=== PATIENT | female | born 1965 | race Caucasian/White ===

== ENCOUNTER → 2020-08-10 17:43 | Outpatient (CLI) | payer BC, SELFPAY ==
--- NOTE | ~2020-08-10 | DEXA_ITS ---
Bone Density Report Name: Mary Horton Age: 55 Sex: Female Ethnicity: White Date of : 1965 Indication: postmenopausal osteoporosis; height loss; Referring Provider: LATRICE ALDANA Study: Bone densitometry was performed. Exam Date: August 10, 2020 Accession number: [id number] Bone Density: Region BMD T-score Z-score Classification AP Spine (L1-L4) 0.705 -3.1 -1.9 Osteoporosis Femoral Neck (Left) 0.568 -2.5 -1.4 Osteoporosis Total Hip (Left) 0.726 -1.8 -1.0 Osteopenia Femoral Neck (Right) 0.578 -2.4 -1.3 Osteopenia Total Hip (Right) 0.674 -2.2 -1.4 Osteopenia Total Hip Mean 0.700 -2.0 -1.2 Osteopenia World Health Organization criteria for BMD impression classify patients as: Normal (T-score at or above -1.0), Osteopenia (T-score between -1.0 and -2.5), or Osteoporosis (T-score at or below -2.5). 10-year Fracture Risk: FRAX not reported because: Some T-score for Spine Total or Hip Total or Femoral Neck at or below -2.5 Previous Exams: Region Exam Age BMD T-score BMD Change BMD Change Date g/cm2 vs Baseline vs Previous AP Spine(L1-L4) 08/10/2020 55 0.705 -3.1 -0.065* -0.065* 12/04/2017 52 0.770 -2.5 Total Hip(Left) 08/10/2020 55 0.726 -1.8 -0.020 -0.020 12/04/2017 52 0.746 -1.6 Total Hip(Right) 08/10/2020 55 0.674 -2.2 -0.032* -0.032* 12/04/2017 52 0.706 -1.9 *Denotes significance at 95% confidence level, LSC for AP Spine = 0.022 g/cm2, LSC for Total Hip = 0.027 g/cm2 Clinical Information Provided by Patient: Has used the following medications: Vitamin D, MTV Patient maximum height was 65.0 Menopause Age: 51 No regular weight bearing exercise Drinks caffeinated beverages Onset of menses at age 11 Number of children 2 Impression: The patient has osteoporosis, based on the Total Spine T-score. The BMD for the AP Spine(L1-L4) decreased, changing by -0.065 since the last DXA exam. The BMD for the Total Hip(Right) decreased, changing by -0.032 since the last DXA exam. Discussion: INCREASED RISK OF FRACTURE. BONE DENSITY IS UNDESIRABLY LOW AT ONE OR MORE SKELETAL SITES, CONSISTENT WITH POSTMENOPAUSAL OSTEOPOROSIS. This patient's lowest T-score meets the World Health Organization's (WHO) criteria for osteoporosis at one or more sites (T-score -2.5 or below). In untreated patients, the risk of osteoporotic fracture increases approximately two-fold for each 1.0 SD decrease in T
--- NOTE | ~2020-08-10 | MM_ITS ---
EXAMINATION: MM screening oly BI w day HISTORY: Screening TECHNIQUE: Craniocaudal and mediolateral oblique 3-D tomosynthesis images were obtained and synthetic 2-D images were generated. CAD analysis was submitted and interpreted. COMPARISON: Comparison to multiple prior studies sequentially, with oldest reviewed study dated 09/14. BREAST PARENCHYMAL COMPOSITION: The breasts are heterogeneously dense, which may obscure small masses . FINDINGS: There is no evidence of suspicious mass, calcification, or architectural distortion to sugg est malignancy in either breast. There has been no suspicious interval change. IMPRESSION: 1. No mammographic evidence of malignancy. 2. Recommend routine screening mammography in one year. BI-RADS Category 1: Negative Reviewed, dictated and finalized at location A. [employer]
== END ==
PROVIDERS: PCP Family Medicine; Visit Provider Obstetrics & Gynecology Gynecology
DX: Z12.31 Encounter for screening mammogram for malignant neoplasm of breast (principal); Z78.0 Asymptomatic menopausal state; M81.0 Age-related osteoporosis without current pathological fracture; M85.852 Other specified disorders of bone density and structure, left thigh; M85.851 Other specified disorders of bone density and structure, right thigh
CPT/HCPCS: 77063; 77067; 77080

== ENCOUNTER 2021-02-09 18:57 | Emergency (ER) | payer BC, SELFPAY ==
--- NOTE | 2021-02-09 19:04 | ED.FEMALEGU ---
HPI - Female Genitourinary General Chief complaint: Urogenital-Female Stated complaint: Urinary freguency, pain when urinating Time Seen by Provider: 02/09/21 19:00 Source: patient and RN notes reviewed Mode of arrival: ambulatory History of Present Illness HPI Narrative: This is a 57-year-old female presented to urgent care with complaints of painful urination, frequency, hematuria that she has had for approximately 1 1/2 week .she was unable to get into her doctor's office so she presented here. She did not take anything at home to relieve her symptoms .the patient denies , vaginal discharge,Suprapubic tenderness, STD, SOB, CP, palpitation, extremity numbness, lightheadedness, dizziness, constipation, diarrhea, chills, or fever. MD elicited complaint: UTI Related Data Home Medications Medication Instructions Recorded Confirmed cholecalciferol (vitamin D3) 1,250 1,250 mcg PO Q10D cap 09/13/20 02/09/21 mcg (50,000 unit) capsule denosumab 60 mg/mL subcutaneous 60 mg SUBCUT [id number] 09/13/20 02/09/21 syringe Allergies Allergy/AdvReac Type Severity Reaction Status Date / Time oxycodone Allergy Severe Altered Verified 02/09/21 19:00 mental status tramadol Allergy Intermediate Confusion Verified 02/09/21 19:00 ibandronate sodium Allergy Mild Joint pain Verified 02/09/21 19:00 Review of Systems Review of Systems: Narrative: A 14 organ system Review of Systems was performed and pertinent positives included in the HPI, otherwise remaining ROS is negative. All systems reviewed & are unremarkable except as noted in HPI and below [facility] Past Medical History Medical History (Updated 02/09/21 @ 19:04 by BERTHA MitchellC) Prediabetes Family History Family History Grandparent Diabetes mellitus Cerebrovascular accident Father Diabetes mellitus Depression Sibling Family history of malignant neoplasm of breast in first degree relative Mother Family history of malignant neoplasm of urinary bladder Other Family history of cardiovascular disease Family history of kidney disease Family history of lung cancer Family history of malignant neoplasm Family history of malignant neoplasm of breast Family history of mental disorder Social History Social History Smoking status: Never smoker Second hand tobacco smoke exposure: No Alcohol intake: never Exam Narrative: Exam Narrative: GENERAL: This is a well-nourished, well-developed patient, in no apparent distress. HEAD: normocephalic, atraumatic. EYES: PERRL. Sclera clear/white. Vision is grossly intact. EARS: External ears normal, auditory canals clear and without drainage, TMs normal without perforation. Hearing grossly intact. NOSE: External nose normal with no obvious nasal discharge, nares without redness, no rhinorrhea. THROAT: Mucous membranes moist, posterior pharynx clear. NECK: Neck supple, non-tender without lymphadenopathy, masses or thyromegaly. CARDIOVASCULAR: Regular rate and rhythm without murmurs, gallops, or rubs. RESPIRATORY: Clear to auscultation. Breath sounds equal bilaterally. No wheezes, rales, or rhonchi. GASTROINTESTINAL: Abdomen soft, non-tender, nondistended. Bowel sounds are active. No hepato-splenomegaly, or palpable masses. No guarding. SKIN: warm, intact with no suspicious lesions or rash, good texture and turgor. NEURO: awake, alert, and oriented to person, place and time. There were no obvious focal neurologic abnormalities. Steady gait EXTREMITIES: Normal range of motion. No edema. No calf tenderness. Negative Homans sign bilaterally. BACK: Nontender without deformity or crepitance. No flank tenderness. Course Course Emergency Course: Patient will discharge home with Bactrim 100 mg twice daily x7 days Vital Signs Vital signs: Vital Signs Temperature 98.2 F 02/09/21 19:05 Pulse Rate
[2021-02-09 19:05] VITALS: BP 131/79; PULSE 63; RESP 17; TEMP 36.8; O2SAT 100
[2021-02-09 19:28] VITALS: BP 131/79; PULSE 63; RESP 17; TEMP 36.8; O2SAT 100
--- NOTE | 2021-02-12 12:23 | PC.NURSE ---
final urine result, coag neg staph, not asprophyti, and no change per provider.
== END 2021-02-09 19:30 | disposition home or self-care (01) ==
PROVIDERS: Emergency Provider Nurse Practitioner; PCP Family Medicine
DX: N39.0 Urinary tract infection, site not specified (principal); R73.03 Prediabetes
CPT/HCPCS: 81003; 87077; 87086; 87088; 87186; 99213; G0463

== ENCOUNTER 2021-02-26 10:17 | Emergency (ER) | payer BC, SELFPAY ==
--- NOTE | ~2021-02-26 | XR_ITS ---
EXAMINATION: XR chest 2V DATE: 02/26/2021 10:46 INDICATION: Productive cough TECHNIQUE: PA and lateral views of the chest are obtained. COMPARISON: None available FINDINGS: The lungs are free of acute opacities. There is no pleural effusion or pneumothorax. The ca rdiomediastinal silhouette is normal. There is moderate thoracic spondylosis. IMPRESSION: 1. No acute cardiopulmonary abnormality. Reviewed, dictated and finalized at location B.
--- NOTE | 2021-02-26 10:24 | ED.GENADULT ---
HPI - General Adult General Chief complaint: Upper Respiratory Infection Stated complaint: Chest congestion,Cough,Sore throat Source: patient and RN notes reviewed Mode of arrival: ambulatory Limitations: no limitations History of Present Illness HPI narrative: 56-year-old female presents with complaints of cough causing chest wall soreness and tightness, sinus pressure and congestion, and intermittent headache (not the worst of her life) for the past 7 days. ? reports being exposed to granddaughter who has been diagnosed with RSV, she has had increasing URI symptoms and cough over the past 72 hours. ?Ibuprofen Last 2-3 days ago, NyQuil and DayQuil without relief. ?Constant dry cough with intermittent productive cough (green phlegm). ?Rhinorrhea and nasal congestion. ?Sore throat initially has improved. ?No high fevers, drooling, neck or throat swelling. ?No chest pain, wheezing, or shortness of breath. ?No exacerbation factors. ?Denies nausea, vomiting, and abdominal pain. ?Tolerating liquids well. ?LMP post-menopausal. ?Remains active. ?The patient reports she has not been diagnosed with COVID-19. ?The patient reports she received 2 [employer] COVID-19 vaccines. ?The patient reports she is not waiting for the results of a COVID-19 lab test. ?The patient reports NEGATIVE COVID-19 results on February. ?The patient reports she does not have weakness, fatigue, or myalgia. ?The patient reports she does not have any loss of taste or smell and diarrhea. ?Denies recent traveling. ?Denies concerns for COVID-19 or exposures. ?At this time, the patient is not suspected of having COVID-19. Some parts of this dictation were generated by voice recognition software and may contain typographical and/or grammatical inaccuracies. Related Data Home Medications Medication Instructions Recorded Confirmed cholecalciferol (vitamin D3) 1,250 1,250 mcg PO Q10D cap 09/13/20 02/26/21 mcg (50,000 unit) capsule denosumab 60 mg/mL subcutaneous 60 mg SUBCUT [id number] 09/13/20 02/26/21 syringe Allergies Allergy/AdvReac Type Severity Reaction Status Date / Time oxycodone Allergy Severe Altered Verified 02/26/21 10:24 mental status tramadol Allergy Intermediate Confusion Verified 02/26/21 10:24 ibandronate sodium Allergy Mild Joint pain Verified 02/26/21 10:24 Review of Systems Review of Systems: CONSTITUTIONAL: Denies fever, chills, sweats. EYES: Denies visual changes, redness, discharge. ENT: Complains of rhinorrhea, congestion, sore throat, sinus pressure, sinus congestion. Denies otalgia. CARDIOVASCULAR: Denies chest pain, palpitations, edema. Complains of chest tightness. RESPIRATORY: Denies dyspnea, wheezing. Complaints of dry cough with intermittent productive cough. GASTROINTESTINAL: Denies abdominal pain, nausea, vomiting, diarrhea. GENITOURINARY: Denies dysuria, hematuria, abnormal discharge. SKIN: Denies rash or itching. MUSCULOSKELETAL: Denies acute back pain, joint pain, or myalgia. NEUROLOGIC: Denies numbness or focal weakness. Complains of intermittent SCHULTE. PSYCHIATRIC: Denies anxiety or depression. All systems reviewed & are unremarkable except as noted in HPI and below. [facility] Past Medical History Medical History delivery delivered Cramps of lower extremity Post-menopausal Prediabetes Surgical History Surgical History H/O section X3 History of abdominal surgery 1987 Family History Family History Grandparent Diabetes mellitus Cerebrovascular accident Father Diabetes mellitus Depression Sibling Family history of malignant neoplasm of breast in first degree relative Mother Family history of malignant neoplasm of urinary bladder Other Family history of cardiovascular disease Family history of kidney di
[2021-02-26 10:26] VITALS: BP 125/80; PULSE 82; RESP 18; TEMP 37.2; O2SAT 98
== END 2021-02-26 11:06 | disposition home or self-care (01) ==
PROVIDERS: Emergency Provider Nurse Practitioner Family; PCP Family Medicine
DX: J40 Bronchitis, not specified as acute or chronic (principal); M94.0 Chondrocostal junction syndrome [Tietze]; R73.03 Prediabetes
CPT/HCPCS: 71046; 99213; G0463

== ENCOUNTER → 2021-03-28 11:18 | Outpatient (CLI) | payer BC, SELFPAY ==
--- NOTE | ~2021-03-28 | XR_ITS ---
EXAMINATION: XR chest 2V DATE: 03/28/2021 12:03 INDICATION: Unspecified acute lower respiratory infection TECHNIQUE: PA and lateral views of the chest are obtained. COMPARISON: 02/26/2021 FINDINGS: The lungs are free of acute opacities. There is no pleural effusion or pneumothorax. The ca rdiomediastinal silhouette is normal. There is moderate thoracic spondylosis. IMPRESSION: 1. No acute cardiopulmonary abnormality. Reviewed, dictated and finalized at location B.
== END ==
PROVIDERS: PCP Family Medicine; Visit Provider Physician Assistant
DX: J22 Unspecified acute lower respiratory infection (principal)
CPT/HCPCS: 71046

== ENCOUNTER 2022-09-20 10:25 | Emergency (ER) | payer BC, SELFPAY ==
--- NOTE | 2022-09-20 10:45 | ED.GENADULT ---
HPI - General Adult General Chief complaint: Upper Respiratory Infection Stated complaint: congestion Time Seen by Provider: 09/20/22 10:45 Source: patient Mode of arrival: ambulatory Limitations: no limitations History of Present Illness HPI narrative: 57-year-old female patient presents to the [facility] with complaints of cough, congestion and head pressure. Patient states she had a cold about 2 weeks ago but continues to have cough that is worse when she lays down at night, sinus pressure and congestion. Denies fevers, body aches or chills. Patient states she has been taking [id number] NyQuil for her symptoms As well as using a nasal spray. Related Data Home Medications Medication Instructions Recorded Confirmed cholecalciferol (vitamin D3) 1,250 1,250 mcg PO Q10D 09/13/20 09/20/22 mcg (50,000 unit) capsule Allergies Allergy/AdvReac Type Severity Reaction Status Date / Time oxycodone Allergy Severe Altered Verified 09/20/22 11:08 mental status tramadol Allergy Intermediate Confusion Verified 09/20/22 11:08 ibandronate sodium Allergy Mild Joint pain Verified 09/20/22 11:08 Review of Systems Review of Systems: CONSTITUTIONAL: Denies fever, chills, or sweats. EYES: Denies visual changes, redness, or discharge. ENT: Positiverhinorrhea, congestion, denies sore throat, or otalgia. CARDIOVASCULAR: Denies chest pain, palpitations, or edema. RESPIRATORY: positive cough denies dyspnea. GASTROINTESTINAL: Denies abdominal pain, nausea, vomiting, or diarrhea. GENITOURINARY: Denies dysuria or hematuria. SKIN: Denies rash or itching. MUSCULOSKELETAL: Denies back pain, joint pain, or myalgia. NEUROLOGIC: positive headache, denies numbness, or weakness. PSYCHIATRIC: Denies anxiety or depression. [facility] Past Medical History Medical History delivery delivered Cramps of lower extremity Post-menopausal Prediabetes Surgical History Surgical History H/O section X3 History of abdominal surgery 1987 Family History Family History Grandparent Diabetes mellitus Cerebrovascular accident Father Diabetes mellitus Depression Sibling Family history of malignant neoplasm of breast in first degree relative Mother Family history of malignant neoplasm of urinary bladder Other Family history of cardiovascular disease Family history of kidney disease Family history of lung cancer Family history of malignant neoplasm Family history of malignant neoplasm of breast Family history of mental disorder Social History Social History Second hand tobacco smoke exposure: No Alcohol intake: never Substance use: never Substance use type: does not use Living arrangements: with family Occupation/Education: occupation Gender identity (if verbalized by the patient): Female Sexual Orientation (if Verbalized by the Patient): Straight or Heterosexual Comments At the time of my signature I agree with nursing past medical history, surgical, social, and family history. There is no relevant family history pertinent to the presenting complaint. Exam Narrative: GENERAL: Well-appearing, well-nourished, and in no acute distress. HEAD: Normocephalic, atraumatic. EYES: PERRLA and EOMI. ENT: Nares with erythema edema noted bilateral, no rhinorrhea or epistaxis. Mucous membranes moist. posterior pharynx no erythema, tonsillar enlargement, exudates or lesions present. Bilateral TMs are clear no erythema foreign bodies in the canal. NECK: Supple. No lymphadenopathy CHEST: Clear to auscultation. No respiratory distress. HEART: Regular rate and rhythm. No murmur heard. Normal peripheral pulses. ABDOMEN: Soft, nontender, nondistended, normal active bowel sounds. EXTREMITIES:
[2022-09-20 10:52] VITALS: BP 136/75; PULSE 73; RESP 18; TEMP 36.7; O2SAT 99
== END 2022-09-20 14:06 | disposition home or self-care (01) ==
PROVIDERS: Emergency Provider Nurse Practitioner Family; PCP Family Medicine
DX: J32.9 Chronic sinusitis, unspecified (principal); J06.9 Acute upper respiratory infection, unspecified; R05.9 Cough, unspecified; R73.03 Prediabetes
CPT/HCPCS: 99213; G0463

== ENCOUNTER 2022-11-28 02:42 | Day surgery (SDC) | payer BC, SELFPAY ==
[2022-11-17 15:09] VITALS: BMI 25.0
[2022-11-28 06:22] VITALS: BMI 24.7
[2022-11-28] MEDS: LACTATED RINGERS 1,000 ML 150 ML IV CONT (06:35)
[2022-11-28 06:54] VITALS: BP 118/79; PULSE 80; RESP 20; TEMP 36.6; O2SAT 100
--- NOTE | 2022-11-28 07:05 | WPDANESEPPF ---
Anes - Initial Pre Proc Eval Procedure: Operation Date: 11/28/22 07:30 Proposed Procedures p Screening Colonoscopy - Canelo Shah MD Date/Time: 11/28/22 07:05 Surgeon: Canelo Shah MD Pre Op Diagnosis: neoplasm screening Patient Data Age: 57 Gender: F Height: 1.65 m Weight: 67.5 kg Last Vital Signs Temp 36.6 C 11/28/22 06:54 Pulse 80 11/28/22 06:54 Resp 20 11/28/22 06:54 BP 118/79 11/28/22 06:54 Pulse Ox 100 11/28/22 06:54 Allergies Allergy/AdvReac Type Severity Reaction Status Date / Time oxycodone Allergy Severe Altered Verified 11/28/22 06:20 mental status tramadol Allergy Intermediate Confusion Verified 11/28/22 06:20 ibandronate sodium Allergy Mild Joint pain Verified 11/28/22 06:20 Home Medications Medication Instructions Recorded Confirmed Type cholecalciferol (vitamin D3) 1,250 1,250 mcg PO Q10D 09/13/20 11/28/22 History mcg (50,000 unit) capsule Patient hx anesthesia problems: none Family hx anesthesia problems: none Results Review: All pre-operative results and documents have been reviewed as part of the pre-operative evaluation. [facility] Past Medical History Medical History delivery delivered Cramps of lower extremity Post-menopausal Prediabetes Surgical History Surgical History H/O section X3 History of abdominal surgery 1987 Family History Family History Grandparent Diabetes mellitus Cerebrovascular accident Father Diabetes mellitus Depression Sibling Family history of malignant neoplasm of breast in first degree relative Mother Family history of malignant neoplasm of urinary bladder Other Family history of cardiovascular disease Family history of kidney disease Family history of lung cancer Family history of malignant neoplasm Family history of malignant neoplasm of breast Family history of mental disorder Social History Social History Smoking status: Never smoker Second hand tobacco smoke exposure: No Alcohol intake: never Substance use: never Substance use type: does not use Living arrangements: with family Occupation/Education: occupation Gender identity (if verbalized by the patient): Female Sexual Orientation (if Verbalized by the Patient): Straight or Heterosexual Spiritual care concerns: No Anes - Eval Final PreProcedure Day of Procedure 11/28/22 07:05 Patient weight: normal Heart: regular rate and rhythm Lungs: clear to auscultation and normal air movement Airway: Mallampati scale class II Neurological: alert and oriented Last oral intake: >/= 8 hours ASA classification: II Emergent: no Anesthetic plan: proceed Anesthesia type and monitoring: general GIVS Results Review: All pre-operative results and documents have been reviewed as part of the pre-operative evaluation. Informed Consent: The patient's anesthetic plan and its attendant risks and benefits were discussed with the patient/family/POA. Questions were solicited and answers provided to the satisfaction of the patient/family/POA.
--- NOTE | 2022-11-28 07:31 | PM.HPGS ---
History of Present Illness History of Present Illness Consent: Risks, benefits, and alternatives have been discussed and questions answered. Patient agrees to proceed with procedure. Chief complaint: neoplasm screening Narrative: Mary Horton is a 57 year old female Presents for screening colonoscopy. Patient's current weight appetite and bowel movements are normal. Patient denies abdominal pain. She has had no bleeding. Family history noncontributory. Patient does report prior history of esophageal lesion requiring surgical resection. These records are not available for review. Review of Systems Review of Systems: Review of systems noncontributory. [facility] Past Medical History Medical History delivery delivered Cramps of lower extremity Post-menopausal Prediabetes Surgical History Surgical History H/O section X3 History of abdominal surgery 1987 Family History Family History Grandparent Diabetes mellitus Cerebrovascular accident Father Diabetes mellitus Depression Sibling Family history of malignant neoplasm of breast in first degree relative Mother Family history of malignant neoplasm of urinary bladder Other Family history of cardiovascular disease Family history of kidney disease Family history of lung cancer Family history of malignant neoplasm Family history of malignant neoplasm of breast Family history of mental disorder Social History Social History Smoking status: Never smoker Second hand tobacco smoke exposure: No Alcohol intake: never Substance use: never Substance use type: does not use Living arrangements: with family Occupation/Education: occupation Gender identity (if verbalized by the patient): Female Sexual Orientation (if Verbalized by the Patient): Straight or Heterosexual Spiritual care concerns: No Meds Home Medications and Allergies Home Medications Medication Instructions Recorded Confirmed Type cholecalciferol (vitamin D3) 1,250 1,250 mcg PO Q10D 09/13/20 11/28/22 History mcg (50,000 unit) capsule Allergies Allergy/AdvReac Type Severity Reaction Status Date / Time oxycodone Allergy Severe Altered Verified 11/28/22 06:20 mental status tramadol Allergy Intermediate Confusion Verified 11/28/22 06:20 ibandronate sodium Allergy Mild Joint pain Verified 11/28/22 06:20 Vital Signs Vital Signs - 24 hr 11/28/22 06:54 Temperature 97.8 F Pulse Rate 80 Respiratory Rate 20 Blood Pressure 118/79 Pulse Oximetry 100 Exam Narrative: Physical exam reveals patient be alert. Comfortable at rest. Vital signs stable. HEENT exam is unremarkable. Patient is anicteric. Lungs are clear to auscultation and percussion. Heart is without murmur or extra sounds. Abdomen bowel sounds present soft nontender with no organomegaly. Digital external rectal exam normal. Assessment and Plan Assessment and plan (1) Encounter for screening colonoscopy: Code(s): Z12.11 - Encounter for screening for malignant neoplasm of colon Status: Acute Assessment and Plan: Patient presents today for screening colonoscopy. Further recommendations will be given after endoscopy.
[2022-11-28 07:55] VITALS: BP 107/65; PULSE 72; RESP 16; O2SAT 98
[2022-11-28 08:05] VITALS: BP 114/71; PULSE 66; RESP 18; O2SAT 99
[2022-11-28 08:15] VITALS: BP 116/74; PULSE 64; RESP 20; O2SAT 99
== END 2022-11-28 08:30 | disposition home or self-care (01) ==
PROVIDERS: PCP Family Medicine; Visit Provider Internal Medicine Gastroenterology
PROC: 0DJD8ZZ Inspection of Lower Intestinal Tract, Via Natural or Artificial Opening Endoscopic (ICD-10-PCS; CPT 45378; principal; 2022-11-28 07:30)
DX: Z12.11 Encounter for screening for malignant neoplasm of colon (principal); K64.8 Other hemorrhoids
CPT/HCPCS: 45378; J2704; J7120

== ENCOUNTER 2023-09-04 12:54 | Outpatient (CLI) | payer BC, SELFPAY ==
--- NOTE | ~2023-09-04 | MM_ITS ---
EXAMINATION: MM screening oly BI w day HISTORY: Screening mammogram TECHNIQUE: Craniocaudal and mediolateral oblique 3-D tomosynthesis images were obtained and synthetic 2-D images were generated. CAD analysis was submitted and interpreted. COMPARISON: 08/10/2020, 12/04/2017, 09/06/2015, 09/14/2013 BREAST PARENCHYMAL COMPOSITION: The breasts are heterogeneously dense, which may obscure small masses . FINDINGS: RIGHT BREAST: No suspicious mass, calcification, or architectural distortion are identified to sugges t malignancy. There has been no suspicious interval change. LEFT BREAST: An asymmetry is present in the anterior third of the inner breast 2.5 cm from the nipple on the craniocaudal view. IMPRESSION: 1. Left breast asymmetry on the craniocaudal view. 2. Additional mammographic views and possible breast ultrasound are recommended. BI-RADS Category 0: Incomplete: Needs additional imaging evaluation. Reviewed, dictated and finalized at location A. [employer] IMPRESSION: 1. Left breast asymmetry on the craniocaudal view. 2. Additional mammographic views and possible breast ultrasound are recommended . BI-RADS Category 0: Incomplete: Needs additional imaging evaluation.
== END 2023-09-04 12:55 ==
PROVIDERS: PCP Family Medicine; Visit Provider Obstetrics & Gynecology Gynecology
DX: Z12.31 Encounter for screening mammogram for malignant neoplasm of breast (principal); R92.8 Other abnormal and inconclusive findings on diagnostic imaging of breast
CPT/HCPCS: 77063; 77067

== ENCOUNTER 2023-10-05 09:11 | Outpatient (CLI) | payer BC, SELFPAY ==
--- NOTE | ~2023-10-05 | MMUS_ITS ---
EXAMINATION: MM diagnostic oly LT w day, US breast LT limited HISTORY: Follow-up left breast asymmetry TECHNIQUE: Additional 3-D tomosynthesis images of the left breast were performed and synthetic 2-D im ages were generated. CAD analysis was submitted and interpreted. High resolution Limited left breast ultrasound was performed. COMPARISON: Comparison to multiple prior studies sequentially, with oldest reviewed study dated 09/06. BREAST PARENCHYMAL COMPOSITION: Dense: The breasts are heterogeneously dense, which may obscure small masses FINDINGS: MAMMOGRAPHIC FINDINGS: There is persistent focal asymmetry in the medial aspect of the left breast located anteriorly. No di screte mass is identified. There are no suspicious calcifications. ULTRASOUND: Limited left breast ultrasound: Normal heterogeneous echotexture without focal solid or cystic mass i n the area of mammographic concern. IMPRESSION: 1. Probable benign asymmetric fibroglandular content without sonographic correlate in the periareolar location of the left breast medially. 2. 6 month follow-up diagnostic left mammogram recommended. BI-RADS category 3, probably benign findings. Reviewed, dictated and finalized at location A. IMPRESSION: 1. Probable benign asymmetric fibroglandular content without sonographic correl ate in the periareolar location of the left breast medially. 2. 6 month follow-up diagnostic left mammogram recommended. BI-RADS category 3, probably benign findings.
== END 2023-10-05 09:12 ==
LOC: MICIMG 09:13
PROVIDERS: PCP Family Medicine; Visit Provider Obstetrics & Gynecology Gynecology
DX: R92.8 Other abnormal and inconclusive findings on diagnostic imaging of breast (principal)
CPT/HCPCS: 76642; 77061; 77065; G0279

== ENCOUNTER 2023-12-09 11:24 | Outpatient (CLI) | payer BC, SELFPAY ==
--- NOTE | ~2023-12-09 | DEXA_ITS ---
Bone Density Report Name: CLARITA SERRANO Age: 58 Sex: Female Ethnicity: White Date of : 1965 Indication: postmenopausal osteoporosis; height loss; Referring Provider: LEYDA, OSMAN Study: Bone densitometry was performed. Exam Date: December 09, 2023 Accession number: [id number] Bone Density: Region BMD T-score Z-score Classification AP Spine (L1-L4) 0.754 -2.7 -1.2 Osteoporosis Femoral Neck (Left) 0.531 -2.9 -1.5 Osteoporosis Total Hip (Left) 0.691 -2.1 -1.1 Osteopenia Femoral Neck (Right) 0.532 -2.9 -1.5 Osteoporosis Total Hip (Right) 0.667 -2.3 -1.3 Osteopenia Total Hip Mean 0.679 -2.2 -1.2 Osteopenia World Health Organization criteria for BMD impression classify patients as: Normal (T-score at or above -1.0), Osteopenia (T-score between -1.0 and -2.5), or Osteoporosis (T-score at or below -2.5). 10-year Fracture Risk: FRAX not reported because: Some T-score for Spine Total or Hip Total or Femoral Neck at or below -2.5 Previous Exams: Region Exam Age BMD T-score BMD Change BMD Change Date g/cm2 vs Baseline vs Previous AP Spine(L1-L4) 12/09/2023 58 0.754 -2.7 -0.016 0.049* 08/10/2020 55 0.705 -3.1 -0.065* -0.065* 12/04/2017 52 0.770 -2.5 Total Hip(Left) 12/09/2023 58 0.691 -2.1 -0.055* -0.035* 08/10/2020 55 0.726 -1.8 -0.020 -0.020 12/04/2017 52 0.746 -1.6 Total Hip(Right) 12/09/2023 58 0.667 -2.3 -0.039* -0.007 08/10/2020 55 0.674 -2.2 -0.032* -0.032* 12/04/2017 52 0.706 -1.9 *Denotes significance at 95% confidence level, LSC for AP Spine = 0.022 g/cm2, LSC for Total Hip = 0.027 g/cm2 Clinical Information Provided by Patient: Has used the following medications: Vitamin D, MTV Patient maximum height was 65.0 Menopause Age: 51 No regular weight bearing exercise Does not regularly consume dairy products Drinks caffeinated beverages Onset of menses at age 11 Number of children 2 Impression: The patient has osteoporosis, based on the Left Femoral Neck T-score. The BMD for the Total Hip(Left) decreased, changing by -0.035 since the last DXA exam. Discussion: INCREASED RISK OF FRACTURE. BONE DENSITY IS UNDESIRABLY LOW AT ONE OR MORE SKELETAL SITES, CONSISTENT WITH POSTMENOPAUSAL OSTEOPOROSIS. This patient's lowest T-score meets the World Health Organization's (WHO) criteria for osteoporosis at one or more sites
== END 2023-12-09 11:25 ==
PROVIDERS: PCP Family Medicine; Visit Provider Nurse Practitioner Women's Health
DX: Z78.0 Asymptomatic menopausal state (principal); M81.0 Age-related osteoporosis without current pathological fracture; M85.852 Other specified disorders of bone density and structure, left thigh; M85.851 Other specified disorders of bone density and structure, right thigh
CPT/HCPCS: 77080

== ENCOUNTER 2024-04-06 09:53 | Outpatient (CLI) | payer BC, SELFPAY ==
--- NOTE | ~2024-04-06 | MM_ITS ---
EXAMINATION: MM diagnostic oly LT w day HISTORY: Six-month follow-up exam left breast TECHNIQUE: 3-D tomosynthesis images of the left breast were performed and synthetic 2-D images were g enerated. CAD analysis was submitted and interpreted. COMPARISON: 10/05/2023, 09/04/2023, 08/10/2020, 12/04/2017 BREAST PARENCHYMAL COMPOSITION:Not Dense. There are scattered areas of fibroglandular density. FINDINGS: Parenchymal pattern of the left breast is unchanged. No suspicious mass lesion or distortio n. No suspicious mass or calcification. IMPRESSION: No mammographic evidence for malignancy. BI-RADS Category 1: Negative Reviewed, dictated and finalized at location .
== END 2024-04-06 09:54 | disposition home or self-care (01) ==
LOC: MICIMG 09:53
PROVIDERS: PCP Family Medicine; Visit Provider Nurse Practitioner Women's Health
DX: N63.20 Unspecified lump in the left breast, unspecified quadrant (principal); R92.8 Other abnormal and inconclusive findings on diagnostic imaging of breast
CPT/HCPCS: 77061; 77065; G0279

== ENCOUNTER 2024-07-09 10:50 | Emergency (ER) | payer BC, SELFPAY ==
[2024-07-09 11:04] VITALS: BP 122/72; PULSE 69; RESP 18; TEMP 36.6; O2SAT 100
--- NOTE | 2024-07-09 11:44 | ED.FEMALEGU ---
HPI - Female Genitourinary General Chief complaint: Urogenital-Female Stated complaint: recurring uti Source: patient Mode of arrival: ambulatory Limitations: no limitations History of Present Illness HPI Narrative: 59-year-old female presents to [facility] with complaints of mild urinary urgency, frequency, foul-smelling urine and mild back pain. Patient reports she was diagnosed with a urinary tract infection on June 28 and was treated with 7 days of Macrobid at that time. Patient reports her symptoms have never completely resolved. Patient denies burning, vaginal discharge or vaginal bleeding. MD elicited complaint: dysuria and UTI Onset (ago): week(s) (1) Vaginal discharge: none Vaginal bleeding: none Urinary symptoms: Dysuria, Urgency, Frequency and Foul Smelling Urine Related Data Home Medications ?Medication ?Instructions ?Recorded ?Confirmed ?Last Taken ?Type cholecalciferol (vitamin D3) 1,250 1,250 mcg PO Q10D 09/13/20 11/28/22 11/27/22 History mcg (50,000 unit) capsule Allergies Allergy/AdvReac Type Severity Reaction Status Date / Time oxycodone Allergy Severe Altered Verified 07/09/24 11:21 mental status tramadol Allergy Intermediate Confusion Verified 07/09/24 11:21 ibandronate sodium Allergy Mild Joint pain Verified 07/09/24 11:21 Review of Systems Constitutional: Constitutional: Denies chills and Denies fatigue ENT: Denies dizziness, Denies nasal congestion and Denies sore throat Respiratory: Respiratory: Denies cough Gastrointestinal: Gastrointestinal: Denies diarrhea, Denies nausea and Denies vomiting Genitourinary: Genitourinary: Denies hematuria, Reports nocturia, Denies genital lesions, Reports dysuria, Denies pelvic pain, Denies urinary incontinence and Denies vaginal discharge Musculoskeletal: Musculoskeletal: Denies joint swelling Integumentary/Breasts: Skin/Breast: Denies rash Neurologic: Denies headache(s) and Denies focal weakness PMFSH Past Medical History Medical History Post-menopausal delivery delivered Prediabetes Cramps of lower extremity Surgical History Surgical History History of abdominal surgery 1988 H/O section X3 Family History Family History Grandparent Diabetes mellitus Cerebrovascular accident Father Diabetes mellitus Depression Sibling Family history of malignant neoplasm of breast in first degree relative Mother Family history of malignant neoplasm of urinary bladder Other Family history of cardiovascular disease Family history of kidney disease Family history of lung cancer Family history of malignant neoplasm Family history of malignant neoplasm of breast Family history of mental disorder Social History Social History Smoking status: Never smoker Second hand tobacco smoke exposure: No Alcohol intake: never Substance use: never Substance use type: does not use Living arrangements: with family Occupation/Education: occupation Gender identity (if verbalized by the patient): Female Sexual Orientation (if Verbalized by the Patient): Straight or Heterosexual Spiritual care concerns: No Comments At time of signature, I agree with nursing past medical, surgical, social and family history. There is no relevant family history pertinent to the presenting complaint. Exam Const: General: healthy appearing and no acute distress Nutritional Appearance: well nourished Orientation/consciousness: patient oriented x3 Limitations: no limitations HENMT: Head: normal to inspection Eyes: Conjunctivae: conjunctivae normal Neck: Neck: normal visual inspection Resp: Effort & Inspection: normal respiratory effort and not labored Auscultation: clear to auscultation bilaterally, no crackles, no rales, no rhonchi and no wheezes Cardio: Rate: regular rate Rhythm: regular rhythm Heart sounds: no murmurs GI: Inspection: non-distended GI Palp: Yes Soft to palpation, No Tenderness to palpation present (GI) and No Guarding due to palpation present (GI) : General: No Bladder palpation abnormal Other: Very mild pain noted bladder upon palpation. Back/Spine/Pelvis: Back: no CVA tenderness Skin: General skin exam: normal color Rashes: no rashes Wounds: no wounds Neuro: General: patient oriented x3 Speech: normal speech Gait exam (Neuro): Normal gait present Extrem: General: normal to inspection Psych: Appearance: grossly normal Affect: normal affect Attitude: cooperative Course Course Level of Care: Express Care Visit Vital Signs Vital signs: Vital Signs Temperature 36.6 C 07/09/24 11:04 Pulse Rate 69 07/09/24 11:04 Respiratory Rate 18 07/09/24 11:04 Blood Pressure 122/72 07/09/24 11:04 Pulse Oximetry 100 07/09/24 11:04 Oxygen Delivery Room Air 07/09/24 11:04 Temperature 36.6 C 07/09/24 11:04 Pulse Rate 69 07/09/24 11:04 Respiratory Rate 18 07/09/24 11:04 Blood Pressure 122/72 07/09/24 11:04 Pulse Oximetry 100 07/09/24 11:04 Oxygen Delivery Room Air 07/09/24 11:04 MDM - Female Genitourinary MDM Narrative Medical decision making narrative: Discussed urinalysis results with patient. Due to continued symptoms and 1+ leukocytes, offered patient 5 day course of ciprofloxacin but patient declines at this time. Patient reports that she would rather wait and get urine culture results and start antibiotic at that time if needed. Patient patient proceed to the emergency room if symptoms worsen Differential Diagnosis Differential diagnosis: Likely urinary tract infection and vaginitis Lab Data Labs: 1+ leukocytes noted on urinalysis Critical Care Time Critical Care Time Critical Care Time: No Discharge Plan Discharge Clinical Impression: Dysuria Patient Disposition: Home, Self-Care Condition: Stable Instructions: Dysuria (ED) Additional Instructions: Increase water intake Follow-up with primary care provider if symptoms not improved Urine culture obtained and sent to lab; will call you if any abnormality is noted Proceed to the emergency room if symptoms worsen Patient Language: Turkish Prescriptions: No Action cholecalciferol (vitamin D3) 1,250 mcg (50,000 unit) capsule 1,250 mcg PO Q10D Follow-up/Referrals: Melissa,Dominick Bay MD [Primary Care Provider] - Time of Disposition: 11:50
[2024-07-09 11:57] LABS: EDUAAPPEAR Cloudy; EDUABILI Negative (Negative); EDUABLOOD Negative (Negative); EDUACOLOR1 Yellow; EDUAGLUCOSE Negative (Negative); EDUAKETONE Negative (Negative); EDUALEUKO 1+ (Negative); EDUANITRATE Negative (Negative); EDUAPROTEIN Negative (Negative); EDUAUROBILI 0.2
--- OUTSIDE RECORDS SUMMARY | 2024-07-16 14:38 | XMS_ITS | Encounter Summary ---
Author Organization [facility] Address [address] [place] [address]. 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 Name Role Phone Unavailable Primary Care Provider Unavailabl e Encounter Details Date Type Department Care Team (Latest Contact Info) Description 08/12/2016 Abstract [facility] [place] [address] [place] [address] Social History Tobacco Use Types Packs/Day Years Used Date Smoking Tobacco: Never Assessed Comments Unknown Sex and Gender Information Value Date Recorded Sex Assigned at Not on file Legal Sex Female 7:39 PM CDT Gender Identity Not on file Sexual Orientation Not on file documented as of this encounter Plan of Treatment Upcoming Encounters Date Type Department Care Team (Late st Contact Info) Description 08/02/2024 9:20 AM [facility] Hospital Encounter [facility] [place] [address] [phone] Rm Cardozo, GRANTS OFFICER [id number] [place] [address] [phone] (Work) documented as of this encounter Visit Diagnoses Not on filedocumented in this encounter
--- OUTSIDE RECORDS SUMMARY | 2024-07-16 14:38 | XMS_ITS | Encounter Summary ---
Author Organization [facility] Address [address] [place] [address]. [place] [address] [place] [address] Care Team Providers Care Environmental Health Aide Name Role Phone Unavailable Primary Care Provider Unavailabl e Encounter Details Date Type Department Care Team (Late st Contact Info) Description 08/22/2016 Abstract [facility] Medical [facility] Family & Internal Medicine [facility] [address] [place] [address] Debra Tilley APNP [address] [phone] Social History Tobacco Use Types Packs/Day Years Used Date Smoking Tobacco: Never Assessed Comments Unknown Sex and Gender Information Value Date Recorded Sex Assigned at Not on file Legal Sex Female 7:39 PM CDT Gender Identity Not on file Sexual Orientation Not on file documented as of this encounter Last Filed Vital Signs Vital Sign Reading Time Taken Comments Blood Pressure 112/70 08/22/2016 2:19 PM SALON RECEPTIONIST Pulse 76 08/22/2016 2:19 PM SALON RECEPTIONIST Temperature - - Respiratory Rate - - Oxygen Saturation - - Inhaled Oxygen Concentration - - Weight 60.3 kg (133 lb) 08/22/2016 2:19 PM SALON RECEPTIONIST Height 160 cm (5' 3 ) 08/22/2016 2:19 PM SALON RECEPTIONIST Body Mass Index 23.56 08/22/2016 2:19 PM SALON RECEPTIONIST documented in this encounter Progress Notes * KATARZYNA Krishnamurthy - 08/22/2016 2:00 PM CST Reason For Visit Acute Visit Chief Complaint C/o right ear pain x Thursday. Denies any sinus symptoms. She is c/o nausea the past 3 days. No othersymptoms. NKDA. History of Present Illness HPI Free Text: presents with ear pain. 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 She has been using essential oils. She states that if she doesn't havean infection it's because of the essential oils but she still has ear pain that makes it difficult to work. Ear Pain: Mary Horton presents with complaints of ear pain. Associated symptoms include ear plugging, ear pressure, ear drainage, vertigo and nausea, but no ear pruritus, no fever, no nasal congestion, no cough, no sore throat, no facial pain, no dental pain and no tinnitus. Review of Systems Constitutional review of systems normal except as noted. ENT: earache, but no nasal discharge. nausea Active Problems 1. 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 Epicondylitis, lateral (726.32) (M77.10) 4. Incisional hernia (553.21) (K43.2) 5. Low back pain (724.2) (M54.5) 6. Midline low back pain without sciatica (724.2) (M54.5) 7. Neck pain (723.1) (M54.2) 8. Perinephric abscess (590.2) (N15.1) Past Medical History 1. History of Acute maxillary sinusitis (461.0) (J01.00) 2. History of Acute upper respiratory infection (465.9) (J06.9) 3. History of upper respiratory infection (V12.09) (Z87.09) 4. History of Sore throat (462) (J02.9) 5. History of UTI symptoms (788.99) (R39.9) Surgical History 1. History of Section ?? 2 2. History of Vaginal Pap smear (V76.47) (Z12.72) Family History Mother 1. Family history of malignant neoplasm of urinary bladder (V16.52) (Z80.52) Father 2. Family history of cardiac disorder (V17.49) (Z82.49) 3. Family history of psoriasis (V19.4) (Z84.0) Sister 4. Family history of malignant neoplasm of breast (V16.3) (Z80.3) 5. Family history of thyroid disease (V18.19) (Z83.49) Brother 6. Family history of alcoholism (V17.0) (Z81.1) 7. Family history of dementia (V17.2) (Z81.8) 8. Family history of depression (V17.0) (Z81.8) 9. Family history of diabetes mellitus (V18.0) (Z83.3) 10. Family history of psoriasis (V19.4) (Z84.0) Social History ?? Denied: History of Alcohol Use (History) ?? Marital History - Currently ?? Never a smoker ?? Never Drank Alcohol ?? Never Used Drugs ?? Preferred Language Nauruan Immunizations Influenza --- Series1: Temporarily Deferred: Refusal of treatment by patient (situation) Tetanus --- Series1: 29Dec2012 Current Meds 1. Cyclobenzaprine HCl - 10 MG Oral Tablet; TAKE 1/2 TO 1 TABLET AT BEDTIME NEEDED; Therapy: 18Sep2015 to (Evaluate:17Nov2015) Requested for: 18Sep2015; Last Rx:18Sep2015 Ordered 2. Vitamin D (Ergocalciferol) 22268 UNIT Oral Capsule; TAKE 1 CAPSULE Weekly; Therapy: 22Aug2016 to Recorded Allergies 1. No Known Drug Allergies Vitals Recorded: 22Aug2016 02:19PM Temperature 97.9 F Heart Rate 76 Systolic 112 Diastolic 70 O2 Saturation 99 Height 5 ft 3 in Weight 133 lb BMI Calculated 23.56 BSA Calculated 1.63 Physical Exam Constitutional General appearance: No acute distress, well appearing and well nourished. Eyes Conjunctiva and lids: No swelling, erythema or discharge. Ears, Nose, Mouth, and Throat External inspection of ears and nose: Normal. Otoscopic examination: Tympanic membranes translucent with normal light reflex. Canals patent without erythema. Oropharynx: Normal with no erythema, edema, exudate or lesions. Pulmonary Respiratory effort: No increased work of breathing or signs of respiratory distress. Auscultation of lungs: Clear to auscultation. Cardiovascular Auscultation of heart: Normal rate and rhythm, normal S1 and S2, without murmurs. Lymphatic Palpation of lymph nodes in neck: No lymphadenopathy. Musculoskeletal Gait and station: Normal. Neurologic Reflexes: 2+ and symmetric. Psychiatric Orientation to person, place, and time: Normal. Mood and affect: Normal. Assessment 1. Ear fullness (388.8) (H93.8X9) Plan Ear fullness, Nausea 1. Sudafed Pressure+Pain 12 HR 120-220 MG Oral Tablet Extended Release 12 Hour; TAKE 1 TABLET Every twelve hours Rx By: Debra Tilley; Dispense: 5 Days ; #:10 Tablet Extended Release 12 Hour; Refill: 0; For:Ear fullness, Nausea; THADDEUS = N; Print Rx Begin Sudafed as directed. Take medicine with food. Keep water intake high. Do not put anything in ear canal. Protect ears from cold, wind, and water. Do not take Sudafed for longer than 5 days. Begin daily allergy medicine like Claritin, Sara, or Zyrtec. Take as directed on package. Keep water intake high. Return to office if you develop signs of infection, as discussed. Return to office if symptoms do not improve after 1 week. Discussion/Summary Further discussion, she describes the pain as fullness . She may have some fluid behind the ears. Told her will refer her to ENT if symptoms are not relieved or worsen. She asked about continuing essential oils. I do not know if they are harmful or helpful and cannot make a recommendation eitherway. She stated understanding to instructions. Signatures Electronically signed by : Debra Tilley APN; Aug 23 2016 10:33AM SALON RECEPTIONIST (Author) documented in this encounter Plan of Treatment Upcoming Encounters Date Type Department Care Team (Late st Contact Info) Description 08/02/2024 9:20 AM SALON RECEPTIONIST Hospital Encounter [facility] [place] [address] [phone] Rm Cardozo, TALENT CONSULTANT 3 [facility] [address] [place] [address] [phone] (Work) documented as of this encounter Visit Diagnoses Not on filedocumented in this encounter
--- OUTSIDE RECORDS SUMMARY | 2024-07-16 14:38 | XMS_ITS | Encounter Summary ---
Author Organization [facility] Address [address] [place] [address]. [place] [address] [place] [address] Care Team Providers Care Risk Control Representative Name Role Phone Unavailable Primary Care Provider Unavailabl e Encounter Details Date Type Department Care Team (Late st Contact Info) Description 09/30/2016 Abstract [facility] Medical Group Family & Internal Medicine [facility] [address] [place] [address] [place] [address] [place] [address] Social History Tobacco Use Types Packs/Day Years Used Date Smoking Tobacco: Never Assessed Comments Unknown Sex and Gender Information Value Date Recorded Sex Assigned at Not on file Legal Sex Female 7:39 PM CDT Gender Identity Not on file Sexual Orientation Not on file documented as of this encounter Last Filed Vital Signs Vital Sign Reading Time Taken Comments Blood Pressure 104/62 09/30/2016 11:00 AM CDT Pulse 72 09/30/2016 11:00 AM CDT Temperature - - Respiratory Rate - - Oxygen Saturation - - Inhaled Oxygen Concentration - - Weight 59 kg (130 lb 2.1 oz) 09/30/2016 11:00 AM CDT Height 160 cm (5' 3 ) 09/30/2016 11:00 AM CDT Body Mass Index 23.05 09/30/2016 11:00 AM CDT documented in this encounter Progress Notes * Linh Espino MD - 09/30/2016 10:45 AM CDT Reason For Visit Acute Visit Chief Complaint Acute visit for chest tightness since she was diagnosed with the flu, physical activity increases tightness. Still having congestion, able to blow out yellow mucous, reports has gotten a lot better, afebrile. Has 2 abx pills left to take. Works at [employer] and states it hurts to work and do any activity. States hurts to take deep breathe. History of Present Illness HPI Free Text: A 51-year-old female who has had right ear pain went into sinus then she developed fever, chills, body aches, went to urgent care, and was diagnosed with the flu. She was treated with Tamiflu, was slow to respond then it felt worse again with sinus pressure. Was seen, treated, this seemed to help alittle bit but now she is feeling worse again with fullness in the right ear, sinus pressure, dry cough. It hurts when she coughs. Sinusitis: The patient is being seen for worsening symptoms of sinusitis. Symptoms: nasal congestion, ear fullness and headache. The patient is currently experiencing symptoms. Onset was gradual. Thesymptoms occur intermittently. She describes this as moderate in severity and worsening. Relieving factors: oral decongestant. Associated symptoms: sore throat. Current treatment includes oral decongestant. By report, there is good compliance with treatment, good tolerance of treatment and fair symptom control. Review of Systems See HPI for pertinent positives. Constitutional: fever, feeling poorly and feeling tired. ENT: nasal discharge and hoarseness. Cardiovascular: Normal. The patient presents with complaints of gradual onset of intermittent episodes of mild cough, described as dry. Her symptoms are caused by cold symptoms. Previous Evaluation: PND. Gastrointestinal: Normal. Integumentary: Normal. Neurological: Normal. Psychiatric: Normal. Active Problems 1. Acute sinusitis (461.9) (J01.90) 2. 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 Ear fullness (388.8) (H93.8X9) 5. Epicondylitis, lateral (726.32) (M77.10) 6. Incisional hernia (553.21) (K43.2) 7. Low back pain (724.2) (M54.5) 8. Midline low back pain without sciatica (724.2) (M54.5) 9. Nausea (787.02) (R11.0) 10. Neck pain (723.1) (M54.2) 11. Perinephric abscess (590.2) (N15.1) 12. Right ear pain (388.70) (H92.01) Past Medical History 1. History of Acute [...] ?? Never Used Drugs ?? Preferred Language Brazilian Immunizations Influenza --- Series1: Temporarily Deferred: Refusal of treatment by patient (situation) Tetanus --- Series1: 29Dec2012 Current Meds 1. Amoxicillin-Pot Clavulanate 500-125 MG Oral Tablet; TAKE 1 TABLET EVERY 12 HOURS DAILY; Therapy: 24Sep2016 to (Evaluate:01Oct2016) Requested for: 24Sep2016; Last Rx:[id number] Ordered 2. Cyclobenzaprine HCl - 10 MG Oral Tablet; TAKE 1/2 TO 1 TABLET AT BEDTIME NEEDED; Therapy: 18Sep2015 to (Evaluate:17Nov2015) Requested for: 18Sep2015; Last Rx:[id number] Ordered 3. Oseltamivir Phosphate 75 MG Oral Capsule; Therapy: 20Sep2016 to Recorded 4. Vitamin D (Ergocalciferol) 31527 UNIT Oral Capsule; TAKE 1 CAPSULE Weekly; Therapy: 22Aug2016 to Recorded Allergies 1. No Known Drug Allergies Vitals Recorded: 30Sep2016 11:00AM Temperature 98.3 F Heart Rate 72 Respiration 16 Systolic 104 Diastolic 62 O2 Saturation 98 Height 5 ft 3 in Weight 130 lb 2 oz BMI Calculated 23.05 BSA Calculated 1.61 Physical Exam Constitutional General appearance: Abnormal. (appearance reflects stated age) acutely ill and appears tired, but well nourished. Eyes Conjunctiva and lids: No swelling, erythema or discharge. Ears, Nose, Mouth, and Throat External inspection of ears and nose: Normal. Otoscopic examination: Abnormal. The right tympanic membrane had a diminished light reflex. The left tympanic membrane had a diminished light reflex. Oropharynx: Abnormal. posterior purulent secretions. Pulmonary Respiratory effort: No increased work of breathing or signs of respiratory distress. Auscultation of lungs: Clear to auscultation. Cardiovascular Auscultation of heart: Normal rate and rhythm, normal S1 and S2, without murmurs. Abdomen Abdomen: Non-tender, no masses. Liver and spleen: No hepatomegaly or splenomegaly. Lymphatic Palpation of lymph nodes in neck: No lymphadenopathy. Skin Skin and subcutaneous tissue: Normal without rashes or lesions. Neurologic Cranial nerves: Cranial nerves 2-12 intact. Psychiatric Mood and affect: Normal. Assessment 1. Acute sinusitis (461.9) (J01.90) Plan Acute sinusitis 1. Cefuroxime Axetil 500 MG Oral Tablet; TAKE 1 TABLET EVERY 12 HOURS DAILY Rx By: Linh Espino; Dispense: 10 Days ; #:20 Tablet; Refill: 0; For: Acute sinusitis; THADDEUS = N; Verified Transmission to [employer] # [id number]; Last Updated By: Tika Ruby; 09/30/2016 11:35:28 AM 2. Follow-up PRN Outpatient Follow-up Status: Complete Done: 30Sep2016 Ordered; For: Acute sinusitis; Ordered By: Linh Espino Performed: Due: 14Oct2016 Discussion/Summary Suspect lungs are residual from inflammation but sinusitis that has not completely resolved. We will treat with Ceftin, continue Neti Pot and if she does not respond to this, consider Cat?s claw since she likes natural; otherwise, would have her off at work tomorrow so she can try to rest and get better; otherwise, RTO if worse, not better or PRN. Impression: acute sinusitis. Currently, the condition is moderate in severity. Medication changes are as documented in orders. Patient discussion: discussed with the patient. Signatures Electronically signed by : Linh Espino M.D.; Oct 05 2016 12:21PM CERTIFIED MEDICAL DOSIMETRIST (Author) documented in this encounter Miscellaneous Notes * Letter - Linh Espino MD - 09/30/2016 10:45 AM CDT To Whom It May Concern, Please excuse my patient DANIEL Riojas 1965, from work for today 09/30/16 through 10/01/16 for illness and may return to work on 10/02/16. If you have any questions or concerns please do not hesitate to call my office at [phone]. Sincerely, Linh Espino M.D./[facility] Electronically signed by:Linh Espino M.D. Oct 05 2016 12:21PM CERTIFIED MEDICAL DOSIMETRIST documented in this encounter Plan of Treatment Upcoming Encounters Date Type Department Care Team (Late st Contact Info) Description 08/02/2024 9:20 AM CERTIFIED MEDICAL DOSIMETRIST Hospital Encounter [facility] [place] [address] [id number] Rm Cardozo, COMMISSARY PRODUCTION SUPERVISOR [address] [place] [address] [phone] (Work) documented as of this encounter Visit Diagnoses Not on filedocumented in this encounter
--- OUTSIDE RECORDS SUMMARY | 2024-07-16 14:38 | XMS_ITS | Encounter Summary ---
Author Organization [facility] Address [address] [place] [address]. [place] [address] [place] [address] Care Team Providers Care Log Getter Name Role Phone Unavailable Primary Care Provider Unavailabl e Encounter Details Date Type Department Care Team (Late st Contact Info) Description 05/29/2017 Abstract [facility] Medical Group Family & Internal Medicine [address] [address] Regina Ferris APNP Social History Tobacco Use Types Packs/Day Years Used Date Smoking Tobacco: Never Assessed Comments Unknown Sex and Gender Information Value Date Recorded Sex Assigned at Not on file Legal Sex Female 7:39 PM CDT Gender Identity Not on file Sexual Orientation Not on file documented as of this encounter Last Filed Vital Signs Vital Sign Reading Time Taken Comments Blood Pressure 116/60 05/29/2017 9:42 AM BODY COVERER Pulse 66 05/29/2017 9:42 AM BODY COVERER Temperature - - Respiratory Rate - - Oxygen Saturation - - Inhaled Oxygen Concentration - - Weight 59.1 kg (130 lb 6.1 oz) 05/29/2017 9:42 A M BODY COVERER Height - - Body Mass Index 23.1 09/30/2016 11:00 AM CDT documented in this encounter Progress Notes * KATARZYNA Thompson - 05/29/2017 9:40 AM CST Reason For Visit Reason For Visit: Acute Visit Chief Complaint Pt presents today c/o dizziness, and right ear pain. Onset Thursday night. History of Present Illness Ear Pain: Mary [place] presents with complaints of gradual onset of constant episodes of moderate right ear pain, described as dull and aching, non-radiating. Episodes started about 2 days ago. She is currently experiencing ear pain. Her symptoms are caused by no known event. Symptoms are improved by ibuprofen. Symptoms are worsening. Associated symptoms include ear pressure and tinnitus. Review of Systems See HPI for pertinent positives. Constitutional: feeling poorly and feeling tired. ENT: earache. Cardiovascular: Normal. Respiratory: Normal. Gastrointestinal: Normal. Genitourinary: Normal. Integumentary: Normal. Musculoskeletal: Normal. Neurological: dizziness. Psychiatric: Normal. Active Problems 1. 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 Epicondylitis, lateral (726.32) (M77.10) 4. Incisional hernia (553.21) (K43.2) 5. Perinephric abscess (590.2) (N15.1) Past Medical History History of Acute maxillary sinusitis (461.0) (J01.00) History of Acute upper respiratory infection (465.9) (J06.9) History of Ear fullness (388.8) (H93.8X9) History of acute sinusitis (V12.69) (Z87.09) History of low back pain (V13.59) (Z87.39) History of nausea (V12.79) (Z87.898) History of neck pain (V13.59) (Z87.39) History of upper respiratory infection (V12.09) (Z87.09) History of Midline low back pain without sciatica (724.2) (M54.5) History of Right ear pain (388.70) (H92.01) History of Sore throat (462) (J02.9) History of UTI symptoms (788.99) (R39.9) Patient indicats no significant past medical history. Surgical History History of Section ?? 2 History of Vaginal Pap smear (V76.47) (Z12.72) Patient indicates no past surgical history. Family History Family history of malignant neoplasm of urinary bladder (V16.52) (Z80.52) Family history of cardiac disorder (V17.49) (Z82.49) Family history of psoriasis (V19.4) (Z84.0) Family history of malignant neoplasm of breast (V16.3) (Z80.3) Family history of thyroid disease (V18.19) (Z83.49) Family history of alcoholism (V17.0) (Z81.1) Family history of dementia (V17.2) (Z81.8) Family history of depression (V17.0) (Z81.8) Family history of diabetes mellitus (V18.0) (Z83.3) Family history of psoriasis (V19.4) (Z84.0) Patient indicates no significant family history of disease. Social History Denied: History of Alcohol Use (History) Marital History - Currently Never a smoker Never Drank Alcohol Never Used Drugs Preferred Language Ecuadorean No social history was elicited today. Immunizations Tetanus --- Series1: 29-Dec-2012 Current Meds 1. Cyclobenzaprine HCl - 10 MG Oral Tablet; TAKE 1/2 TO 1 TABLET AT BEDTIME NEEDED; Therapy: 18Sep2015 to (Evaluate:17Nov2015) Requested for: 18Sep2015; Last Rx:18Sep2015 Ordered Rx By: Linh Espino; Dispense: 30 Days ; #:30 Tablet; Refill: 1; For: PMH: Midline low back painwithout sciatica; THADDEUS = N; Verified Transmission to [facility]; Last Updated By: [employer]; 09/18/2015 1:45:26 PM 2. Vitamin D (Ergocalciferol) 55176 UNIT Oral Capsule; TAKE 1 CAPSULE Weekly; Therapy: 22Aug2016 to Recorded Dispense: 0 Days ; #:8 Capsule; Refill: 5; THADDEUS = N; Record; Last Updated By: Luci Tejeda; 08/22/2016 2:26:39 PM Allergies 1. No Known Drug Allergies Recorded By: Lesley Sunshine; 12/29/2012 8:43:54 AM Vitals Recorded: 29May2017 09:42AM Temperature 98.3 F Heart Rate 66 Respiration 16 Systolic 116 Diastolic 60 O2 Saturation 98 Weight 130 lb 6 oz BMI Calculated 23.1 BSA Calculated 1.61 Physical Exam Constitutional General appearance: Abnormal. acutely ill and uncomfortable. Eyes Conjunctiva and lids: No swelling, erythema or discharge. Ears, Nose, Mouth, and Throat External inspection of ears and nose: Normal. Otoscopic examination: Abnormal. The left tympanic membrane was bulging and had a loss of landmarks. Oropharynx: Normal with no erythema, edema, exudate or lesions. Pulmonary Respiratory effort: No increased work of breathing or signs of respiratory distress. Auscultation of lungs: Clear to auscultation. Cardiovascular Auscultation of heart: Normal rate and rhythm, normal S1 and S2, without murmurs. Lymphatic Palpation of lymph nodes in neck: No lymphadenopathy. Musculoskeletal Gait and station: Normal. Psychiatric Orientation to person, place, and time: Normal. Mood and affect: Normal. Assessment 1. Acute otitis media, right (382.9) (H66.91) Plan Acute URI 1. Azithromycin 250 MG Oral Tablet; TAKE 2 TABLETS ON DAY 1 THEN TAKE 1 TABLET A DAY FOR 4 DAYS Rx By: Regina Ferris; Dispense: 0 Days ; #:1 X 6 Tablet Pack; Refill: 0; For: Acute URI; THADDEUS = N;Verified Transmission to [employer] # [id number]; Last Updated By: [employer]; 05/29/2017 10:03:45 AM 2. Fluticasone Propionate 50 MCG/ACT Nasal Suspension; USE 1 SPRAY IN EACH NOSTRIL TWICE DAILY Rx By: Regina Ferris; Dispense: 0 Days ; #:1 X 9.9 ML Bottle; Refill: 0; For: Acute URI; THADDEUS = N;Verified Transmission to [facility] # [id number]; Last Updated By: [employer]; 05/29/2017 10:03:45 AM Discussion/Summary Right otitis media- Discussed Abx therapy and use of Flonase. Encouraged to increase oral fluid intake, rest and use of Tylenol/Ibuprofen for fever of discomfort. FU PRN Signatures Electronically signed by : Regina Ferris NP; May 29 2017 12:50PM BODY COVERER (Author) documented in this encounter Plan of Treatment Upcoming Encounters Date Type Department Care Team (Late st Contact Info) Description 08/02/2024 9:20 AM BODY COVERER Hospital Encounter [facility] Inter[facility] [place] [address] [id number] Rm Cardozo, VERTICAL MILL OPERATOR [address] [address] [phone] (Work) documented as of this encounter Visit Diagnoses Not on filedocumented in this encounter
--- OUTSIDE RECORDS SUMMARY | 2024-07-16 14:38 | XMS_ITS | Encounter Summary ---
Author Organization [facility] Address [address] [place] [address]. [place] [address] [place] [address] Care Team Providers Care Industrial Servicer Name Role Phone Unavailable Primary Care Provider Unavailabl e Encounter Details Date Type Department Care Team (Late st Contact Info) Description 11/08/2017 Abstract [facility] [address] [place] [address] Savannah Juan, COMMUNITY RELATIONS COORDINATOR [address] [facility] [address] [place] [address] Social History Tobacco Use Types Packs/Day Years [...] st Contact Info) Description 08/02/2024 9:20 AM [facility] Hospital Encounter [facility] [address] [facility] [place] [address] [id number] Rm Cardozo, FASHION MODEL [address] [facility] [address] [place] [address] [phone] (Work) documented as of this encounter Procedures Procedure Name Priority Date/Time Associated Diagnosis Comments URINALYSIS STAT 11/08/2017 2:06 PM CDT URINE BACTERIA CULTURE Routine 11/08/2017 2:06 PM CDT URINALYSIS MICRO ONLY STAT 11/08/2017 2:06 PM CDT documented in this encounter Results * CULTURE URINE (11/08/2017 2:06 PM CDT) SPEC DESCRIPTION URINE CLEAN CATCH 11/08/2017 2:29 PM CDT [facility] SPECIAL REQUESTS NO SPECIAL REQUEST 11/08/2017 2:29 PM CDT [facility] CULTURE RESULT 50,000-100,000 COL/MLESCHERICHI A COLI 11/12/2017 1:42 PM CDT [facility] CULTURE RESULT POLYMICROBIAL GROWTH CONSISTENT WITH NORMAL GENITAL MONTSERRAT. ?? SUSCEPTIBILITIES NOT ROUTINELY PERFORMED. 11/12/2017 1:42 PM CDT [facility] URINE SPECIMEN OBTAINED BY CLEAN CATCH PROCEDURE / Unknown 11/08/2017 2:06 PM CDT 11/08/2017 2:28 PM CDT Narrative Organism Antibiotic Method Susceptibility Unknown AMPICILLIN ADELINE (VITEK) 4: Sensitive Unknown AMPICILLIN/SULBACTAM ADELINE (VITEK) <=2: Sensitive Unknown CEFTRIAXONE ADELINE (VITEK) <=1: Sensitive Unknown CEFTAZIDIME ADELINE (VITEK) <=1: Sensitive Unknown CEFAZOLIN ADELINE (VITEK) <=4: Sensitive Unknown ESBL ADELINE (VITEK) NEG: Sensitive Unknown NITROFURANTOIN ADELINE (VITEK) <=16: Sensitive Unknown GENTAMICIN ADELINE (VITEK) <=1: Sensitive Unknown LEVOFLOXACIN ADELINE (VITEK) <=0.12: Sensitive Unknown PIPRACIL/TAZO ADELINE (VITEK) <=4: Sensitive Unknown TRIMETH-SULFAMETH. ADELINE (VITEK) <=20: Sensitive Comment: Organism code(s) sent by the ancillary, '50,000-100,000 COL/MLESCHERICHIA COLI', not recognized. Organism 'UNKNOWN' was substituted in its place. us Generic Conversion Md PARADA MICROBIOLOGY - GENERAL ORDERABLES Final Result [facility] [address] [place] [address], [place] [phone] [facility] [address] [place] [address], [place] [phone] * URINALYSIS MICRO ONLY (11/08/2017 2:06 PM CDT) WBC/HPF 10-25 0 - 5 /HPF 11/08/2017 2:26 PM CDT [facility] RBC/HPF 0-5 0 - 5 /HPF 11/08/2017 2:26 PM CDT [facility] EPI/HPF FEW /HPF 11/08/2017 2:26 PM CDT [facility] BACTERIA (U) FEW /HPF 11/08/2017 2:26 PM CDT [facility] 11/08/2017 2:06 PM CDT 11/08/2017 2:14 PM CDT us Generic Conversion Md PARADA URINE ORDERABLES Final Result [facility] [address] [place] [address], [place] [phone] * (ABNORMAL) URINALYSIS (11/08/2017 2:06 PM CDT) COLOR (U) YELLOW 11/08/2017 2:26 PM CDT [facility] TRANSPARENCY HAZY 11/08/2017 2:26 PM CDT [facility] SPECIFIC GRAVITY (U) 1.010 1.000 - 1.030 11/08/2017 2:26 PM CDT [facility] U PH 5.5 5.0 - 9.0 11/08/2017 2:26 PM CDT [facility] LEUKOCYTES (U) 2+(A) NEGATIVE 11/08/2017 2:26 PM CDT [facility] NITRITES POSITIVE(A) NEGATIVE 11/08/2017 2:26 PM CDT [facility] PROTEIN (U) NEGATIVE NEGATIVE 11/08/2017 2:26 PM CDT [facility] URINE GLUCOSE NEGATIVE NEGATIVE 11/08/2017 2:26 PM CDT [facility] KETONES MG/DL (U) NEGATIVE NEGATIVE 11/08/2017 2:26 PM CDT [facility] BILIRUBIN (U) NEGATIVE NEGATIVE 11/08/2017 2:26 PM CDT [facility] BLOOD (U) NEGATIVE NEGATIVE 11/08/2017 2:26 PM CDT [facility] CULTURE & SENSITIVITY INDICATED? SPECIMEN SETUP FOR CULTURE 11/08/2017 2:26 PM CDT [facility] 11/08/2017 2:06 PM CDT 11/08/2017 2:14 PM CDT us Generic Conversion Md PARADA URINE ORDERABLES Final Result [facility] [address] [place] [address], [place] [phone] documented in this encounter Visit Diagnoses Diagnosis Urinary tract infection Urinary tract infection, site not specified documented in this encounter
--- OUTSIDE RECORDS SUMMARY | 2024-07-16 14:38 | XMS_ITS | Encounter Summary ---
Author Organization [facility] Address [address] [place] [address]. [place] [address] [place] [address] Care Team Providers Care Portable Track Line Marker Name Role Phone Unavailable Primary Care Provider Unavailabl e Encounter Details Date Type Department Care Team (Late st Contact Info) Description 10/30/2017 Abstract [facility] Medical Group Family & Internal Medicine [address] [address] Lenka Ramos NP Social History Tobacco Use Types Packs/Day Years Used Date Smoking Tobacco: Never Assessed Comments Unknown Sex and Gender Information Value Date Recorded Sex Assigned at Not on file Legal Sex Female 7:39 PM CDT Gender Identity Not on file Sexual Orientation Not on file documented as of this encounter Last Filed Vital Signs Vital Sign Reading Time Taken Comments Blood Pressure 120/64 10/30/2017 8:24 AM CDT Pulse 69 10/30/2017 8:24 AM CDT Temperature - - Respiratory Rate - - Oxygen Saturation - - Inhaled Oxygen Concentration - - Weight 63.1 kg (139 lb 2.1 oz) 10/30/2017 8:24 A M CDT Height 160 cm (5' 3 ) 10/30/2017 8:24 AM CDT Body Mass Index 24.65 10/30/2017 8:24 AM CDT documented in this encounter Progress Notes * Lenka Ramos NP - 10/30/2017 8:20 AM CDT Reason For Visit Reason For Visit: Acute Visit Chief Complaint Pt. c/o slight urination frequency with odor x 3 days. She states that she does not have any pain or burning sensations. History of Present Illness HPI Free Text: 52 year old WF presents to clinic today with slight urinary frequency and odor for 3days. Denies any pain/burning with urination. Denies any abdomen or low back pain. She states that she mostly drinks caffeinated coffee and teas with maybe 1 glass of water per day. She does not take any type of azo or cranberry supplent. Denies fever. UTI, Acute: The patient is being seen for an initial evaluation of this episode of a urinary tract infection. Symptoms: urinary urgency and malodorous urine. Review of Systems Constitutional: Normal. ENT: normal. Cardiovascular: Normal. Respiratory: Normal. Gastrointestinal: Normal. Genitourinary: dysuria. Integumentary: Normal. Musculoskeletal: Normal. Neurological: Normal. Psychiatric: Normal. Active Problems 1. Acute otitis media, right (382.9) (H66.91) 2. Acute URI (465.9) (J06.9) 3. 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 Epicondylitis, lateral (726.32) (M77.10) 6. Incisional hernia (553.21) (K43.2) 7. Perinephric abscess (590.2) (N15.1) 8. UTI symptoms (788.99) (R39.9) Past Medical History 1. History of Acute maxillary sinusitis (461.0) (J01.00) 2. History of Acute upper respiratory infection (465.9) (J06.9) 3. History of Ear fullness (388.8) (H93.8X9) 4. History of acute sinusitis (V12.69) (Z87.09) 5. History of low back pain (V13.59) (Z87.39) 6. History of nausea (V12.79) (Z87.898) 7. History of neck pain (V13.59) (Z87.39) 8. History of upper respiratory infection (V12.09) (Z87.09) 9. History of Midline low back pain without sciatica (724.2) (M54.5) 10. History of Right ear pain (388.70) (H92.01) 11. History of Sore throat (462) (J02.9) Surgical History 1. History of Section ?? [...] ?? Never Used Drugs ?? Preferred Language Liberian Immunizations Tetanus --- Series1: 29-Dec-2012 Current Meds 1. Cyclobenzaprine HCl - 10 MG Oral Tablet; TAKE 1/2 TO 1 TABLET AT BEDTIME NEEDED; Therapy: 18Sep2015 to (Evaluate:17Nov2015) Requested for: 18Sep2015; Last Rx:18Sep2015 Ordered Rx By: Linh Espino; Dispense: 30 Days ; #:30 Tablet; Refill: 1; For: PMH: Midline low back painwithout sciatica; THADDEUS = N; Verified Transmission to [facility]; Last Updated By: Tika Ruby; 09/18/2015 1:45:26 PM 2. Fluticasone Propionate 50 MCG/ACT Nasal Suspension; SHAKE LIQUID AND USE 1 SPRAY IN EACH NOSTRIL TWICE DAILY; Therapy: 29May2017 to (Evaluate:26Jul2017) Requested for: 26Jun2017; Last Rx:26Jun2017 Ordered Rx By: Regina Ferris; Dispense: 30 Days ; #:16 Milliliter; Refill: 0; For: Acute URI; THADDEUS = N; Verified Transmission to [facility]; Last Updated By: Tika Ruby; 06/26/2017 2:04:39 PM 3. Vitamin D (Ergocalciferol) 88993 UNIT Oral Capsule; TAKE 1 CAPSULE Weekly; Therapy: [id number] to Recorded Dispense: 0 Days ; #:8 Capsule; Refill: 5; TAHDDEUS = N; Record; Last Updated By: Luci Tejeda; 08/22/2016 2:26:39 PM Allergies 1. No Known Drug Allergies Recorded By: Lesley Sunshine; 12/29/2012 8:43:54 AM Vitals Recorded: 30Oct2017 08:24AM Temperature 98 F Heart Rate 69 Respiration 16 Systolic 120 Diastolic 64 O2 Saturation 99 Height 5 ft 3 in Weight 139 lb 2 oz BMI Calculated 24.65 BSA Calculated 1.66 Physical Exam Constitutional General appearance: No acute distress, well appearing and well nourished. Eyes Conjunctiva and lids: No swelling, erythema or discharge. Pupils and irises: Equal, round and reactive to light. Ears, Nose, Mouth, and Throat External inspection of ears and nose: Normal. Pulmonary Respiratory effort: No increased work of breathing or signs of respiratory distress. Auscultation of lungs: Clear to auscultation. Cardiovascular Auscultation of heart: Normal rate and rhythm, normal S1 and S2, without murmurs. Examination of extremities for edema and/or varicosities: Normal. Abdomen Abdomen: Non-tender, no masses. The abdomen was soft. no CVA tenderness Liver and spleen: No hepatomegaly or splenomegaly. Lymphatic Palpation of lymph nodes in neck: No lymphadenopathy. Musculoskeletal Gait and station: Normal. Neurologic Cranial nerves: Cranial nerves 2-12 intact. Psychiatric Orientation to person, place, and time: Normal. Mood and affect: Normal. Results/Data *Urine dip auto In Office 30Oct2017 08:52AM Lenka Ramos Test Name Result Flag Reference Color Yellow Clarity Slightly cloudy Glucose Negative Bilirubin Negative Ketones Negative Specific [place] 1.020 Blood 2+(Moderate) pH 6.5 5.0 - 7.0 Protein 30 mg/dL-1+ Urobilinogen 0.2 E.U./dL Nitrites Positive Leukocytes Large-3+ Assessment 1. UTI symptoms (788.99) (R39.9) 2. Acute UTI (599.0) (N39.0) Plan Acute UTI 1. Nitrofurantoin Monohyd Macro 100 MG Oral Capsule; TAKE 1 CAPSULE TWICE DAILY UNTIL GONE Rx By: Lenka Ramos; Dispense: 5 Days ; #:10 Capsule; Refill: 0; For: Acute UTI; THADDEUS = N; Sent To: [facility] # [id number] UTI symptoms 2. *Urine dip auto In Office; Status:Complete; Done: 30Oct2017 08:52AM Performed:In Office; Last Updated By:Lenka Ramos; 10/30/2017 9:32:19 AM;Ordered; For:UTI symptoms; Ordered By:Lenka Ramos; Drink 6-8 glasses of water per day. If diarrhea occurs, may take OTC probiotic daily to help with diarrhea. Take antibiotic as prescribed. Avoid caffeinated beverages. Start taking Macrobid BID x 5 days. Patient going to [place], so wanted a medication least likely to cause photosensitivity. Urine sent for culture and will call her if an antibiotic change is needed according to the culture. F/U PRN Signatures Electronically signed by : Lenka Ramos APN; Oct 30 2017 9:54AM BELT MAKER HELPER (Author) documented in this encounter Plan of Treatment Upcoming Encounters Date Type Department Care Team (Late st Contact Info) Description 08/02/2024 9:20 AM BELT MAKER HELPER Hospital Encounter [facility] Interventional [place] [address] [id number] Rm Cardozo, ENGRAVER FLATWARE [id number] [place] [address] [phone] (Work) documented as of this encounter Procedures Procedure Name Priority Date/Time Associated Diagnosis Comments URINE BACTERIA CULTURE Routine 10/30/2017 9:28 AM CDT URINALYSIS AUTO DIP Routine 10/30/2017 8 :52 AM CDT documented in this encounter Results * CULTURE URINE (10/30/2017 9:28 AM CDT) CULTURE URINE SPECIMEN DESCRIPTION ? - URINE CLEAN CATCH SPECIAL REQUESTS ? - NO SPECIAL REQUEST CULTURE ?- >100,000 COL/ML ESCHERICHIA COLI REPORT STATUS ?- FINAL 11/01/2017 ORGANISM ? - >100,000 COL/ML ESCHERICHIA COLI METHOD ? - ADELINE AMPICILLIN ? - 4 SUSCEPTIBLE AMP/SULBACTAM ?- <=2 SUSCEPTIBLE CEFTRIAXONE ?- <=1 SUSCEPTIBLE CEFTAZIDIME ?- <=1 SUSCEPTIBLE CEFAZOLIN ?- <=4 SUSCEPTIBLE ESBL ? - NEG NITROFURANTOIN ? - <=16 SUSCEPTIBLE GENTAMICIN ? - <=1 SUSCEPTIBLE LEVOFLOXACIN ? - <=0.12 SUSCEPTIBLE PIPRACIL/TAZO ?- <=4 SUSCEPTIBLE TRIMETH-SULFAME THOXAZOLE - <=20 SUSCEPTIBLE [facility] TO EPIC CONVERSION 10/30/2017 9:28 AM CDT 10/30/2017 9:28 AM CDT Narrative [facility] TO EPIC CONVERSION - 11/01/2017 8:42 AM CDT Result Communication: No patient communication needed at this time Lenka Ramos NP MICROBIOLOGY - GENERAL ORDERA BLES Final Result [facility] TO EPIC CONVERSION * URINALYSIS AUTO DIP (10/30/2017 8:52 AM CDT) COLOR (U) Yellow [facility] T O EPIC CONVERSION TRANSPARENCY Slightly cloudy [facility] TO [facility]IC CONVERSION GLUCOSE Negative [facility] T O EPIC CONVERSION BILIRUBIN (U) Negative [facility] UP TO EPIC CONVERSION KETONE (U) Negative [facility] TO EPIC CONVERSION SPECIFIC GRAVITY (U) 1.020 [facility] TO [facility]IC CONVERSION BLOOD (U) 2+(Moderate) [facility] P TO EPIC CONVERSION PH (U) 6.5 5.0 - 7.0 [facility] T O EPIC CONVERSION PROTEIN (ELP) (U) 30 mg/dL-1+ [facility] TO EPIC CONVERSION UROBILINOGEN 0.2 E.U./dL [facility] OUP TO EPIC CONVERSION NITRITES Positive [facility] T O EPIC CONVERSION LEUKOCYTES (U) Large-3+ [facility] OUP TO EPIC CONVERSION 10/30/2017 8:52 AM CDT 10/30/2017 8:52 AM CDT Narrative [facility] TO EPIC CONVERSION - 10/30/2017 8:51 AM CDT Result Communication: No patient communication needed at this time us Lenka Ramos NP URINE ORDERABLES Final Result [facility] TO EPIC CONVERSION documented in this encounter Visit Diagnoses Not on filedocumented in this encounter
--- OUTSIDE RECORDS SUMMARY | 2024-07-16 14:38 | XMS_ITS | Encounter Summary ---
Author Organization [facility] Address [address] [place] [address]. [place] [address] [place] [address] Care Team Providers Care Aircraft Servicer Name Role Phone Unavailable Primary Care Provider Unavailabl e Encounter Details Date Type Department Care Team (Late st Contact Info) Description 09/20/2016 Abstract [facility] Care [address] [place] [address] Savannah Juan, MOBILE SOLUTIONS ARCHITECT [address] [facility] [address] [place] [address] Social History Tobacco Use Types Packs/Day Years [...] st Contact Info) Description 08/02/2024 9:20 AM LEGAL ADVISER Hospital Encounter [facility] Interventional Pain Management Center [address] [facility] [place] [address] [id number] Rm Cardozo, MAKING MACHINE CATCHER [address] [facility] [address] [place] [address] [phone] (Work) documented as of this encounter Visit Diagnoses Diagnosis Influenza due to unidentified influenza virus with other respiratory manifestations documented in this encounter
--- OUTSIDE RECORDS SUMMARY | 2024-07-16 14:38 | XMS_ITS | Encounter Summary ---
Author Organization [facility] Address [address] [place] [address]. [place] [address] [place] [address] Care Team Providers Care Popcorn Vendor Name Role Phone Unavailable Primary Care Provider Unavailabl e Encounter Details Date Type Department Care Team (Late st Contact Info) Description 09/24/2016 Abstract [facility] Medical Group Family & Internal Medicine [address] [address] Stephanie Coronado MD Social History Tobacco Use Types Packs/Day Years Used Date Smoking Tobacco: Never Assessed Comments Unknown Sex and Gender Information Value Date Recorded Sex Assigned at Not on file Legal Sex Female 7:39 PM CDT Gender Identity Not on file Sexual Orientation Not on file documented as of this encounter Last Filed Vital Signs Vital Sign Reading Time Taken Comments Blood Pressure 102/70 09/24/2016 3:59 PM HASHER OPERATOR Pulse 63 09/24/2016 3:59 PM HASHER OPERATOR Temperature - - Respiratory Rate - - Oxygen Saturation - - Inhaled Oxygen Concentration - - Weight 60.3 kg (133 lb) 09/24/2016 3:59 PM HASHER OPERATOR Height 160 cm (5' 3 ) 09/24/2016 3:59 PM HASHER OPERATOR Body Mass Index 23.56 09/24/2016 3:59 PM HASHER OPERATOR documented in this encounter Progress Notes * Stephanie Coronado MD - 09/24/2016 3:45 PM CST Reason For Visit Reason For Visit: Acute Visit Chief Complaint Patient here with c/o sinus pressure, ear pressure. Patient states she was seen at [facility] on09/20/16 and she tested positive for Influenza A and was given Tamiflu. She has a couple tablets left. History of Present Illness Upper Respiratory Infection: The patient is being seen for worsening symptoms of an upper respiratory infection. The last clinic visit was 1 week(s) ago. Symptoms: nasal congestion, runny nose, sore throat, fever and general malaise. Onset was gradual 1 week(s) ago. The symptoms occur constantly. She describes this as worsening and Initially had been improving then worsening congestion. Associated symptoms: facial pain and facial pressure, but no ear plugging, no headache, no shortness of breath, no nausea, no vomiting and no diarrhea. She was previously evaluated in urgent care 3 week(s) ago. Past evaluation has included influenza testing and Positive for influenza A. Past treatment has inc luded Tamiflu. Review of Systems Constitutional: fever, feeling poorly, chills and feeling tired. ENT: nasal discharge, but no sore throat. Cardiovascular: no chest pain. Respiratory: cough, but no shortness of breath. Gastrointestinal: no abdominal pain, no constipation, no vomiting and no diarrhea. Neurological: dizziness. Active Problems 1. 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 Ear fullness (388.8) (H93.8X9) 4. Epicondylitis, lateral (726.32) (M77.10) 5. Incisional hernia (553.21) (K43.2) 6. Low back pain (724.2) (M54.5) 7. Midline low back pain without sciatica (724.2) (M54.5) 8. Nausea (787.02) (R11.0) 9. Neck pain (723.1) (M54.2) 10. Perinephric abscess (590.2) (N15.1) 11. Right ear pain (388.70) (H92.01) Past Medical [...] ?? Never Used Drugs ?? Preferred Language Syrian Immunizations Influenza --- Series1: Temporarily Deferred: Refusal of treatment by patient (situation) Tetanus --- Series1: 29Dec2012 Current Meds 1. Cyclobenzaprine HCl - 10 MG Oral Tablet; TAKE 1/2 TO 1 TABLET AT BEDTIME NEEDED; Therapy: 18Sep2015 to (Evaluate:17Nov2015) Requested for: 18Sep2015; Last Rx:18Sep2015 Ordered Rx By: Linh Espino; Dispense: 30 Days ; #:30 Tablet; Refill: 1; For: Midline low back pain without sciatica; THADDEUS = N; Verified Transmission to [facility] [id number]; Last Updated By: Tika Ruby; 09/18/2015 1:45:26 PM 2. Vitamin D (Ergocalciferol) 43032 UNIT Oral Capsule; TAKE 1 CAPSULE Weekly; Therapy: 22Aug2016 to Recorded Dispense: 0 Days ; #:8 Capsule; Refill: 5; THADDEUS = N; Record; Last Updated By: Luci Tejeda; 08/22/2016 2:26:39 PM Allergies 1. No Known Drug Allergies Recorded By: Lesley Sunshine; 12/29/2012 8:43:54 AM Vitals Recorded: 24Sep2016 03:59PM Temperature 98.1 F Heart Rate 63 Respiration 16 Systolic 102 Diastolic 70 O2 Saturation 95 Height 5 ft 3 in Weight 133 lb BMI Calculated 23.56 BSA Calculated 1.63 Physical Exam Constitutional General appearance: No acute distress, well appearing and well nourished. Head and Face Head and face: Normal. Palpation of the face and sinuses: Abnormal. mild frontal TTP. Eyes Conjunctiva and lids: No swelling, erythema or discharge. Pupils and irises: Equal, round, reactive to light. Ears, Nose, Mouth, and Throat Otoscopic examination: Abnormal. L TM erythematous. Oropharynx: Normal with no erythema, edema, exudate or lesions. Neck Neck: Supple, symmetric, trachea midline, no masses. Thyroid: Normal, no thyromegaly. Pulmonary Respiratory effort: No increased work of breathing or signs of respiratory distress. Auscultation of lungs: Clear to auscultation. Cardiovascular Auscultation of heart: Normal rate and rhythm, normal S1 and S2, no murmurs. Examination of extremities for edema and/or varicosities: Normal. Abdomen Abdomen: Non-tender, no masses. Lymphatic Palpation of lymph nodes in neck: No lymphadenopathy. Musculoskeletal Digits and nails: Normal without clubbing or cyanosis. Psychiatric Orientation to person, place, and time: Normal. Mood and affect: Normal. Assessment 1. Acute sinusitis (461.9) (J01.90) Acute sinusitis. Worsening sinus issues despite treatment of influenza. Also with erythematous L TMand some sinus TTP will treat with augmentin. Adivsed to con't flonase Plan Acute sinusitis 1. Amoxicillin-Pot Clavulanate 500-125 MG Oral Tablet; TAKE 1 TABLET EVERY 12 HOURS DAILY Rx By: Stephanie Coronado; Dispense: 7 Days ; #:14 Tablet; Refill: 0; For: Acute sinusitis; THADDEUS = N; Verified Transmission to [facility] # [id number]; Last Updated By: Tika Ruby; 09/24/2016 4:17:06 PM RTC as scheduled with PCP or sooner if no improvement with Abx Signatures Electronically signed by : Stephanie Coronado M.D.; Sep 24 2016 4:25PM HASHER OPERATOR (Author) documented in this encounter Plan of Treatment Upcoming Encounters Date Type Department Care Team (Late st Contact Info) Description 08/02/2024 9:20 AM HASHER OPERATOR Hospital Encounter [facility] [place] [address] [phone] Rm Cardozo, WHEEL ADJUSTER [address] [address] [phone] (Work) documented as of this encounter Visit Diagnoses Not on filedocumented in this encounter
--- OUTSIDE RECORDS SUMMARY | 2024-07-16 14:38 | XMS_ITS | Encounter Summary ---
Author Organization [facility] Address [address] [place] [address]. [place], [place] [address] [place] [address] Care Team Providers Care Sales And Marketing Assistant Name Role Phone Unavailable Primary Care Provider Unavailabl e Encounter Details Date Type Department Care Team (Late st Contact Info) Description 10/16/2015 Abstract [facility] CONVERSION [address] [place], [place] [id number] , Generic Conversion, Social History Tobacco Use Types Packs/Day Years [...] st Contact Info) Description 08/02/2024 9:20 AM [facility] Hospital Encounter [facility] Interventional [place] [address] [phone] Rm Cardozo, LINE OPERATOR [address] [place] [address] [phone] (Work) documented as of this encounter Visit Diagnoses Not on filedocumented in this encounter
--- OUTSIDE RECORDS SUMMARY | 2024-07-16 14:38 | XMS_ITS | Encounter Summary ---
Author Organization [facility] Address [address] [place] [address]. [place], [place] [address] [place] [address] Care Team Providers Care Proof Inspector Name Role Phone Unavailable Primary Care Provider Unavailabl e Encounter Details Date Type Department Care Team (Latest Contact Info) Description 11/08/2017 Abstract [facility] [place] [address] [place] [address] Social History Tobacco Use Types [...] Contact Info) Description 08/02/2024 9:20 AM [facility] Hospital Encounter [facility] Interventional [place] [address] [phone] Rm Cardozo, APPLICATION TECHNICAL DESIGNER [id number] [place] [address] [phone] (Work) documented as of this encounter Visit Diagnoses Not on filedocumented in this encounter
--- OUTSIDE RECORDS SUMMARY | 2024-07-16 14:38 | XMS_ITS | Encounter Summary ---
Author Organization [facility] Address [facility] [facility] [place], [place] [address] [place] [address] Care Team Providers Care Leak Operator Paraffin Plant Name Role Phone Unavailable Primary Care Provider Unavailabl e Encounter Details Date Type Department Care Team (Latest Contact Info) Description 09/22/2016 Abstract [facility] Medical Group Social History Tobacco Use Types Packs/Day Years Used Date Smoking Tobacco: Never Assessed Comments Unknown Sex and Gender Information Value Date Recorded Sex Assigned at Not on file Legal Sex Female 7:39 PM CDT Gender Identity Not on file Sexual Orientation Not on file documented as of this encounter Progress Notes * Titi Tristan Md, MD - 09/22/2016 10:04 AM CST Message Message: Patient was seen at [facility] on September 20, 2016 for Influenza A. She was prescribed Tamiflu 75 mg p.o. BID #10. Letter mailed to patient today regarding clinic hours, extended clinic hours, same day appointments and after hours care. Signatures Electronically signed by : Maggie Stevenson R.N.; Sep 22 2016 10:09AM COMPOSITE BOND TECHNICIAN (Author) documented in this encounter Plan of Treatment Upcoming Encounters Date Type Department Care Team (Late st Contact Info) Description 08/02/2024 9:20 AM COMPOSITE BOND TECHNICIAN Hospital Encounter [facility] Interventional Pain Management Center [address] [address] [phone] Rm Cardozo, STAFF REPORTER [address] [facility] [address] [place] [address] [phone] (Work) documented as of this encounter Visit Diagnoses Not on filedocumented in this encounter
--- OUTSIDE RECORDS SUMMARY | 2024-07-16 14:38 | XMS_ITS | Encounter Summary ---
Author Organization [facility] Address [address] [place] [address]. [place] [address] [place] [address] Care Team Providers Care Director Of Therapy Services Name Role Phone Unavailable Primary Care Provider Unavailabl e Encounter Details Date Type Department Care Team (Late st Contact Info) Description 10/15/2015 Abstract [facility] Family & Internal Medicine [address] [phone] David Shannon NP Social History Tobacco Use Types Packs/Day Years Used Date Smoking Tobacco: Never Assessed Comments Unknown Sex and Gender Information Value Date Recorded Sex Assigned at Not on file Legal Sex Female 7:39 PM CDT Gender Identity Not on file Sexual Orientation Not on file documented as of this encounter Last Filed Vital Signs Vital Sign Reading Time Taken Comments Blood Pressure 124/66 10/15/2015 11:23 AM CDT Pulse 78 10/15/2015 11:23 AM CDT Temperature - - Respiratory Rate - - Oxygen Saturation - - Inhaled Oxygen Concentration - - Weight 70.3 kg (155 lb) 10/15/2015 11:23 AM CDT Height 160 cm (5' 3 ) 10/15/2015 11:23 AM CDT Body Mass Index 27.46 10/15/2015 11:23 AM CDT documented in this encounter Progress Notes * David Shannon NP - 10/15/2015 11:00 AM CDT Reason For Visit Reason For Visit: Acute Visit Chief Complaint pt here f/u visit for kidney stone and c/o pain in back History of Present Illness HPI Free Text: 50 y/o female unknown to me with c/o pain in the left back area for over a month. has been treated for UTI, had an US of kidneys and put on a muscle relaxer without relief. pain has moved from left flank to low back (points to PSIS) and into left buttock without radiation down leg or radiculopathy.states knows that she has a stone in the ureter since the pain has moved in the last week. 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 chart noted she was seen for left flank pain in November also but patient denies. has had several urine studies, US of kidneys, lumbar xray and MRI of back all of which are negative Back Pain Lumbar, Acute: The patient is being seen for a routine clinic follow- up of acute low backpain which occurred without any known injury. The injury involved the low back. This occurred 1 month(s) ago. The last clinic visit was 2 week(s) ago. Symptoms: pain. Symptoms are located in the leftlow back. The pain radiates to the left buttock. The patient describes the pain as sharp and throbbing. Onset was sudden 5 week(s) ago. The symptoms occur intermittently. She describes this pain as moderate in severity and unchanged. No exacerbating factors are noted. Relieving factors: heat packs.No associated symptoms are reported. The patient is not currently being treated for this problem. Review of Systems Constitutional: Normal. Cardiovascular: Normal. Respiratory: Normal. Gastrointestinal: Normal. Genitourinary: Normal. Integumentary: Normal. Musculoskeletal: Normal. Neurological: Normal. Psychiatric: Normal. Active Problems 1. Acute UTI (599.0) (N39.0) 2. 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 Epicondylitis, lateral (726.32) (M77.10) 5. Flank pain, acute (789.09,338.19) (R10.9) 6. Incisional hernia (553.21) (K43.2) 7. Midline low back pain without sciatica (724.2) (M54.5) 8. Neck pain (723.1) (M54.2) 9. Perinephric abscess (590.2) (N15.1) Past Medical History [...] ?? Never Used Drugs ?? Preferred Language Ivorian Immunizations Influenza --- Series1: Temporarily Deferred: Refusal of treatment by patient (situation) Tetanus --- Series1: 29Dec2012 Current Meds 1. Aspirin 325 MG Oral Tablet; TAKE 2 TABLET Every 6 hours; Therapy: (Recorded:18Sep2015) to Recorded Dispense: 0 Days ; #: Sufficient Tablet; Refill: 0; THADDEUS = N; Record; Last Updated By: Lesli Carnes; 09/18/2015 12:49:52 PM 2. Cyclobenzaprine HCl - 10 MG Oral Tablet; TAKE 1/2 TO 1 TABLET AT BEDTIME NEEDED; Therapy: 18Sep2015 to (Evaluate:17Nov2015) Requested for: 18Sep2015; Last Rx:18Sep2015 Ordered Rx By: Linh Espino; Dispense: 30 Days ; #:30 Tablet; Refill: 1; For: Midline low back pain without sciatica; THADDEUS = N; Verified Transmission to [facility] 19459; Last Updated By: Tika Ruby; 09/18/2015 1:45:26 PM 3. Roxicet 5-325 MG Oral Tablet; TAKE 1 TABLET Every 6 hours PRN; Therapy: 02Oct2015 to (Evaluate:12Oct2015); Last Rx:02Oct2015 Ordered Rx By: Linh Espino; Dispense: 10 Days ; #:20 Tablet; Refill: 0; For: Perinephric abscess; THADDEUS =N; Print Rx; Msg to Pharmacy: can take 1/2 to 1 po Q 6 hours prn 4. Vitamin D (Ergocalciferol) 15344 UNIT Oral Capsule; Therapy: 29Aug2015 to Recorded Dispense: 84 Days ; #:12 CAPS; Refill: 0; THADDEUS = N; Record; Last Updated By: Lesli Carnes; 09/18/2015 12:47:49 PM Allergies 1. No Known Drug Allergies Recorded By: Lesley Sunshine; 12/29/2012 8:43:54 AM Vitals Recorded: 15Oct2015 11:23AM Heart Rate 78 Systolic 124 Diastolic 66 O2 Saturation 99 Height 5 ft 3 in Weight 155 lb BMI Calculated 27.46 BSA Calculated 1.74 Physical Exam Constitutional General appearance: No acute distress, well appearing and well nourished. Eyes Conjunctiva and lids: No swelling, erythema or discharge. Pupils and irises: Equal, round and reactive to light. Pulmonary Respiratory effort: No increased work of breathing or signs of respiratory distress. Auscultation of lungs: Clear to auscultation. Cardiovascular Auscultation of heart: Normal rate and rhythm, normal S1 and S2, without murmurs. Examination of extremities for edema and/or varicosities: Normal. Abdomen Abdomen: Non-tender, no masses. no CVAT. Liver and spleen: No hepatomegaly or splenomegaly. Lymphatic Palpation of lymph nodes in neck: No lymphadenopathy. Musculoskeletal Gait and station: Normal. Digits and nails: Normal without clubbing or cyanosis. Inspection/palpation of joints, bones, and muscles: Normal. Skin Skin and subcutaneous tissue: Normal without rashes or lesions. Neurologic Cranial nerves: Cranial nerves 2-12 intact. Psychiatric Orientation to person, place, and time: Normal. Mood and affect: Abnormal. seems irritated. General findings: normal inspection/palpation. Spine: normal lumbosacral spine . full lumbosacral spine range of motion. Right Lower Extremity: normal right hip and full right hip range of motion. Left Lower Extremity: normal left hip and full left hip range of motion. Results/Data *Urine dip auto In Office 15Oct2015 11:48AM David Shannon Test Name Result Flag Reference Color Yellow Clarity Clear Glucose Negative Bilirubin Negative Ketones 15 mg/dL-Small Specific [place] 1.025 Blood Negative pH 5.0 5.0 - 7.0 Protein Negative Urobilinogen 0.2 E.U./dL Nitrites negative Leukocytes Negative Assessment 1. Flank pain, acute (789.09,338.19) (R10.9) 2. Low back pain (724.2) (M54.5) Plan Low back pain 1. *Urine dip auto In Office; Status:Resulted - Requires Verification; Done: 15Oct2015 11:48AM Performed:In Office; Last Updated By:Eduarda Abdullahi; 10/15/2015 11:49:57 AM;Ordered; For:Low back pain; Ordered By:David Shannon; 2. CT RENAL STONE PROTOCOL; Status:Need Information - Financial Authorization; Requested for:15Oct2015; Perform:[facility] Radiology; Due:16Oct2015;Ordered; VELMA; For:Low back pain; Ordered By:David Shannon; use heat and gentle stretches as this is likely muscular will order CT of kidney make f/u appt with Dr. Joaquín Espino Discussion/Summary patient very frustrated and is adamant has a stone in the ureters. she has no blood in urine so tried to explain that that is unlikely but she isn't listening. tried to discuss that this sounds more muscular in nature but she is adamant and irritated and angry that test will not be ordered stat. informed she can go to the ER for a stat test Signatures Electronically signed by : David Shannon NP; Oct 15 2015 3:24PM METALLURGICAL ENGINEERING TEACHER (Author) documented in this encounter Plan of Treatment Upcoming Encounters Date Type Department Care Team (Late st Contact Info) Description 08/02/2024 9:20 AM METALLURGICAL ENGINEERING TEACHER Hospital Encounter [facility] Interventional Pain Management Center [address] [place] [address] [phone] Rm Cardozo, TELEPHONIC CASE MANAGER [address] [place] [address] [phone] (Work) documented as of this encounter Procedures Procedure Name Priority Date/Time Associated Diagnosis Comments URINALYSIS AUTO DIP Routine 10/15/2015 1 1:48 AM CDT documented in this encounter Results * URINALYSIS AUTO DIP (10/15/2015 11:48 AM CDT) COLOR (U) Yellow [facility] T O EPIC CONVERSION TRANSPARENCY Clear [facility] P TO EPIC CONVERSION GLUCOSE Negative [facility] T O EPIC CONVERSION BILIRUBIN (U) Negative [facility] UP TO EPIC CONVERSION KETONE (U) 15 mg/dL-Small [facility] TO EPIC CONVERSION SPECIFIC GRAVITY (U) 1.025 [facility] TO EPIC CONVERSION BLOOD (U) Negative [facility] T O EPIC CONVERSION PH (U) 5.0 5.0 - 7.0 [facility] T O EPIC CONVERSION PROTEIN (ELP) (U) Negative [facility] TO EPIC CONVERSION UROBILINOGEN 0.2 E.U./dL [facility] OUP TO EPIC CONVERSION NITRITES negative [facility] T O EPIC CONVERSION LEUKOCYTES (U) Negative [facility] OUP TO EPIC CONVERSION 10/15/2015 11:4 8 AM CDT 10/15/2015 11:48 AM CDT Narrative [facility] TO EPIC CONVERSION - 10/15/2015 11:48 AM CDT Result Communication: No patient communication needed at this time us David Shannon CRITICAL POWER TECHNICIAN URINE ORDERABLES Final Result [facility] TO EPIC CONVERSION documented in this encounter Visit Diagnoses Not on filedocumented in this encounter
--- OUTSIDE RECORDS SUMMARY | 2024-07-16 14:38 | XMS_ITS | Encounter Summary ---
Author Organization [facility] Address [address] [place] [address]. [place], [place] [address] [place] [address] Care Team Providers Care Manager Land Name Role Phone Unavailable Primary Care Provider Unavailabl e Encounter Details Date Type Department Care Team (Latest Contact Info) Description 09/20/2016 Abstract [facility] [place] [address] [place] [address] Social History Tobacco Use Types [...] st Contact Info) Description 08/02/2024 9:20 AM [facility] Hospital Encounter [facility] Interventional [place] [address] [phone] Rm Cardozo, DOG BOARDER [address] [place] [address] [phone] (Work) documented as of this encounter Visit Diagnoses Not on filedocumented in this encounter
--- OUTSIDE RECORDS SUMMARY | 2024-07-16 14:38 | XMS_ITS | Clinical Summary ---
Author Organization [facility] Address [address] [place] [address]. [place] [address] [place] [address] Care Team Providers Care Automobile Leasing Supervisor Name Role Phone Unavailable Primary Care Provider Unavailabl e Social History Tobacco Use Types Packs/Day Years Used Date Smoking Tobacco: Never Assessed Comments Unknown Sex and Gender Information Value Date Recorded Sex Assigned at Not on file Legal Sex Female 7:39 PM CDT Gender Identity Not on file Sexual Orientation Not on file Last Filed Vital Signs Vital Sign Reading [...] Mass Index 24.65 10/30/2017 8:24 AM CDT Plan of Treatment Upcoming Encounters Date Type Department Care Team (Late st Contact Info) Description 08/02/2024 9:20 AM [facility]VE[facility] Hospital Encounter [facility] Interventional Pain Management Center [address] [address] [phone] Rm Cardozo, TINSMITH HELPER 3 [facility] [address] [place] [address] [phone] (Work) Health Maintenance Due Date Last Done Comments Cervical Cancer Screening Pa p Smear (Age 30 to 64) Every 3 Years 1963 Colorectal Cancer Screening Colonoscopy (10 Years) 1963 Annual Physical 1966 Hepatitis C 1981 Cervical Cancer Screening Pa p with HPV Testing (Age 30 to 64) Every 5 Years 1993 Cervical Cancer Screening with HPV 1993 Mammogram Screening 2003 DTaP, Tdap and Td Vaccines ( 1 - Tdap) 12/30/2012 12/29/2012 Zoster Vaccines (1 of 2) 2013 COVID-19 Vaccine ( - 2023-2 5 season) 2024 Influenza Adult (#1) 2024 RSV Immunization or 60+ Years (1 - 1-dose 75+ series) 2038 Meningococcal Vaccine Aged Out No teodoro pallavi eligible based on patient's age to complete this topic Pneumococcal Vaccine: Pediat rics (0 to 5 Years) and At-Risk Patients (6 to 64 Years) Aged Out No longer eligi ble based on patient's age to complete this topic RSV Immunizations Under 20 Months Aged Out No longer eligible based on patient's age to complete this topic
--- OUTSIDE RECORDS SUMMARY | 2024-07-16 14:38 | XMS_ITS | Encounter Summary ---
Author Organization [facility] Address [address] [place] [address]. [place], [place] [address] [place] [address] Care Team Providers Care Cocoa Room Operator Name Role Phone Unavailable Primary Care Provider Unavailabl e Encounter Details Date Type Department Care Team (Latest Contact Info) Description 10/16/2015 Abstract [facility] Social History Tobacco Use Types [...] st Contact Info) Description 08/02/2024 9:20 AM [facility] Hospital Encounter [facility] Interventional [place] [address] [phone] Rm Cardozo, MEDICAL AFFAIRS SPECIALIST [address] [place] [address] [phone] (Work) documented as of this encounter Visit Diagnoses Not on filedocumented in this encounter
--- OUTSIDE RECORDS SUMMARY | 2024-07-16 14:38 | XMS_ITS | Encounter Summary ---
Author Organization [facility] Address [address] [place] [address]. [place], [place] [address] [place] [address] Care Team Providers Care Puppy Trainer Name Role Phone Unavailable Primary Care Provider Unavailabl e Encounter Details Date Type Department Care Team (Latest Contact Info) Description 05/25/2018 Scan [facility] Medical Group , Titi Conversion, Social History Tobacco Use Types Packs/Day [...] st Contact Info) Description 08/02/2024 9:[address] [facility] Hospital Encounter [facility] Interventional Pain Management Center [address] [place] [address] [phone] Rm Cardozo, FARMWORKER [employer] 3 [facility] [address] [place] [address] [phone] (Work) documented as of this encounter Visit Diagnoses Not on filedocumented in this encounter
--- OUTSIDE RECORDS SUMMARY | 2024-07-16 14:38 | XMS_ITS | Encounter Summary ---
Author Organization [facility] Address [address] [place] [address]. [place] [address] [place] [address] Care Team Providers Care Computerized Mill Recorder Name Role Phone Unavailable Primary Care Provider Unavailabl e Encounter Details Date Type Department Care Team (Late st Contact Info) Description 10/30/2017 Abstract [facility] [address] [place] [address] Lenka Ramos NP Social History Tobacco Use [...] st Contact Info) Description 08/02/2024 9:20 AM [facility] Hospital Encounter [facility] Interventional [place] [address] [phone] Rm Cardozo, BELTING CUTTER [address] [place] [address] [phone] (Work) documented as of this encounter Procedures Procedure Name Priority Date/Time Associated Diagnosis Comments URINE BACTERIA CULTURE Routine 10/30/2017 9:28 AM CDT documented in this encounter Results * CULTURE URINE (10/30/2017 9:28 AM CDT) SPEC DESCRIPTION URINE CLEAN CATCH 10/30/2017 2:11 PM CDT [facility] SPECIAL REQUESTS NO SPECIAL REQUEST 10/30/2017 2:11 PM CDT [facility] CULTURE RESULT >100,000 COL/MLESCHE RICHIA COLI 11/01/2017 8:42 AM CDT [facility] URINE SPECIMEN OBTAINED BY CLEAN CATCH PROCEDURE / Unknown 10/30/2017 9:28 AM CDT 10/30/2017 2:36 PM CDT Narrative Organism Antibiotic Method Susceptibility [...] Comment: Organism code(s) sent by the ancillary, '>100,000 COL/MLESCHERICHIA COLI', not recognized. Organism 'UNKNOWN' was substituted in its place. us Generic Conversion Md [facility] MICROBIOLOGY - GENERAL ORDERABLES Final Result Performing Organization Address City/State/[facility] Co de Phone Number [facility] [address] [place] [address], [place] [phone] [facility] [address] [place] [address], [place] [phone] documented in this encounter Visit Diagnoses Diagnosis Unspecified symptoms and signs involving the genitourinary system documented in this encounter
--- OUTSIDE RECORDS SUMMARY | 2024-07-16 14:38 | XMS_ITS | Encounter Summary ---
Author Organization [facility] Address [address] [place] [address]. [place] [address] [place] [address] Care Team Providers Care Jet Handler Name Role Phone Unavailable Primary Care Provider Unavailabl e Encounter Details Date Type Department Care Team (Latest Contact Info) Description 11/08/2017 Abstract [facility] [place] [address] [place] [address] Social History Tobacco Use Types [...] st Contact Info) Description 08/02/2024 9:20 AM [facility] Hospital Encounter [facility] Interventional [place] [address] [phone] Rm Cardozo, CAFETERIA OR LUNCHROOM CHECKER [address] [address] [phone] (Work) documented as of this encounter Procedures Procedure Name Priority Date/Time Associated Diagnosis Comments URINE BACTERIA CULTURE Routine 11/08/2017 2:06 PM CDT documented in this encounter Results * CULTURE URINE (11/08/2017 2:06 PM CDT) CULTURE URINE SPECIMEN DESCRIPTION ? - URINE CLEAN CATCH SPECIAL REQUESTS ? - NO SPECIAL REQUEST CULTURE ?- 50,000-100,000 COL/ML ESCHERICHIA COLI CULTURE ?- POLYMICROBIAL GROWTH CONSISTENT WITH NORMAL GENITAL MONTSERRAT. ??SUSCEPTIBILITIE S NOT CULTURE ?- ??ROUTINELY PERFORMED. REPORT STATUS ?- FINAL 11/12/2017 ORGANISM ? - 50,000-100,000 COL/ML ESCHERICHIA COLI METHOD ? - ADELINE AMPICILLIN ? - 4 SUSCEPTIBLE AMP/SULBACTAM ?- <=2 SUSCEPTIBLE CEFTRIAXONE ?- <=1 SUSCEPTIBLE CEFTAZIDIME ?- <=1 SUSCEPTIBLE CEFAZOLIN ?- <=4 SUSCEPTIBLE ESBL ? - NEG NITROFURANTOIN ? - <=16 SUSCEPTIBLE GENTAMICIN ? - <=1 SUSCEPTIBLE LEVOFLOXACIN ? - <=0.12 SUSCEPTIBLE PIPRACIL/TAZO ?- <=4 SUSCEPTIBLE TRIMETH-SULFAMETH OXAZOLE - <=20 SUSCEPTIBLE [facility] TO EPIC CONVERSION 11/08/2017 2:06 PM CDT 11/08/2017 2:06 PM CDT Narrative [facility] TO EPIC CONVERSION - 11/12/2017 1:42 PM CDT Result Communication: No patient communication needed at this time Lenka Ramos NP MICROBIOLOGY - GENERAL ORDERA BLES Final Result [facility] TO EPIC CONVERSION documented in this encounter Visit Diagnoses Not on filedocumented in this encounter
--- OUTSIDE RECORDS SUMMARY | 2024-07-16 14:39 | XMS_ITS | Encounter Summary ---
Author Organization [facility] Address [address] [place] [address]. [place] [address] [place] [address] Care Team Providers Care Weight Shifter Name Role Phone Unavailable Primary Care Provider Unavailabl e Encounter Details Date Type Department Care Team (Late st Contact Info) Description 09/18/2015 Abstract [facility] Family & Internal Medicine [facility] [address] [place] [address] [place] [address] [place] [address] Social History Tobacco Use Types [...] Reading Time Taken Comments Blood Pressure 120/64 09/18/2015 12:43 PM DISPATCH COORDINATOR Pulse 77 09/18/2015 12:43 PM DISPATCH COORDINATOR Temperature - - Respiratory Rate - - Oxygen Saturation - - Inhaled Oxygen Concentration - - Weight 72.1 kg (159 lb) 09/18/2015 12:43 PM DISPATCH COORDINATOR Height 160 cm (5' 3 ) 09/18/2015 12:43 PM DISPATCH COORDINATOR Body Mass Index 28.17 09/18/2015 12:43 PM DISPATCH COORDINATOR documented in this encounter Progress Notes * Linh Ellington MD - 09/18/2015 11:45 AM CST Reason For Visit Acute Visit Chief Complaint pt here c/o left mid back pain, all over joint pain. History of Present Illness HPI Free Text: A 50-year-old white female who has a strong family history of arthritis. She is unsure of the type but she has several family members who had a lot of arthritis at an early age. She works hard, is left-handed. Has a lot of pain in her hands. Sometimes it takes her an hour or more to get the stiffness out of her hands and she takes a nonsteroidal or aspirin every day for the last year just to be able to function. She also has issues in her neck with pinched nerves, her mid and lower back. There is a lot of spasm in her left mid back causing her a lot of pain especially if she twists andmoves. She does not have a normal curve in her spine. Also has a lot of pain in her knees. She would like to know what kind of arthritis she has and would like to treat as mildly and naturally as possible, is willing to take a muscle relaxant at night. Review of Systems Eyes, ENT, Cardiovascular, Respiratory, Genitourinary, Integumentary, Neurological and Psychiatric review of systems normal except as noted. Constitutional: fatigue. Gastrointestinal: heartburn. Musculoskeletal: arthralgias (Pain and stiffness in the metacarpal phalange especially in the 1st and 2nd and some bony changes at the DIP joints. Also has pain and stiffness in multiple joints, see HPI). musculoskeletal symptoms Active Problems 1. 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 Epicondylitis, lateral (726.32) (M77.10) 3. Incisional hernia (553.21) (K43.2) Past Medical History 1. History of Acute [...] ?? Never Used Drugs ?? Preferred Language Afghan Immunizations Influenza --- Series1: Temporarily Deferred: Refusal of treatment by patient (situation) Tetanus --- Series1: 29Dec2012 Current Meds 1. Aspirin 325 MG Oral Tablet; TAKE 2 TABLET Every 6 hours; Therapy: (Recorded:18Sep2015) to Recorded 2. Vitamin D (Ergocalciferol) 20750 UNIT Oral Capsule; Therapy: 29Aug2015 to Recorded Allergies 1. No Known Drug Allergies Vitals Recorded: 18Sep2015 12:43PM Heart Rate 77 Systolic 120 Diastolic 64 O2 Saturation 98 Height 5 ft 3 in Weight 159 lb BMI Calculated 28.17 BSA Calculated 1.75 Physical Exam Constitutional General appearance: No acute distress, well appearing and well nourished. Head and Face Head and face: Normal. Eyes Conjunctiva and lids: No swelling, erythema or discharge. Ears, Nose, Mouth, and Throat External inspection of ears and nose: Normal. Neck Neck: Supple, symmetric, trachea midline, no masses. Pulmonary Respiratory effort: No increased work of breathing or signs of respiratory distress. Auscultation of lungs: Clear to auscultation. Cardiovascular Auscultation of heart: Normal rate and rhythm, normal S1 and S2, no murmurs. Carotid pulses: 2+ bilaterally. Examination of extremities for edema and/or varicosities: Normal. Abdomen Abdomen: Non-tender, no masses. Liver and spleen: No hepatomegaly or splenomegaly. Lymphatic Palpation of lymph nodes in neck: No lymphadenopathy. Musculoskeletal Gait and station: Normal. Digits and nails: Abnormal. ([place] nodes) Joints, bones, and muscles: Abnormal. (Straightening of the back with abnormal curvature. Flattenedback without a normal lordosis) Palpation - right lower cervical, left lower cervical, right lower thoracic, left lower thoracic and left lumbar tenderness. Skin Skin and subcutaneous tissue: Normal without rashes or lesions. Neurologic Cranial nerves: Cranial nerves II-XII intact. Psychiatric Judgment and insight: Normal. Mood and affect: Normal. Results/Data 18 Sep 2015 3:40 PM XR L-SPINE 2-3 VIEW ( Routine ) XR L-SPINE 2-3 VIEW 18 Sep 2015 3:38 PM XR HAND MINIMUM 3 VIEW LT ( Routine ) XR HAND MINIMUM 3 VIEW LT 18 Sep 2015 3:35 PM XR C-SPINE 2-3V XR C-SPINE 2-3V 18 Sep 2015 3:36 PM XR HAND MINIMUM 3 VIEW RT ( Routine ) XR HAND MINIMUM 3 VIEW RT 18 Sep 2015 3:33 PM XR T-SPINE 3 VIEW ( Routine ) XR T-SPINE 3 VIEW Counseling The patient was counseled regarding instructions for management, risk factor reductions, prognosis,patient and family education, impressions, risks and benefits of treatment options, importance of compliance with treatment and Pt concerned which type of arthritis she has with strong FH, would liketo manage this with the least medication but has daily pain and now muscle spasms. After extensive discussion regarding diagnostic and treatment options. Will check labs & X-rays and add a musclerelaxant. total time of encounter was 25 minutes and minutes was spent counseling. Assessment 1. Midline low back pain without sciatica (724.2) (M54.5) 2. Neck pain (723.1) (M54.2) 3. Arthritis pain of hand (716.94) (M19.90,M79.643) Plan Arthritis pain of hand 1. *Venipuncture In Office; Status:Complete; Done: 18Sep2015 Perform:In Office; Due:18Oct2015; Last Updated By:Cadence Thornton; 09/18/2015 2:21:17 PM;Ordered; For:Arthritis pain of hand; Ordered By:Linh Ellington; 2. Anti Nuclear Ab ( JONATHAN ) Screen; Status:In Progress - Specimen/Data Collected; Done: 18Sep2015 Perform:[facility]; Due:18Oct2015; Last Updated By:Cadence Thornton; 09/18/2015 1:44:40 PM;Ordered; For:Arthritis pain of hand; Ordered By:Linh Ellington; 3. CRP High Sensitivity ( HSCRP ); Status:In Progress - Specimen/Data Collected; Done: 18Sep2015 Perform:[facility]; Due:18Oct2015; Last Updated By:Cadence Thornton; 09/18/2015 1:44:40 PM;Ordered; For:Arthritis pain of hand; Ordered By:Linh Ellington; Midline low back pain without sciatica 4. Cyclobenzaprine HCl - 10 MG Oral Tablet; TAKE 1/2 TO 1 TABLET AT BEDTIME NEEDED Rx By: Linh Ellington; Dispense: 30 Days ; #:30 Tablet; Refill: 1; For: Midline low back pain without sciatica; THADDEUS = N; Verified Transmission to [facility] # [id number]; Last Updated By: [employer]; 09/18/2015 1:45:26 PM 5. Follow-up PRN Outpatient Follow-up Status: Complete Done: 18Sep2015 Ordered; For: Midline low back pain without sciatica; Ordered By: Linh Ellington Performed: Due: 02Oct2015 Discussion/Summary Midline low back pain without sciatica and neck pain for one year, failing conservative management.We will check a regular x-ray to assess for spinal stenosis. Other concerns would be ankylosing spondylosis. Patient could also have the start of rheumatoid arthritis. We will check a rheumatoid factor JONATHAN and sed rate to further assess. Discussed treatment options of a muscle relaxant. Could also add a higher-strength nonsteroidal or Medrol Dosepak. The patient declines the nonsteroidal and Dosepak but is agreeable to a muscle relaxant. She also will make further decisions based on the results of the examination or the results of the x-rays and labs. If all ofthe above is normal, she will treat symptomatically and follow up PRN. If abnormal, will follow up to discuss or refer as appropriate. RTO pending results and symptoms. Signatures Electronically signed by : Linh Ellington M.D.; Sep 21 2015 7:47AM DISPATCH COORDINATOR (Author) documented in this encounter Plan of Treatment Upcoming Encounters Date Type Department Care Team (Late st Contact Info) Description 08/02/2024 9:20 AM DISPATCH COORDINATOR Hospital Encounter [facility] [address] [place] [address] [phone] Rm Cardozo, TRAVEL ADMINISTRATOR [address] [place] [address] [phone] (Work) documented as of this encounter Procedures Procedure Name Priority Date/Time Associated Diagnosis Comments IMAGE GENERIC Routine 09/18/2015 3:40 PM DISPATCH COORDINATOR XR HAND LT 3V Routine 09/18/2015 3:38 PM DISPATCH COORDINATOR XR HAND RT 3V Routine 09/18/2015 3:36 PM DISPATCH COORDINATOR XR CERV SPINE 3V Routine 09/18/2015 3:35 PM DISPATCH COORDINATOR XR THOR SPINE 3V Routine 09/18/2015 3:33 PM DISPATCH COORDINATOR documented in this encounter Results * IMAGE GENERIC (09/18/2015 3:40 PM DISPATCH COORDINATOR) Anatomical Region Laterality Modality Other 09/18/2015 3:40 PM DISPATCH COORDINATOR 09/18/2015 3:40 PM DISPATCH COORDINATOR Narrative 09/18/2015 3:47 PM DISPATCH COORDINATOR CLARITA SERRANO ? ADMIT/SERVICE DATE: 09/18/15 ?? ACCT: [id number] ?DISCHARGE DATE: ?? : 1965 ??SEX: F ?ORD SITE: [facility] ?? PT TYPE: REG CLI ? ORDERING MD: LINH ELLINGTON MD ? STUDY DATE ? REPORT # ?ORDER # ? EXT ORDER ID ?? 09/18/15 ? [id number] ? [id number] ?[id number] ? PROC CODE: ? [id number] ? PROCEDURE DESCRIPTION: ?? XR LUMBAR SPINE 2 TO 3 VIEWS ? IMAGING STUDIES: ? XR LUMBAR SPINE 2 TO 3 VIEWS ? DATE: ??09/18/2015 2:20 PM ? COMPARISON: ??NO COMPARISONS. ? CLINICAL HISTORY: ??OTHER - MIDLINE LOW BACK PAIN WITH SCIATICA ??. ? CONCLUSION: ? 1. ??NO EVIDENCE OF ACUTE FRACTURE OR DISLOCATION. MINIMAL GRADE 1 RETROLISTHESIS OF L4 ON L5. MINIMAL ENDPLATE DEGENERATIVE CHANGE. ? 2. ??VERTEBRAL BODY HEIGHTS AND INTERVERTEBRAL DISC SPACES ARE WELL MAINTAINED. MILD DEXTROCONVEX CURVATURE OF THORACOLUMBAR JUNCTION. NO PARASPINAL LESIONS. MODERATE STOOL IN COLON. MINIMALLY ATHEROSCLEROTIC AORTA. ? IF RADICULAR SYMPTOMS PERSIST MRI BE OF BENEFIT TO ASSESS FOR ANY DISC HERNIATION OR SPINAL STENOSIS. ? ELECTRONICALLY SIGNED BY Mitzy GARCIA MD ? Procedure Note Titi Carey MD - 05/12/2018 CLARITA SERRANO ADMIT/SERVICE DATE:09/18/15 ACCT: [id number] DISCHARGE DATE: : 1965 SEX: F ORD SITE: [facility] PT TYPE: REG CLI ORDERING MD:LINH ELLINGTON MD STUDY DATE REPORT # ORDER # EXT ORDER ID 09/18/15 [id number] PROC CODE: [id number] PROCEDURE DESCRIPTION: XR LUMBAR SPINE 2 TO 3 VIEWS IMAGING STUDIES: XR LUMBAR SPINE 2 TO 3 VIEWS DATE: 09/18/2015 2:20 PM COMPARISON: NO COMPARISONS. CLINICAL HISTORY: OTHER - MIDLINE LOW BACK PAIN WITH SCIATICA . CONCLUSION: 1. NO EVIDENCE OF ACUTE FRACTURE OR DISLOCATION. MINIMAL GRADE 1RETROLISTHESIS OF L4 ON L5. MINIMAL ENDPLATE DEGENERATIVE CHANGE. 2. VERTEBRAL BODY HEIGHTS AND INTERVERTEBRAL DISC SPACES ARE WELLMAINTAINED. MILD DEXTROCONVEX CURVATURE OF THORACOLUMBAR JUNCTION. NO PARASPINAL LESIONS. MODERATE STOOLIN COLON. MINIMALLY ATHEROSCLEROTIC AORTA. IF RADICULAR SYMPTOMS PERSIST MRI BE OF BENEFIT TO ASSESS FOR ANY DISCHERNIATION OR SPINAL STENOSIS. ELECTRONICALLY SIGNED BY Mitzy GARCIA MD us Linh Ellington MD SCANNING Final Result * XR HAND LT 3V (09/18/2015 3:38 PM DISPATCH COORDINATOR) Anatomical Region Laterality Modality Hand Radiographic Risa ging 09/18/2015 3:38 PM DISPATCH COORDINATOR 09/18/2015 3:38 PM DISPATCH COORDINATOR Narrative 09/18/2015 3:44 PM DISPATCH COORDINATOR CLARITA SERRANO ? ADMIT/SERVICE DATE: 09/18/15 ?? ACCT: [id number] ?DISCHARGE DATE: ?? : 1965 ??SEX: F ?ORD SITE: [facility] ?? PT TYPE: REG CLI ? ORDERING MD: LINH ELLINGTON MD ? STUDY DATE ? REPORT # ?ORDER # ? EXT ORDER ID ?? 09/18/15 ? [id number] ? [id number] ?[id number] ? PROC CODE: ? [id number] ? PROCEDURE DESCRIPTION: ?? XR HAND MINIMUM 3 VIEWS LT ? IMAGING STUDIES: XR HAND MINIMUM 3 VIEWS LT ? DATE: 09/18/2015 2:26 PM ? CLINICAL HISTORY: OTHER - ARTHRITIS PAIN OF HAND ??. ? COMPARISON: NO COMPARISONS. ? CONCLUSION: ? 1. ??NO EVIDENCE OF ACUTE FRACTURE OR DISLOCATION. ARTICULAR MARGINS ARE WITHIN NORMAL LIMITS.. MINIMAL DEGENERATIVE CHANGE OF THE INTERPHALANGEAL JOINT OF THE THUMB. BENIGN SUBCHONDRAL CYST FORMATION AT THE HEAD OF THE THIRD METACARPAL. NO MARGINAL EROSIONS. ? 2. ??NO RADIOPAQUE FOREIGN BODIES OR ABNORMAL SOFT TISSUE CALCIFICATIONS NOTED. METALLIC RING OVERLIES PROXIMAL PHALANX OF FOURTH DIGIT. ? ELECTRONICALLY SIGNED BY Mitzy AGRCIA MD ? Procedure Note Titi Carey MD - 05/13/2018 CLARITA SERRANO ADMIT/SERVICE DATE:09/18/15 ACCT: [id number] DISCHARGE DATE: : 1965 SEX: F ORD SITE: [facility] PT TYPE: REG CLI ORDERING MD:LINH ELLINGTON MD STUDY DATE REPORT # ORDER # EXT ORDER ID 09/18/15 [id number] PROC CODE: [id number] PROCEDURE DESCRIPTION: XR HAND MINIMUM 3 VIEWS LT IMAGING STUDIES: XR HAND MINIMUM 3 VIEWS LT DATE: 09/18/2015 2:26PM CLINICAL HISTORY: OTHER - ARTHRITIS PAIN OF HAND . COMPARISON: NO COMPARISONS. CONCLUSION: 1. NO EVIDENCE OF ACUTE FRACTURE OR DISLOCATION. ARTICULAR MARGINS AREWITHIN NORMAL LIMITS.. MINIMAL DEGENERATIVE CHANGE OF THE INTERPHALANGEAL JOINT OF THE THUMB.BENIGN SUBCHONDRAL CYST FORMATION AT THE HEAD OF THE THIRD METACARPAL. NO MARGINAL EROSIONS. 2. NO RADIOPAQUE FOREIGN BODIES OR ABNORMAL SOFT TISSUE CALCIFICATIONSNOTED. METALLIC RING OVERLIES PROXIMAL PHALANX OF FOURTH DIGIT. ELECTRONICALLY SIGNED BY Mitzy GARCIA MD us Linh Ellington MD GENERAL IMAGING Final Result * XR HAND RT 3V (09/18/2015 3:36 PM DISPATCH COORDINATOR) Anatomical Region Laterality Modality Hand Radiographic Risa ging 09/18/2015 3:36 PM DISPATCH COORDINATOR 09/18/2015 3:36 PM DISPATCH COORDINATOR Narrative 09/18/2015 3:42 PM DISPATCH COORDINATOR SERRANOCLARITA ? ADMIT/SERVICE DATE: 09/18/15 ?? ACCT: [id number] ?DISCHARGE DATE: ?? : 1965 ??SEX: F ?ORD SITE: [facility] ?? PT TYPE: REG CLI ? ORDERING MD: LINH ELLINGTON MD ? STUDY DATE ? REPORT # ?ORDER # ? EXT ORDER ID ?? 09/18/15 ? [id number] ? [id number] ?[id number] ? PROC CODE: ? [id number] ? PROCEDURE DESCRIPTION: ?? XR HAND MINIMUM 3 VIEWS RT ? IMAGING STUDIES: XR HAND MINIMUM 3 VIEWS RT ? DATE: 09/18/2015 2:28 PM ? CLINICAL HISTORY: OTHER - ARTHRITIS PAIN OF HAND ??. ? COMPARISON: NO COMPARISONS. ? CONCLUSION: ? 1. ??NO EVIDENCE OF ACUTE FRACTURE OR DISLOCATION. ARTICULAR MARGINS ARE WITHIN NORMAL LIMITS.. ONLY MINIMAL DEGENERATIVE CHANGE NOTED AT THE INTERPHALANGEAL JOINT OF THE THUMB AND THIRD METACARPAL PHALANGEAL ARTICULATION AND BOTH THE PIP AND DIP JOINTS OF THE INDEX FINGER AND PIP JOINT OF THE THIRD DIGIT ? 2. ??NO RADIOPAQUE FOREIGN BODIES OR ABNORMAL SOFT TISSUE CALCIFICATIONS NOTED. BENIGN SUBCHONDRAL CYST FORMATION AT THE HEAD OF THE THIRD METACARPAL. NO MARGINAL EROSIONS. ? ELECTRONICALLY SIGNED BY Mitzy GARICA MD ? Procedure Note Titi Carey MD - 05/13/2018 CLARITA SERRANO ADMIT/SERVICE DATE:09/18/15 ACCT: [id number] DISCHARGE DATE: : 1965 SEX: F ORD SITE: [facility] PT TYPE: REG CLI ORDERING MD:LINH ELLINGTON MD STUDY DATE REPORT # ORDER # EXT ORDER ID 09/18/15 [id number] PROC CODE: [id number] PROCEDURE DESCRIPTION: XR HAND MINIMUM 3 VIEWS RT IMAGING STUDIES: XR HAND MINIMUM 3 VIEWS RT DATE: 09/18/2015 2:28PM CLINICAL HISTORY: OTHER - ARTHRITIS PAIN OF HAND . COMPARISON: NO COMPARISONS. CONCLUSION: 1. NO EVIDENCE OF ACUTE FRACTURE OR DISLOCATION. ARTICULAR MARGINS AREWITHIN NORMAL LIMITS.. ONLY MINIMAL DEGENERATIVE CHANGE NOTED AT THE INTERPHALANGEAL JOINT OF THETHUMB AND THIRD METACARPAL PHALANGEAL ARTICULATION AND BOTH THE PIP AND DIP JOINTS OF THEINDEX FINGER AND PIP JOINT OF THE THIRD DIGIT 2. NO RADIOPAQUE FOREIGN BODIES OR ABNORMAL SOFT TISSUE CALCIFICATIONSNOTED. BENIGN SUBCHONDRAL CYST FORMATION AT THE HEAD OF THE THIRD METACARPAL. NO MARGINAL EROSIONS. ELECTRONICALLY SIGNED BY Mitzy GARCIA MD us Linh Ellington MD GENERAL IMAGING Final Result * XR CERV SPINE 3V (09/18/2015 3:35 PM DISPATCH COORDINATOR) Anatomical Region Laterality Modality Spine Radiographic Risa ging 09/18/2015 3:35 PM DISPATCH COORDINATOR 09/18/2015 3:35 PM DISPATCH COORDINATOR Narrative 09/18/2015 3:40 PM DISPATCH COORDINATOR CLARITA SERRANO ? ADMIT/SERVICE DATE: 09/18/15 ?? ACCT: [id number] ?DISCHARGE DATE: ?? : 1965 ??SEX: F ?ORD SITE: [facility] ?? PT TYPE: REG CLI ? ORDERING MD: LINH ELLINGTON MD ? STUDY DATE ? REPORT # ?ORDER # ? EXT ORDER ID ?? 09/18/15 ? [id number] ? [id number] ?[id number] ? PROC CODE: ? [id number] ? PROCEDURE DESCRIPTION: ?? XR CERVICAL SPINE 3 VWS OR LSS ? IMAGING STUDIES: ??XR CERVICAL SPINE 3 VWS OR LSS ? DATE: ??09/18/2015 2:31 PM ? COMPARISON STUDIES: ??NO COMPARISONS. ? CLINICAL HISTORY: ??OTHER - NECK PAIN ??. ? CONCLUSION: ? 1. ??C1-C7 WITHOUT ACUTE FRACTURE, DISLOCATION OR OSSEOUS EROSION. MILD TO MODERATE ENDPLATE DEGENERATIVE CHANGE AT C5-6 AND TO A LESSER EXTENT AT C6-7. NO SPONDYLOLISTHESIS. STRAIGHTENING OF NORMAL CERVICAL LORDOSIS MAY BE DUE TO PATIENT POSITIONING VERSUS CERVICAL STRAIN. ? 2. ??THERE IS NO SOFT TISSUE SWELLING.. NO RADIOPAQUE FOREIGN BODIES. ? ELECTRONICALLY SIGNED BY Mitzy GARCIA MD ? Procedure Note Titi Caery MD - 05/12/2018 CLARITA SERRANO ADMIT/SERVICE DATE:09/18/15 ACCT: [id number] DISCHARGE DATE: : 1965 SEX: F ORD SITE: [facility] TYPE: REG CLI ORDERING MD:LINH ELLINGTON MD STUDY DATE REPORT # ORDER # EXT ORDER ID 09/18/15 [id number] PROC CODE: [id number] PROCEDURE DESCRIPTION: XR CERVICAL SPINE 3 VWS OR LSS IMAGING STUDIES: XR CERVICAL SPINE 3 VWS OR LSS DATE: 09/18/2015 2:31 PM COMPARISON STUDIES: NO COMPARISONS. CLINICAL HISTORY: OTHER - NECK PAIN . CONCLUSION: 1. C1-C7 WITHOUT ACUTE FRACTURE, DISLOCATION OR OSSEOUS EROSION. MILD TOMODERATE ENDPLATE DEGENERATIVE CHANGE AT C5-6 AND TO A LESSER EXTENT AT C6-7. NOSPONDYLOLISTHESIS. STRAIGHTENING OF NORMAL CERVICAL LORDOSIS MAY BE DUE TO PATIENT POSITIONING VERSUS CERVICALSTRAIN. 2. THERE IS NO SOFT TISSUE SWELLING.. NO RADIOPAQUE FOREIGN BODIES. ELECTRONICALLY SIGNED BY Mitzy GARCIA MD iLnh Ellington MD GENERAL IMAGING Final Result * XR THOR SPINE 3V (09/18/2015 3:33 PM DISPATCH COORDINATOR) Anatomical Region Laterality Modality Spine Radiographic Risa ging 09/18/2015 3:33 PM DISPATCH COORDINATOR 09/18/2015 3:33 PM DISPATCH COORDINATOR Narrative 09/18/2015 3:39 PM DISPATCH COORDINATOR CLARITA SERRANO ? ADMIT/SERVICE DATE: 09/18/15 ?? ACCT: [id number] ?DISCHARGE DATE: ?? : 1965 ??SEX: F ?ORD SITE: [facility] ?? PT TYPE: REG CLI ? ORDERING MD: LINH ELLINGTON MD ? STUDY DATE ? REPORT # ?ORDER # ? EXT ORDER ID ?? 09/18/15 ? [id number] ? [id number] ?[id number] ? PROC CODE: ? [id number] ? PROCEDURE DESCRIPTION: ?? XR THORACIC SPINE 3 VIEWS ? IMAGING STUDIES: XR THORACIC SPINE 3 VIEWS ? DATE : 09/18/2015 2:31 PM ? COMPARISON: ??NO COMPARISON ? CLINICAL HISTORY: ??OTHER - MIDLINE LOW BACK PAIN ??. ? CONCLUSION: ? 1. ??NO EVIDENCE OF ACUTE FRACTURE OR DISLOCATION. ? 2. ??VERTEBRAL BODY HEIGHTS AND INTERVERTEBRAL DISC SPACES ARE WITHIN NORMAL LIMITS. MILD ENDPLATE DEGENERATIVE CHANGE. MILD DEXTROCONVEX CURVATURE OF MID THORACIC SPINE. ? 3. ??NO PARASPINAL LESIONS. MEDIAL VISUALIZED LUNG QUINONEZ ARE GROSSLY CLEAR. ? ELECTRONICALLY SIGNED BY Mitzy GARCIA MD ? Procedure Note , Titi Tristan, - 05/13/2018 CLARITA SERRANO ADMIT/SERVICE DATE:09/18/15 ACCT: [id number] DISCHARGE DATE: : 1965 SEX: F ORD SITE: [facility] PT TYPE: REG CLI ORDERING MD:LINH ELLINGTON MD STUDY DATE REPORT # ORDER # EXT ORDER ID 09/18/15 [id number] PROC CODE: [id number] PROCEDURE DESCRIPTION: XR THORACIC SPINE 3 VIEWS IMAGING STUDIES: XR THORACIC SPINE 3 VIEWSDATE : 09/18/2015 2:31 PM COMPARISON: NO COMPARISON CLINICAL HISTORY: OTHER - MIDLINE LOW BACK PAIN . CONCLUSION: 1. NO EVIDENCE OF ACUTE FRACTURE OR DISLOCATION. 2. VERTEBRAL BODY HEIGHTS AND INTERVERTEBRAL DISC SPACES ARE WITHINNORMAL LIMITS. MILD ENDPLATE DEGENERATIVE CHANGE. MILD DEXTROCONVEX CURVATURE OF MID THORACIC SPINE. 3. NO PARASPINAL LESIONS. MEDIAL VISUALIZED LUNG QUINONEZ ARE GROSSLYCLEAR. ELECTRONICALLY SIGNED BY Mitzy GARCIA MD Linh Ellington MD GENERAL IMAGING Final Result documented in this encounter Visit Diagnoses Not on filedocumented in this encounter
--- OUTSIDE RECORDS SUMMARY | 2024-07-16 14:39 | XMS_ITS | Encounter Summary ---
Author Organization [facility] Address [address] [place] [address]. [place] [address] [place] [address] Care Team Providers Care Commercial Light Fixture Assembler Name Role Phone Unavailable Primary Care Provider Unavailabl e Encounter Details Date Type Department Care Team (Late st Contact Info) Description 10/04/2015 Abstract [facility] [address] [place], [place] [phone] [place] [address] [place], [place] [phone] Social History Tobacco Use Types Packs/Day Years [...] st Contact Info) Description 08/02/2024 9:20 AM [facility] Hospital Encounter [facility] [address] [place] [address] [phone] Rm Cardozo, MICROFILM CLERK [address] [place] [address] [phone] (Work) documented as of this encounter Visit Diagnoses Diagnosis Low back pain Lumbago documented in this encounter
--- OUTSIDE RECORDS SUMMARY | 2024-07-16 14:39 | XMS_ITS | Encounter Summary ---
Author Organization [facility] Address [address] [place] [address]. [place] [address] [place] [address] Care Team Providers Care Extension Work Instructor Name Role Phone Unavailable Primary Care Provider Unavailabl e Encounter Details Date Type Department Care Team (Late st Contact Info) Description 11/20/2014 Abstract [facility] Family & Internal Medicine [facility] [address] [place] [address] Debra Tilley APNP [address] [address] Social History Tobacco Use Types Packs/Day Years Used Date Smoking Tobacco: Never Assessed Comments Unknown Sex and Gender Information Value Date Recorded Sex Assigned at Not on file Legal Sex Female 7:39 PM CDT Gender Identity Not on file Sexual Orientation Not on file documented as of this encounter Last Filed Vital Signs Vital Sign Reading Time Taken Comments Blood Pressure 110/70 11/20/2014 9:33 AM CDT Pulse 71 11/20/2014 9:33 AM CDT Temperature - - Respiratory Rate - - Oxygen Saturation - - Inhaled Oxygen Concentration - - Weight 63.5 kg (140 lb) 11/20/2014 9:33 AM CDT Height 160 cm (5' 3 ) 11/20/2014 9:33 AM CDT Body Mass Index 24.8 11/20/2014 9:33 AM CDT documented in this encounter Progress Notes * KATARZYNA Krishnamurthy - 11/20/2014 9:30 AM CDT Reason For Visit Reason For Visit: Acute Visit Chief Complaint c/o st, onset- 3-4 days. no other sx's. also having issues with tendonitis in right arm. onset- Nov. 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 History of Present Illness says she has a sore spot in her throat that she noticed about 3 days ago. She states it hurts her when she yawns but she has not other symptoms and the pain is mild. Says she doesn't want this to turn into strep. She is also here because her elbow still hurts but she has to use her arm at work. 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 Review of Systems See HPI for pertinent positives. Constitutional: Normal. ENT: no earache, no hearing loss, no nasal discharge and ear(s) do not feel pressured The patient presents with complaints of occasional episodes of right sore throat, described as sharp and stinging, non-radiating. Episodes started about 3 days ago. She is currently experiencing sorethroat. Respiratory: Normal, no cough and no shortness of breath during exertion. Musculoskeletal: joint pain. The patient presents with complaints of gradual onset of frequent episodes of moderate right radial aspect elbow pain, described as aching, non-radiating. She is currently experiencing elbow pain. Neurological: Normal. Psychiatric: Normal. Active Problems 1. 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 Epicondylitis, lateral (726.32) (M77.10) 3. Incisional hernia (553.21) (K43.2) Past Medical History 1. History of Acute maxillary sinusitis (461.0) (J01.00) 2. History of Acute upper respiratory infection (465.9) (J06.9) 3. History of upper respiratory infection (V12.09) (Z86.19) Surgical History 1. History of Section ?? [...] (Z81.1) 7. Family history of dementia (V17.2) (Z82.0) 8. Family history of depression (V17.0) (Z81.8) 9. Family history of diabetes mellitus (V18.0) (Z83.3) 10. Family history of psoriasis (V19.4) (Z84.0) Social History ?? Denied: History of Alcohol Use (History) ?? Marital History - Currently ?? Never a smoker ?? Never Drank Alcohol ?? Never Used Drugs ?? Preferred Language Citizen Of [place] Immunizations Influenza --- Series1: Temporarily Deferred: Refusal of treatment by patient (situation) Tetanus --- Series1: 29Dec2012 Current Meds 1. No Reported Medications Recorded THADDEUS = N; ; Last Updated By: Farnaz Barton; 05/31/2014 2:58:22 PM Allergies 1. No Known Drug Allergies Recorded By: Lesley Sunshine; 12/29/2012 8:43:54 AM Vitals Recorded: [id number] 09:33AM Temperature 98.6 F Heart Rate 71 Systolic 110 Diastolic 70 O2 Saturation 99 Height 5 ft 3 in Weight 140 lb BMI Calculated 24.8 BSA Calculated 1.66 Physical Exam Constitutional General [...] of breathing or signs of respiratory distress. Cardiovascular Examination of extremities for edema and/or varicosities: Normal. Musculoskeletal Gait and station: Normal. Inspection/palpation of joints, bones, and muscles: Abnormal. Appearance - normal. Palpation - normal except as noted: right elbow tenderness. Skin Skin and subcutaneous tissue: Normal without rashes or lesions. Neurologic Cranial nerves: Cranial nerves 2-12 intact. Psychiatric Orientation to person, place, and time: Normal. Mood and affect: Normal. Assessment 1. Sore throat (462) (J02.9) 2. Epicondylitis, lateral (726.32) (M77.10) Plan Epicondylitis, lateral 1. Treat the injury with rest, ice, compression, and elevation.; Status:Active; Requested for:[id number]; Ordered; For:Epicondylitis, lateral; Ordered By:Debra Tilley; 2. Wear a sling for 3 days.; Status:Active; Requested for:[id number]; Ordered; For:Epicondylitis, lateral; Ordered By:Debra Tilley; Elbow: Rest right elbow. This will not improve without rest. Use brace. Ice elbow regularly and take NSAIDs according to the package for inflammation. Throat: No sign of infection or inflammation. Gargle with warm salt water and can use throat lozenges as needed. Avoid spicy foods. Can take an izcx-nma-viuzamb allergy medication to keep sinuses dry. If you are experiencing acid reflux, can take [id number]-cia-phqtocd Zantac as needed. Follow-up as needed. Discussion/Summary Elbow: Offered patient a sling but she declined. Told her that injections in the elbow may be an option but she declined to pursue that as well. Exercises provided for treatment of tennis elbow. Throat: She described a sore in the back of her throat that I could not visualize. Reassured her that the body will be able to let this heal in time but if it doesn't improve, it can be investigated further. Signatures Electronically signed by : Debra Tilley APN; Nov 20 2014 10:29AM BUSINESS SERVICES TECH (Author) Electronically signed by : Dominick Rose M.D.; Nov 22 2014 6:12AM BUSINESS SERVICES TECH (Author) documented in this encounter Plan of Treatment Upcoming Encounters Date Type Department Care Team (Late st Contact Info) Description 08/02/2024 9:20 AM BUSINESS SERVICES TECH Hospital Encounter [facility] Interventional Pain Management Center [address] [facility] [place] [address] [phone] Rm Cardozo, COMMONWEALTH ATTORNEY 3 [facility] [address] [place] [address] [phone] (Work) documented as of this encounter Visit Diagnoses Not on filedocumented in this encounter
--- OUTSIDE RECORDS SUMMARY | 2024-07-16 14:39 | XMS_ITS | Encounter Summary ---
Author Organization [facility] Address [address] [place] [address]. [place] [address] [place] [address] Care Team Providers Care Driving Teacher Name Role Phone Unavailable Primary Care Provider Unavailabl e Encounter Details Date Type Department Care Team (Late st Contact Info) Description 10/02/2015 Abstract [facility] [address] [place], [place] [phone] [place] [address] [place], [place] [phone] Social History Tobacco Use Types Packs/Day Years [...] st Contact Info) Description 08/02/2024 9:20 AM [facility] Hospital Encounter [facility] Interventional Pain Management Center [facility] [place] [address] [phone] mR Cardozo, SEAFOOD PACKER 3 [facility] [address] [place] [address] [phone] (Work) documented as of this encounter Visit Diagnoses Diagnosis Renal and perinephric abscess documented in this encounter
--- OUTSIDE RECORDS SUMMARY | 2024-07-16 14:39 | XMS_ITS | Encounter Summary ---
Author Organization [facility] Address [facility] [place] [address] [place] [address] Care Team Providers Care Customer Supply Chain Analyst Name Role Phone Unavailable Primary Care Provider Unavailabl e Encounter Details Date Type Department Care Team (Latest Contact Info) Description 10/08/[address] [facility] Social History Tobacco Use Types Packs/Day Years Used Date Smoking Tobacco: Never Assessed Comments Unknown Sex and Gender Information Value Date Recorded Sex Assigned at Not on file Legal Sex Female 7:39 PM CDT Gender Identity Not on file Sexual Orientation Not on file documented as of this encounter Progress Notes * Generic Conversion MD Aurelio - 10/08/2015 10:59 AM CDT Message Recorded as Task Date: 10/05/2015 02:42 PM, Created By: Linh Espino Task Name: Informational Assigned To: [facility] Nurse Team Regarding Patient: Mary Horton, Status: In Progress Comment: Linh Espino - 05 Oct 2015 2:42 PM TASK CREATED MRI doesn't show a reason for her pain FU if not better Lesli Carnes - 05 Oct 2015 2:55 PM TASK IN PROGRESS Lesli Carnes - 05 Oct 2015 2:57 PM TASK EDITED called pt with results and she is stating that she is probably having kidney stones she had very sharp pains on Monday 10/02 and she now is having this on and off and her urine stream is a lot stronger. Would like to have a test to check for stones Linh Espino - 07 Oct 2015 5:40 PM TASK REPLIED TO: Previously Assigned To Linh Espino I would start with a urine dip to see if there is blood in her urine. Debra Ellis - 08 Oct 2015 10:59 AM TASK EDITED Spoke with pt regarding recommendations from Dr. Linh. Pt is not having any pain at this time. I instructed pt to come into the office if her s/sx return so that we can run a urine tests. She agreed. Signatures Electronically signed by : Debra Ellis, ; Oct 08 2015 11:00AM SHIPPING HELPER (Author) documented in this encounter Plan of Treatment Upcoming Encounters Date Type Department Care Team (Late st Contact Info) Description 08/02/2024 9:20 AM SHIPPING HELPER Hospital Encounter [facility] Interventional Pain Management [place] [address] [phone] Rm Cardozo, PROJECT MANAGEMENT DIRECTOR [address] [address] [phone] (Work) documented as of this encounter Visit Diagnoses Not on filedocumented in this encounter
--- OUTSIDE RECORDS SUMMARY | 2024-07-16 14:39 | XMS_ITS | Encounter Summary ---
Author Organization [facility] Address [facility] [place] [address] [place] [address] Care Team Providers Care Animal Handler Name Role Phone Unavailable Primary Care Provider Unavailabl e Encounter Details Date Type Department Care Team (Latest Contact Info) Description 10/01/2015 Abstract [facility] Medical Group Titi Carey MD Social History Tobacco Use Types Packs/Day Years Used Date Smoking Tobacco: Never Assessed Comments Unknown Sex and Gender Information Value Date Recorded Sex Assigned at Not on file Legal Sex Female 7:39 PM CDT Gender Identity Not on file Sexual Orientation Not on file documented as of this encounter Progress Notes * KATARZYNA Krishnamurthy - 10/01/2015 9:23 AM CDT Message Patient started on Levaquin. Having pain. Have started patient on Tramadol. See nurse communicationnotes Verified Results Urine Culture [id number] 09:41PM Debra Tilley Test Name Result Flag Reference Urine Culture (Report) SPECIMEN DESCRIPTION - URINE CLEAN CATCH SPECIAL REQUESTS - NO SPECIAL REQUEST CULTURE - 50,000-100,000 COL/ML ESCHERICHIA COLI CULTURE - TESTING PERFORMED AT [facility], [address] [place] [address], [place] [address] REPORT STATUS - FINAL 09/29/2015 ORGANISM - 50,000-100,000 COL/ML ESCHERICHIA COLI METHOD - ADELINE AMPICILLIN - <=2 SUSCEPTIBLE AMP/SULBACTAM - <=2 SUSCEPTIBLE CEFAZOLIN - <=4 SUSCEPTIBLE CEFTAZIDIME - <=1 SUSCEPTIBLE CEFTRIAXONE - <=1 SUSCEPTIBLE GENTAMICIN - <=1 SUSCEPTIBLE TRIMETH-SULFAMETHOXAZOLE - <=20 SUSCEPTIBLE NITROFURANTOIN - <=16 SUSCEPTIBLE LEVOFLOXACIN - <=0.12 SUSCEPTIBLE PIPRACIL/TAZO - <=4 SUSCEPTIBLE ESBL - NEG * Titi Tristan Md, MD - 10/01/2015 9:10 AM CDT Message Recorded as Task Date: 10/01/2015 08:08 AM, Created By: Luci Cagle Task Name: Medical Complaint Callback Assigned To: [facility] Nurse Team Regarding Patient: Mary Horton, Status: Active Comment: Luci Cagle - 01 Oct 2015 8:08 AM TASK CREATED Caller: Self; pt states she's still in a lot of pain that she believes is related to a kidney infection. pt states she was started on one antibiotic and then switched to Levaquin last Thursday. the pt's urine culture is back & does indicate infection that is sensitive to Levaquin. pt states she hasn't taken any more of the pain medication because it makes her very nauseated. she states she was nauseated all weekend. please advise. Farnaz Barton - 01 Oct 2015 9:10 AM TASK EDITED per debra. take tylenol instead of tramadol. pt states that she is taking Motrin instead. helped take the edge off. she is as nasuated as Thursday. She thinks that the tramadol caused that. I informed her we could call out zofran for the nausea. also, she needs to push water. If he pain gets worse,she needs to go to the ER per Debra. Levaquin is the antibiotic of choice per culture report. sheis taking the levaquin with food. She will hold off on the zofran since she is not nausated at thismoment. Signatures Electronically signed by : Farnaz Barton MA; Oct 01 2015 9:11AM ORACLE EBS ARCHITECT (Author) documented in this encounter Plan of Treatment Upcoming Encounters Date Type Department Care Team (Late st Contact Info) Description 08/02/2024 9:20 AM ORACLE EBS ARCHITECT Hospital Encounter [facility] Interventional Pain Management [place] [address] [phone] Rm Cardozo, NEWS PRODUCTION ASSISTANT [address] [place] [address] [phone] (Work) documented as of this encounter Visit Diagnoses Not on filedocumented in this encounter
--- OUTSIDE RECORDS SUMMARY | 2024-07-16 14:39 | XMS_ITS | Encounter Summary ---
Author Organization [facility] Address [address] [place] [address]. [place] [address] [place] [address] Care Team Providers Care Puppet Engineer Name Role Phone Unavailable Primary Care Provider Unavailabl e Encounter Details Date Type Department Care Team (Late st Contact Info) Description 09/18/[address] [facility] [address] [place], [place] [id number] [place] [address] [place], [place] [phone] Social History Tobacco Use Types Packs/Day Years [...] st Contact Info) Description 08/02/2024 9:20 AM [facility] Hospital Encounter [facility] Interventional Pain Management Center [address] [facility] [place] [address] [phone] Rm Cardozo, BLOWING WEASAND [address] [address] [place] [address] [phone] (Work) documented as of this encounter Visit Diagnoses Diagnosis Low back pain Lumbago documented in this encounter
--- OUTSIDE RECORDS SUMMARY | 2024-07-16 14:39 | XMS_ITS | Encounter Summary ---
Author Organization [facility] Address [address] [place] [address]. [place] [address] [place] [address] Care Team Providers Care Miller Kiln Dried Salt Name Role Phone Unavailable Primary Care Provider Unavailabl e Encounter Details Date Type Department Care Team (Late st Contact Info) Description 09/26/2015 Abstract [facility] [address] [place] [address] Debra Tilley APNP 900 [facility] [address] [place] [address] Social History Tobacco Use Types Packs/Day [...] st Contact Info) Description 08/02/2024 9:20 AM [facility] Hospital Encounter [facility] Interventional Pain Management Center [address] [place] [address] [phone] Rm Cardozo, INFRASTRUCTURE CONSULTANT 3 [facility] [address] [place] [address] [phone] (Work) documented as of this encounter Visit Diagnoses Diagnosis Low back pain Lumbago documented in this encounter
--- OUTSIDE RECORDS SUMMARY | 2024-07-16 14:39 | XMS_ITS | Encounter Summary ---
Author Organization [facility] Address [address] [place] [address]. [place] [address] [place] [address] Care Team Providers Care Dock Pumper Name Role Phone Unavailable Primary Care Provider Unavailabl e Encounter Details Date Type Department Care Team (Late st Contact Info) Description 12/08/2014 Abstract [facility] Medical Group Family & Internal Medicine [facility] [address] [place] [address] Debra Tilley APNP [address] [address] Social History Tobacco Use Types Packs/Day Years Used Date Smoking Tobacco: Never Assessed Comments Unknown Sex and Gender Information Value Date Recorded Sex Assigned at Not on file Legal Sex Female 7:39 PM CDT Gender Identity Not on file Sexual Orientation Not on file documented as of this encounter Last Filed Vital Signs Vital Sign Reading Time Taken Comments Blood Pressure 100/60 12/08/2014 2:06 PM CDT Pulse 65 12/08/2014 2:06 PM CDT Temperature - - Respiratory Rate - - Oxygen Saturation - - Inhaled Oxygen Concentration - - Weight 64 kg (141 lb) 12/08/2014 2:06 PM CDT Height 160 cm (5' 3 ) 12/08/2014 2:06 PM CDT Body Mass Index 24.98 12/08/2014 2:06 PM CDT documented in this encounter Progress Notes * KATARZYNA Krishnamurthy - 12/08/2014 3:31 PM CDT Message Discussed in office visit Verified Results *Urine Dip Siemens Machine Read Strip In Office [id number] 03:21PM Debra Tilley Test Name Result Flag Reference Appearance Clear Color Yellow Specific [place] 1.005 1.02 - 1.03 Leukocyte Esterase Trace Nitrite Negative pH 6.0 5.0 - 7.0 Protein Negative Glucose Negative Ketones Negative Blood Negative Bilirubin Negative Urobilinogen 0.2 E.U./dL * KATARZYNA Krishnamurthy - 12/08/2014 2:00 PM CDT Reason For Visit Acute Visit Referred By / Reason Sx's started yesterday, on & off lower back pain, Lt flank; diarrhea last night with 2 loose BM's today; no fever, denies dysuria or suprapubic pain. No report of strenuous activity. Sts just overall not feeling well since last night. History of Present Illness is here today with one day of left flank pain and mild suprapubic pain. She is concerned she has a kidney stone or uti. The patient is being seen for an initial evaluation of this episode of a urinary tract infection. Symptoms: flank pain, but no dysuria, no urinary frequency, no urinary urgency, no hematuria, no urinary incontinence, no nocturia and no malodorous urine The patient presents with complaints of lower abdominal pain. Symptom Cluster Details: She reports the symptoms are worsening. Associated Symptoms: no general malaise, no fever, no chills, no myalgias, no nausea, no vaginal discharge and no urethral discharge. Current Treatment: She is currently not being treated for this problem. Review of Systems ENT, Respiratory, Genitourinary and Psychiatric review of systems normal except as noted. Constitutional: feeling poorly. The patient presents with complaints of lower abdominal pain. The patient presents with complaints of sudden onset of mild left lower pain in the flank, described as dull, non-radiating. Active Problems 1. 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 Epicondylitis, lateral (726.32) (M77.10) 3. Incisional hernia (553.21) (K43.2) 4. Sore throat (462) (J02.9) Past Medical History 1. History of Acute [...] ?? Never Used Drugs ?? Preferred Language [place] Immunizations Influenza --- Series1: Temporarily Deferred: Refusal of treatment by patient (situation) Tetanus --- Series1: 29Dec2012 Current Meds 1. No Reported Medications Recorded Allergies 1. No Known Drug Allergies Vitals Recorded: [id number] 02:06PM Temperature 97.6 F, Oral Heart Rate 65 Respiration 16 Systolic 100 Diastolic 60 O2 Saturation 99 Height 5 ft 3 in Weight 141 lb BMI Calculated 24.98 BSA Calculated 1.67 Physical Exam Constitutional General appearance: No acute [...] for edema and/or varicosities: Normal. Abdomen Abdomen: Abnormal. The abdomen was flat. Bowel sounds were normal. The abdomen was soft. There was tenderness not in the suprapubic area. No masses palpated. no CVA tenderness Lymphatic Palpation of lymph nodes in neck: No lymphadenopathy. Musculoskeletal Gait and station: Normal. Skin Skin and subcutaneous tissue: Normal without rashes or lesions. Neurologic Cranial nerves: Cranial nerves 2-12 intact. Psychiatric Orientation to person, place, and time: Normal. Mood and affect: Normal. Assessment 1. UTI symptoms (788.99) (R39.9) Plan UTI symptoms: Increase fluid intake. Rest. If you develop a fever, pain with urination, or notice blood in urine, return to office. If you have an inability to void, go to ED immediately. Diarrhea: Follow a BRAT diet: Bread, rice, applesauce, and toast. Eat as tolerated and add regular foods as symptoms improve. Can take [id number]-[id number] Imodium as directed on package. If you develop severe abdominal pain go to ED immediately. If you notice blood in stool or develop a fever, return to office. Follow-up as needed. *Urine Dip Siemens Machine Read Strip In Office; Status:Resulted - Requires Verification; Done: [id number] 12:00AM Last Updated By:Bea Hein; 12/08/2014 3:31:53 PM;Ordered; For:UTI symptoms; Ordered By:Debra Tilley; Signatures Electronically signed by : Debra Tilley APN; Dec 12 2014 5:24AM SECOND CRUSHER (Author) documented in this encounter Plan of Treatment Upcoming Encounters Date Type Department Care Team (Late st Contact Info) Description 08/02/2024 9:20 AM SECOND CRUSHER Hospital Encounter [facility] Interventional Pain Management Center [address] [facility] [place] [address] [phone] Rm Cardozo, DRAPERY CUTTER MACHINE 3 [facility] [address] [place] [address] [phone] (Work) documented as of this encounter Procedures Procedure Name Priority Date/Time Associated Diagnosis Comments URINALYSIS AUTO DIP Routine 12/08/2014 3 :21 PM CDT documented in this encounter Results * URINALYSIS AUTO DIP (12/08/2014 3:21 PM CDT) APPEARANCE SEMEN Clear [facility] TO EPIC CONVERSION COLOR (U) Yellow [facility] T O EPIC CONVERSION SPECIFIC GRAVITY (U) 1.005 1.02 - 1.03 [facility] TO EPIC CONVERSION LEUKOCYTES (U) Trace [facility] OUP TO EPIC CONVERSION NITRITES Negative [facility] T O EPIC CONVERSION PH (U) 6.0 5.0 - 7.0 [facility] T O EPIC CONVERSION PROTEIN (ELP) (U) Negative [facility] TO EPIC CONVERSION GLUCOSE Negative [facility] T O EPIC CONVERSION KETONE (U) Negative [facility] TO EPIC CONVERSION BLOOD (U) Negative [facility] T O EPIC CONVERSION BILIRUBIN (U) Negative [facility] UP TO EPIC CONVERSION UROBILINOGEN 0.2 E.U./dL [facility] OUP TO EPIC CONVERSION 12/08/2014 3:21 PM CDT 12/08/2014 3:21 PM CDT Narrative [facility] TO EPIC CONVERSION - 12/08/2014 3:21 PM CDT Result Communication: No patient communication needed at this time us Debra Tilley APNP URINE ORDERABLES Final Re sult [facility] TO EPIC CONVERSION documented in this encounter Visit Diagnoses Not on filedocumented in this encounter
--- OUTSIDE RECORDS SUMMARY | 2024-07-16 14:39 | XMS_ITS | Encounter Summary ---
Author Organization [facility] Address [address] [place] [address]. [place] [address] [place] [address] Care Team Providers Care Legal Cashier Name Role Phone Unavailable Primary Care Provider Unavailabl e Encounter Details Date Type Department Care Team (Latest Contact Info) Description 10/04/2015 Abstract [facility] [place] [address] [place] [address] Social History Tobacco Use Types [...] st Contact Info) Description 08/02/2024 9:20 AM [facility] Hospital Encounter [facility] [place] [address] [phone] Rm Cardozo, ABSENCE MANAGEMENT CONSULTANT [address] [address] [phone] (Work) documented as of this encounter Procedures Procedure Name Priority Date/Time Associated Diagnosis Comments MRI LUMB SPINE WO CON Routine 10/04/2015 12:10 PM CDT documented in this encounter Results * MRI LUMB SPINE WO CON (10/04/2015 12:10 PM CDT) Anatomical Region Laterality Modality Spine Magnetic Resonan ce 10/04/2015 12:1 0 PM CDT 10/04/2015 12:10 PM CDT Narrative 10/04/2015 12:17 PM CDT CLARITA SERRANO ? ADMIT/SERVICE DATE: 10/04/15 ?? ACCT: [id number] ?DISCHARGE DATE: ?? : 1965 ??SEX: F ?ORD SITE: [facility] ?? PT TYPE: REG CLI ? ORDERING MD: LINH ELLINGTON MD ? STUDY DATE ? REPORT # ?ORDER # ? EXT ORDER ID ?? 10/04/15 ? [id number] ? [id number] ?[id number] ? PROC CODE: ? LSPWOC ? PROCEDURE DESCRIPTION: ?? MRI LUMBAR SPINE WO ? IMAGING STUDIES: ??MRI LUMBAR SPINE WO ?DATE: ??10/04/2015 10:27 AM ? INDICATION: OTHER - LOW BACK PAIN ??. LEFT FLANK PAIN ? COMPARISON: ??LUMBAR SPINE 09/18/2015. ? FINDINGS: ? 5 LUMBAR TYPE VERTEBRA. NORMAL VERTEBRAL BODY HEIGHTS. NO SUBLUXATION. SACRAL CYSTS. ? VISUALIZED PORTION OF SPINAL CORD IS UNREMARKABLE TIP ENDING AT T12-L1. ? AT T12-L1 THERE IS MILD FACET HYPERTROPHY NO SPINAL OR FORAMINAL STENOSIS. ? AT L1-L2, L2-L3, L3-L4 THERE IS MILD FACET HYPERTROPHY AND NO SPINAL OR FORAMINAL STENOSIS. ? AT L4-L5 THERE IS MILD FACET HYPERTROPHY NO SPINAL OR FORAMINAL STENOSIS. ? AT L5-S1 THERE IS MILD FACET HYPERTROPHY NO SPINAL OR FORAMINAL STENOSIS. ? IMPRESSION: MILD MULTILEVEL DEGENERATIVE DISC DISEASE. ? ELECTRONICALLY SIGNED BY KARISSA TINAJERO MD ? Procedure Note Titi Carey MD - 05/12/2018 CLARITA SERRANO ADMIT/SERVICE DATE:10/04/15 ACCT: [id number] DISCHARGE DATE: : 1965 SEX: F ORD SITE: [facility] PT TYPE: REG CLI ORDERING MD:LINH ELLINGTON MD STUDY DATE REPORT # ORDER # EXT ORDER ID 10/04/15 [id number] PROC CODE: LSPWOC PROCEDURE DESCRIPTION: MRI LUMBAR SPINE WO IMAGING STUDIES: MRI LUMBAR SPINE WO DATE: 10/04/2015 10:27 AM INDICATION: OTHER - LOW BACK PAIN . LEFT FLANK PAIN COMPARISON: LUMBAR SPINE 09/18/2015. FINDINGS: 5 LUMBAR TYPE VERTEBRA. NORMAL VERTEBRAL BODY HEIGHTS. NO SUBLUXATION.SACRAL CYSTS. VISUALIZED PORTION OF SPINAL CORD IS UNREMARKABLE TIP ENDING AT T12-L1. AT T12-L1 THERE IS MILD FACET HYPERTROPHY NO SPINAL OR FORAMINALSTENOSIS. AT L1-L2, L2-L3, L3-L4 THERE IS MILD FACET HYPERTROPHY AND NO SPINAL ORFORAMINAL STENOSIS. AT L4-L5 THERE IS MILD FACET HYPERTROPHY NO SPINAL OR FORAMINAL STENOSIS. AT L5-S1 THERE IS MILD FACET HYPERTROPHY NO SPINAL OR FORAMINAL STENOSIS. IMPRESSION: MILD MULTILEVEL DEGENERATIVE DISC DISEASE. ELECTRONICALLY SIGNED BY KARISSA TINAJERO MD Linh Ellington MD MRI Final Result documented in this encounter Visit Diagnoses Not on filedocumented in this encounter
--- OUTSIDE RECORDS SUMMARY | 2024-07-16 14:39 | XMS_ITS | Encounter Summary ---
Author Organization [facility] Address [address] [place] [address]. [place], [place] [address] [place] [address] Care Team Providers Care Automobile Rental Clerk Name Role Phone Unavailable Primary Care Provider Unavailabl e Encounter Details Date Type Department Care Team (Latest Contact Info) Description 09/21/[address] [facility] Medical Group Social History Tobacco Use Types Packs/Day Years Used Date Smoking Tobacco: Never Assessed Comments Unknown Sex and Gender Information Value Date Recorded Sex Assigned at Not on file Legal Sex Female 7:39 PM CDT Gender Identity Not on file Sexual Orientation Not on file documented as of this encounter Progress Notes * Titi Tristan Md, MD - 09/21/2015 2:46 PM CST Message Recorded as Task Date: 09/20/2015 04:23 PM, Created By: Linh Espino Task Name: Call Patient with results [facility] Nurse Team Regarding Patient: Mary Horton, Status: Active Comment: Linh Espino - 20 Sep 2015 4:23 PM Patient the sed rate & rheumatoid factor are both neg, the X-rays show no erosions & only mild arthritic changes. Suspect her arthritis is Osteoarthritis from wear & tear Lesli Carnes - 21 Sep 2015 2:30 PM TASK REASSIGNED: Previously Assigned To Linh Espino Laura - 21 Sep 2015 2:46 PM TASK EDITED Pt called office for test results and was given Dr. Melton's message. Pt verbalized understanding. Task complete. Signatures Electronically signed by : Kasandra Garcia MA; Sep 21 2015 2:47PM SUPERVISOR PLASMA (Author) documented in this encounter Plan of Treatment Upcoming Encounters Date Type Department Care Team (Late st Contact Info) Description 08/02/2024 9:20 AM [facility] Hospital Encounter [facility] [address] [place] [address] [phone] Rm Cardozo, STRATEGIC PROCUREMENT MANAGER 3 [facility] [address] [place] [address] [phone] (Work) documented as of this encounter Visit Diagnoses Not on filedocumented in this encounter
--- OUTSIDE RECORDS SUMMARY | 2024-07-16 14:39 | XMS_ITS | Encounter Summary ---
Author Organization [facility] Address [address] [place] [address]. [place] [address] [place] [address] Care Team Providers Care Milling Machine Tender Name Role Phone Unavailable Primary Care Provider Unavailabl e Encounter Details Date Type Department Care Team (Latest Contact Info) Description 09/18/2015 Abstract [facility] [place] [address] [place] [address] Social History Tobacco Use Types [...] st Contact Info) Description 08/02/2024 9:20 AM SCRATCHER Hospital Encounter [facility] Interventional [facility] [place] [address] [phone] Rm Cardozo, RAZOR SHARPENER [address] [address] [phone] (Work) documented as of this encounter Procedures Procedure Name Priority Date/Time Associated Diagnosis Comments JONATHAN IFA SCRN, [place] REFLEX TO TITER Routine 09/18/2015 6:54 PM SCRATCHER RHEUMATOID FACTOR, QUANT Routine 09/18/2015 6:54 PM SCRATCHER SED RATE, ERYTHROCYTE (ESR) Routine 09/18/2015 6:54 PM SCRATCHER C-REACTIVE PROTEIN, HIGH SENSI Routine 09/18/2015 6:54 PM SCRATCHER documented in this encounter Results * RHEUMATOID FACTOR, QUANT (09/18/2015 6:54 PM SCRATCHER) Pathologist [facility] RHEUMATOID FACTOR <15.0 0 - 30 IU/ML [facility] TO EPIC CONVERSION 09/18/2015 6:54 PM SCRATCHER 09/18/2015 6:54 PM SCRATCHER Narrative [facility] TO EPIC CONVERSION - 09/18/2015 8:01 PM SCRATCHER Result Communication: Call patient with results us Linh Espino MD LABORATORY Final Result [facility] TO EPIC CONVERSION * C-REACTIVE PROTEIN, HIGH SENSI (09/18/2015 6:54 PM SCRATCHER) Pathologist [facility] HS-CRP 2.8 [facility] T O EPIC CONVERSION Comment: Result Comment: Reference range: <3.1 Unit: mg/L ?Risk according to AHA/CDC guidelines For ages >17 years: ??hs-CRP mg/L ? Risk <1.0 ? Lower Relative Cardiovascular Risk 1.0 - 3.0 ?Average Relative Cardiovascular Risk 3.0 - 10.0 ? Higher Relative Cardiovascular Risk. ?Consider retesting in 1 to 2 weeks ?to exclude a benign transient ?elevation in the baseline CRP value ?secondary to infection or ? inflammation. Test Performed by Mariah Zuñiga, [facility], [address] [facility], [place] [address] Stevan Pressley M.D., Ph.D., Director of Laboratories , CLIA [id number] CORRECTED ON 09/21 AT 1433: PREVIOUSLY REPORTED 2.8 Reference range: <3.1 ?? Unit: mg/L 09/18/2015 6:54 PM SCRATCHER 09/18/2015 6:54 PM SCRATCHER Narrative [facility] TO EPIC CONVERSION - 09/22/2015 2:33 PM SCRATCHER Result Communication: No patient communication needed at this time Linh Espino MD LABORATORY Final Result Performing Organization Address [facility]/ZIP Co de Phone Number [facility] TO EPIC CONVERSION * JONATHAN IFA SCRN, [place] REFLEX TO TITER (09/18/2015 6:54 PM SCRATCHER) JONATHAN Negative Reference range: Negative [facility] TO EPIC CONVERSION JONATHAN COMMENT REPORT ??Not indicated Test Performed by [employer], [facility], [address] [place] [address] Stevan Pressley M.D., Ph.D., Director of Laboratories , CLIA [id number] [facility] TO EPIC CONVERSION 09/18/2015 6:54 PM SCRATCHER 09/18/2015 6:54 PM SCRATCHER Narrative [facility] TO EPIC CONVERSION - 09/22/2015 2:33 PM SCRATCHER Result Communication: No patient communication needed at this time Linh Espino MD LABORATORY Final Result Performing Organization Address [facility] Co de Phone Number [facility] TO EPIC CONVERSION * SED RATE, ERYTHROCYTE (ESR) (09/18/2015 6:54 PM SCRATCHER) ESR 18 0 - 20 MM/HR [facility] TO EPIC CONVERSION 09/18/2015 6:54 PM SCRATCHER 09/18/2015 6:54 PM SCRATCHER Narrative [facility] TO EPIC CONVERSION - 09/18/2015 7:49 PM SCRATCHER Result Communication: Call patient with results Linh Espino MD LABORATORY Final Result [facility] TO EPIC CONVERSION documented in this encounter Visit Diagnoses Not on filedocumented in this encounter
--- OUTSIDE RECORDS SUMMARY | 2024-07-16 14:39 | XMS_ITS | Encounter Summary ---
Author Organization [facility] Address [address] [place] [address]. [place], [place] [address] [place] [address] Care Team Providers Care Distribution Center Associate Name Role Phone Unavailable Primary Care Provider Unavailabl e Encounter Details Date Type Department Care Team (Latest Contact Info) Description 10/03/2015 Abstract [facility] Medical Group Social History Tobacco [...] st Contact Info) Description 08/02/2024 9:20 AM [facility] Hospital Encounter [facility] Interventional [facility] Management [place] [address] [phone] Rm Cardozo, BRANCH LOGISTICS SUPERVISOR [address] [place] [address] [phone] (Work) documented as of this encounter Visit Diagnoses Not on filedocumented in this encounter
--- OUTSIDE RECORDS SUMMARY | 2024-07-16 14:39 | XMS_ITS | Encounter Summary ---
Author Organization [facility] Address [address] [place] [address]. [place] [address] [place] [address] Care Team Providers Care Packager Head Name Role Phone Unavailable Primary Care Provider Unavailabl e Encounter Details Date Type Department Care Team (Late st Contact Info) Description 09/26/2015 Abstract [facility] Medical Group Family & Internal Medicine [facility] [address] [place] [address] Debra Tilley APNP [address] [address] Social History Tobacco Use Types Packs/Day Years Used Date Smoking Tobacco: Never Assessed Comments Unknown Sex and Gender Information Value Date Recorded Sex Assigned at Not on file Legal Sex Female 7:39 PM CDT Gender Identity Not on file Sexual Orientation Not on file documented as of this encounter Last Filed Vital Signs Vital Sign Reading Time Taken Comments Blood Pressure 118/70 09/26/2015 3:19 PM PARK MANAGER Pulse 72 09/26/2015 3:19 PM PARK MANAGER Temperature - - Respiratory Rate - - Oxygen Saturation - - Inhaled Oxygen Concentration - - Weight 71.8 kg (158 lb 6.1 oz) 09/26/2015 3:19 P M PARK MANAGER Height 160 cm (5' 3 ) 09/26/2015 3:19 PM PARK MANAGER Body Mass Index 28.06 09/26/2015 3:19 PM PARK MANAGER documented in this encounter Progress Notes * KATARZYNA Krishnamurthy - 09/26/2015 3:00 PM CST Reason For Visit Reason For Visit: Acute Visit Chief Complaint c/o pain in the mid back- left side. no urinary sx's. wants urine checked. constant pain. [facility]. lmp: menopause. History of Present Illness HPI Free Text: has been experiencing back pain for about 2 weeks and thought it was back spasm but it didn't improve with muscle relaxers. She was feeling a bit nauseated this morning. UTI, Acute: The patient is being seen for an initial evaluation of this episode of a urinary tract infection. Symptoms: back pain, but no dysuria, no urinary frequency, no urinary urgency, no hematuria, no urinary incontinence, no nocturia, no malodorous urine and no abdominal pain The patient presents with complaints of gradual onset of moderate left flank pain. Associated Symptoms: nausea, but no general malaise, no fever and no chills. Current Treatment: she is currently not being treated for this problem. Pertinent History: Pertinent medical history: childhood urinary tract infections. Review of Systems Constitutional: Normal. ENT: normal. Cardiovascular: Normal. Gastrointestinal: no abdominal pain (nausea. ). Genitourinary: (left flank pain). Neurological: Normal. Active Problems 1. 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 Epicondylitis, lateral (726.32) (M77.10) 4. Incisional hernia (553.21) (K43.2) 5. Midline low back pain without sciatica (724.2) (M54.5) 6. Neck pain (723.1) (M54.2) Past Medical History 1. History of Acute [...] ?? Never Used Drugs ?? Preferred Language Libyan Immunizations Influenza --- Series1: Temporarily Deferred: Refusal [...] sciatica; THADDEUS = N; Verified Transmission to [facility]; Last Updated By: Tika Ruby; 09/18/2015 1:45:26 PM 3. Vitamin D (Ergocalciferol) 95853 UNIT Oral Capsule; Therapy: 29Aug2015 to Recorded Dispense: 84 Days ; #:12 CAPS; Refill: 0; THADDEUS = N; Record; Last Updated By: Lesli Carnes; 09/18/2015 12:47:49 PM Allergies 1. No Known Drug Allergies Recorded By: Lesley Sunshine; 12/29/2012 8:43:54 AM Vitals Recorded: 26Sep2015 03:19PM Temperature 98 F Heart Rate 72 Systolic 118 Diastolic 70 O2 Saturation 99 Height 5 ft 3 in Weight 158 lb 6 oz BMI Calculated 28.06 BSA Calculated 1.75 Physical Exam Constitutional General [...] Normal. Abdomen Abdomen: Non-tender, no masses. no CVA tenderness Liver and spleen: No hepatomegaly or splenomegaly. Lymphatic Palpation of lymph nodes in neck: No lymphadenopathy. Musculoskeletal Gait and station: Normal. Skin Skin and subcutaneous tissue: Normal without rashes or lesions. Psychiatric Orientation to person, place, and time: Normal. Mood and affect: Normal. Results/Data *Urine dip auto In Office 26Sep2015 03:31PM Debra Tilley Test Name Result Flag Reference Color Yellow Clarity Clear Glucose Negative Bilirubin Negative Ketones Negative Specific [place] 1.015 Blood Negative pH 5.0 5.0 - 7.0 Protein Negative Urobilinogen 0.2 E.U./dL Nitrites positive Leukocytes Small-1+ Assessment 1. Acute UTI (599.0) (N39.0) Plan Acute UTI 1. Ciprofloxacin HCl - 250 MG Oral Tablet; Take one tablet twice daily for 3 days Rx By: Debra Tilley; Dispense: 3 Days ; #:6 Tablet; Refill: 0; For: Acute UTI; THADDEUS = N; [facility] [employer] # [id number]; Last Updated By: Tika Ruby; 09/26/2015 3:37:05 PM 2. Drink at least 6 glasses of clear liquids a day.; Status:Complete; Done: 26Sep2015 Ordered; For:Acute UTI; Ordered By:Debra Tilley; 3. There are several things women can do to treat and prevent bladder infections.; Status:Complete; Done: 26Sep2015 Ordered; For:Acute UTI; Ordered By:Debra Tilley; 4. Call if: Pain when you urinate is not better in 3 days.; Status:Complete; Done: 26Sep2015 Ordered; For:Acute UTI; Ordered By:Debra Tilley; 5. Call if: You have nausea and vomiting that lasts longer than 8 hours.; Status:Complete; Done: 26Sep2015 Ordered; For:Acute UTI; Ordered By:Debra Tilley; 6. Call if: You have pain in the kidney or low back area.; Status:Complete; Done: 26Sep2015 Ordered; For:Acute UTI; Ordered By:Debra Tilley; 7. Call if: You see blood in your urine.; Status:Complete; Done: 26Sep2015 Ordered; For:Acute UTI; Ordered By:Debra Tilley; 8. Call if: Your temperature is higher than 101F.; Status:Complete; Done: 26Sep2015 Ordered; For:Acute UTI; Ordered By:Debra Tilley; Midline low back pain without sciatica 9. Urine Culture; Status:Hold For - Manual Activation; Requested for:26Sep2015; Perform:[facility]; Due:26Oct2015; Last Updated By:Farnaz Barton; 09/26/2015 3:35:25 PM;Ordered; For:Midline low back pain without sciatica; Ordered By:Debra Tilley; Source: : Urine, Voided Take antibiotic as directed. Avoid caffeine and alcohol. Increase water intake. Rest. Go to ED for worsening symptoms, as discussed. Call office if symptoms are not improving over next couple of days. Follow-up as needed. Discussion/Summary Risks/benefits of treatment discussed. Explained that will call with results of culture and any changes needed in treatment. stated understanding and agreement to plan. Agree with the above evaluation and plan, ja Signatures Electronically signed by : Debra Tilley APN; Sep 26 2015 3:53PM PARK MANAGER (Author) Electronically signed by : Linh Espino M.D.; Sep 29 2015 6:17AM PARK MANAGER (Author) documented in this encounter Plan of Treatment Upcoming Encounters Date Type Department Care Team (Late st Contact Info) Description 08/02/2024 9:20 AM PARK MANAGER Hospital Encounter [facility] Interventional Pain Management Center [address] [place] [address] [phone] Rm Cardozo, SENIOR MECHANICAL DESIGNER 3 [facility] [address] [place] [address] [phone] (Work) documented as of this encounter Procedures Procedure Name Priority Date/Time Associated Diagnosis Comments URINE BACTERIA CULTURE Routine 09/26/2015 9:41 PM PARK MANAGER URINALYSIS AUTO DIP Routine 09/26/2015 3 :31 PM PARK MANAGER documented in this encounter Results * CULTURE URINE (09/26/2015 9:41 PM PARK MANAGER) CULTURE URINE SPECIMEN DESCRIPTION ? - URINE CLEAN CATCH SPECIAL REQUESTS ? - NO SPECIAL REQUEST CULTURE ?- 50,000-100,000 COL/ML ESCHERICHIA COLI CULTURE ?- TESTING PERFORMED AT [facility], [address] [place] [address], CULTURE ?- ??[place], [place] ??[id number] REPORT STATUS ?- FINAL 09/29/2015 ORGANISM ? - 50,000-100,000 COL/ML ESCHERICHIA COLI METHOD ? - ADELINE AMPICILLIN ? - <=2 SUSCEPTIBLE AMP/SULBACTAM ?- <=2 SUSCEPTIBLE CEFAZOLIN ?- <=4 SUSCEPTIBLE CEFTAZIDIME ?- <=1 SUSCEPTIBLE CEFTRIAXONE ?- <=1 SUSCEPTIBLE GENTAMICIN ? - <=1 SUSCEPTIBLE TRIMETH-SULFAME THOXAZOLE - <=20 SUSCEPTIBLE NITROFURANTOIN ? - <=16 SUSCEPTIBLE LEVOFLOXACIN ? - <=0.12 SUSCEPTIBLE PIPRACIL/TAZO ?- <=4 SUSCEPTIBLE ESBL ? - NEG [facility] TO EPIC CONVERSION 09/26/2015 9:41 PM PARK MANAGER 09/26/2015 9:41 PM PARK MANAGER Narrative [facility] TO EPIC CONVERSION - 09/29/2015 9:31 AM PARK MANAGER Result Communication: No patient communication needed at this time us Debra COLÓN MICROBIOLOGY - GENERAL OR DERABLES Final Result Performing Organization Address City/State/[facility] Co de Phone Number [facility] TO EPIC CONVERSION * URINALYSIS AUTO DIP (09/26/2015 3:31 PM PARK MANAGER) COLOR (U) Yellow [facility] T O EPIC CONVERSION TRANSPARENCY Clear [facility] P TO EPIC CONVERSION GLUCOSE Negative [facility] T O EPIC CONVERSION BILIRUBIN (U) Negative [facility] UP TO EPIC CONVERSION KETONE (U) Negative [facility] TO EPIC CONVERSION SPECIFIC GRAVITY (U) 1.015 [facility] TO EPIC CONVERSION BLOOD (U) Negative [facility] T O EPIC CONVERSION PH (U) 5.0 5.0 - 7.0 [facility] T O EPIC CONVERSION PROTEIN (ELP) (U) Negative [facility] TO EPIC CONVERSION UROBILINOGEN 0.2 E.U./dL [facility] OUP TO EPIC CONVERSION NITRITES positive [facility] T O EPIC CONVERSION LEUKOCYTES (U) Small-1+ [facility] OUP TO EPIC CONVERSION 09/26/2015 3:31 PM PARK MANAGER 09/26/2015 3:31 PM PARK MANAGER Narrative [facility] TO EPIC CONVERSION - 09/26/2015 3:31 PM PARK MANAGER Result Communication: No patient communication needed at this time us Debra COLÓN URINE ORDERABLES Final Re sult [facility] TO EPIC CONVERSION documented in this encounter Visit Diagnoses Not on filedocumented in this encounter
--- OUTSIDE RECORDS SUMMARY | 2024-07-16 14:39 | XMS_ITS | Encounter Summary ---
Author Organization [facility] Address [address] [place] [address]. [place] [id number] [place] [address] Care Team Providers Care Belt Notcher Name Role Phone Unavailable Primary Care Provider Unavailabl e Encounter Details Date Type Department Care Team (Latest Contact Info) Description 09/20/2015 Abstract [facility] Social History Tobacco Use Types Packs/Day Years Used Date Smoking Tobacco: Never Assessed Comments Unknown Sex and Gender Information Value Date Recorded Sex Assigned at Not on file Legal Sex Female 7:39 PM CDT Gender Identity Not on file Sexual Orientation Not on file documented as of this encounter Progress Notes * Linh Ellington MD - 09/20/2015 4:22 PM CST Verified Results Sedimentation Rate ( ESR ) 18Sep2015 06:54PM Linh Ellington Test Name Result Flag Reference Erythrocyte Sedimentation Rate 18 MM/HR 0-20 Rheumatoid Factor ( RA ) ( RF ) 18Sep2015 06:54PM Linh Ellington Test Name Result Flag Reference Rheumatoid Factor <15.0 IU/ML 0-30 XR L-SPINE 2-3 VIEW ( Routine ) 18Sep2015 03:40PM Linh Ellington Test Name Result Flag Reference XR L-SPINE 2-3 VIEW (Report) CLARITA SERRANO ADMIT/SERVICE DATE: 09/18/15 ACCT: [id number] DISCHARGE DATE: : 1965 SEX: F ORD SITE: [facility] PT TYPE: REG CLI ORDERING MD: LINH ELLINGTON MD STUDY DATE REPORT # ORDER # EXT ORDER ID 09/18/15 [id number] PROC CODE: [id number] PROCEDURE DESCRIPTION: XR LUMBAR [...] MODERATE STOOL IN COLON. MINIMALLY ATHEROSCLEROTIC AORTA. IF RADICULAR SYMPTOMS PERSIST MRI BE OF BENEFIT TO ASSESS FOR ANY DISC HERNIATION OR SPINAL STENOSIS. ELECTRONICALLY SIGNED BY Mitzy GARCIA MD XR HAND MINIMUM 3 VIEW LT ( Routine ) 18Sep2015 03:38PM Linh Ellington Test Name Result Flag Reference XR HAND MINIMUM 3 VIEW LT (Report) CLARITA SERRANO ADMIT/SERVICE DATE: 09/18/15 ACCT: [id number] DISCHARGE DATE: : 1965 SEX: F ORD SITE: [facility] PT TYPE: REG CLI ORDERING MD: LINH ELLINGTON MD STUDY DATE REPORT # ORDER # EXT ORDER ID 09/18/15 [id number] PROC CODE: [id number] PROCEDURE DESCRIPTION: XR HAND MINIMUM 3 VIEWS LT IMAGING STUDIES: XR HAND MINIMUM 3 VIEWS LT DATE: 09/18/2015 2:26 PM CLINICAL HISTORY: OTHER - ARTHRITIS PAIN OF [...] DIGIT. ELECTRONICALLY SIGNED BY Mitzy GARCIA MD XR HAND MINIMUM 3 VIEW RT ( Routine ) 18Sep2015 03:36PM Linh Ellington Test Name Result Flag Reference XR HAND MINIMUM 3 VIEW RT (Report) CLARITA SERRANO ADMIT/SERVICE DATE: 09/18/15 ACCT: [id number] DISCHARGE DATE: : 1965 SEX: F ORD SITE: [facility] PT TYPE: REG CLI ORDERING MD: LINH ELLINGTON MD STUDY DATE REPORT # ORDER # EXT ORDER ID 09/18/15 [id number] PROC CODE: [id number] PROCEDURE DESCRIPTION: XR HAND MINIMUM 3 VIEWS RT IMAGING STUDIES: XR HAND MINIMUM 3 VIEWS RT DATE: 09/18/2015 2:28 PM CLINICAL HISTORY: OTHER - ARTHRITIS PAIN OF [...] EROSIONS. ELECTRONICALLY SIGNED BY Mitzy GARCIA MD XR C-SPINE 2-3V 18Sep2015 03:35PM Linh Ellington Test Name Result Flag Reference XR C-SPINE 2-3V (Report) CLARITA SERRANO ADMIT/SERVICE DATE: 09/18/15 ACCT: [id number] DISCHARGE DATE: : 1965 SEX: F ORD SITE: [facility] PT TYPE: REG CLI ORDERING MD: LINH ELLINGTON MD STUDY DATE REPORT # ORDER # EXT ORDER ID 09/18/15 [id number] PROC CODE: [id number] PROCEDURE DESCRIPTION: XR CERVICAL [...] DUE TO PATIENT POSITIONING VERSUS CERVICAL STRAIN. 2. THERE IS NO SOFT TISSUE SWELLING.. NO RADIOPAQUE FOREIGN BODIES. ELECTRONICALLY SIGNED BY Mitzy GARCIA MD XR T-SPINE 3 VIEW ( Routine ) 18Sep2015 03:33PM Linh Ellington Test Name Result Flag Reference XR T-SPINE 3 VIEW (Report) CLARITA SERRANO ADMIT/SERVICE DATE: 09/18/15 ACCT: [id number] DISCHARGE DATE: : 1965 SEX: F ORD SITE: [facility] PT TYPE: REG CLI ORDERING MD: LINH ELLINGTON MD STUDY DATE REPORT # ORDER # EXT ORDER ID 09/18/15 [id number] PROC CODE: [id number] PROCEDURE DESCRIPTION: XR THORACIC SPINE 3 VIEWS IMAGING STUDIES: XR THORACIC SPINE 3 VIEWS DATE : 09/18/2015 2:31 PM COMPARISON: NO COMPARISON CLINICAL HISTORY: OTHER - MIDLINE LOW BACK PAIN . CONCLUSION: 1. NO EVIDENCE OF ACUTE FRACTURE OR DISLOCATION. 2. VERTEBRAL BODY HEIGHTS AND INTERVERTEBRAL DISC SPACES ARE WITHIN NORMAL LIMITS. MILD ENDPLATE DEGENERATIVE CHANGE. MILD DEXTROCONVEX CURVATURE OF MID THORACIC SPINE. 3. NO PARASPINAL LESIONS. MEDIAL VISUALIZED LUNG QUINONEZ ARE GROSSLY CLEAR. ELECTRONICALLY SIGNED BY Mitzy GARCIA MD documented in this encounter Plan of Treatment Upcoming Encounters Date Type Department Care Team (Late st Contact Info) Description 08/02/2024 9:20 AM [facility] Hospital Encounter [facility] [address] [place] [address] [phone] Rm Cardooz, FIRST AID ATTENDANT [id number] [place] [address] [phone] (Work) documented as of this encounter Visit Diagnoses Not on filedocumented in this encounter
--- OUTSIDE RECORDS SUMMARY | 2024-07-16 14:39 | XMS_ITS | Encounter Summary ---
Author Organization [facility] Address [address] [place] [address]. [place] [address] [place] [address] Care Team Providers Care Health Analyst Name Role Phone Unavailable Primary Care Provider Unavailabl e Encounter Details Date Type Department Care Team (Latest Contact Info) Description 09/27/[address] [facility] Social History Tobacco Use Types Packs/Day Years Used Date Smoking Tobacco: Never Assessed Comments Unknown Sex and Gender Information Value Date Recorded Sex Assigned at Not on file Legal Sex Female 7:39 PM CDT Gender Identity Not on file Sexual Orientation Not on file documented as of this encounter Progress Notes * KATARZYNA Krishnamurthy - 09/27/2015 7:59 AM CST Message Discussed in office visit Verified Results *Urine dip auto In Office 26Sep2015 03:31PM Debra Tilley Test Name Result Flag Reference Color Yellow Clarity Clear Glucose Negative Bilirubin Negative Ketones Negative Specific [place] 1.015 Blood Negative pH 5.0 5.0 - 7.0 Protein Negative Urobilinogen 0.2 E.U./dL Nitrites positive Leukocytes Small-1+ documented in this encounter Plan of Treatment Upcoming Encounters Date Type Department Care Team (Late st Contact Info) Description 08/02/2024 9:20 AM [facility]OD[facility] Hospital Encounter [facility] Interventional Pain Management Center [address] [facility] [place] [place] [address] [phone] Rm Cardozo, HAT PRESSER [address] [facility] [address] [place] [address] [phone] (Work) documented as of this encounter Visit Diagnoses Not on filedocumented in this encounter
--- OUTSIDE RECORDS SUMMARY | 2024-07-16 14:39 | XMS_ITS | Encounter Summary ---
Author Organization [facility] Address [facility] [place], [place] [address] [place] [address] Care Team Providers Care Acute Care Physician Name Role Phone Unavailable Primary Care Provider Unavailabl e Encounter Details Date Type Department Care Team (Latest Contact Info) Description 09/28/2015 Abstract [facility] , Titi Tristan MD Social History Tobacco Use Types Packs/Day Years Used Date Smoking Tobacco: Never Assessed Comments Unknown Sex and Gender Information Value Date Recorded Sex Assigned at Not on file Legal Sex Female 7:39 PM CDT Gender Identity Not on file Sexual Orientation Not on file documented as of this encounter Progress Notes * Generic Conversion MD Aurelio - 09/28/2015 11:43 AM CST Message Recorded as Task Date: 09/28/2015 08:24 AM, Created By: Luci Cagle Task Name: Medical Complaint Callback Assigned To: [facility] Nurse Team Regarding Patient: Mary Horton, Status: Active Comment: Luci Cagle - 28 Sep 2015 8:24 AM TASK CREATED Caller: Self; pt states she was supposed to call if she wasn't feeling better by today so we could send out a newprescription for her. she was started on Cipro on Thu, 09/25 for UTI. Farnaz Barton - 28 Sep 2015 9:07 AM TASK REASSIGNED: Previously Assigned To [facility] Nurse Team Debra Tilley - 28 Sep 2015 11:10 AM TASK REPLIED TO: Previously Assigned To Debra Tilley Addressed in separate task Kasandra Garcia - 28 Sep 2015 11:43 AM TASK EDITED Pt states that she is not feeling better, if anything, she is worse. Informed her of new med sent to pharmacy and she verbalized understanding. She gets off of work at 2:30 and will be home after that and would like a call after she gets home. Farnaz Barton - 28 Sep 2015 2:55 PM TASK EDITED pt told message again. she states that she is having back pain. she took Matt back and body pain pill this am and didn't work. spoke with Debra. due to the pain- she will send out tramadol to [facility] for her. If she develops worsening pain, blood in urine, to go to the ER. pt aware. Debra Tilley - 28 Sep 2015 3:03 PM TASK REPLIED TO: Previously Assigned To Debra Tilley Orders placed. Thank you. Plan 1. TraMADol HCl - 50 MG Oral Tablet; TAKE 1 TABLET BY MOUTH EVERY 6 TO 8 HOURS NEEDED FOR PAIN Rx By: Debra Tilley; Dispense: 15 Days ; #:60 Tablet; Refill: 0; For: Flank pain, acute; THADDEUS = N; Call Rx; Last Updated By: Farnaz Barton; 09/28/2015 3:01:28 PM rx called to [facility] Formulary Override Reason: No Formulary Equivalent Exists Signatures Electronically signed by : Farnaz Barton MA; Sep 28 2015 3:06PM ERP BUSINESS ANALYST (Author) * Titi Tristan Md, MD - 09/28/2015 11:43 AM CST Message Recorded as Task Date: 09/28/2015 11:09 AM, Created By: Debra Tilley Task Name: [facility]ational [facility] Patient: Mary Horton, Status: Active Comment: Debra Tilley - 28 Sep 2015 11:09 AM TASK CREATED Please let patient know I ordered a new prescription for her. She can stop the Cipro. Thank you. Kasandra Garcia - 28 Sep 2015 11:43 AM TASK EDITED Pt was informed by phone and she verbalized understanding. Task complete. Signatures Electronically signed by : Kasandra Garcia MA; Sep 28 2015 11:43AM ERP BUSINESS ANALYST (Author) * KATARZYNA Krishnamurthy - 09/28/2015 11:08 AM CST Verified Results Urine Culture 26Sep2015 09:41PM Debra Tilley Test Name Result Flag Reference Urine Culture SPECIMEN DESCRIPTION - URINE CLEAN CATCH SPECIAL REQUESTS - NO SPECIAL REQUEST CULTURE - 50,000-100,000 COL/ML ESCHERICHIA COLI :SENSITIVITY TO FOLLOW Plan Acute UTI ?? Ciprofloxacin HCl - 250 MG Oral Tablet ?? Levofloxacin 500 MG Oral Tablet (Levaquin); TAKE 1 TABLET DAILY UNTIL FINISHED documented in this encounter Plan of Treatment Upcoming Encounters Date Type Department Care Team (Late st Contact Info) Description 08/02/2024 9:20 AM ERP BUSINESS ANALYST Hospital Encounter [facility] Inter[facility] [place] [address] [phone] Rm Cardozo, WARP STARTER [address] [place] [address] [phone] (Work) documented as of this encounter Visit Diagnoses Not on filedocumented in this encounter
--- OUTSIDE RECORDS SUMMARY | 2024-07-16 14:39 | XMS_ITS | Encounter Summary ---
Author Organization [facility] Address [address] [place] [address]. [place] [address] [place] [address] Care Team Providers Care Field Adjuster Name Role Phone Unavailable Primary Care Provider Unavailabl e Encounter Details Date Type Department Care Team (Late st Contact Info) Description 10/02/2015 Abstract [facility] Family & Internal Medicine [facility] [address] [place] [address] [place] [address] [place] [address] Social History Tobacco Use Types Packs/Day Years Used Date Smoking Tobacco: Never Assessed Comments Unknown Sex and Gender Information Value Date Recorded Sex Assigned at Not on file Legal Sex Female 7:39 PM CDT Gender Identity Not on file Sexual Orientation Not on file documented as of this encounter Last Filed Vital Signs Vital Sign Reading Time Taken Comments Blood Pressure 122/64 10/02/2015 12:33 PM CDT Pulse 74 10/02/2015 12:33 PM CDT Temperature - - Respiratory Rate - - Oxygen Saturation - - Inhaled Oxygen Concentration - - Weight 72.1 kg (159 lb) 10/02/2015 12:33 PM CDT Height 160 cm (5' 3 ) 10/02/2015 12:33 PM CDT Body Mass Index 28.17 10/02/2015 12:33 PM CDT documented in this encounter Progress Notes * Linh Ellington MD - 10/02/2015 11:45 AM CDT Reason For Visit Acute Follow-Up Visit Chief Complaint Left side back pain x 3-4 weeks, started like a muscle pain but progressively worsening. She is in a lot of pain today. She can not take the Tramadol, it made her feel dizzy and sick feeling. UA donein office after being on antibiotic for UTI, pt stated she did not take today until after being seen. She take takes Tylenol and Ibuprofen but has not been helping. History of Present Illness HPI Free Text: A 50-year-old white female who is normally in good health until November 17 when she was in for left backpain and joint pain. She was evaluated with labs which revealed a sed rate of 18, rheumatoid factornegative, CRP 2.8, JONATHAN negative. X- rays of her LS fine, grade 1 retrolisthesis of L4 and L5. If symptoms persist, recommend checking an MRI. The patient returned on September 25, treated for UTI, initially with Cipro. Started on September 25 and then changed to Levaquin on September 27 without any improvement inher symptoms. A urine culture done September 25, revealed 50 to 100,000 of E. coli sensitive to Levaquin. The patient has had worsening. She has continual pain, almost in tears. It hurts for her to lay on the left side and flank pain to percussion. Flank Pain: Clarita Serrano presents with complaints of gradual onset of constant episodes of severe left flank pain, described as sharp and aching, non-radiating. Symptoms are improved by rest. Symptoms are made worse by direct pressure. Symptoms are worsening. Previous Evaluation: X-ray LS spine, urine culture.Treatment with Cipro and Levaquin. Associated symptoms include no dysuria, no hematuria, no fever and no abdominal pain. The patient presents with complaints of left flank costovertebral angle pain. The patient presents with complaints of gradual onset of constant episodes of left lower back pain,described as dull and aching. Review of Systems Eyes, ENT, Cardiovascular, Respiratory, Gastrointestinal, Integumentary, Neurological, Psychiatric,Endocrine and Hematologic review of systems normal except as noted. Constitutional: feeling poorly, but no fever. Genitourinary: Urinary frequency, see HPI. Musculoskeletal: (Back pain on the left). Active Problems 1. Acute UTI (599.0) (N39.0) 2. 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 Epicondylitis, lateral (726.32) (M77.10) 5. Flank pain, acute (789.09,338.19) (R10.9) 6. Incisional hernia (553.21) (K43.2) 7. Midline low back pain without sciatica (724.2) (M54.5) 8. Neck pain (723.1) (M54.2) Past Medical History [...] ?? Never Used Drugs ?? Preferred Language Macanese Immunizations Influenza --- Series1: Temporarily Deferred: Refusal of treatment by patient (situation) Tetanus --- Series1: 29Dec2012 Current Meds 1. Aspirin 325 MG Oral Tablet; TAKE 2 TABLET Every 6 hours; Therapy: (Recorded:18Sep2015) to Recorded 2. Cyclobenzaprine HCl - 10 MG Oral Tablet; TAKE 1/2 TO 1 TABLET AT BEDTIME NEEDED; Therapy: 18Sep2015 to (Evaluate:17Nov2015) Requested for: 18Sep2015; Last Rx:18Sep2015 Ordered 3. Levofloxacin 500 MG Oral Tablet; TAKE 1 TABLET DAILY UNTIL FINISHED; Therapy: 28Sep2015 to (Evaluate:05Oct2015) Requested for: 28Sep2015; Last Rx:28Sep2015 Ordered 4. TraMADol HCl - 50 MG Oral Tablet; TAKE 1 TABLET BY MOUTH EVERY 6 TO 8 HOURS NEEDED FOR PAIN; Therapy: 28Sep2015 to (Evaluate:13Oct2015); Last Rx:28Sep2015 Ordered 5. Vitamin D (Ergocalciferol) 06244 UNIT Oral Capsule; Therapy: 29Aug2015 to Recorded Allergies 1. No Known Drug Allergies Vitals Recorded: 02Oct2015 12:33PM Temperature 97.8 F Heart Rate 74 Systolic 122 Diastolic 64 O2 Saturation 99 Height 5 ft 3 in Weight 159 lb BMI Calculated 28.17 BSA Calculated 1.75 Physical Exam Constitutional General appearance: Abnormal. uncomfortable, but well developed and well nourished. Eyes Conjunctiva and lids: [...] edema and/or varicosities: Normal. Abdomen Abdomen: Abnormal. (Left flank pain to percussion ) The abdomen was rounded. Bowel sounds were normal. The abdomen was soft. left CVA tenderness. Liver and spleen: No hepatomegaly or splenomegaly. Skin Skin and subcutaneous tissue: Normal without rashes or lesions. Neurologic Cranial nerves: Cranial nerves 2-12 intact. Psychiatric Mood and affect: Normal. Results/Data US KIDNEYS BI 02Oct2015 04:31PM Linh Ellington Test Name Result Flag Reference US KIDNEYS BI (Report) CLARITA SERRANO ADMIT/SERVICE DATE: 10/02/15 ACCT: [id number] DISCHARGE DATE: : 1965 SEX: F ORD SITE: [facility] PT TYPE: REG CLI ORDERING MD: LINH ELLINGTON MD STUDY DATE REPORT # ORDER # EXT ORDER ID 10/02/15 [id number] PROC CODE: KIDNEYBI PROCEDURE DESCRIPTION: US KIDNEYS BILATERAL IMAGING STUDIES:US KIDNEYS BILATERAL DATE: 10/02/2015 1:33 PM INDICATION: OTHER - RENAL AND PERINEPHRIC ABSCESS COMPARISON: NO COMPARISONS. TECHNIQUE: EXAMINATION PERFORMED BY MACHINE LACER USING GRAYSCALE WITH COLOR FLOW . SELECTED IMAGES SUBMITTED FOR INTERPRETATION. WORKSHEET COMPLETED. IMPRESSION: NO HYDRONEPHROSIS. BOTH KIDNEYS HAVE NORMAL UNIFORM SHAPE, SIZE AND POSITION. RIGHT KIDNEY MEASURES 112 X 43 X 54 MM AND LEFT KIDNEY MEASURES 117 X 59 X 50 MM. ELECTRONICALLY SIGNED BY KARISSA TINAJERO MD *Urine Dip Siemens Machine Read Strip In Office 02Oct2015 12:31PM Linh Ellington Test Name Result Flag Reference Appearance Clear Color Yellow Specific [place] 1.010 1.02 - 1.03 Leukocyte Esterase Negative Nitrite Negative pH 5.5 5.0 - 7.0 Protein Negative Glucose Negative Ketones Negative Blood Negative Bilirubin Negative Urobilinogen 0.2 E.U./dL Urine Culture 26Sep2015 09:41PM Debra Tilley Test Name Result Flag Reference Urine Culture (Report) SPECIMEN DESCRIPTION - URINE CLEAN CATCH SPECIAL REQUESTS - NO SPECIAL REQUEST CULTURE - 50,000-100,000 COL/ML ESCHERICHIA COLI CULTURE - TESTING PERFORMED AT [facility], [address] [place] [address] REPORT STATUS - FINAL 09/29/2015 ORGANISM - 50,000-100,000 COL/ML ESCHERICHIA COLI METHOD - ADELINE AMPICILLIN - <=2 SUSCEPTIBLE AMP/SULBACTAM - <=2 SUSCEPTIBLE CEFAZOLIN - <=4 SUSCEPTIBLE CEFTAZIDIME - <=1 SUSCEPTIBLE CEFTRIAXONE - <=1 SUSCEPTIBLE GENTAMICIN - <=1 SUSCEPTIBLE TRIMETH-SULFAMETHOXAZOLE - <=20 SUSCEPTIBLE NITROFURANTOIN - <=16 SUSCEPTIBLE LEVOFLOXACIN - <=0.12 SUSCEPTIBLE PIPRACIL/TAZO - <=4 SUSCEPTIBLE ESBL - NEG *Urine dip auto In Office 26Sep2015 03:31PM Debra Tilley Test Name Result Flag Reference Color Yellow Clarity Clear Glucose Negative Bilirubin Negative Ketones Negative Specific [place] 1.015 Blood Negative pH 5.0 5.0 - 7.0 Protein Negative Urobilinogen 0.2 E.U./dL Nitrites positive Leukocytes Small-1+ Assessment 1. Flank pain, acute (789.09,338.19) (R10.9) 2. Midline low back pain without sciatica (724.2) (M54.5) Plan Acute UTI 1. *Urine Dip Siemens Machine Read Strip In Office; Status:Complete; Done: 02Oct2015 12:31PM Performed:In Office; Due:01Nov2015;Ordered; For:Acute UTI; Ordered By:Linh Ellington; Midline low back pain without sciatica 2. MRI L SPINE W/O; Status:Need Information - Financial Authorization; Requested for:03Oct2015; Perform:[facility]; Due:04Oct2015;Ordered; VELMA; For:Midline low back pain without sciatica; Ordered By:Linh Ellington; pt in a lot of pain Perinephric abscess 3. Roxicet 5-325 MG Oral Tablet; TAKE 1 TABLET Every 6 hours PRN Rx By: Linh Ellington; Dispense: 10 Days ; #:20 Tablet; Refill: 0; For: Perinephric abscess; THADDEUS =N; Print Rx; Msg to Pharmacy: can take 1/2 to 1 po Q 6 hours prn 4. US KIDNEYS BI; Status:Complete; Done: 02Oct2015 04:31PM Performed:[facility]; Order Comments:only need L kidney immaged; Due:02Oct2015;Ordered; Stat; For:Perinephric abscess; Ordered By:Linh Ellington; Discussion/Summary Acute flank pain, left. Did not respond to antibiotics. Patient could not tolerate tramadol becauseof dizziness. We will check a stat ultrasound to rule out perinephric abscess. If this is negative,could consider Medrol Dosepak and MRI of the back. In the meantime, we will give her hydrocodone 5 mg. She can try one half at a time PRN because of sensitivity. Have her follow up pending results and symptoms or PRN. Signatures Electronically signed by : Linh Ellington M.D.; Oct 07 2015 12:03PM BINDERY OPERATOR (Author) documented in this encounter Plan of Treatment Upcoming Encounters Date Type Department Care Team (Late st Contact Info) Description 08/02/2024 9:20 AM BINDERY OPERATOR Hospital Encounter [facility] [address] [place] [address] [phone] Rm Cardozo, HEEL SLUGGER [address] [place] [address] [phone] (Work) documented as of this encounter Procedures Procedure Name Priority Date/Time Associated Diagnosis Comments US RETROPERITONEAL LTD Routine 6 4:31 PM CDT URINALYSIS AUTO DIP Routine 10/02/2015 1 2:31 PM CDT documented in this encounter Results * US RENAL (10/02/2015 4:31 PM CDT) Anatomical Region Laterality Modality Renal Ultrasound 10/02/2015 4:31 PM CDT 10/02/2015 4:31 PM CDT Narrative 10/02/2015 4:36 PM CDT SERRANO,CLARITA ? ADMIT/SERVICE DATE: 10/02/15 ?? ACCT: [id number] ?DISCHARGE DATE: ?? : 1965 ??SEX: F ?ORD SITE: [facility] ?? PT TYPE: REG CLI ? ORDERING MD: LINH ELLINGTON MD ? STUDY DATE ? REPORT # ?ORDER # ? EXT ORDER ID ?? 10/02/15 ? [id number] ? [id number] ?[id number] ? PROC CODE: ? KIDNEYBI ? PROCEDURE DESCRIPTION: ?? US KIDNEYS BILATERAL ? IMAGING STUDIES:US KIDNEYS BILATERAL ?DATE: 10/02/2015 1:33 PM ? INDICATION: OTHER - RENAL AND PERINEPHRIC ABSCESS ? COMPARISON: NO COMPARISONS. ? TECHNIQUE: EXAMINATION PERFORMED BY MACHINE LACER USING GRAYSCALE WITH COLOR FLOW ?. SELECTED IMAGES SUBMITTED FOR INTERPRETATION. WORKSHEET COMPLETED. ? IMPRESSION: ? NO HYDRONEPHROSIS. BOTH KIDNEYS HAVE NORMAL UNIFORM SHAPE, SIZE AND POSITION. ? RIGHT KIDNEY MEASURES 112 X 43 X 54 MM AND LEFT KIDNEY MEASURES 117 X 59 X 50 MM. ? ELECTRONICALLY SIGNED BY KARISSA TINAJERO MD ? Procedure Note Linh Ellington MD - 05/12/2018 CLARITA SERRANO ADMIT/SERVICE DATE:10/02/15 ACCT: [id number] DISCHARGE DATE: : 1965 SEX: F ORD SITE: [facility] PT TYPE: REG CLI ORDERING MD:LINH ELLINGTON MD STUDY DATE REPORT # ORDER # EXT ORDER ID 10/02/15 [id number] PROC CODE: KIDNEYBI PROCEDURE DESCRIPTION: US KIDNEYS BILATERAL IMAGING STUDIES:US KIDNEYS BILATERALDATE: 10/02/2015 1:33 PM INDICATION: OTHER - RENAL AND PERINEPHRIC ABSCESS COMPARISON: NO COMPARISONS. TECHNIQUE: EXAMINATION PERFORMED BY MACHINE LACER USING GRAYSCALE WITHCOLOR FLOW . SELECTED IMAGES SUBMITTED FOR INTERPRETATION. WORKSHEET COMPLETED. IMPRESSION: NO HYDRONEPHROSIS. BOTH KIDNEYS HAVE NORMAL UNIFORM SHAPE, SIZE ANDPOSITION. RIGHT KIDNEY MEASURES 112 X 43 X 54 MM AND LEFT KIDNEY MEASURES 117 X 59X 50 MM. ELECTRONICALLY SIGNED BY KARISSA TINAJERO MD Linh Ellington MD ULTRASOUND Final Result * URINALYSIS AUTO DIP (10/02/2015 12:31 PM CDT) APPEARANCE SEMEN Clear [facility] TO EPIC CONVERSION COLOR (U) Yellow [facility] T O EPIC CONVERSION SPECIFIC GRAVITY (U) 1.010 1.02 - 1.03 [facility] TO EPIC CONVERSION LEUKOCYTES (U) Negative [facility] OUP TO EPIC CONVERSION NITRITES Negative [facility] T O EPIC CONVERSION PH (U) 5.5 5.0 - 7.0 [facility] T O EPIC CONVERSION PROTEIN (ELP) (U) Negative [facility] TO EPIC CONVERSION GLUCOSE Negative [facility] T O EPIC CONVERSION KETONE (U) Negative [facility] TO EPIC CONVERSION BLOOD (U) Negative [facility] T O EPIC CONVERSION BILIRUBIN (U) Negative [facility] UP TO EPIC CONVERSION UROBILINOGEN 0.2 E.U./dL [facility] OUP TO EPIC CONVERSION 10/02/2015 12:3 1 PM CDT 10/02/2015 12:31 PM CDT Narrative [facility] TO EPIC CONVERSION - 10/02/2015 12:31 PM CDT Result Communication: No patient communication needed at this time Linh Ellington MD URINE ORDERABLES Final Resul t [facility] TO EPIC CONVERSION documented in this encounter Visit Diagnoses Not on filedocumented in this encounter
--- OUTSIDE RECORDS SUMMARY | 2024-07-16 14:40 | XMS_ITS | Encounter Summary ---
Author Organization [facility] Address [address] [place] [address]. [place] [address] [place] [address] Care Team Providers Care Cardiopulmonary Technologist Chief Name Role Phone Unavailable Primary Care Provider Unavailabl e Encounter Details Date Type Department Care Team (Late st Contact Info) Description 06/01/2013 Abstract [facility] Family & Internal Medicine [facility] [address] [place] [address] [place] [address] [place] [address] Social History Tobacco Use Types Packs/Day Years Used Date Smoking Tobacco: Never Assessed Comments Unknown Sex and Gender Information Value Date Recorded Sex Assigned at Not on file Legal Sex Female 7:39 PM CDT Gender Identity Not on file Sexual Orientation Not on file documented as of this encounter Last Filed Vital Signs Vital Sign Reading Time Taken Comments Blood Pressure 110/80 06/01/2013 10:58 AM SECURITY FIELD SUPERVISOR Pulse 60 06/01/2013 10:58 AM SECURITY FIELD SUPERVISOR Temperature - - Respiratory Rate - - Oxygen Saturation - - Inhaled Oxygen Concentration - - Weight 67.6 kg (149 lb) 06/01/2013 10:58 AM SECURITY FIELD SUPERVISOR Height 160 cm (5' 3 ) 06/01/2013 10:58 AM SECURITY FIELD SUPERVISOR Body Mass Index 26.39 06/01/2013 10:58 AM SECURITY FIELD SUPERVISOR documented in this encounter Progress Notes * Linh Espino MD - 06/01/2013 10:45 AM CST Reason For Visit Pt having sinus pain and coughing up greenish colored mucus and, congestion. Has been taking Amoxilsince thursday and Pt says she is not feeling any better. History of Present Illness 48-year-old white female who does not like to eat take antibiotics however she started nasal congestion deep cough productive of green sputum headache body aches fever and chills was started on Z-Pakand is started to feel somewhat better but not completely is concerned about the cough was feeling worse before antibiotics no slightly better Review of Systems Constitutional: fever, feeling poorly, chills and headache. ENT: sore throat and nasal discharge. Cardiovascular: Normal. Respiratory: cough. Gastrointestinal: Normal. Genitourinary: Normal. Integumentary: Normal. Musculoskeletal: Normal. Neurological: Normal. Psychiatric: Normal. Active Problems 1. Acute Maxillary Sinusitis 461.0 2. 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 Incisional Hernia 553.21 4. Upper Respiratory Infection 465.9 Surgical History 1. History of Section 2 2. History of Vaginal Pap Smear V76.47 Social History ?? Marital History - Currently ?? Never A Smoker ?? Never Drank Alcohol ?? Never Used Drugs ?? Preferred Language Lithuanian Denied ?? History of Alcohol Use (History) Allergies 1. No Known Drug Allergies Immunizations Tetanus --- Series1: [id number] Vitals 01Jun2013 10:58AM Temperature 98.4 F Heart Rate 60 Systolic 110 Diastolic 80 BMI Calculated 26.4 BSA Calculated 1.71 Height 5 ft 3 in Weight 149 lb Physical Exam Constitutional General appearance: Abnormal. Moderately ill-appearing white female in no acute distress. Eyes Conjunctiva and lids: No swelling, erythema or discharge. Ears, Nose, Mouth, and Throat External inspection of ears and nose: Normal. Otoscopic examination: Abnormal. Cloudy TM. Oropharynx: Abnormal. Posterior purulent secretions. Pulmonary Respiratory effort: No increased work of breathing or signs of respiratory distress. Auscultation of lungs: Clear to auscultation. Cardiovascular Palpation of heart: Normal PMI, no thrills. Auscultation of heart: Normal rate and rhythm, normal S1 and S2, without murmurs. Examination of extremities for edema and/or varicosities: Normal. Abdomen Abdomen: Non-tender, no masses. Liver and spleen: No hepatomegaly or splenomegaly. Lymphatic Palpation of lymph nodes in neck: Abnormal. Shoddy adenopathy. Musculoskeletal Gait and station: Normal. Inspection/palpation of joints, bones, and muscles: Normal. Skin Skin and subcutaneous tissue: Normal without rashes or lesions. Neurologic Cranial nerves: Cranial nerves 2-12 intact. Psychiatric Mood and affect: Normal. Assessment 1. Acute Upper Respiratory Infection 465.9 Plan 1. Azithromycin 250 MG Oral Tablet; TAKE 2 TABLETS ON DAY 1 THEN TAKE 1 TABLET A DAY FOR 4 DAYS; Therapy: 30May2013 to (Complete:04Jun2013) Requested for: 30May2013; Last Rx:30May2013; Edited Ordered; For: Acute Maxillary Sinusitis (461.0); Rx By: Linh Espino; Dispense: 5 Days ; #:6 Tablet; Refill: 0; Verified Transmission to [facility] # [id number] 2. Amoxicillin-Pot Clavulanate 500-125 MG Oral Tablet; TAKE 1 TABLET 3 TIMES DAILY UNTIL GONE; Therapy: 01Jun2013 to (Complete:11Jun2013); Last Rx:01Jun2013; Edited Ordered; For: Acute Upper Respiratory Infection (465.9); Rx By: Linh Espino; Dispense: 10 Days ;#:30 Tablet; Refill: 0; Print Rx 3. Cheratussin AC 100-10 MG/5ML Oral Syrup; TAKE 1 TEASPOONFUL EVERY 4 TO 6 HOURS NEEDED FOR COUGH; Therapy: 01Jun2013 to (Complete:21Jun2013); Last Rx:01Jun2013 Ordered; For: Acute Upper Respiratory Infection (465.9); Rx By: Linh Espino; Dispense: 10 Days ;#:1 X 118 ML Bottle; Refill: 1; Print Rx Signatures Electronically signed by : Linh Espino M.D.; Sep 23 2013 5:29PM SECURITY FIELD SUPERVISOR (Author) RITY FIELD SUPERVISOR documented in this encounter Plan of Treatment Upcoming Encounters Date Type Department Care Team (Late st Contact Info) Description 08/02/2024 9:20 AM SECURITY FIELD SUPERVISOR Hospital Encounter [facility] [place] [address] [phone] Rm Cardozo, ASPHALT PATCHER [id number] [place] [address] [phone] (Work) documented as of this encounter Visit Diagnoses Not on filedocumented in this encounter
--- OUTSIDE RECORDS SUMMARY | 2024-07-16 14:40 | XMS_ITS | Encounter Summary ---
Author Organization [facility] Address [address] [place] [address]. [place], [place] [address] [place] [address] Care Team Providers Care Ad Operations Intern Name Role Phone Unavailable Primary Care Provider Unavailabl e Encounter Details Date Type Department Care Team (Latest Contact Info) Description 09/16/2013 Abstract [facility] Social History Tobacco Use [...] 9:20 AM [facility] Hospital Encounter [facility] [place] [address] [phone] Rm Cardozo, AT HOME INDEPENDENT CALL CENTER AGENT [address] [place] [address] [phone] (Work) documented as of this encounter Visit Diagnoses Not on filedocumented in this encounter
--- OUTSIDE RECORDS SUMMARY | 2024-07-16 14:40 | XMS_ITS | Encounter Summary ---
Author Organization [facility] Address [address] [place] [address]. [place], [place] [address] [address] Care Team Providers Care Eligibility Supervisor Name Role Phone Unavailable Primary Care Provider Unavailabl e Encounter Details Date Type Department Care Team (Latest Contact Info) Description 05/30/2013 Abstract [facility] Social History Tobacco Use Types Packs/Day Years Used Date Smoking Tobacco: Never Assessed Comments Unknown Sex and Gender Information Value Date Recorded Sex Assigned at Not on file Legal Sex Female 7:39 PM CDT Gender Identity Not on file Sexual Orientation Not on file documented as of this encounter Progress Notes * Generic Conversion MD Aurelio - 05/30/2013 2:59 PM CST Message Recorded as Task Date: 05/30/2013 09:14 AM, Created By: Lesley Sunshine Task Name: Medical Complaint Callback Assigned To: [address] Triage Regarding Patient: Mary Horton, Status: Active Comment: Lesley Sunshine - 30 May 2013 9:14 AM TASK CREATED Caller: Self; Medical Complaint; Pt called and is coming in on Thu am for sinus , cough, and h/a..she wants to know if she can have an Rx called into [facility] --no fever or allergies. please call and let pt know # [phone] Maggie Stevenson - 30 May 2013 9:49 AM TASK EDITED Patient c/o dry cough, facial pressure , low grade fever last week and headaches. OTC medications not helping. Linh Espino - 30 May 2013 10:25 AM TASK REPLIED TO: Previously Assigned To Linh Espino ok dose pack til seen Weds Maggie Stevenson - 30 May 2013 10:40 AM TASK EDITED Maggie Stevenson - 30 May 2013 11:04 AM TASK EDITED Patient said she has a sinus infection and requesting an antibiotic. Maxi Espinoet - 30 May 2013 2:29 PM TASK REPLIED TO: Previously Assigned To Linh Espino sent her a Zpack, RTO if not better Maggie Stevenson - 30 May 2013 2:59 PM TASK EDITED Patient notified and verbalizes understanding. Signatures Electronically signed by : Maggie Stevenson R.N.; May 30 2013 2:59PM (Author) E FORMER documented in this encounter Plan of Treatment Upcoming Encounters Date Type Department Care Team (Late st Contact Info) Description 08/02/2024 9:20 AM [facility] Hospital Encounter [facility] [place] [address] [phone] Rm Cardozo, TAX AGENT [address] [place] [address] [phone] (Work) documented as of this encounter Visit Diagnoses Not on filedocumented in this encounter
--- OUTSIDE RECORDS SUMMARY | 2024-07-16 14:40 | XMS_ITS | Encounter Summary ---
Author Organization [facility] Address [address] [place] [address]. [place] [address] [place] [address] Care Team Providers Care Pathology Laboratory Aide Name Role Phone Unavailable Primary Care Provider Unavailabl e Encounter Details Date Type Department Care Team (Late st Contact Info) Description 12/29/2012 Abstract [facility] Medical Group Family & Internal Medicine [facility] [address] [place] [address] [place] [address] [place] [address] Social History Tobacco Use Types Packs/Day Years Used Date Smoking Tobacco: Never Assessed Comments Unknown Sex and Gender Information Value Date Recorded Sex Assigned at Not on file Legal Sex Female 7:39 PM CDT Gender Identity Not on file Sexual Orientation Not on file documented as of this encounter Last Filed Vital Signs Vital Sign Reading Time Taken Comments Blood Pressure 98/60 12/29/2012 1:33 PM CDT Pulse 60 12/29/2012 1:33 PM CDT Temperature - - Respiratory Rate - - Oxygen Saturation - - Inhaled Oxygen Concentration - - Weight 64.9 kg (143 lb) 12/29/2012 1:33 PM CDT Height 160 cm (5' 3 ) 12/29/2012 1:33 PM CDT Body Mass Index 25.33 12/29/2012 1:33 PM CDT documented in this encounter Progress Notes * Linh Espino MD - 12/29/2012 1:30 PM CDT Reason For Visit Reason For Visit: Other: 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 She is concerned about gaining weight as her clothes are tight but she is not considered medically overweight Review of Systems Focused-Female: Constitutional: Normal. ENT: normal. Cardiovascular: Normal. Respiratory: Normal. Gastrointestinal: Normal. Genitourinary: Normal. Integumentary: Normal. Musculoskeletal: Normal. Neurological: Normal. Psychiatric: Normal. Active Problems 1. 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 Incisional Hernia 553.21 3. Upper Respiratory Infection 465.9 Surgical History 1. History of Section 2 2. History of Vaginal Pap Smear V76.47 Social History ?? Marital History - Currently ?? Never A Smoker ?? Never Drank Alcohol ?? Never Used Drugs ?? Preferred Language [place] Citizen Denied ?? History of Alcohol Use Current Meds 1. No Reported Medications Allergies 1. No Known Drug Allergies Vitals Vital Signs [Data Includes: Current Encounter] 29Dec2012 01:33PM Heart Rate 60 Systolic 98 Diastolic 60 BMI Calculated 25.34 BSA Calculated 1.68 Height 5 ft 3 in Weight 143 lb Physical Exam Constitutional General appearance: No acute [...] Neurologic Cranial nerves: Cranial nerves 2-12 intact. Reflexes: 2+ and symmetric. Sensation: No sensory loss. Psychiatric Orientation to person, place, and time: Normal. Mood and affect: Normal. Assessment 1. Health Maintenance V70.0 Plan 1. Tetanus (Adsorbed); give IM and deltoid as directed; To Be Done: 29Dec2012; Status: Hold For - Administration Ordered; Health Maintenance (V70.0); Ordered By:Linh Espino; Effective Date:29Dec2012 Discussion/Summary Discussion Summary Free Text: recommend healthy diet and nutrition Update adult tetanus discussed injection with Adacel however she prefers just having irregular tetanus. RTO p.r.n. Signatures Electronically signed by : Linh Espino M.D.; Dec 29 2012 6:02PM (Author) USEL OPERATOR documented in this encounter Plan of Treatment Upcoming Encounters Date Type Department Care Team (Late st Contact Info) Description 08/02/2024 9:20 AM CAROUSEL OPERATOR Hospital Encounter [facility] [place] [address] [id number] Rm Cardozo, COMMUNITY SERVICE PATROL OFFICER [id number] [place] [address] [phone] (Work) documented as of this encounter Visit Diagnoses Not on filedocumented in this encounter
--- OUTSIDE RECORDS SUMMARY | 2024-07-16 14:40 | XMS_ITS | Encounter Summary ---
Author Organization [facility] Address [address] [place] [address]. [place] [address] [place] [address] Care Team Providers Care Rehabilitation Services Counselor Name Role Phone Unavailable Primary Care Provider Unavailabl e Encounter Details Date Type Department Care Team (Late st Contact Info) Description 05/31/2014 Abstract [facility] Medical Group Family & Internal Medicine [facility] [address] [place] [address] [place] [address] [place] [address] Social History Tobacco Use [...] Reading Time Taken Comments Blood Pressure 110/70 05/31/2014 2:53 PM DISPENSARY ATTENDANT Pulse 72 05/31/2014 2:53 PM DISPENSARY ATTENDANT Temperature - - Respiratory Rate - - Oxygen Saturation - - Inhaled Oxygen Concentration - - Weight 70.3 kg (155 lb) 05/31/2014 2:53 PM DISPENSARY ATTENDANT Height 160 cm (5' 3 ) 05/31/2014 2:53 PM DISPENSARY ATTENDANT Body Mass Index 27.46 05/31/2014 2:53 PM DISPENSARY ATTENDANT documented in this encounter Progress Notes * Linh Espino MD - 05/31/2014 2:30 PM CST Reason For Visit Reason For Visit: Acute Visit Chief Complaint c/o right arm pain. onset- l mo no evidence of injury History of Present Illness A 49-year-old white female who normally eats healthy. Does not smoke or drink. Exercises regularly.Maintains a normal weight. Found out more about her family history. Her mother had bladder cancer. Did not smoke but was around many who did smoke. Half-sister of breast cancer and another half-sister also had cancer, so she is trying to found out what types of cancer the other sibling had. She is concerned about this and wants to know what she can do as far as testing and to see if she is at risk of the cancer chain. The patient is being seen for an initial evaluation of lateral epicondylitis which occurred in association with an established activity. The injury involved the right lateral elbow. This occurred at work. The injury resulted from heavy lifting. The activity involved prolonged use of the elbow and occurred at work. The activity began 1 month(s) ago. Symptoms: pain, decreased function, limited motion, painful motion, point tenderness, stiffness and elbow weakness. The patient is currently experiencing symptoms. Symptoms are located in the right lateral elbow. The patient describes the pain as dull, aching and burning. The patient is right hand dominant. Onset was gradual. The symptoms occur in termittently. The patient describes symptoms as moderate in severity and worsening. Exacerbating factors: pronation and supination. Relieving factors: ice. No associated symptoms are reported. Current treatment includes rest, application of ice and nonsteroidal anti-inflammatory drugs. By report, there is good compliance with treatment, good tolerance of treatment and fair symptom control. The first episode of lateral epicondylitis occurred 1 month(s) ago. Pertinent medical history: repeated overuse. No risk factors have been identified. The patient is currently able to do activities of dailyliving without limitations. Review of Systems Constitutional: feeling tired. ENT: normal. Cardiovascular: Normal. Respiratory: Normal. Gastrointestinal: heartburn. Genitourinary: Normal. Integumentary: Normal. Musculoskeletal: joint pain and joint stiffness. Neurological: Normal. Psychiatric: Normal. Active Problems 1. Acute maxillary sinusitis (461.0) (J01.00) 2. Acute upper respiratory infection (465.9) (J06.9) 3. 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 Incisional hernia (553.21) (K43.2) 5. Upper respiratory infection (465.9) (J06.9) Past Medical History Patient indicats no significant past medical history. Surgical History 1. History of Section ?? [...] ?? Never Used Drugs ?? Preferred Language [place]ian Current Meds 1. No Reported Medications Recorded THADDEUS = N; ; Last Updated By: Farnaz Barton; 05/31/2014 2:58:22 PM Allergies 1. No Known Drug Allergies Recorded By: Lesley Sunshine; 12/29/2012 8:43:54 AM Immunizations Tetanus --- Series1: [id number] Vitals Vital Signs [Data Includes: Current Encounter] Recorded by : Farnaz Barton at 31May2014 02:53PM Heart Rate 72 Systolic 110 Diastolic 70 O2 Saturation 99 [...] lymph nodes in neck: No lymphadenopathy. Musculoskeletal Joints, bones, and muscles: Abnormal. Tenderness over the right lateral epicondyle. Tenderness on internal rotation and supination. Skin Skin and subcutaneous tissue: Normal without rashes or lesions. Neurologic Cranial nerves: Cranial nerves II-XII intact. Psychiatric Judgment and insight: Normal. Mood and affect: Normal. Assessment 1. Epicondylitis, lateral (726.32) (M77.10) 2. Family history of malignant neoplasm of breast (V16.3) (Z80.3) : Sister Plan Health Maintenance 1. Stop: Temporarily Stop: Influenza For: Health Maintenance; Ordered By:Linh Espino; Effective Date:31May2014; Last Updated By: Farnaz Barton; 05/31/2014 2:59:41 PM Discussion/Summary Discussed treatment of lateral epicondylitis. If she wants to treat more naturally, would recommenda forearm band or brace for lateral epicondylitis in conjunction with the nonsteroidal antiinflammatory that she needs to take this regularly to treat the inflammation rather than the pain. Would tryto avoid overuse, ice the area 20 minutes intermittently throughout the day. Should this not work, we would recommend she see the chiropractor and consider laser therapy. Should this not be enough, then I would advance to either Medrol Dosepak, steroid injection, or referral to ortho. Concerns regarding arthritis, recommend she stay active but avoid overuse. Use nonsteroidals or Tylenol PRN for the discomfort. At this point, I would not recommend anything other than this and perhaps glucosamine/chondroitin. Patient had concerns regarding family history of cancer. However, she had always refused even a mammogram. Her AFTER SCHOOL PROGRAM ASSISTANT doctor talked to her into a mammogram but she does not want to have any further mammograms. Discussed the fact that the BRCA gene is very costly with only 1 family member having breastcancer, it is unlikely insurance would pay. Also, if she is not going to be willing to follow up with the mammograms for early detection and seems a moot point to check for a breast cancer gene. She will give this a consideration. I would recommend at least [id number] mammogram in conjunctionwith clinical breast exam and monthly self-breast exam. In regard to ovarian cancer, the CA-125 is a poor test since it can be falsely negative half the time and falsely positive half the time. In regard to colon cancer, she has had a colonoscopy. I wouldrecommend routine screening for this. In regard to other cancers, avoid smoking, good nutrition, regular exercise will limit her risks. Would recommend she follow up before if not better. Signatures Electronically signed by : Linh Espino M.D.; Jun 01 2014 10:47AM DISPENSARY ATTENDANT (Author) documented in this encounter Plan of Treatment Upcoming Encounters Date Type Department Care Team (Late st Contact Info) Description 08/02/2024 9:20 AM DISPENSARY ATTENDANT Hospital Encounter [facility] [place] [address] [id number] Rm Cardozo, MAGNESIUM MILL OPERATOR [address] [place] [address] [phone] (Work) documented as of this encounter Visit Diagnoses Not on filedocumented in this encounter
--- OUTSIDE RECORDS SUMMARY | 2024-07-16 14:40 | XMS_ITS | Encounter Summary ---
Author Organization [facility] Address [address] [place] [address]. [place], [place] [address] [place] [address] Care Team Providers Care Makeup Instructor Name Role Phone Unavailable Primary Care Provider Unavailabl e Encounter Details Date Type Department Care Team (Latest Contact Info) Description 06/01/2014 Abstract [facility] Medical Group Social History Tobacco Use Types [...] st Contact Info) Description 08/02/2024 9:20 AM [facility] Hospital Encounter [facility] Inter[facility] [place] [address] [id number] Rm Cardozo, CINNAMON GRINDER [id number] [place] [address] [phone] (Work) documented as of this encounter Visit Diagnoses Not on filedocumented in this encounter
--- OUTSIDE RECORDS SUMMARY | 2024-07-16 14:40 | XMS_ITS | Encounter Summary ---
Author Organization [facility] Address [address] [place] [address]. [place] [address] [place] [address] Care Team Providers Care Drip Pumper Name Role Phone Unavailable Primary Care Provider Unavailabl e Encounter Details Date Type Department Care Team (Late st Contact Info) Description 10/23/2010 Abstract [facility] [address] [place], [place] [id number] [place] [address] [place], [place] [id number] Social History Tobacco Use Types Packs/Day Years [...] Contact Info) Description 08/02/2024 9:20 AM [facility] Hospital Encounter [facility] Inter[facility] Management Center [address] [place] [address] [id number] Rm Cardozo, DIRECTOR ELECTRICAL ENGINEERING [address] [facility] [address] [place] [address] [phone] (Work) documented as of this encounter Visit Diagnoses Diagnosis Other megaloblastic anemia documented in this encounter
--- OUTSIDE RECORDS SUMMARY | 2024-07-16 14:44 | XMS_ITS | Encounter Summary ---
Author Organization [facility] Healthcare Address [address] [place] [address] Care Team Providers Care Time Study Analyst Name Role Phone Dmoinick Torres DO Primary Care Provider + Encounter Details Date Type Department Care Team (Late st Contact Info) Description 04/12/2024 Orders Only [facility] Medical Group Primary Care [address] [facility] [address] [place] [address] Dominick Torres DO [address] [facility] [address] [place] [address] Social History Tobacco Use Types Packs/Day Years Used Date Smoking Tobacco: Never Smokeless Tobacco: Never Alcohol Use Standard Drinks/Week Comments Yes 0 (1 standard drink = 0.6 oz pur e alcohol) AUDIT-C Answer Date Recorded Q1: How often do you have a drink containing alcohol? Never 12/02/2022 Q2: How many drinks containi ng alcohol do you have on a typical day when you are drinking? Patient does not drink Q3: How often do you have si x or more drinks on one occasion? 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 Gender Identity Not on file Sexual Orientation Not on file documented as of this encounter Ordered Prescriptions Prescription Sig Dispense Quantity Refills Last Filled Start Date End Date ketorolac (TORADOL) 10 mg tablet Take 1 tablet (10 mg total) by mouth every 6 (six) hours as needed for pain 20 tablet 04/12/2024 06/06/2024 documented in this encounter Plan of Treatment Not on file documented as of this encounter Visit Diagnoses Not on filedocumented in this encounter Care Teams Time Study Analyst Relationship Specialty Start Date End Date Dominick Torres DO [address] [place] [address] [phone] PCP - General Family Medicine 12/02/22 documented as of this encounter
--- OUTSIDE RECORDS SUMMARY | 2024-07-16 14:44 | XMS_ITS | Encounter Summary ---
Author Organization [facility] Healthcare Address [address] [place] [address] Care Team Providers Care Business Management Manager Name Role Phone Dominick Torres DO Primary Care Provider + Reason for Visit * Reason Onset Date Comments Appointment Request 04/15/2024 Encounter Details Date Type Department Care Team ([facility] st Contact Info) Description 04/15/2024 Telephone [facility] Medical Group Primary Care [address] [facility] [address] [place] [phone] Dominick Torres DO [address] [facility] [address] [place] [address] Appointment Request Social History Tobacco Use Types Packs/Day Years [...] on file 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 * Telephone Encounter - Sauravoctober - 04/15/2024 1:40 PM CDT Appointment Request What visit type does the patient need? Visit Type: Established Patient What is the reason for the visit? [facility] [place] [facility] What is the reason we were unable to schedule the appointment? Current appointment availability didnot meet patient's need. If applicable, were all members of the patient's PCP care team offered (e.g., nurse practioner(s), physician carpenter assistant installer(s)) ? N/A Additional Comments: pt would like the second week of 04/2024 Does message need to be routed? Yes-Action Needed documented in this encounter Plan of Treatment Not on file documented as of this encounter Visit Diagnoses Not on filedocumented in this encounter Care Teams Business Management Manager Relationship Specialty Start Date End Date Dominick Torres DO [address] [place] [address] PCP - General Family Medicine 12/02/22 documented as of this encounter
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
--- OUTSIDE RECORDS SUMMARY | 2024-07-16 14:44 | XMS_ITS | Encounter Summary ---
Author Organization [facility] Healthcare Address [address] [place] [id number] Care Team Providers Care Novelty Worker Name Role Phone Dominick Torres DO Primary Care Provider + Encounter Details Date Type Department Care Team ([facility] st Contact Info) Description 06/09/2024 Letter (Out) [facility] Medical Group Primary Care [facility] [address] [place] [phone] Social History Tobacco Use Types Packs/Day Years [...] on file 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
--- OUTSIDE RECORDS SUMMARY | 2024-07-16 14:44 | XMS_ITS | Encounter Summary ---
Author Organization [facility] Healthcare Address [address] [place] [phone] Care Team Providers Care Tick Inspector Name Role Phone Dominick Torres DO Primary Care Provider + Encounter Details Date Type Department Care Team (Latest Contact Info) Description 06/28/2024 4:23 PM NATIONAL RECRUITER - 06/28/2024 11:59 PM NATIONAL RECRUITER Hospital Encounter [facility] [address] [place] [phone] Frequency of micturition Discharge Disposition: Discharge to home or self care Social History Tobacco Use Types Packs/Day Years [...] on file 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 Gender Identity Not on file Sexual Orientation Not on file documented as of this encounter Medications at Time of Discharge ascorbic acid (vitamin C) 1,000 mg tablet Take 1 tablet (1,000 mg total) by mouth daily celecoxib (CeleBREX) 200 mg capsuleIndication s:Chronic bilateral thoracic back pain Take 1 capsule (200 mg total) by mouth daily 30 capsule 3 06/06/[address] (CYMBALTA) 30 mg capsuleIndication s:Chronic bilateral thoracic back pain Take 1 capsule (30 mg total) by mouth 2 (two) times a day 180 capsule 4 06/06/2024 5 fluticasone propionate (FLONASE) 50 mcg/actuation nasal spray Administer 2 sprays into each nostril daily 1 each 4 05/04/[address] (PROTONIX) 40 mg EC tablet Take 1 tablet (40 mg total) by mouth 2 (two) times a day 180 tablet 1 03/11/2024 5 nitrofurantoin monohydrate (MACROBID) 100 mg capsuleIndication s:Frequency of micturition Take 1 capsule (100 mg total) by mouth 2 (two) times a day for 7 days 14 capsule 06/28/2024 4 documented as of this encounter Discharge Disposition Disposition Code Departure Means Destination Discharge to home or self care documented in this encounter Plan of Treatment Not on file documented as of this encounter Procedures Procedure Name Priority Date/Time Associated Diagnosis Comments URINE CULTURE Routine 06/28/2024 1:21 PM NATIONAL RECRUITER Frequency of micturition documented in this encounter Results * (ABNORMAL) Urine culture Urine, clean voided (06/28/2024 1:21 PM NATIONAL RECRUITER) Report Final Report: Greater than or equal to 100,000 colonies/mL of Escherichia coli Plus growth of clinically insignificant bacterial tadeo. (.) Comment:Testing performed by : [facility], [address] [facility], [place]., [address] Organism ESCHERICHIA COLI MIKE Organism PLUS GROWTH OF CLINICALLY INSIGNIFICANT TADEO. MIKE FRIAS Urine, clean voided 06/28/2024 1:21 PM NATIONAL RECRUITER 06/28/2024 9:33 PM NATIONAL RECRUITER Narrative MIKE - 06/30/2024 3:29 PM NATIONAL RECRUITER Testing performed by [facility] Laboratory ([phone]) Organism Antibiotic Method Susceptibility Escherichia coli Ampicillin [...] INTERPRETATION Susceptible Escherichia coli Cefdinir INTERPRETATION Susceptible us Angeles Aguilera [employer] LAB MICROBIOLOGY - NERAL ORDERABLES Final Result MIKE [address] [facility] Department [place] [email or web address] [address] documented in this encounter Visit Diagnoses Diagnosis Frequency of micturition Urinary frequency documented in this encounter Care Teams Tick Inspector Relationship Specialty Start Date End Date Dominick Torres DO [address] [place] [id number] PCP - General Family Medicine 12/02/22 documented as of this encounter
--- OUTSIDE RECORDS SUMMARY | 2024-07-16 14:44 | XMS_ITS | Referral Summary ---
Author Organization [facility] Address [address] [place] [address] Care Team Providers Care Testing Analyst Name Role Phone Dominick Torres DO Primary Care Provider + Encounters Date Type Department Care Team Description 06/28/2024 4:23 PM TANK WAGON OPERATOR - 06/28/2024 11:59 PM TANK WAGON OPERATOR Hospital Encounter [facility] [address] [place] [address] Frequency of micturition Discharge Disposition: Discharge to home or self care 06/28/2024 1:30 PM TANK WAGON OPERATOR Office Visit [facility] [address] [place] [phone] Angeles Aguilera NP Frequency of micturition (Primary Dx) 06/24/2024 Telephone [facility] [address] [place] [phone] Dominick Torres DO Medical Question/Miscellane ous 06/09/2024 Letter (Out) [facility] [address] [place] [phone] 06/06/2024 2:00 PM TANK WAGON OPERATOR Office Visit [facility] [address] [place] [phone] Ralph Espinoza MD Chronic bilateral thoracic back pain (Primary Dx) 05/24/2024 Telephone [facility] [address] [place], [place] [address], [place] [phone] Dominick Torres, 05/20/2024 2:55 PM CDT - 05/20/2024 11:59 PM CDT Hospital Encounter [facility] MRI [address] [place] [address] Chronic midline thoracic back pain Discharge Disposition: Discharge to home or self care from Last 3 Months Allergies Active Allergy Reactions Criticality Noted Date [...] 06/06/2024 Assessment & Plan (06/06/2024 2:21 PM TANK WAGON OPERATOR): - uncontrolled - start celebrex 200 mg [...] fracture 12/02/2022 IFG (impaired fasting glucose) 12/02/2022 Immunizations Name Administration Dates Next Due Influenza, Quadrivalent, Spl it, Intramuscular 05/13/2019 Influenza, Quadrivalent, Spl it, Preservative Free, Intramuscular 07/22/2021,05/13/2019 Influenza, Unspecified 06/28/2024(Deferr ed: Patient Refused),10/17/2023(Deferred: Patient Refused),05/20/2023(Deferred: Patient Refused),05/04/2023(Deferred: Patient ill today) Tdap 12/02/2022 ZOSTER Recombinant 02/03/2023,12/02/2022 Social History Tobacco Use Types Packs/Day Years [...] on file Legal Sex Female 9:10 AM TANK WAGON OPERATOR Gender Identity Not on file Sexual Orientation Not on file Last Filed Vital Signs Vital Sign Reading Time Taken Comments Blood Pressure 124/78 06/28/2024 1:14 PM TANK WAGON OPERATOR Pulse 74 06/28/2024 1:14 PM TANK WAGON OPERATOR Temperature 36.4 ??C (97.5 ??F) 06/28/2024 1:14 PM CS T Respiratory Rate 16 06/28/2024 1:14 PM TANK WAGON OPERATOR Oxygen Saturation 99% 06/28/2024 1:14 PM TANK WAGON OPERATOR Inhaled Oxygen Concentration - - Weight 67.1 kg (148 lb) 06/28/2024 1:14 PM TANK WAGON OPERATOR Height 157.5 cm (5' 2 ) 06/28/2024 1:14 PM TANK WAGON OPERATOR Body Mass Index 27.07 06/28/2024 1:14 PM TANK WAGON OPERATOR Plan of Treatment Not on file Procedures Procedure Name Priority Date/Time Associated Diagnosis Comments POCT URINALYSIS DIPSTICK Routine 06/28/2024 1:26 PM TANK WAGON OPERATOR Frequency of micturition URINE CULTURE Routine 06/28/2024 1:21 PM TANK WAGON OPERATOR Frequency of micturition MRI THORACIC SPINE WO CONTRAST Schedule Routine, Read Routine (OP Routine) 05/20/2024 3:47 PM CDT Chronic midline thoracic back pain HEPATITIS C ANTIBODY Routine 12/02/2022 10:23 AM CDT Annual physical exam COLONOSCOPY Routine 11/28/2022 from Last 3 Months or Most Recently Relevant to Health Maintenance Results * (ABNORMAL) POCT urinalysis dipstick (06/28/2024 1:26 PM TANK WAGON OPERATOR) Color, Urine, POC Yellow Clarity, ur, POC Clear Clear Glucose, ur, POC Negative Negative MG/DL Bilirubin, ur, POC Negative Negative, Small, Moderate, Large Ketones, ur, POC 40.(A) Negative Specific Mcdavid, POC 1.015 1.003 - 1.030 Blood, ur, POC Hemolyzed, trace(A) Negative pH, ur, POC 5.5 5.0 - 8.0 Protein, ur, POC Negative Negative Urobilinogen, urine, POC 0.2 0.2 - 1.0 mg/dL Nitrite, ur, POC Negative Negative Leukocytes, ur, POC Small(A) Negative Lot Number [id number] Urine 06/28/2024 1:26 PM TANK WAGON OPERATOR Angeles Aguilera NP POINT OF CARE TEST OR DERABLES Final Result * (ABNORMAL) Urine culture Urine, clean voided (06/28/2024 1:21 PM TANK WAGON OPERATOR) Report Final Report: Greater than or equal to 100,000 colonies/mL of Escherichia coli Plus growth of clinically insignificant bacterial tadeo. (.) Comment:Testing performed by : [facility], [address] [place]., [address] Organism ESCHERICHIA COLI MIKE Organism PLUS GROWTH OF CLINICALLY INSIGNIFICANT TADEO. MIKE Urine, clean voided 06/28/2024 1:21 PM TANK WAGON OPERATOR 06/28/2024 9:33 PM TANK WAGON OPERATOR Narrative MIKE - 06/30/2024 3:29 PM TANK WAGON OPERATOR Testing performed by [facility] Microbiology Laboratory ([phone]) Organism Antibiotic Method Susceptibility Escherichia coli Ampicillin [...] MICROBIOLOGY - NERAL ORDERABLES Final Result MIKE [address] [facility] Department [place] [address] * MRI Thoracic Spine WO Contrast (05/20/2024 3:47 PM CDT) Anatomical Region Laterality Modality Spine N/A Magnetic Resonan ce 05/23/2024 7:58 AM TANK WAGON OPERATOR Narrative 05/23/2024 8:06 AM TANK WAGON OPERATOR EXAM DESCRIPTION: ?? MRI THORACIC SPINE WO [...] Electronically signed by ??Lazaro Lee M.D. MZ: JENNY D: ??05/23/2024 8:06 AM T: ??05/23/2024 8:06 AM Report ID: [id number] Reading Location: ??[id number] Procedure Note Lazaro Lee MD - 05/23/2024 [...] Electronically signed by Lazaro Lee M.D. MZ: JENNY Report ID: [id number] Reading Location: [place] [address] Dominick Torres DO IMG MRI PROCEDURES Final Result * Hepatitis C antibody (12/02/2022 10:23 AM CDT) Hep C Ab Nonreactive Nonreactive MIKE FRIAS Comment: Interpretive Data Nonreactive: Antibodies to HCV [...] - GENER AL ORDERABLES Final Result MIKE [address] [facility] Department [place] [address] * Colonoscopy (11/28/2022) Anatomical Region Laterality Modality Other Historical Provider ENDOSCOPY PROCEDURES Gloria l Result from Last 3 Months or Most Recently Relevant to Health Maintenance Insurance [facility] MRA Care Teams Testing Analyst Relationship Specialty Start Date End Date Dominick Torres DO [address] [facility] [address] [place] [address] PCP - General Family Medicine 12/02/22
--- OUTSIDE RECORDS SUMMARY | 2024-07-16 14:44 | XMS_ITS | Encounter Summary ---
Author Organization [facility] Healthcare Address [address] [place] [address] Care Team Providers Care Toolroom Helper Name Role Phone Dominick Torres DO Primary Care Provider + Reason for Referral * MRI/CAT/PET Scan (Routine) - Closed Specialty Diagnoses / Procedures Referred By Contac t Referred To Contact Radiology Diagnoses Chronic midline thoracic back pain Procedures MRI Thoracic Spine WO Contrast Dominick Torres DO [address] [place] [address] Phone: tel: fax: [address] [phone] Referral ID Status Reason Start Date Expiration Date Visits Re quested Visits Authorized [id number] Closed 04/08/2024 05/08/2025 1 1 Reason for Visit * MRI/CAT/PET Scan (Routine) - Closed Specialty Diagnoses / Procedures Referred By Contac t Referred To Contact Radiology Diagnoses Chronic midline thoracic back pain Procedures MRI Thoracic Spine WO Contrast Dominick Torres DO [address] [place] [address] Phone: tel: fax: [address] [phone] Referral ID Status Reason Start Date Expiration Date Visits Re quested Visits Authorized [id number] Closed 04/08/2024 05/08/2025 1 1 Encounter Details Date Type Department Care Team (Latest Contact Info) Description 05/20/2024 2:55 PM CDT - 05/20/2024 11:59 PM CDT Hospital Encounter [address] [address] Chronic midline thoracic back pain Discharge Disposition: [...] you are drinking? Patient does not drink 3 Q3: How often do you have si x or more drinks on one occasion? Never 12/02/2022 PHQ-2 Answer Date Recorded PHQ-2 Total Score (If total score is 3 or more points, staff should administer the PHQ-9) 0 02/03/2024 Comments No Sex and Gender Information Value Date Recorded Sex Assigned at Not on file Legal Sex Female 9:10 AM MENHADEN VESSEL PILOT Gender Identity Not on file Sexual Orientation Not on file documented as of this encounter Medications at Time of Discharge albuterol HFA (PROVENTIL HFA,VENTOLIN HFA,PROAIR HFA) 90 mcg/actuation inhaler Inhale 2 puffs every 6 (six) hours as needed for wheezing 3 each 4 05/04/2023 ascorbic acid (vitamin C) 1,000 mg tablet Take 1 tablet (1,000 mg total) by mouth daily fluticasone propionate (FLONASE) 50 mcg/actuation nasal spray Administer 2 sprays into each nostril daily 1 each 4 05/04/[address] (PROTONIX) 40 mg EC tablet Take 1 tablet (40 mg total) by mouth 2 (two) times a day 180 tablet 1 03/11/2024 5 alendronate (FOSAMAX) 70 mg tablet Take 1 tablet (70 mg total) by mouth once a week 03/23/2024 4 amitriptyline (ELAVIL) 10 mg tablet Take 1 tablet (10 mg total) by mouth nightly 30 tablet 04/06/2024 4 ketorolac (TORADOL) 10 mg tablet Take 1 tablet (10 mg total) by mouth every 6 (six) hours as needed for pain 20 tablet 04/12/2024 4 documented as of this encounter Discharge Disposition Disposition Code Departure Means Destination Discharge to home or self care documented in this encounter Plan of Treatment Not on file documented as of this encounter Procedures Procedure Name Priority Date/Time Associated Diagnosis Comments MRI THORACIC SPINE WO CONTRAST Schedule Routine, Read Routine (OP Routine) 05/20/2024 3:47 PM CDT Chronic midline thoracic back pain documented in this encounter Results * MRI Thoracic Spine WO Contrast (05/20/2024 3:47 PM CDT) Anatomical Region Laterality Modality Spine N/A Magnetic Resonan ce 05/23/2024 7:58 AM MENHADEN VESSEL PILOT Narrative 05/23/2024 8:06 AM MENHADEN VESSEL PILOT EXAM DESCRIPTION: ?? MRI THORACIC SPINE WO [...] AM T: ??05/23/2024 8:06 AM Report ID: [id number] Reading Location: ??[id number] Procedure Note Lazaro Lee MD - 05/23/2024 [...] Lazaro Lee M.D. MZ: JENNY Report ID: [id number] Reading Location: [place] [address] Dominick Torres DO IMG MRI PROCEDURES Final Result documented in this encounter Visit Diagnoses Diagnosis Chronic midline thoracic back pain documented in this encounter Care Teams Toolroom Helper Relationship Specialty Start Date End Date Dominick Torres DO [address] [address] PCP - General Family Medicine 12/02/22 documented as of this encounter
--- OUTSIDE RECORDS SUMMARY | 2024-07-16 14:44 | XMS_ITS | Encounter Summary ---
Author Organization [facility] Healthcare Address [address] [place] [address] Care Team Providers Care Sourcing Coordinator Name Role Phone Dominick Torres DO Primary Care Provider + Reason for Visit * Reason Comments Back Pain MRI and CT scan done . Pt asking for interpretation. Seeking pain meds. Encounter Details Date Type Department Care Team ([facility] st Contact Info) Description 06/06/2024 2:00 PM MOVIE PROJECTIONIST Office Visit [facility] Primary Care [facility] [phone] Ralph Espinoza MD [facility] [address] Chronic bilateral thoracic back pain (Primary Dx) Social History Tobacco Use Types Packs/Day Years [...] on file Legal Sex Female 9:10 AM MOVIE PROJECTIONIST Gender Identity Not on file Sexual Orientation Not on file documented as of this encounter Last Filed Vital Signs Vital Sign Reading Time Taken Comments Blood Pressure 118/84 06/06/2024 1:38 PM MOVIE PROJECTIONIST Pulse 68 06/06/2024 1:38 PM MOVIE PROJECTIONIST Temperature 36.6 ??C (97.9 ??F) 06/06/2024 1:38 PM CS T Respiratory Rate 20 06/06/2024 1:38 PM MOVIE PROJECTIONIST Oxygen Saturation 98% 06/06/2024 1:38 PM MOVIE PROJECTIONIST Inhaled Oxygen Concentration - - Weight 68.6 kg (151 lb 3.2 oz) 06/06/2024 1:38 P M MOVIE PROJECTIONIST Height 160 cm (5' 2.99 ) 06/06/2024 1:38 PM MOVIE PROJECTIONIST Body Mass Index 26.79 06/06/2024 1:38 PM MOVIE PROJECTIONIST documented in this encounter Ordered Prescriptions Prescription Sig Dispense Quantity Refills Last Filled Start Date End Date celecoxib (CeleBREX) 200 mg capsuleIndications :Chronic bilateral thoracic back pain Take 1 capsule (200 mg total) by mouth daily 30 capsule 3 06/06/[address] (CYMBALTA) 30 mg capsuleIndications :Chronic bilateral thoracic back pain Take 1 capsule (30 mg total) by mouth 2 (two) times a day 180 capsule 4 06/06/2024 5 documented in this encounter Progress Notes * Ralph Espinoza MD - 06/06/2024 2:00 PM CST Images from the original note were not included. Subjective/Objective Patient ID: Mary Horton is a 59 y.o. female. Chief Complaint Back Pain (MRI and CT scan done. Pt asking for interpretation. Seeking pain meds. ) Vitals: 06/06/24 1338 BP: 118/84 BP Location: Right arm Patient Position: Sitting Pulse: 68 Resp: 20 Temp: 36.6 ??C (97.9 ??F) TempSrc: Temporal SpO2: 98% Weight: 68.6 kg (151 lb 3.2 oz) Height: 160 cm (5' 2.99 ) Wt Readings from Last 3 Encounters: 06/06/24 68.6 kg (151 lb 3.2 oz) 04/06/24 73 kg (161 lb) 03/11/24 73.5 kg (162 lb) HPI: Mary Horton is a 59 y.o. female here today for the following concerns: F/u back pain - pt here to discuss recent MRI findings. Had Tspine MRI showing multiple neuroforamenal narrowing in Tspine. Pt has referral to pain management but no apt. Currently taking ibuprofen occasionally. C/o constant pain. Tried gabapentin and amitriptyline but could not tolerate side effects. Health Maintenance Topic Date Due Cervical Cancer Screening Never done Breast Cancer Screening-Mammogram Never done Influenza Vaccine (1) 03/20/2024 Covid-19 Vaccine (2023- season) 2025 (Originally 03/20/2024) Regular Well Visit/Exam 18-64 12/03/2024 Depression Screening 06/06/2025 Colon Cancer Screening-Colonoscopy 11/28/2032 DTaP/Tdap/Td Vaccine (2 - Td or Tdap) 12/02/2032 Hepatitis B Screening Completed Zoster Vaccine Completed Hepatitis C Screening Completed Pneumococcal vaccine <65 Aged Out Colon Cancer Screening-DNA Stool Discontinued Colon Cancer Screening-CT Colonography Discontinued Colon Cancer Screening-FIT Discontinued Colon Cancer Screening-Sigmoidoscopy Discontinued Review of Systems Constitutional: Negative for chills and fever. HENT: Negative for congestion, rhinorrhea and sore throat. Respiratory: Negative for cough and shortness of breath. Musculoskeletal: Positive for back pain. Physical Exam Vitals and nursing note reviewed. Constitutional: Appearance: Normal appearance. She is well-developed. HENT: Head: Normocephalic and atraumatic. Musculoskeletal: Comments: Back - diffusely TTP over thoracic spine along spinous processes and paraspinal muscles. Neurological: General: No focal deficit present. Mental Status: She is alert and oriented to person, place, and time. Psychiatric: Mood and Affect: Mood normal. Behavior: Behavior normal. Thought Content: Thought content normal. Judgment: Judgment normal. Assessment/Plan Diagnoses and all orders for this visit: Chronic bilateral thoracic back pain (Primary) Assessment & Plan: - uncontrolled - start celebrex 200 mg daily - start cymbalta 30 mg daily x 1 week then 30 mg bid - discussed the risks/benefits/side effects of medication - f/u with pain management - rec pt consider eval by neurosurgery to discuss further options Orders: - DULoxetine DR (CYMBALTA) 30 mg capsule; Take 1 capsule (30 mg total) by mouth 2 (two) times a day - celecoxib (CeleBREX) 200 mg capsule; Take 1 capsule (200 mg total) by mouth daily No orders of the defined types were placed in this encounter. *This note is dictated using [employer] voice recognition software, variances in spelling and vocabulary are possible and unintentional.* Ralph Espinoza MD E PROJECTIONIST documented in this encounter Miscellaneous Notes * Assessment & Plan Note - Ralph Espinoza MD - 06/06/2024 2:21 PM MOVIE PROJECTIONIST Associated Problem(s): Chronic bilateral thoracic back pain - uncontrolled - start celebrex 200 mg daily - start cymbalta 30 mg daily x 1 week then 30 mg bid - discussed the risks/benefits/side effects of medication - f/u with pain management - rec pt consider eval by neurosurgery to discuss further options E PROJECTIONIST documented in this encounter Plan of Treatment Not on file documented as of this encounter Visit Diagnoses Diagnosis Chronic bilateral thoracic back pain- Primary documented in this encounter Discontinued Medications Medication Sig Discontinue Reason Start Date End Da te amitriptyline (ELAVIL) 10 mg tablet Take 1 tablet (10 mg total) by mouth nightly Therapy completed 04/06/2024 06/06/2024 ketorolac (TORADOL) 10 mg tablet Take 1 tablet (10 mg total) by mouth every 6 (six) hours as needed for pain Alternate therapy 04/12/2024 06/06/2024 documented as of this encounter Care Teams Sourcing Coordinator Relationship Specialty Start Date End Date Dominick Torres DO [address] [address] PCP - General Family Medicine 12/02/22 documented as of this encounter
--- OUTSIDE RECORDS SUMMARY | 2024-07-16 14:44 | XMS_ITS | Encounter Summary ---
Author Organization [facility] Healthcare Address [address] [place] [address] Care Team Providers Care Concrete Block Maker Name Role Phone Dominick Torres DO Primary Care Provider + Reason for Visit * Reason Comments Urinary Frequency Frequency with urina tion odor , back pain x 4 days Encounter Details Date Type Department Care Team ([facility] st Contact Info) Description 06/28/2024 1:30 PM DATA ENGINEER Office Visit [facility] Medical Group Primary Care [address] [phone] Angeles Aguilera, SILKE [address] [address] Frequency of micturition (Primary Dx) Social History Tobacco Use Types [...] on file Legal Sex Female 9:10 AM DATA ENGINEER Gender Identity Not on file Sexual Orientation Not on file documented as of this encounter Last Filed Vital Signs Vital Sign Reading Time Taken Comments Blood Pressure 124/78 06/28/2024 1:14 PM DATA ENGINEER Pulse 74 06/28/2024 1:14 PM DATA ENGINEER Temperature 36.4 ??C (97.5 ??F) 06/28/2024 1:14 PM CS T Respiratory Rate 16 06/28/2024 1:14 PM DATA ENGINEER Oxygen Saturation 99% 06/28/2024 1:14 PM DATA ENGINEER Inhaled Oxygen Concentration - - Weight 67.1 kg (148 lb) 06/28/2024 1:14 PM DATA ENGINEER Height 157.5 cm (5' 2 ) 06/28/2024 1:14 PM DATA ENGINEER Body Mass Index 27.07 06/28/2024 1:14 PM DATA ENGINEER documented in this encounter Ordered Prescriptions Prescription Sig Dispense Quantity Refills Last Filled Start Date End Date nitrofurantoin monohydrate (MACROBID) 100 mg capsuleIndications :Frequency of micturition Take 1 capsule (100 mg total) by mouth 2 (two) times a day for 7 days 14 capsule 06/28/2024 4 documented in this encounter Progress Notes * Angeles Aguilera, SILKE - 06/28/2024 1:30 PM CST Subjective/Objective Patient ID: Mary [place] is a 59 y.o. female. Chief Complaint Urinary Frequency (Frequency with urination odor , back pain x 4 days ) Vitals: 06/28/24 1314 BP: 124/78 BP Location: Left arm Patient Position: Sitting Pulse: 74 Resp: 16 Temp: 36.4 ??C (97.5 ??F) TempSrc: Temporal SpO2: 99% Weight: 67.1 kg (148 lb) Height: 157.5 cm (5' 2 ) Patient presents today with ongoing urinary frequency and odor. Patient states she has not had any burning with urination, flank pain, blood in her urine at this time. Patient denies any fevers at this time as well. Patient has been trying [id number] medications without relief. Review of Systems Constitutional: Negative for activity change, appetite change and fever. Body mass index is 27.07 kg/m??. HENT: Negative for congestion, ear pain, rhinorrhea and sore throat. Eyes: Negative for pain and redness. Respiratory: Negative for chest tightness, shortness of breath and wheezing. Cardiovascular: Negative for chest pain and palpitations. Gastrointestinal: Negative for blood in stool, constipation, diarrhea and vomiting. Endocrine: Negative for polydipsia, polyphagia and polyuria. Genitourinary: Positive for flank pain, frequency and urgency. Negative for enuresis. Musculoskeletal: Negative for arthralgias and myalgias. Skin: Negative for rash. Allergic/Immunologic: Negative. Neurological: Negative for dizziness, seizures, weakness and headaches. Psychiatric/Behavioral: Negative for dysphoric mood and sleep disturbance. The patient is not nervous/anxious. All other systems reviewed and are negative. Physical Exam Vitals and nursing note reviewed. Constitutional: Appearance: Normal appearance. She is normal weight. Comments: Body mass index is 27.07 kg/m??. HENT: Head: Normocephalic and atraumatic. Right Ear: Tympanic membrane and ear canal normal. Left Ear: Tympanic membrane and ear canal normal. Nose: Nose normal. Mouth/Throat: Mouth: Mucous membranes are moist. Pharynx: Oropharynx is clear. Eyes: Extraocular Movements: Extraocular movements intact. Conjunctiva/sclera: Conjunctivae normal. Pupils: Pupils are equal, round, and reactive to light. Cardiovascular: Rate and Rhythm: Normal rate and regular rhythm. Pulses: Normal pulses. Heart sounds: Normal heart sounds. Pulmonary: Effort: Pulmonary effort is normal. Breath sounds: Normal breath sounds. Abdominal: General: Abdomen is flat. Bowel sounds are normal. Palpations: Abdomen is soft. Musculoskeletal: General: Normal range of motion. Cervical back: Normal range of motion and neck supple. Skin: General: Skin is warm and dry. Capillary Refill: Capillary refill takes less than 2 seconds. Neurological: General: No focal deficit present. Mental Status: She is alert and oriented to person, place, and time. Mental status is at baseline. Psychiatric: Mood and Affect: Mood normal. Behavior: Behavior normal. Thought Content: Thought content normal. Judgment: Judgment normal. Assessment/Plan Diagnoses and all orders for this visit: Frequency of micturition (Primary) Comments: Take antibiotics as directed and follow up for worsening symptoms. Orders: - POCT urinalysis dipstick - Urine culture Urine, clean voided; Future - nitrofurantoin monohydrate (MACROBID) 100 mg capsule; Take 1 capsule (100 mg total) by mouth 2 (two) times a day for 7 days Orders Placed This Encounter Procedures Urine culture Urine, clean voided Standing Status: Future Number of Occurrences: 1 Standing Expiration Date: 06/28/2025 POCT urinalysis dipstick Angeles Aguilera NP ENGINEER documented in this encounter Plan of Treatment Not on file documented as of this encounter Procedures Procedure Name Priority Date/Time Associated Diagnosis Comments POCT URINALYSIS DIPSTICK Routine 06/28/2024 1:26 PM DATA ENGINEER Frequency of micturition documented in this encounter Results * (ABNORMAL) POCT urinalysis dipstick (06/28/2024 1:26 PM DATA ENGINEER) Color, Urine, POC Yellow Clarity, ur, POC Clear Clear Glucose, ur, POC Negative Negative MG/DL Bilirubin, ur, POC Negative Negative, Small, Moderate, Large Ketones, ur, POC 40.(A) Negative Specific [place], POC 1.015 1.003 - 1.030 Blood, ur, POC Hemolyzed, trace(A) Negative pH, ur, POC 5.5 5.0 - 8.0 Protein, ur, POC Negative Negative Urobilinogen, urine, POC 0.2 0.2 - 1.0 mg/dL Nitrite, ur, POC Negative Negative Leukocytes, ur, POC Small(A) Negative Lot Number [id number] Urine 06/28/2024 1:26 PM DATA ENGINEER Angeles Aguilera NP POINT OF CARE TEST OR DERABLES Final Result * (ABNORMAL) Urine culture Urine, clean voided (06/28/2024 1:21 PM DATA ENGINEER) Report Final Report: Greater than or equal to 100,000 colonies/mL of Escherichia coli Plus growth of clinically insignificant bacterial tadeo. (.) Comment:Testing performed by : [facility], [address] [facility], [place]., [address] Organism ESCHERICHIA COLI MIKE Organism PLUS GROWTH OF CLINICALLY INSIGNIFICANT TADEO. MIKE Urine, clean voided 06/28/2024 1:21 PM DATA ENGINEER 06/28/2024 9:33 PM DATA ENGINEER Narrative MICHAELAMELIA - 06/30/2024 3:29 PM DATA ENGINEER Testing performed by [facility] ([phone]) Organism Antibiotic Method Susceptibility Escherichia coli Ampicillin [...] Escherichia coli Cefdinir INTERPRETATION Susceptible Angeles Aguilera [facility] MICROBIOLOGY - [facility] ORDERABLES Final Result MICHAELAMELIA [address] [facility] Department [place] [address] documented in this encounter Visit Diagnoses Diagnosis Frequency of micturition- Primary Urinary frequency Frequency of micturition Urinary frequency documented in this encounter Discontinued Medications Medication Sig Discontinue Reason Start Date End Da te alendronate (FOSAMAX) 70 mg tablet Take 1 tablet (70 mg total) by mouth once a week Patient Reported 03/23/2024 06/28/2024 documented as of this encounter Care Teams Concrete Block Maker Relationship Specialty Start Date End Date Dominick Torres DO [address] [place] [address] PCP - General Family Medicine 12/02/22 documented as of this encounter
--- OUTSIDE RECORDS SUMMARY | 2024-07-16 14:44 | XMS_ITS | Encounter Summary ---
Author Organization [facility] Healthcare Address [address] [place] [address] Care Team Providers Care Alley Worker Name Role Phone Dominick Torres DO Primary Care Provider + Reason for Visit * Reason Onset Date Comments Medical Question/Miscellaneous 06/24/2024 Encounter Details Date Type Department Care Team ([facility] st Contact Info) Description 06/24/2024 Telephone [facility] Medical [facility] Primary Care 1414 [facility] [address] [place] [phone] Dominick Torres DO 1414 [facility] [address] [place] [address] Medical Question/Miscellaneous Social History Tobacco Use Types Packs/Day Years [...] on file Legal Sex Female 9:10 AM BUSINESS SYSTEM MANAGER Gender Identity Not on file Sexual Orientation Not on file documented as of this encounter Miscellaneous Notes * Telephone Encounter - Lawanda Gillespie - 06/24/2024 10:10 AM CST Medical Question/Miscellaneous Caller???s Concern: Patient called to check if convenient care could cut a ring off her finger thatis swollen. Does message need to be routed? No NESS SYSTEM MANAGER documented in this encounter Plan of Treatment Not on file documented as of this encounter Visit Diagnoses Not on filedocumented in this encounter Care Teams Alley Worker Relationship Specialty Start Date End Date Dominick Torres DO [address] [place] [address] PCP - General Family Medicine 12/02/22 documented as of this encounter
--- OUTSIDE RECORDS SUMMARY | 2024-07-16 14:44 | XMS_ITS | Encounter Summary ---
Author Organization [facility] Healthcare Address [address] [place] [address] Care Team Providers Care Funeral Home Location Manager Name Role Phone Dominick Torres DO Primary Care Provider + Reason for Referral * MRI/CAT/PET Scan (Routine) - Closed Specialty Diagnoses / Procedures Referred By Contac t Referred To Contact Radiology Diagnoses Chronic midline thoracic back pain Procedures MRI Thoracic Spine WO Contrast Dominick Torres DO [address] [place] [address] Phone: tel: fax: [address] [phone] Referral ID Status Reason Start Date Expiration Date Visits Re quested Visits Authorized [id number] Closed 04/08/2024 05/08/2025 1 1 Encounter Details Date Type Department Care Team (Late st Contact Info) Description 04/08/[address] [facility] Medical Group Primary Care [address] [place] [phone] Dominick Torres DO [address] [place] [address] Social History Tobacco Use Types Packs/Day [...] on file Legal Sex Female 9:10 AM SERVICE MECHANIC Gender Identity Not on file Sexual Orientation Not on file documented as of this encounter Miscellaneous Notes * Telephone Encounter - Debra Ferreira RN - 04/08/2024 10:07 AM CDT ----- Message from Dominick Torres DO sent at 04/07/2024 7:56 AM CDT ----- Please call the patient regarding her abnormal result. Pt needs MRI Thoracic Spine d/t abnormal imaging T4 suggestive of possible bone injury documented in this encounter Plan of Treatment Not on file documented as of this encounter Results * MRI Thoracic Spine WO Contrast (05/20/2024 3:47 PM CDT) Anatomical Region Laterality Modality Spine N/A Magnetic Resonan ce 05/23/2024 7:58 AM SERVICE MECHANIC Narrative 05/23/2024 8:06 AM SERVICE MECHANIC EXAM DESCRIPTION: ?? MRI THORACIC SPINE WO [...] AM T: ??05/23/2024 8:06 AM Report ID: [id number] Reading Location: ??[id number] Procedure Note Lazaro Lee MD - 05/23/2024 [...] Lazaro Lee M.D. MZ: JENNY Report ID: [id number] Reading Location: [id number] Dominick Torres DO IMG MRI PROCEDURES Final Result documented in this encounter Visit Diagnoses Diagnosis Chronic midline thoracic back pain- Primary Chronic midline thoracic back pain documented in this encounter Care Teams Funeral Home Location Manager Relationship Specialty Start Date End Date Dominick Torres DO [address] [place] [address] PCP - General Family Medicine 12/02/22 documented as of this encounter
--- OUTSIDE RECORDS SUMMARY | 2024-07-16 14:44 | XMS_ITS | Encounter Summary ---
Author Organization [facility] Healthcare Address [address] [place] [address] Care Team Providers Care Automotive Assembler Name Role Phone Dominick Torres DO Primary Care Provider + Reason for Referral * Consultation (Routine) - Closed Specialty Diagnoses / Procedures Referred By Contac t Referred To Contact Pain Management Diagnoses Abnormal MRI, thoracic spine Dominick Torres DO [facility] [address] Phone: tel: fax: Kesha Bloom MD [address] [place] [address] Phone: tel: fax: Referral ID Status Reason Start Date Expiration Date V isits Requested Visits Authorized [id number] Closed Specialty Services Required 05/24/2024 06/23/2025 1 1 Question Answer Please select the performing region: External Order [[id number]] To provider: KESHA BLOOM [[id number]] # of visits: 1 CIATE DRAFTER Encounter Details Date Type Department Care Team (Late st Contact Info) Description 05/24/2024 Telephone [facility] Medical Group Primary Care [address] [phone] Dominick Torres DO [address] [place] [address] Social History Tobacco Use Types Packs/Day [...] on file Legal Sex Female 9:10 AM ASSOCIATE DRAFTER Gender Identity Not on file Sexual Orientation Not on file documented as of this encounter Miscellaneous Notes * Telephone Encounter - Debra Ferreira, RN - 05/24/2024 4:44 PM ASSOCIATE DRAFTER ----- Message from Dominick Torres DO sent at 05/23/2024 9:17 AM ASSOCIATE DRAFTER ----- Please call the patient regarding her abnormal result. Refer to IPM for consideration of spinal injections related to narrowing in T spine. CIATE DRAFTER documented in this encounter Plan of Treatment Scheduled Referrals Name Type Priority Associated Diagnoses Order Schedule Ambulatory referral to Pain Management Outpatient Referral Routine Abnormal MRI, thoracic spine Expected: 06/07/2024 (Approximate), Expires: 05/24/2025 documented as of this encounter Visit Diagnoses Diagnosis Abnormal MRI, thoracic spine- Primary documented in this encounter Care Teams Automotive Assembler Relationship Specialty Start Date End Date Dominick Torres DO [address] [place] [id number] PCP - General Family Medicine 12/02/22 documented as of this encounter
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
--- OUTSIDE RECORDS SUMMARY | 2024-07-16 14:45 | XMS_ITS | Encounter Summary ---
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[employer] Gender Identity Not on file Sexual Orientation Not on file documented as of this encounter Plan of Treatment Not on file documented as of this encounter Procedures Procedure Name Priority Date/Time Associated Diagnosis Comments SCAN - RADIOLOGY/IMAGING 12/09/2023 documented in this encounter Results * SCAN - RADIOLOGY/IMAGING (12/09/2023) Anatomical Region Laterality Modality Other us Provider Scanning Final Result documented in this encounter Visit Diagnoses Not on filedocumented in this encounter Care Teams Forest Management Professor Relationship Specialty Start Date End Date Dominick Torres DO [address] [place] [phone] PCP - General Family Medicine 12/02/22 documented as of this encounter
--- OUTSIDE RECORDS SUMMARY | 2024-07-16 14:45 | XMS_ITS | Encounter Summary ---
Author Organization [facility] Healthcare Address [address] [place] [address] Care Team Providers Care Casting Machine Operator Name Role Phone Dominick Torres DO Primary Care Provider + Reason for Referral * Diagnostic Imaging (Routine) - Closed Specialty Diagnoses / Procedures Referred By Tex montemayor Referred To Contact Diagnoses Acute pain of left knee Procedures XR Knee Left 3 Vw Dominick Torres DO [address] [place] [address] Phone: tel: fax: [address] [phone] Referral ID Status Reason Start Date Expiration Date Visits Re quested Visits Authorized [id number] Closed 04/06/2024 05/06/2025 1 1 * Consultation (Routine) - Closed Specialty Diagnoses / Procedures Referred By Tex montemayor Referred To Contact Neurology Diagnoses Chronic pain syndrome Acute pain of left knee Dominick Torres DO [address] [place] [address] Phone: tel: fax: [facility] Neurology [address] [place] [phone] Phone: tel: fax: Referral ID Status Reason Start Date Expiration Date V isits Requested Visits Authorized [id number] Closed Specialty Services Required 04/06/2024 04/07/2024 1 1 Question Answer Please select the performing region: [facility] [[id number]] Please select the performing department: [facility] NEURO BLVLE [id number] [[id number]] # of visits: 1 Reason for Visit * Reason Comments Neck Pain fluid on knee Encounter Details Date Type Department Care Team (Late st Contact Info) Description 04/06/2024 1:00 PM CDT Office Visit [facility] Primary Care [address] 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 Gender Identity Not on file Sexual Orientation Not on file documented as of this encounter Last Filed Vital Signs Vital Sign Reading Time Taken Comments Blood Pressure 146/84 04/06/2024 1:07 PM CDT Pulse 93 04/06/2024 1:07 PM CDT Temperature 36.3 ??C (97.3 ??F) 04/06/2024 1:07 PM CD T Respiratory Rate 20 04/06/2024 1:07 PM CDT Oxygen Saturation 97% 04/06/2024 1:07 PM CDT Inhaled Oxygen Concentration - - Weight 73 kg (161 lb) 04/06/2024 1:07 PM CDT Height 160 cm (5' 3 ) 04/06/2024 1:07 PM CDT Body Mass Index 28.52 04/06/2024 1:07 PM CDT documented in this encounter Ordered Prescriptions Prescription Sig Dispense Quantity Refills Last Filled Start Date End Date amitriptyline (ELAVIL) 10 mg tablet Take 1 tablet (10 mg total) by mouth nightly 30 tablet 04/06/2024 documented in this encounter Progress Notes * Dominick Torres, DO - 04/06/2024 1:00 PM CDT Images from the original note were not included. Subjective/Objective Visit Date: 04/06/2024 Patient ID: Mary Horton is a 59 y.o. female. Chief Complaint Chief Complaint Patient presents with Neck Pain fluid on knee HPI See CC CT Cspine/Tspine performed yesterday-results pending Pt not sleeping well Has not tolerated LUZ, Lyrica, etc Review of Systems Constitutional: Positive for fatigue. Negative for chills and fever. Respiratory: Negative for shortness of breath. Cardiovascular: Negative for chest pain. Gastrointestinal: Negative for diarrhea, nausea and vomiting. Musculoskeletal: Positive for arthralgias and myalgias. Neurological: Negative for dizziness and light-headedness. Physical Exam Vitals and nursing note reviewed. Constitutional: Appearance: She is well-developed. HENT: Right Ear: External ear normal. Left Ear: External ear normal. Nose: Nose normal. Eyes: Conjunctiva/sclera: Conjunctivae normal. Pupils: Pupils are equal, round, and reactive to light. Cardiovascular: Rate and Rhythm: Normal rate and regular rhythm. Heart sounds: Normal heart sounds. Pulmonary: Breath sounds: Normal breath sounds. Abdominal: General: Bowel sounds are normal. Palpations: Abdomen is soft. Tenderness: There is no abdominal tenderness. Musculoskeletal: General: Normal range of motion. Skin: General: Skin is warm and dry. Findings: No erythema. Neurological: Mental Status: She is alert and oriented to person, place, and time. Diagnoses and all orders for this visit: Chronic pain syndrome (Primary) Comments: acute on chronic,stable,cont current tx,rout f/u prior record/labs reviewed;see orders RTC PRN Orders: - Ambulatory referral to Neurology; Future Age-related osteoporosis without current pathological fracture Comments: chronic,stable,cont current tx,rout f/u prior record/labs reviewed;see orders RTC PRN IFG (impaired fasting glucose) Comments: chronic,stable,cont current tx,rout f/u prior record/labs reviewed;see orders RTC PRN Acute pain of left knee Comments: acute,unstable, giving out no prior surgery/injury Orders: - Ambulatory referral to Neurology; Future - XR Knee Left 3 Vw; Future Other orders - amitriptyline (ELAVIL) 10 mg tablet; Take 1 tablet (10 mg total) by mouth nightly Pending CT T/C spine results Pt reports NOT tolerating Prednisone. Follows w/ IPM Excuse Jury Duty BMI Follow-up includes: nutrition counseling, exercise counseling, and education provided. Dominick Torres DO documented in this encounter Plan of Treatment Scheduled Referrals Name Type Priority Associated Diagnoses Order Schedule Ambulatory referral to Neurology Outpatient Referral Routine Chronic pain syndrome Acute pain of left knee 1 Occurrences starting 04/06/2024 until 10/04/2024 documented as of this encounter Results * XR Knee Left 3 Vw (04/06/2024 2:16 PM CDT) Anatomical Region Laterality Modality Lower Extremities, Knee Left Computed Radiography 04/08/2024 12:0 4 PM CDT Narrative 04/08/2024 12:05 PM CDT EXAM DESCRIPTION: XR KNEE LEFT 3 VIEWS REASON FOR STUDY: pain ?? Pt c/o shooting pain in left knee x2 weeks. ?? TECHNIQUE: 3 ??radiographic view(s) of the ??left ??knee. COMPARISON: None FINDINGS: BONES: There is no acute fracture or dislocation. There is mild medial and patellofemoral compartment osteoarthritis. SOFT TISSUES: Knee joint effusion. OTHER: ??No other acute findings. IMPRESSION: No acute osseous abnormality. Mild osteoarthritis. Knee joint effusion. ??If there is clinical concern for internal derangement, MRI could be considered. THIS IS AN ELECTRONICALLY VERIFIED FINAL REPORT 04/08/2024 12:05 PM - Electronically signed by ??Stu Garcia M.D., JR: D: ??04/08/2024 12:05 PM T: ??04/08/2024 12:05 PM Report ID: [id number] Reading Location: ??[id number] Procedure Note Stu Garcia MD - 04/08/2024 EXAM DESCRIPTION: XR KNEE LEFT 3 VIEWS REASON FOR STUDY: pain Pt c/o shooting pain in left knee x2 weeks. TECHNIQUE: 3 radiographic view(s) of the left knee. COMPARISON: None FINDINGS: BONES: There is no acute fracture or dislocation. There is mild medial and patellofemoral compartment osteoarthritis. SOFT TISSUES: Knee joint effusion. OTHER: No other acute findings. IMPRESSION: No acute osseous abnormality. Mild osteoarthritis. Knee joint effusion. If there is clinical concern for internalderangement, MRI could be considered. THIS IS AN ELECTRONICALLY VERIFIED FINAL REPORT 04/08/2024 12:05 PM - Electronically signed by Stu Garcia M.D., JR: Report ID: [id number] Reading Location: [id number] Dominick Torres DO IMG XR PROCEDURES Final Result documented in this encounter Visit Diagnoses Diagnosis Chronic pain syndrome- Primary Age-related osteoporosis without current pathological fracture IFG (impaired fasting glucose) Acute pain of left knee Acute pain of left knee documented in this encounter Discontinued Medications Medication Sig Discontinue Reason Start Date End Da te predniSONE (DELTASONE) 20 mg tablet Take 1 tablet (20 mg) by mouth daily Therapy completed 03/11/2024 04/06/2024 documented as of this encounter Historical Medications * This list may reflect changes made after this encounter. alendronate (FOSAMAX) 70 mg tablet Take 1 tablet (70 mg total) by mouth once a week 03/23/2024 06/28/2024 added in this encounter Care Teams Casting Machine Operator Relationship Specialty [place] [address] [place] [phone] PCP - General Family Medicine 12/02/22 documented as of this encounter
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
--- OUTSIDE RECORDS SUMMARY | 2024-07-16 14:45 | XMS_ITS | Encounter Summary ---
Author Organization [facility] Healthcare Address [address] [place] [address] Care Team Providers Care Art Psychotherapist Or Therapist Name Role Phone Dominick Torres DO Primary Care Provider + Reason for Visit * Reason Comments Preventative Care Encounter Details Date Type Department Care Team ([facility] st Contact Info) Description 12/04/2023 10:30 AM CDT Office Visit [facility] Medical Group Primary Care [address] [facility] [address] [place] [phone] Dominick Torres DO [facility] [address] [place] [address] Annual physical exam (Primary Dx); IFG (impaired fasting glucose); Age-related osteoporosis without current pathological fracture; Seasonal allergies Social History Tobacco Use Types Packs/Day Years [...] on file 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 Gender Identity Not on file Sexual Orientation Not on file documented as of this encounter Last Filed Vital Signs Vital Sign Reading Time Taken Comments Blood Pressure 132/84 12/04/2023 10:48 AM CDT Pulse 84 12/04/2023 10:48 AM CDT Temperature 35.8 ??C (96.4 ??F) 12/04/2023 10:48 AM C DT Respiratory Rate 22 12/04/2023 10:48 AM CDT Oxygen Saturation 98% 12/04/2023 10:48 AM CDT Inhaled Oxygen Concentration - - Weight 71.2 kg (157 lb) 12/04/2023 10:48 AM CDT Height 160 cm (5' 3 ) 12/04/2023 10:48 AM CDT Body Mass Index 27.81 12/04/2023 10:48 AM CDT documented in this encounter Progress Notes * Dominick Torres, DO - 12/04/2023 10:30 AM CDT Images from the original note were not included. Subjective/Objective Visit Date: 12/04/2023 Patient ID: Mary Horton is a 58 y.o. female. Chief Complaint Chief Complaint Patient presents with Preventative Care HPI See CC EPPE Review of Systems Constitutional: Negative for chills and fever. Respiratory: Negative for shortness of breath. Cardiovascular: Negative for chest pain. Gastrointestinal: Negative for diarrhea, nausea and vomiting. Neurological: Negative for dizziness and light-headedness. Physical Exam Constitutional: Appearance: She is well-developed. HENT: Right [...] Diagnoses and all orders for this visit: Annual physical exam (Primary) Comments: EPPE Orders: - Hemoglobin A1c; Future - Comprehensive metabolic panel; Future - CBC with auto differential; Future - Lipid panel; Future - TSH; Future - Hepatitis B Surface Antigen Blood; Future - Hepatitis B core antibody, total Blood; Future - Hepatitis B surface antibody (immune status) Blood; Future IFG (impaired fasting glucose) Comments: chronic,stable,cont current tx,rout f/u prior records/labs reviewed;see orders RTC PRN Orders: - Hemoglobin A1c; Future - Comprehensive metabolic panel; Future - CBC with auto differential; Future - Lipid panel; Future - TSH; Future - Hepatitis B Surface Antigen Blood; Future - Hepatitis B core antibody, total Blood; Future - Hepatitis B surface antibody (immune status) Blood; Future Age-related osteoporosis without current pathological fracture Comments: chronic,stable,cont current tx,rout f/u prior records/labs reviewed;see orders RTC PRN Orders: - Hemoglobin A1c; Future - Comprehensive metabolic panel; Future - CBC with auto differential; Future - Lipid panel; Future - TSH; Future - Hepatitis B Surface Antigen Blood; Future - Hepatitis B core antibody, total Blood; Future - Hepatitis B surface antibody (immune status) Blood; Future Seasonal allergies Comments: chronic,stable,cont current tx,rout f/u prior records/labs reviewed;see orders RTC PRN Orders: - Hemoglobin A1c; Future - Comprehensive metabolic panel; Future - CBC with auto differential; Future - Lipid panel; Future - TSH; Future - Hepatitis B Surface Antigen Blood; Future - Hepatitis B core antibody, total Blood; Future - Hepatitis B surface antibody (immune status) Blood; Future BMI Follow-up includes: nutrition counseling, exercise counseling, and education provided. Dominick Torres DO documented in this encounter Plan of Treatment Not on file documented as of this encounter Procedures Procedure Name Priority Date/Time Associated Diagnosis Comments CBC WITH AUTO DIFFERENTIAL Routine 03/11/2024 10:31 AM CDT Annual physical exam IFG (impaired fasting glucose) Age-related osteoporosis without current pathological fracture Seasonal allergies HEPATITIS B CORE ANTIBODY, TOTAL Routine 03/11/2024 10:31 AM CDT Annual physical exam IFG (impaired fasting glucose) Age-related osteoporosis without current pathological fracture Seasonal allergies HEPATITIS B SURFACE ANTIBODY (IMMUNE STATUS) Routine 03/11/2024 10:31 AM CDT Annual physical exam IFG (impaired fasting glucose) Age-related osteoporosis without current pathological fracture Seasonal allergies HEPATITIS B SURFACE ANTIGEN Routine 03/11/2024 10:31 AM CDT Annual physical exam IFG (impaired fasting glucose) Age-related osteoporosis without current pathological fracture Seasonal allergies TSH Routine 03/11/2024 10:31 AM CDT Annual physical exam IFG (impaired fasting glucose) Age-related osteoporosis without current pathological fracture Seasonal allergies HEMOGLOBIN A1C Routine 03/11/2024 10:31 AM CDT Annual physical exam IFG (impaired fasting glucose) Age-related osteoporosis without current pathological fracture Seasonal allergies LIPID PANEL Routine 03/11/2024 10:31 AM CDT Annual physical exam IFG (impaired fasting glucose) Age-related osteoporosis without current pathological fracture Seasonal allergies COMPREHENSIVE METABOLIC PANEL Routine 03/11/2024 10:31 AM CDT Annual physical exam IFG (impaired fasting glucose) Age-related osteoporosis without current pathological fracture Seasonal allergies documented in this encounter Results * Hepatitis B surface antibody (immune status) Blood (03/11/2024 10:31 AM CDT) HBsAb (immune status) NON-REACTI VE NON-REACTI VE [facility] Blood 03/11/2024 10:3 1 AM CDT 03/11/2024 10:31 AM CDT Narrative [facility] - 03/12/2024 4:02 AM CDT FASTING:YES FASTING: YES us Dominick Torres DO LAB MICROBIOLOGY - GENER AL ORDERABLES Final Result [facility] [address] [address] [place] [phone] * Hepatitis B core antibody, total Blood (03/11/2024 10:31 AM CDT) Pathologist [facility] Hep B core IgG/IgM NON-REACTI VE NON-REACTI VE [facility] Comment: For additional information, please refer to http://[employer].KROGNI/faq/FLI166 (This link is being provided for informational/ educational purposes only.) Blood 03/11/2024 10:3 1 AM CDT 03/11/2024 10:31 AM CDT Narrative [facility] - 03/12/2024 4:02 AM CDT FASTING:YES FASTING: YES Dominick Torres LAB MICROBIOLOGY - GENER AL ORDERABLES Final Result Performing Organization Address [facility] de Phone Number [facility] [address] [place] [address] * Hepatitis B Surface Antigen Blood (03/11/2024 10:31 AM CDT) Pathologist [facility] HepBsAg NON-REACTI VE NON-REACTI VE [facility] Comment: For additional information, please refer to http://[employer].KROGNI/faq/YJH985 (This link is being provided for informational/ educational purposes only.) Blood 03/11/2024 10:3 1 AM CDT 03/11/2024 10:31 AM CDT Narrative [facility] - 03/12/2024 4:02 AM CDT FASTING:YES FASTING: YES Dominick Torres DO LAB MICROBIOLOGY - GENER AL ORDERABLES Final Result Performing Organization Address [facility] Co de Phone Number [facility] [address] [place] [address] * TSH (03/11/2024 10:31 AM CDT) Pathologist [facility] TSH 1.91 0.40 - 4.50 mIU/L [facility] Blood 03/11/2024 10:3 1 AM CDT 03/11/2024 10:31 AM CDT Narrative [facility] - 03/12/2024 4:02 AM CDT FASTING:YES FASTING: YES Dominick Torres DO LAB BLOOD ORDERABLES Fin al Result Performing Organization Address City/[facility]/ZIP Co de Phone Number [facility] [address] [place] [address] * Lipid panel (03/11/2024 10:31 AM CDT) [facility] Cholesterol 190 <200 mg/dL [facility] HDL 77 > OR = 50 mg/dL [facility] Triglycerides 87 <150 mg/dL [facility] LDL 95 mg/dL (calc) [facility] Comment: Reference range: <100 Desirable range <100 mg/dL for primary prevention; ?? <70 mg/dL for patients with CHD or diabetic patients with > or = 2 CHD risk factors. LDL-C is now calculated using the Khadar-Howard calculation, which is a validated novel method providing better accuracy than the Friedewald equation in the estimation of LDL-C. Khadar SS et al. RASHID. 2013;310(19): 3125-1225 (http://education.LOAG/faq/YGD652) Chol/HDL ratio 2.5 <5.0 (calc) [facility] Non-HDL, (LDL+VLDL) 113 <130 mg/dL (calc) [facility] Comment: For patients with diabetes plus 1 major ASCVD risk factor, treating to a non-HDL-C goal of <100 mg/dL (LDL-C of <70 mg/dL) is considered a therapeutic option. Blood 03/11/2024 10:3 1 AM CDT 03/11/2024 10:31 AM CDT Narrative [facility] - 03/12/2024 4:02 AM CDT FASTING:YES FASTING: YES Dominick Torres DO LAB BLOOD ORDERABLES Fin al Result Performing Organization Address City/[facility]/ZIP Co de Phone Number [facility] [address] [place] [address] * (ABNORMAL) CBC with auto differential (03/11/2024 10:31 AM CDT) WBC 4.8 3.8 - 10.8 Thousand/u L [facility] RBC, POC 4.80 3.80 - 5.10 Million/uL [facility] Hgb 14.3 11.7 - 15.5 g/dL [facility] Hct 45.5(H) 35.0 - 45.0 % [facility] MCV 94.8 80.0 - 100.0 fL [facility] MCH 29.8 27.0 - 33.0 pg [facility] MCHC 31.4(L) 32.0 - 36.0 g/dL [facility] Rdw 13.4 11.0 - 15.0 % [facility] Platelets 235 140 - 400 Thousand/u L [facility] MPV 10.0 7.5 - 12.5 fL [facility] Neutrophils, abs 3,110 1,500 - 7,800 cells/uL [facility] Lymphocytes, abs 1,181 850 - 3,900 cells/uL [facility] Monocyte abs 408 200 - 950 cells/uL [facility] Eosinophils, abs 82 15 - 500 cells/uL [facility] Basophils, abs 19 0 - 200 cells/uL [facility] Neutrophils 64.8 % [facility] Lymphocyte pct 24.6 % [facility] Monocytes 8.5 % [facility] Eosinophils 1.7 % [facility] Basophils 0.4 % [facility] Blood 03/11/2024 10:3 1 AM CDT 03/11/2024 10:31 AM CDT Narrative [facility] - 03/12/2024 4:02 AM CDT FASTING:YES FASTING: YES us Dominick Torres DO LAB BLOOD ORDERABLES Fin al Result [facility] [address] [place] [address] * (ABNORMAL) Comprehensive metabolic panel (03/11/2024 10:31 AM CDT) Glucose 93 65 - 99 mg/dL [facility] Comment: ? Fasting reference interval BUN 21 7 - 25 mg/dL [facility] Creatinine 0.86 0.50 - 1.05 mg/dL [facility] eGFR 77 > OR = 60 mL/min/1.7 3m2 [facility] BUN/creat ratio SEE NOTE: 6 - (calc) [facility] Comment: ?? Not Reported: BUN and Creatinine are within ?? reference range. ? Sodium 139 135 - 146 mmol/L [facility] Potassium, pl 4.5 3.5 - 5.3 mmol/L [facility] Chloride 103 98 - 110 mmol/L [facility] CO2 26 20 - 32 mmol/L [facility] Calcium 10.1 8.6 - 10.4 mg/dL [facility] Protein, sr 7.2 6.1 - 8.1 g/dL [facility] Albumin 4.7 3.6 - 5.1 g/dL [facility] GLOBULIN 2.5 1.9 - 3.7 g/dL (calc) [facility] Alb/glob ratio 1.9 1.0 - 2.5 (calc) [facility] Bilirubin, total 0.9 0.2 - 1.2 mg/dL [facility] Alk phos 77 37 - 153 U/L [facility] AST 28 10 - 35 U/L [facility] ALT (SGPT) 43(H) 6 - 29 U/L [facility] Blood 03/11/2024 10:3 1 AM CDT 03/11/2024 10:31 AM CDT Narrative [facility] - 03/12/2024 4:02 AM CDT FASTING:YES FASTING: YES Dominick Torres DO LAB BLOOD ORDERABLES Fin al Result [facility] [address] [address] [place] [phone] * (ABNORMAL) Hemoglobin A1c (03/11/2024 10:31 AM CDT) Hgb A1C 6.1(H) <5.7 % of total Hgb [email or web address] Comment: For someone without known diabetes, a hemoglobin A1c value between 5.7% and 6.4% is consistent with prediabetes and should be confirmed with a follow-up test. For someone with known diabetes, a value <7% indicates that their diabetes is well controlled. A1c targets should be individualized based on duration of diabetes, age, comorbid conditions, and other considerations. This assay result is consistent with an increased risk of diabetes. Currently, no consensus exists regarding use of hemoglobin A1c for diagnosis of diabetes for children. ? This test was performed on the Lizet corina c503 platform. Effective 10/05/23, a change in test platforms from the Rich Quality Assurance Technician to the Lizet corina c503 may have shifted HbA1c results compared to historical results. Based on laboratory validation testing conducted at [facility], the Lizet platform relative to the Rich platform had an average increase in HbA1c value of < or = 0.3%. This difference is within accepted variability established by the National Glycohemoglobin Standardization Program. Note that not all individuals will have had a shift in their results and direct comparisons between historical and current results for testing conducted on different platforms is not recommended. Blood 03/11/2024 10:3 1 AM CDT 03/11/2024 10:31 AM CDT Narrative [facility] - 03/12/2024 4:02 AM CDT FASTING:YES FASTING: YES Dominick Torres DO LAB BLOOD ORDERABLES Fin al Result [facility] [address] [place] [address] documented in this encounter Visit Diagnoses Diagnosis Annual physical exam- Primary Routine general medical examination at a health care facility IFG (impaired fasting glucose) Age-related osteoporosis without current pathological fracture Seasonal allergies Allergic rhinitis, cause unspecified documented in this encounter Discontinued Medications Medication Sig Discontinue Reason Start Date End Da te Premarin vaginal cream USE 0.5 GRAMS VAGINALLY TWICE WEEKLY DIRECTED Therapy completed 09/01/2022 12/04/2023 promethazine-DM (PROMETHAZINE-DM) 1.25-3 mg/mL syrup Take 5 mL by mouth every 4 (four) hours as needed for cough Therapy completed 11/02/2023 12/04/2023 documented as of this encounter Care Teams Art Psychotherapist Or Therapist Relationship Specialty Start Date End Date Dominick Torres DO [address] [place] [phone] PCP - General Family Medicine 12/02/22 documented as of this encounter
--- OUTSIDE RECORDS SUMMARY | 2024-07-16 14:45 | XMS_ITS | Encounter Summary ---
Author Organization [facility] Healthcare Address [address] [place] [address] Care Team Providers Care Supervisor Sandblaster Name Role Phone Dominick Torres DO Primary Care Provider + Reason for Visit * Reason Onset Date Comments Additional Services Or Orders 12/31/2023 Encounter Details Date Type Department Care Team ([facility] st Contact Info) Description 12/31/2023 Telephone [facility] Medical Group Primary Care [address] [facility] [address] [place] [phone] Dominick Torres DO [address] [facility] [address] [place] [address] Additional Services Or Orders Social History Tobacco [...] on file 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 Thanks. * Telephone Encounter - Nafisa Vasquez - 12/31/2023 8:57 AM CDT Medical Question/Miscellaneous Caller???s Concern: Patient forgot her order. They are needing to have it faxed over. Does message need to be routed? Yes-Action Needed documented in this encounter Plan of Treatment Not on file documented as of this encounter Visit Diagnoses Not on filedocumented in this encounter Care Teams Supervisor Sandblaster Relationship Specialty Start Date End Date Dominick Torres DO [address] [place] [address] PCP - General Family Medicine 12/02/22 documented as of this encounter
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
--- OUTSIDE RECORDS SUMMARY | 2024-07-16 14:45 | XMS_ITS | Encounter Summary ---
Author Organization [facility] Healthcare Address [address] [place] [address] Care Team Providers Care Graphic Arts Instructor Name Role Phone Dominick Torres DO Primary Care Provider + Encounter Details Date Type Department Care Team (Late st Contact Info) Description 09/04/2023 Orders Only [facility] Health Information Management [address] [place] [id number] Scanning, Provider Social History Tobacco Use [...] points, staff should administer the PHQ-9) 0 12/02/2022 Comments Unknown Sex and Gender Information Value Date Recorded Sex Assigned at Not on file 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 Gender Identity Not on file Sexual Orientation Not on file documented as of this encounter Plan of Treatment Not on file documented as of this encounter Procedures Procedure Name Priority Date/Time Associated Diagnosis Comments SCAN - RADIOLOGY/IMAGING 09/04/2023 documented in this encounter Results * SCAN - RADIOLOGY/IMAGING (09/04/2023) Anatomical Region Laterality Modality Other us Provider Scanning Final Result documented in this encounter Visit Diagnoses Not on filedocumented in this encounter Care Teams Graphic Arts Instructor Relationship Specialty Start Date End Date Dominick Torres DO [address] [place] [phone] PCP - General Family Medicine 12/02/22 documented as of this encounter
--- OUTSIDE RECORDS SUMMARY | 2024-07-16 14:45 | XMS_ITS | Encounter Summary ---
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 Gender Identity Not on file Sexual Orientation Not on file documented as of this encounter Ordered Prescriptions Prescription Sig Dispense Quantity Refills Last Filled Start Date End Date predniSONE (DELTASONE) 20 mg tablet Take 1 tablet (20 mg) by mouth daily 30 tablet 01/26/2024 02/25/2024 documented in this encounter Plan of Treatment Not on file documented as of this encounter Visit Diagnoses Not on filedocumented in this encounter Discontinued Medications Medication Sig Discontinue Reason Start Date End Da te predniSONE (DELTASONE) 20 mg tablet Take 3 tablets (60 mg) by mouth daily for 7 days Reorder 01/18/2024 01/26/2024 documented as of this encounter Care Teams Cost Accounting Manager Relationship Specialty Start Date End Date Dominick Torres DO [address] [place] [phone] PCP - General Family Medicine 12/02/22 documented as of this encounter
--- OUTSIDE RECORDS SUMMARY | 2024-07-16 14:45 | XMS_ITS | Encounter Summary ---
Author Organization [facility] Healthcare Address [address] [place] [address] Care Team Providers Care Furrier Apprentice Name Role Phone Dominick Torres DO Primary Care Provider + Reason for Visit * Reason Onset Date Comments Authorization/Certification 03/11/2024 Encounter Details Date Type Department Care Team ([facility] st Contact Info) Description 03/11/2024 Telephone [facility] Medical Group Primary Care 1414 [facility] [address] [place] [phone] Dominick Torres DO 1414 [facility] [address] [place] [address] Authorization/Certifica tion Social History Tobacco Use Types Packs/Day Years [...] on file 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 Gender Identity Not on file Sexual Orientation Not on file documented as of this encounter Miscellaneous Notes * Telephone Encounter - Mary Ortiz - 03/11/2024 11:52 AM CDT Authorization/Certification Type of Auth/Cert Needed: Pre- Certification for Test Type of caller:Facility Type of test needed (CPT code if available): CT Cervical Spine WO Contrast CT Thoracic Spine WO Contrast Reason for test or diagnosis (diagnosis code if available): Chronic pain syndrome (G89.4) IFG (impaired fasting glucose) (R73.01) Age-related osteoporosis without current pathological fracture (M81.0) Acute midline low back pain without sciatica (M54.50) Is insurance in chart accurate? Yes Facility name: [facility] NPI# (if available): unknown Facility phone#: [phone] Facility fax#: unknown Date test is scheduled: 04/05/24 Additional Comments: Does message need to be routed? Yes-Action Needed documented in this encounter Plan of Treatment Not on file documented as of this encounter Visit Diagnoses Not on filedocumented in this encounter Care Teams Furrier Apprentice Relationship Specialty [place] [address] [place] [phone] PCP - General Family Medicine 12/02/22 documented as of this encounter
--- OUTSIDE RECORDS SUMMARY | 2024-07-16 14:45 | XMS_ITS | Encounter Summary ---
Author Organization [facility] Healthcare Address [address] [place] [address] Care Team Providers Care Ground Equipment Mechanic Name Role Phone Dominick Torres DO Primary Care Provider + Reason for Visit * Reason Onset Date Comments chest heaviness 02/08/2024 Encounter Details Date Type Department Care Team ([facility] st Contact Info) Description 02/08/[address] 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 She did not take Gabapentin since Thursday night and symptoms were gone by noon Thursday. She feels Gabapentin caused the symptoms. She continues to have neck and back pain rated a 7-8/10. She gotno relief from Gabapentin. She is also using heat with no relief. Pt denies chest pain, numbness. Disposition per guideline: Care advice/education/call back instruction given:pt [facility] pain [facility]. She also questions if she needs an MRI. Please advise pt Call back # [phone] (mobile) Encounter routed to PCP * Telephone Encounter - Denise Nguyen RN - 02/08/2024 7:27 AM CDT Regarding: Chest heaviness ----- Message from Marie العلي sent at 02/08/2024 7:25 AM CDT ----- Symptom Based Call Chief Complaint(s): Chest heaviness Duration: yesterday morning What type of symptom(s) is the patient experiencing? Red Flag. Is the patient concerned they are experiencing a medical emergency requiring an ambulance? No Additional Comments: Patient states felt a chest heaviness upon waking up and lasted most of the morning and faded away. Patient associates this to taking Gabapentin and stopped taking and chest heaviness has resolved. Does message need to be routed? Yes-Action Needed documented in this encounter Plan of Treatment Not on file documented as of this encounter Visit Diagnoses Not on filedocumented in this encounter Care Teams Ground Equipment Mechanic Relationship Specialty Start Date End Date Dominick Torres DO [address] [phone] PCP - General Family Medicine 12/02/22 documented as of this encounter
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
--- OUTSIDE RECORDS SUMMARY | 2024-07-16 14:45 | XMS_ITS | Encounter Summary ---
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 Gender Identity Not on file Sexual Orientation Not on file documented as of this encounter Plan of Treatment Not on file documented as of this encounter Procedures Procedure Name Priority Date/Time Associated Diagnosis Comments SCAN - RADIOLOGY/IMAGING 04/06/2024 documented in this encounter Results * SCAN - RADIOLOGY/IMAGING (04/06/2024) Anatomical Region Laterality Modality Other us Provider Scanning Edited Result - Final documented in this encounter Visit Diagnoses Not on filedocumented in this encounter Care Teams Grout Machine Operator Relationship Specialty Start Date End Date Dominick Torres DO [address] [place] [phone] PCP - General Family Medicine 12/02/22 documented as of this encounter
--- OUTSIDE RECORDS SUMMARY | 2024-07-16 14:45 | XMS_ITS | Encounter Summary ---
Author Organization [facility] Healthcare Address [address] [place] [address] Care Team Providers Care Solid Tire Finisher Name Role Phone Dominick Torres DO Primary Care Provider + Reason for Visit * Reason Onset Date Comments Medical Question/Miscellaneous 01/19/2024 Encounter Details Date Type Department Care Team ([facility] st Contact Info) Description 01/19/2024 Telephone [facility] Medical Group Primary Care [address] [facility] [address] [place] [phone] Dominick Torres DO [address] 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 Gender Identity Not on file Sexual Orientation Not on file documented as of this encounter Ordered Prescriptions Prescription Sig Dispense Quantity Refills Last Filled Start Date End Date diclofenac DR (VOLTAREN) 75 mg EC tabletIndications: Neck pain Take 1 tablet (75 mg total) by mouth 2 (two) times a day 60 tablet 01/26/2024 03/11/2024 ketorolac (TORADOL) 10 mg tabletIndications: Neck pain Take 1 tablet (10 mg total) by mouth every 6 (six) hours as needed for pain 30 tablet 01/26/2024 03/11/2024 documented in this encounter Miscellaneous Notes * Telephone Encounter - Karen Machuca - 01/26/2024 10:15 AM CDT Medical Question/Miscellaneous Caller???s Concern: Patient stated that she finished all of her medications and is still having thesame symptoms. Patient would like to have a Nurse call her back today. Does message need to be routed? Yes-Action Needed * Telephone Encounter - Grazyna Mccartney - 01/19/2024 4:26 PM CDT Medical Question/Miscellaneous Caller???s Concern: Patient I taking toradol 10mg she states she would like to know if she up the dose or take extra strength tylenol along with it please? Sleeping medicine Diazepam did not work, states she was up most the night. Please call patient when you can as she would like to discuss. Does message need to be routed? Yes-Action Needed documented in this encounter Plan of Treatment Not on file documented as of this encounter Visit Diagnoses Diagnosis Neck pain- Primary Cervicalgia documented in this encounter Discontinued Medications Medication Sig Discontinue Reason Start Date End Da te ketorolac (TORADOL) 10 mg tablet Take 1 tablet (10 mg total) by mouth every 6 (six) hours as needed for pain Reorder 01/18/2024 01/19/2024 documented as of this encounter Care Teams Solid Tire Finisher Relationship Specialty Start Date End Date Dominick Torres DO [address] [place] [id number] PCP - General Family Medicine 12/02/22 documented as of this encounter
--- OUTSIDE RECORDS SUMMARY | 2024-07-16 14:45 | XMS_ITS | Encounter Summary ---
Author Organization [facility] Healthcare Address [address] [place] [address] Care Team Providers Care Senior Cognos Developer Name Role Phone Dominick Torres DO Primary Care Provider + Reason for Referral * Diagnostic Imaging (Routine) - Closed Specialty Diagnoses / Procedures Referred By Tex [email or web address] Referred To Contact Diagnoses Acute pain of left knee Procedures XR Knee Left 3 Vw Dominick Torres DO [address] [place] [address] Phone: tel: fax: [address] [phone] Referral ID Status Reason Start Date Expiration Date Visits Re quested Visits Authorized [id number] Closed 04/06/2024 05/06/2025 1 1 Reason for Visit * Diagnostic Imaging (Routine) - Closed Specialty Diagnoses / Procedures Referred By Tex montemayor Referred To Contact Diagnoses Acute pain of left knee Procedures XR Knee Left 3 Vw Dominick Torres DO [address] [place] [address] Phone: tel: fax: [address] [phone] Referral ID Status Reason Start Date Expiration Date Visits Re quested Visits Authorized [id number] Closed 04/06/2024 05/06/2025 1 1 Encounter Details Date Type Department Care Team (Latest Contact Info) Description 04/06/2024 2:00 PM CDT - 04/06/2024 11:59 PM CDT Hospital Encounter [facility] 1 [place] [facility] [address] [place] [address] Acute pain of left knee Discharge Disposition: Discharge to home or self [...] on file 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 Gender Identity Not on file Sexual Orientation [...] by mouth nightly 30 tablet 04/06/2024 4 documented as of this encounter Discharge Disposition Disposition Code Departure Means Destination Discharge to home or self care documented in this encounter Plan of Treatment Not on file documented as of this encounter Procedures Procedure Name Priority Date/Time Associated Diagnosis Comments XR KNEE LEFT 3 VIEWS Schedule Routine, Read Routine (OP Routine) 04/06/2024 2:16 PM CDT Acute pain of left knee documented in this encounter Results * XR Knee Left [...] PM - Electronically signed by ??Stu Garcia M.D. JR: D: ??04/08/2024 12:05 PM T: ??04/08/2024 12:05 PM Report ID: [id number] Reading Location: ??[id number] Procedure Note Stu Garcia MD - 04/08/2024 [...] PM - Electronically signed by Stu Garcia M.D. JR: Report ID: [id number] Reading Location: [id number] Dominick Torres DO IMG XR PROCEDURES Final Result documented in this encounter Visit Diagnoses Diagnosis Acute pain of left knee documented in this encounter Care Teams Senior Cognos Developer Relationship Specialty Start Date End Date Dominick Torres DO [address] [place] [phone] PCP - General Family Medicine 12/02/22 documented as of this encounter
--- OUTSIDE RECORDS SUMMARY | 2024-07-16 14:45 | XMS_ITS | Encounter Summary ---
Author Organization [facility] Healthcare Address [address] [place] [address] Care Team Providers Care Wide Piece Goods Inspector Name Role Phone Dominick Torres DO Primary Care Provider + Reason for Visit * Reason Comments Cough Tightness in chest Sore Throat Sinus Problem Sinus pressure, star barbara approx 2 weeks ago, phlem & mucus coughing up Encounter Details Date Type Department Care Team ([facility] st Contact Info) Description 11/02/2023 10:00 AM CDT Office Visit [facility] Medical Group Primary Care [address] [phone] Iliana Issa NP [address] [place] [phone] Acute non-recurrent sinusitis, unspecified location (Primary Dx) Social History Tobacco Use Types [...] on file 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 Gender Identity Not on file Sexual Orientation Not on file documented as of this encounter Last Filed Vital Signs Vital Sign Reading Time Taken Comments Blood Pressure 124/80 11/02/2023 9:17 AM CDT Pulse 77 11/02/2023 9:17 AM CDT Temperature 37.2 ??C (99 ??F) 11/02/2023 9:17 AM CDT Respiratory Rate 18 11/02/2023 9:17 AM CDT Oxygen Saturation 98% 11/02/2023 9:17 AM CDT Inhaled Oxygen Concentration - - Weight 68.9 kg (151 lb 12.8 oz) 11/02/2023 9:17 AM CDT Height 160 cm (5' 3 ) 11/02/2023 9:17 AM CDT Body Mass Index 26.89 11/02/2023 9:17 AM CDT documented in this encounter Ordered Prescriptions Prescription Sig Dispense Quantity Refills Last Filled Start Date End Date promethazine-DM (PROMETHAZINE-DM) 1.25-3 mg/mL syrup Take 5 mL by mouth every 4 (four) hours as needed for cough 120 mL 1 11/02/2023 4 methylPREDNISolone (MEDROL DOSEPACK) 4 mg Dosepack Take as directed on package. 21 tablet 11/02/2023 4 amoxicillin-clavul anate (AUGMENTIN) 875-125 mg per tablet Take 1 tablet by mouth 2 (two) times a day for 10 days 20 tablet 11/02/2023 4 documented in this encounter Progress Notes * Iliana Issa NP - 11/02/2023 10:00 AM CDT Images from the original note were not included. Patient ID: Mary Horton is a 58 y.o. female. Chief Complaint. Chief Complaint Patient presents with Cough Tightness in chest Sore Throat Sinus Problem Sinus pressure, started approx 2 weeks ago, phlem & mucus coughing up HPI. Patient is a 58 y.o. female HPI Patient presents in office with complaints of cough, congestion,sinus pressure, and sore throat. Symptoms started 2 weeks ago. Patient has been using Flonase, Zyrtec, Aleve cold/sinus, and cough syrup daily. History reviewed. No pertinent past medical history. Past Surgical History: Procedure Laterality Date SECTION [...] Current Medications: Outpatient Encounter Medications as of 11/02/2023 Medication Sig Dispense Refill albuterol HFA (PROVENTIL HFA,VENTOLIN HFA,PROAIR HFA) 90 mcg/actuation inhaler Inhale 2 puffs every6 (six) hours as needed for wheezing 3 each 4 ascorbic acid (vitamin C) 1,000 mg tablet Take 1 tablet (1,000 mg total) by mouth daily cholecalciferol, vitamin D3, (VITAMIN D3 ORAL) Take by mouth fluticasone propionate (FLONASE) 50 mcg/actuation nasal spray Administer 2 sprays into each nostrildaily 1 each 4 amoxicillin-clavulanate (AUGMENTIN) 875-125 mg per tablet Take 1 tablet by mouth 2 (two) times a day for 10 days 20 tablet 0 methylPREDNISolone (MEDROL DOSEPACK) 4 mg Dosepack Take as directed on package. 21 tablet 0 Premarin vaginal cream USE 0.5 GRAMS VAGINALLY TWICE WEEKLY DIRECTED (Patient not taking: Reported on 06/23/2023) promethazine-DM (PROMETHAZINE-DM) 1.25-3 mg/mL syrup Take 5 mL by mouth every 4 (four) hours as needed for cough 120 mL 1 [DISCONTINUED] promethazine-DM (PROMETHAZINE-DM) 1.25-3 mg/mL syrup Take 5 mL by mouth every 4 (four) hours as needed for cough (Patient not taking: Reported on 06/23/2023) 120 mL 1 No facility-administered encounter medications on file as of 11/02/2023. Review of Systems: Review of Systems Constitutional: Negative for chills, diaphoresis and fever. HENT: Positive for congestion, sinus pressure, sinus pain and sore throat. Negative for ear discharge, ear pain, postnasal drip, rhinorrhea, sneezing and trouble swallowing. Eyes: Negative for pain and redness. Respiratory: Positive for cough. Negative for shortness of breath and wheezing. Cardiovascular: Negative for chest pain and palpitations. BP 124/80 (BP Location: Right arm, Patient Position: Sitting) Pulse 77 Temp 37.2 ??C (99 ??F) (Temporal) Resp 18 Ht 160 cm (5' 3 ) Wt 68.9 kg (151 lb 12.8 oz) SpO2 98% BMI 26.89 kg/m?? Physical Exam: Physical Exam Constitutional: Appearance: Normal appearance. HENT: Head: Normocephalic. Right Ear: Ear canal and external ear normal. A middle ear effusion is present. Tympanic membrane is not erythematous or bulging. Left Ear: Ear canal and external ear normal. A middle ear effusion is present. Tympanic membrane isnot erythematous or bulging. Nose: No congestion or rhinorrhea. Right Sinus: Frontal sinus tenderness present. No maxillary sinus tenderness. Left Sinus: Frontal sinus tenderness present. No maxillary sinus tenderness. Mouth/Throat: Mouth: Mucous membranes are moist. Pharynx: Oropharynx is clear. Uvula midline. No pharyngeal swelling, oropharyngeal exudate or posterior oropharyngeal erythema. Eyes: Extraocular Movements: Extraocular movements intact. Conjunctiva/sclera: Conjunctivae normal. Pupils: Pupils are equal, round, and reactive to light. Cardiovascular: Rate and Rhythm: Normal rate and regular rhythm. Heart sounds: Normal heart sounds. Pulmonary: Effort: Pulmonary effort is normal. Breath sounds: Normal breath sounds. No wheezing, rhonchi or rales. Musculoskeletal: General: Normal range of motion. Lymphadenopathy: Cervical: No cervical adenopathy. Right cervical: No superficial, deep or posterior cervical adenopathy. Left cervical: No superficial, deep or posterior cervical adenopathy. Skin: General: Skin is warm and dry. Neurological: Mental Status: She is alert and oriented to person, place, and time. Motor: No weakness. Gait: Gait normal. Psychiatric: Mood and Affect: Mood normal. Behavior: Behavior normal. Assessment & Plan: Diagnoses and all orders for this visit: Acute non-recurrent sinusitis, unspecified location (Primary) Comments: Patient prescribed Augmentin and Medrol dose pack. Continue on Flonase and Zyrtec. Call office if symptoms continue with medication use. Other orders - amoxicillin-clavulanate (AUGMENTIN) 875-125 mg per tablet; Take 1 tablet by mouth 2 (two) times aday for 10 days - methylPREDNISolone (MEDROL DOSEPACK) 4 mg Dosepack; Take as directed on package. - promethazine-DM (PROMETHAZINE-DM) 1.25-3 mg/mL syrup; Take 5 mL by mouth every 4 (four) hours as needed for cough Iliana Issa NP documented in this encounter Plan of Treatment Not on file documented as of this encounter Visit Diagnoses Diagnosis Acute non-recurrent sinusitis, unspecified location- Primary documented in this encounter Discontinued Medications Medication Sig Discontinue Reason Start Date End Da te promethazine-DM (PROMETHAZINE-DM) 1.25-3 mg/mL syrup Take 5 mL by mouth every 4 (four) hours as needed for cough Reorder 05/04/2023 11/02/2023 documented as of this encounter Care Teams Wide Piece Goods Inspector Relationship Specialty Start Date End Date Dominick Torres DO [address] [id number] PCP - General Family Medicine 12/02/22 documented as of this encounter
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
--- OUTSIDE RECORDS SUMMARY | 2024-07-16 14:45 | XMS_ITS | Encounter Summary ---
Author Organization [facility] Healthcare Address [address] [place] [address] Care Team Providers Care Monogram Technician Name Role Phone Dominick Torres DO Primary Care Provider + Encounter Details Date Type Department Care Team ([facility] st Contact Info) Description 12/11/2023 Telephone [facility] Medical Group Primary Care 1414 [facility] [address] [place] [address] Iliana Issa NP 1414 [facility] [address] [place] [address] Social History Tobacco Use Types [...] on file 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 * Telephone Encounter - Naomie Hudson MA - 12/11/2023 10:46 AM CDT ----- Message from Iliana Issa NP sent at 12/11/2023 10:14 AM CDT ----- Please call patient her xrays are normal. She is to continue on Meloxicam and muscle relaxers, follow up with Dr. Torres in her pain does not improve. documented in this encounter Plan of Treatment Not on file documented as of this encounter Visit Diagnoses Not on filedocumented in this encounter Care Teams Monogram Technician Relationship Specialty Start Date End Date Dominick Torres DO [address] [place] [address] PCP - General Family Medicine 12/02/22 documented as of this encounter
--- OUTSIDE RECORDS SUMMARY | 2024-07-16 14:45 | XMS_ITS | Encounter Summary ---
Author Organization [facility] Healthcare Address [address] [place] [address] Care Team Providers Care Trap Setter Name Role Phone Dominick Torres DO Primary Care Provider + Reason for Visit * Reason Onset Date Comments Medical Question/Miscellaneous 04/07/2024 Encounter Details Date Type Department Care Team ([facility] st Contact Info) Description 04/07/2024 Telephone [facility] Medical Group Primary Care 1414 [facility] [address] [place] [phone] Dominick Torres DO 1414 [facility] 230 [place] [address] Medical Question/Miscellaneous Social History Tobacco [...] on file 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 Torres wants patient to continue Physical Therapy or not. He faxed progress noes to office a couple days ago. He said patient has not improved since last progress note and had CT but said has not been reviewed yet. Can call the clinic and ask for Caryn, the desk officer. Phone number [phone] Does message need to be routed? Yes-Action Needed documented in this encounter Plan of Treatment Not on file documented as of this encounter Visit Diagnoses Not on filedocumented in this encounter Care Teams Trap Setter Relationship Specialty Start Date End Date Dominick Torres DO [address] [address] PCP - General Family Medicine 12/02/22 documented as of this encounter
--- OUTSIDE RECORDS SUMMARY | 2024-07-16 14:45 | XMS_ITS | Encounter Summary ---
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 Gender Identity Not on file Sexual Orientation Not on file documented as of this encounter Ordered Prescriptions Prescription Sig Dispense Quantity Refills Last Filled Start Date End Date pregabalin (LYRICA) 25 mg capsule Take 1 capsule (25 mg total) by mouth 2 (two) times a day 60 capsule 02/08/2024 documented in this encounter Plan of Treatment Not on file documented as of this encounter Visit Diagnoses Not on filedocumented in this encounter Discontinued Medications Medication Sig Discontinue Reason Start Date End Da te gabapentin (NEURONTIN) 100 mg capsuleIndications:Neuro pathic Pain Take 1 capsule (100 mg total) by mouth 3 (three) times a day Alternate therapy 02/03/2024 02/08/2024 documented as of this encounter Care Teams Pyrotechnician Relationship Specialty Start Date End Date Dominick Torres DO [address] [place] [id number] PCP - General Family Medicine 12/02/22 documented as of this encounter
--- OUTSIDE RECORDS SUMMARY | 2024-07-16 14:45 | XMS_ITS | Encounter Summary ---
Author Organization [facility] Healthcare Address [address] [place] [address] Care Team Providers Care Pmp Project Manager Name Role Phone Dominick Torres DO Primary Care Provider + Reason for Visit * Reason Onset Date Comments Med Refill 03/14/2024 Encounter Details Date Type Department Care Team ([facility] st Contact Info) Description 03/14/2024 Telephone [facility] Medical Group Primary Care 1414 [facility] [address] [place] [phone] Dominick Torers DO [address] [address] Med Refill Social History Tobacco Use Types Packs/Day Years [...] on file 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 Patient questions if she should continue to take prednisone since her ALT is high If needed, Pharmacy(s) medication(s) should be sent to: on file Additional Comments: Patient stated she was reviewing her blood test results and would like to knowif it is okay to continue with the prednisone since the ALT results were high Please call and advise Does message need to be routed? Yes-Action Needed documented in this encounter Plan of Treatment Not on file documented as of this encounter Visit Diagnoses Not on filedocumented in this encounter Care Teams Pmp Project Manager Relationship Specialty Start Date End Date Dominick Torres DO [address] [place] [address] PCP - General Family Medicine 12/02/22 documented as of this encounter
--- OUTSIDE RECORDS SUMMARY | 2024-07-16 14:46 | XMS_ITS | Encounter Summary ---
Author Organization [facility] Address [address] [place] [address] Phone Care Team Providers Care Manufacturer'S Service Representative Name Role Phone Kasandra García MD Primary Care Provider [phone] Reason for Visit * Reason Comments Osteoporosis * Diagnostic Imaging (Routine) - Closed Specialty Diagnoses / Procedures Referred By Contac t Referred To Contact Diagnoses Osteoporosis, unspecified osteoporosis type, unspecified pathological fracture presence Procedures Dexa Axial Skeleton Bone Density 1 or 2 Site Kasandra Figueroa MD Phone: tel: fax: [facility] (All Locations) Referral ID Status Reason Start Date Expiration Date Visits Re quested Visits Authorized [id number] Closed 09/09/2018 07/19/2019 99 99 Encounter Details Date Type Department Care Team (Latest Contact Info) Description 12/09/2018 7:50 AM CDT Clinical Support [facility] [address] [place] [address] 5th [place] [address] [place] [address] Osteoporosis, unspecified osteoporosis type, unspecified pathological fracture presence; Age-related osteoporosis without current pathological fracture Social History Tobacco Use Types Packs/Day Years Used Date Smoking Tobacco: Never Smokeless Tobacco: Never Alcohol Use Standard Drinks/Week Comments Yes 0 (1 standard drink = 0.6 oz pur e alcohol) AUDIT-C Answer Date Recorded Frequency of Alcohol Consumption Not on file 12/09/2018 Average Number of Drinks Not on file 019 Frequency of Binge Drinking Less than monthly Comments Unknown Sex and Gender Information Value Date Recorded Sex Assigned at Not on file 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 Gender Identity Not on file Sexual Orientation Not on file documented as of this encounter Plan of Treatment Not on file documented as of this encounter Procedures Procedure Name Priority Date/Time Associated Diagnosis Comments DEXA AXIAL SKELETON BONE DENSITY 1 OR MORE SITES Schedule Routine, Read Routine (OP Routine) 12/09/2018 9:40 AM CDT Osteoporosis, unspecified osteoporosis type, unspecified pathological fracture presence documented in this encounter Results * Dexa Axial Skeleton Bone Density 1 or 2 Site (12/09/2018 9:40 AM CDT) Anatomical Region Laterality Modality Body N/A Radiographic Risa ging Narrative 12/09/2018 12:54 PM CDT Patient Name: Mary Horton Date of : 1965 Date of scan: 12/09/2018 Bone mineral density was performed on a [employer] Discovery Densitometer. ?? Machine Cross-calibration and Precision studies have been performed with a least significant change of 0.024 g/cm at the spine, 0.020 g/cm at the total proximal femur, and 0.014g/cm at the forearm. HISTORY: ??This is a 53 y.o. postmenopausal female with a history of osteoporosis. ?? History of tobacco use: Social History Tobacco Use Smoking Status Never Smoker INDICATIONS: Menopause status and history of osteoporosis. FINDINGS: BONE MINERAL DENSITY OF THE LUMBAR SPINE Bone Mineral Density (BMD) of the lumbar spine was measured from L1-L4 and the average density was calculated to be 0.760 gm/cm. This corresponds to a T-score standard deviations from the mean of young adults of -2.6. There is no previous study available for comparison. BONE MINERAL DENSITY OF THE PROXIMAL FEMUR Bone Mineral Density (BMD) of the left hip total was found to be 0.758 gm/cm2. This corresponds to a T-score standard deviations from the mean of young adults of -1.5. Femoral neck is 0.588 gm/cm2 with a T-score of -2.4. There is no previous study available for comparison. SUMMARY: Bone mineral density shows evidence of osteoporosis and marked increase risk of fracture. ADDITIONAL COMMENTS: If the patient has a history of a fragility fracture, a fracture that occurred with trauma equivalent to a fall from a standing position or less, then the diagnosis is osteoporosis. The risk of osteoporotic fracture increases approximately 2-fold for each 1.0 SD decrease in T-score. However, low bone density is not the only risk factor for fracture. Other factors include patient? s age, previous osteoporotic fracture or prior fracture as an adult, loss of height of greater than 2 inches, corticosteroid use, risk of falling, risk of injury, and family history of osteoporosis. Not everyone with low bone mineral density has osteoporosis. Osteomalacia and other metabolic bone disorders should also be considered where indicated. ??Patients who have osteoporosis should be evaluated for specific diseases and conditions (secondary causes) that may cause or contribute to bone loss. Consider repeating this study in 1-2 years to assess the patient? s response to treatment, if applicable. It is recommended that any follow up exam be performed on the same machine if possible for better accuracy. DEFINITIONS: Osteoporosis: ??BMD at or below -2.5 T-score Osteopenia (low bone mass): ??BMD between -1.0 and-2.5 T-score. The Bone Health Program adopts the following WHO definitions: Osteoporosis: ??BMD below -2.5 S.D. as compared to the BMD of young normal adults. Osteopenia or Low Bone Mass: ??BMD between -1.0 and -2.5 S.D. below the BMD of young normal adults. Normal Bone Density: ??BMD equal to or greater than -1.0 S.D. as compared to the BMD of young normal adults. References: 1) Brenden, Annals of Internal Medicine 114(11): ??919-923 (1990) 2) Lara, Lancet 341 : 72-75 (1992) 3) Black, Journal Bone and Mineral Research 7(6): 633-8 (1991) 4) Davi, Journal Bone and Mineral Research 8(10):1227-33 (1992) The history and data sections of the bone mineral density scan were prepared by Rukhsana Pacheco who is accredited by the International Society of Clinical Densitometry. The overall patient assessment and scan interpretation were performed by Violetta Macdonald MD who is certified by the International Society of Clinical Densitometry. [id number] us Kasandra Figueroa MD IMG DXA PROCEDURES Final R esult documented in this encounter Visit Diagnoses Diagnosis Osteoporosis, unspecified osteoporosis type, unspecified pathological fracture presence Age-related osteoporosis without current pathological fracture documented in this encounter Care Teams Manufacturer'S Service Representative Relationship Specialty Start Date End Date Kasandra García MD PCP - General Family Medicine 07/27/18 12/01/22 documented as of this encounter
--- OUTSIDE RECORDS SUMMARY | 2024-07-16 14:46 | XMS_ITS | Encounter Summary ---
Author Organization [facility] Healthcare Address [address] [place] [address] Care Team Providers Care Aerospace Manager Name Role Phone Kasandra García MD Primary Care Provider [phone] Reason for Referral * Diagnostic Imaging (Routine) - Closed Specialty Diagnoses / Procedures Referred By Contac t Referred To Contact Diagnoses Age-related osteoporosis without current pathological fracture Procedures XR Spine Thoracic 2 Views Kasandra Figueroa MD Phone: tel: fax: [address] [address] Referral ID Status Reason Start Date Expiration Date Visits Re quested Visits Authorized [id number] Closed 12/09/2018 06/19/2020 1 1 Reason for Visit * Diagnostic Imaging (Routine) - Closed Specialty Diagnoses / Procedures Referred By Contac t Referred To Contact Diagnoses Age-related osteoporosis without current pathological fracture Procedures XR Spine Thoracic 2 Views Kasandra Figueroa MD Phone: tel: fax: [address] [phone] Referral ID Status Reason Start Date Expiration Date Visits Re quested Visits Authorized [id number] Closed 12/09/2018 06/19/2020 1 1 Encounter Details Date Type Department Care Team (Latest Contact Info) Description 12/09/2018 9:50 AM CDT - 12/09/2018 11:59 PM CDT Hospital Encounter [facility] [address] [place] [address] Kasandra Figueroa MD [address] [place] [address] Age-related osteoporosis without current pathological fracture Discharge Disposition: Discharge to home or self [...] on file 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 Gender Identity Not on file Sexual Orientation Not on file documented as of this encounter Discharge Disposition Disposition Code Departure Means Destination Discharge to home or self care documented in this encounter Plan of Treatment Not on file documented as of this encounter Procedures Procedure Name Priority Date/Time Associated Diagnosis Comments XR SPINE THORACIC 2 VIEWS Schedule Routine, Read Routine (OP Routine) 12/09/2018 10:07 AM CDT Age-related osteoporosis without current pathological fracture documented in this encounter Results * XR Spine Thoracic 2 Views (12/09/2018 10:07 AM CDT) Anatomical Region Laterality Modality Spine N/A Computed Radiogr aphy 12/09/2018 10:3 3 AM CDT Impressions 12/09/2018 10:36 AM CDT 1. Multilevel mild thoracic degenerative disc disease, most prominent at T8-T9. 2. No discrete thoracic vertebral compression fracture, if concern for fracture persists cross-sectional imaging can be obtained. The radiology attending physician has personally reviewed this study, and had reviewed and/or edited this written report and agrees with it. Electronically signed by: Brain Stout M.D. Narrative 12/09/2018 10:36 AM CDT EXAMINATION: Thoracic spine, 2 views HISTORY: Age-related osteoporosis with pathologic fracture. FINDINGS: AP and lateral views of the thoracic spine are submitted for evaluation, without available comparison. ??Evaluation is limited by patient positioning. ??The visualized vertebral body heights are normal. ??The alignment is normal. ??There is at least mild multilevel thoracic degenerative disc disease, most prominent at T8-T9. Procedure Note Brain Stout MD - 12/09/2018 EXAMINATION: Thoracic spine, 2 views HISTORY: Age-related osteoporosis with pathologic fracture. FINDINGS: AP and lateral views of the thoracic spine are submitted for evaluation, without available comparison. Evaluation is limited by patient positioning. The visualized vertebral body heights are normal. The alignment is normal. There is at least mild multilevel thoracic degenerative disc disease, most prominent at T8-T9. IMPRESSION: 1. Multilevel mild thoracic degenerative disc disease, most prominent at T8-T9. 2. No discrete thoracic vertebral compression fracture, if concern for fracture persists cross-sectional imaging can be obtained. The radiology attending physician has personally reviewed this study, and had reviewed and/or edited this written report and agrees with it. Electronically signed by: Brain Stout M.D. us Kasandra Figueroa MD IMG XR PROCEDURES Final Re sult documented in this encounter Visit Diagnoses Diagnosis Age-related osteoporosis without current pathological fracture documented in this encounter Care Teams Aerospace Manager Relationship Specialty Start Date End Date Kasandra García MD PCP - General Family Medicine 07/27/18 12/01/22 documented as of this encounter
--- OUTSIDE RECORDS SUMMARY | 2024-07-16 14:46 | XMS_ITS | Encounter Summary ---
Author Organization [facility] Healthcare Address [address] [place] [address] Care Team Providers Care Sail Maker Name Role Phone Dominick Torres DO Primary Care Provider + Reason for Visit * Reason Onset Date Comments Symptom Based Call 05/04/2023 Encounter Details Date Type Department Care Team ([facility] st Contact Info) Description 05/04/2023 Telephone [facility] Medical Group Primary Care [address] [facility] [address] [place] [phone] Dominick Torres DO [address] [facility] [address] [place] [address] Symptom Based Call Social History Tobacco Use Types Packs/Day Years [...] on file 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 * Telephone Encounter - Alivia Corbett - 05/04/2023 8:12 AM CDT Symptom Based Call Caller's Callback #: [phone] Chief Complaint(s): Dry cough Duration: 3 weeks What type of symptom(s) is the patient experiencing? Non-Emergent. Is this a new or reoccurring symptom(s)? Reoccurring What have you tried to help your symptom(s)? Zrytec, flonase, Nyquil, day quil and Mucinex DM Why was appointment not scheduled? Appointment availability did not meet the patient's need. Additional Comments: Patient calling as dry cough and its persistent. Started off with cold and cannot get rid of the cough, No other symptoms. Has taken Zrytec, flonase, Nyquil, day quil and MucinexDM. Patient wanting to be seen or if she can try something else over the counter Does message need to be routed? Yes-Action Needed documented in this encounter Plan of Treatment Not on file documented as of this encounter Visit Diagnoses Not on filedocumented in this encounter Care Teams Sail Maker Relationship Specialty Start Date End Date Dominick Torres DO [address] [place] [id number] PCP - General Family Medicine 12/02/22 documented as of this encounter
--- OUTSIDE RECORDS SUMMARY | 2024-07-16 14:46 | XMS_ITS | Encounter Summary ---
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 Gender Identity Not on file Sexual Orientation Not on file documented as of this encounter Plan of Treatment Not on file documented as of this encounter Procedures Procedure Name Priority Date/Time Associated Diagnosis Comments HEPATITIS C ANTIBODY Routine 12/02/2022 10:23 AM CDT Annual physical exam documented in this encounter Results * Hepatitis C antibody (12/02/2022 10:23 AM [...] AL ORDERABLES Final Result Performing Organization Address City/State/[facility] Co de Phone Number MIKE [address] [facility] Department [place] [address] documented in this encounter Visit Diagnoses Diagnosis Annual physical exam Routine general medical examination at a health care facility documented in this encounter Care Teams Car Tracer Relationship Specialty Start Date End Date Dominick Torres DO [address] [place] [address] PCP - General Family Medicine 12/02/22 documented as of this encounter
--- OUTSIDE RECORDS SUMMARY | 2024-07-16 14:46 | XMS_ITS | Encounter Summary ---
Author Organization [facility] Healthcare Address [address] [place] [address] Care Team Providers Care Assembly Person Name Role Phone Dominick Torres DO Primary Care Provider + Reason for Visit * Reason Comments Cough Cough and congestion persisting since 05/04 Encounter Details Date Type Department Care Team (Late st Contact Info) Description 05/10/2023 5:30 PM CDT Office Visit [facility] at [address] [address] Laurent Arias NP [address] [place] [address] [address] [place] [address] Subacute cough (Primary Dx) Social History Tobacco Use Types [...] on file 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 Gender Identity Not on file Sexual Orientation Not on file documented as of this encounter Last Filed Vital Signs Vital Sign Reading Time Taken Comments Blood Pressure 126/74 05/10/2023 5:27 PM CDT Pulse 84 05/10/2023 5:27 PM CDT Temperature 36.9 ??C (98.5 ??F) 05/10/2023 5:27 PM CD T Respiratory Rate 16 05/10/2023 5:27 PM CDT Oxygen Saturation 96% 05/10/2023 5:27 PM CDT Inhaled Oxygen Concentration - - Weight 69.9 kg (154 lb) 05/10/2023 5:27 PM CDT Height 160 cm (5' 3 ) 05/10/2023 5:27 PM CDT Body Mass Index 27.28 05/10/2023 5:27 PM CDT documented in this encounter Patient Instructions * Patient Instructions* Laurent Arias NP - 05/10/2023 5:30 PM CDT If you have no improvement or worsening of your symptoms, please follow up with your Primary Care Provider, [facility] and or Emergency Room. I strive to provide you with EXCELLENT service. You may receive a survey after your visit today. If you cannot rate your experience as EXCELLENT, please let us know how we can improve and better meet your needs. Thank you for choosing [facility]! It was my pleasure to see you today, I hope you feel better soon! Laurent Arias DATA ENTRY REPRESENTATIVE * Attachments The following attachments cannot be sent through Care Everywhere. * Acute Cough (Dietary Services Director) (Namibian) documented in this encounter Ordered Prescriptions Prescription Sig Dispense Quantity Refills Last Filled Start Date End Date azithromycin (ZITHROMAX) 250 mg tabletIndications:S ubacute cough Take 2 tabs (500 mg) by mouth today, than 1 tab (250 mg) daily for 4 days. 6 tablet 05/10/2023 05/15/2023 documented in this encounter Progress Notes * Laurent Arias NP - 05/10/2023 5:30 PM CDT Images from the original note were not included. Subjective/Objective Patient ID: Mary Horton is a 58 y.o. female. Chief Complaint Cough (Cough and congestion persisting since 05/04) Pt [facility] For continued Upper respiratory infection symptoms. Patient was seenon May 04, 2023 by PCP and diagnosed with bronchitis at that time, patient was given a Medrol Dosepak, albuterol, promethazine DM, Flonase, and Zyrtec with no improvement. Patient states she is had a cough for approximately 3-4 weeks. Pt concerned due to leaving to out of town in 1 week. Review of Systems Constitutional: Negative for appetite change, chills, diaphoresis, fatigue and fever. HENT: Positive for postnasal drip. Negative for congestion, ear discharge, ear pain, rhinorrhea, sinus pressure, sinus pain, sneezing, sore throat and trouble swallowing. Respiratory: Positive for cough (for 3-4 weeks). Negative for chest tightness, shortness of breath and wheezing. Cardiovascular: Negative for chest pain. Gastrointestinal: Negative for abdominal pain, diarrhea, nausea and vomiting. Musculoskeletal: Negative for myalgias, neck pain and neck stiffness. Skin: Negative for rash. Neurological: Negative for dizziness and headaches. Hematological: Negative for adenopathy. Physical Exam Vitals and nursing note reviewed. Constitutional: General: She is awake. She is not in acute distress. Appearance: Normal appearance. HENT: Head: Normocephalic and atraumatic. Right Ear: Tympanic membrane and ear canal normal. Left Ear: Tympanic membrane and ear canal normal. Nose: No congestion or rhinorrhea. Right Sinus: No maxillary sinus tenderness or frontal sinus tenderness. Left Sinus: No maxillary sinus tenderness or frontal sinus tenderness. Mouth/Throat: Lips: [place]. Mouth: Mucous membranes are moist. Tongue: Tongue does not deviate from midline. Pharynx: Uvula midline. No pharyngeal swelling, oropharyngeal exudate, posterior oropharyngeal erythema or uvula swelling. Tonsils: No tonsillar exudate or tonsillar abscesses. Eyes: General: Lids are normal. Pupils: Pupils are equal, round, and reactive to light. Cardiovascular: Rate and Rhythm: Normal rate and regular rhythm. Pulses: Normal pulses. Heart sounds: Normal heart sounds. Pulmonary: Effort: Pulmonary effort is normal. No respiratory distress. Breath sounds: Normal breath sounds. No decreased breath sounds, wheezing, rhonchi or rales. Musculoskeletal: Cervical back: Full passive range of motion without pain, normal range of motion and neck supple. Lymphadenopathy: Cervical: No cervical adenopathy. Skin: General: Skin is warm and dry. Neurological: Mental Status: She is alert and oriented to person, place, and time. Gait: Gait normal. Psychiatric: Behavior: Behavior is cooperative. Vitals: 05/10/23 1727 BP: 126/74 Pulse: 84 Resp: 16 Temp: 36.9 ??C (98.5 ??F) SpO2: 96% Weight: 69.9 kg (154 lb) Height: 160 cm (5' 3 ) No results found. No past medical history on file. Current Outpatient Medications: albuterol HFA (PROVENTIL HFA,VENTOLIN HFA,PROAIR HFA) 90 mcg/actuation inhaler, Inhale 2 puffs every 6 (six) hours as needed for wheezing, Disp: 3 each, Rfl: 4 cholecalciferol, vitamin D3, (VITAMIN D3 ORAL), Take by mouth, Disp: , Rfl: fluticasone propionate (FLONASE) 50 mcg/actuation nasal spray, Administer 2 sprays into each nostril daily, Disp: 1 each, Rfl: 4 methylPREDNISolone (MEDROL DOSEPACK) 4 mg Dosepack, Take as directed on package, Disp: 1 packet, Rfl: 0 Premarin vaginal cream, USE 0.5 GRAMS VAGINALLY TWICE WEEKLY DIRECTED, Disp: , Rfl: promethazine-DM (PROMETHAZINE-DM) 1.25-3 mg/mL syrup, Take 5 mL by mouth every 4 (four) hours as needed for cough, Disp: 120 mL, Rfl: 1 azithromycin (ZITHROMAX) 250 mg tablet, Take 2 tabs (500 mg) by mouth today, than 1 tab (250 mg) daily for 4 days., Disp: 6 tablet, Rfl: 0 Allergies Allergen Reactions Opioids - Morphine Analogues Nausea & Vomiting Social History Tobacco Use Smoking status: Never Smokeless tobacco: Never Substance and Sexual Activity Drug use: Never Sexual activity: Not on file Alcohol Use: Not At Risk (12/02/2022) AUDIT-C Frequency of Alcohol Consumption: Never Average Number of Drinks: Patient does not drink Frequency of Binge Drinking: Never Past Surgical History: Procedure Laterality Date SECTION x 2- 1991 and 1995 STOMACH SURGERY 1987 Tumor removal TUBAL LIGATION 1995 Assessment/Plan Diagnoses and all orders for this visit: Subacute cough (Primary) - azithromycin (ZITHROMAX) 250 mg tablet; Take 2 tabs (500 mg) by mouth today, than 1 tab (250 mg) daily for 4 days. - XR Chest PA Lateral 2 Views; Future Patient Education: -You may try: Guaifenesin expectorants (Maximum Strength Mucinex, Robitussin, store brand) to loosen secretions. Warm salt water gargles as needed for sore throat. For cough you can use dextromethorphan (Delsym syrup, Robitussin cough capsules or store brand). Dextromethorphan is considered safe for and breast feeding women. -Increase fluid intake: drink 2 liters (2 quarts) of non-caffeinated, non- alcoholic beverages daily, drinking alcohol causes nasal and sinus membranes to swell -Steam inhalation and warm compress to face often help relieve pressure -Avoid allergens and excessively dry heat -Sleep with head of bed elevated to encourage drainage. -Use of a humidifier if environment is heated by dry forced - air system -Avoid smoking, second-hand smoke and air pollutants. -If you are not improving within 1 week or worsening at anytime, follow up with your primary care provider, or the emergency room. Disposition Treatment plan including expectations, follow up, and return precautions discussed with patient/parent, verbalizes understanding. Medication dosage, use, and potential adverse reactions discussed with patient/parent. Advised to follow up with PCP if symptoms do not resolve as expected or sooner if condition worsens. Signs/symptoms warranting ER evaluation reviewed. Patient and/or guardian was given an opportunity to ask questions, questions answered. Laurent Arias NP This office note has been partially dictated using [employer] software, and as a result portions of the record may have been created with this software. Occasional wrong-word or 'vyqje-r-yfhy' substitutions may have occurred due to the inherent limitations of voice recognition software. Read the chartcarefully and recognize, using context, where substitutions have occurred. documented in this encounter Plan of Treatment Not on file documented as of this encounter Visit Diagnoses Diagnosis Subacute cough- Primary documented in this encounter Care Teams Assembly Person Relationship Specialty Start Date End Date Dominick Torres DO [address] [address] PCP - General Family Medicine 12/02/22 documented as of this encounter
--- OUTSIDE RECORDS SUMMARY | 2024-07-16 14:46 | XMS_ITS | Encounter Summary ---
Author Organization [facility] Address [address] [facility] [address] [place] [address] Care Team Providers Care Design Assistant Name Role Phone Dominick Torres DO Primary Care Provider + Reason for Visit * Reason Comments New Patient Encounter Details Date Type Department Care Team ([facility] st Contact Info) Description 12/02/2022 9:00 AM CDT Office Visit [facility] Primary Care [address] [facility] [address] [place] [id number] Dominick Torres DO [facility] [address] [place] [address] Annual physical exam (Primary Dx); Age-related osteoporosis without current pathological fracture; IFG (impaired fasting glucose); Encounter for screening mammogram for malignant neoplasm of breast Social History Tobacco Use Types Packs/Day Years [...] on file 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 Gender Identity Not on file Sexual Orientation Not on file documented as of this encounter Last Filed Vital Signs Vital Sign Reading Time Taken Comments Blood Pressure 120/80 12/02/2022 9:06 AM CDT Pulse 82 12/02/2022 9:06 AM CDT Temperature 36.1 ??C (97 ??F) 12/02/2022 9:06 AM CDT Respiratory Rate 16 12/02/2022 9:06 AM CDT Oxygen Saturation 99% 12/02/2022 9:06 AM CDT Inhaled Oxygen Concentration - - Weight 68.5 kg (151 lb) 12/02/2022 9:06 AM CDT Height 161.5 cm (5' 3.58 ) 12/02/2022 9:06 AM CD T Body Mass Index 26.26 12/02/2022 9:06 AM CDT documented in this encounter Progress Notes * Dominick Torres, - 12/02/2022 9:00 AM CDT Images from the original note were not included. Subjective/Objective Visit Date: 12/02/2022 Patient ID: Mary Horton is a 57 y.o. female. Chief Complaint Chief Complaint Patient presents with New Patient HPI NPPE Cscope this week ([facility]/Dr Parker) Review of Systems Constitutional: Negative for chills [...] and Affect: Mood normal. Behavior: Behavior normal. Diagnoses and all orders for this visit: Annual physical exam (Primary) Comments: NPPE Orders: - Hepatitis C antibody; Future - SCREENING MAMMOGRAM BILATERAL W JAIME; Future Age-related osteoporosis without current pathological fracture Comments: chronic,stable,cont current tx,rout f/u appt prior record/labs reviewed;see orders RTC PRN Orders: - Dexa Axial Skeleton Bone Density 1 or 2 Site; Future IFG (impaired fasting glucose) Comments: chronic,stable,cont current tx,rout f/u appt prior record/labs reviewed;see orders RTC PRN Encounter for screening mammogram for malignant neoplasm of breast - SCREENING MAMMOGRAM BILATERAL W JAIME; Future Other orders - Varicella-zoster HZV IM - Tdap vaccine greater than or equal to 7yo IM BMI Follow-up includes: nutrition counseling, exercise counseling, and education provided. Dominick Torres DO documented in this encounter Plan of Treatment Not on file documented as of this encounter Results * Hepatitis C antibody [...] 3 AM CDT 12/02/2022 4:58 PM CDT us Dominick Torres DO LAB MICROBIOLOGY - GENER AL ORDERABLES Final Result [facility] [address] [place] [address] [place] [address] documented in this encounter Visit Diagnoses Diagnosis Annual physical exam- Primary Routine general medical examination at a health care facility Age-related osteoporosis without current pathological fracture IFG (impaired fasting glucose) Encounter for screening mammogram for malignant neoplasm of breast documented in this encounter Discontinued Medications Medication Sig Discontinue Reason Start Date End Da te cetirizine (ZyrTEC) 10 mg tablet Take 1 tablet (10 mg total) by mouth daily 09/20/2022 12/02/2022 documented as of this encounter Historical Medications * This list may reflect changes made after this encounter. cholecalciferol, vitamin D3, (VITAMIN D3 ORAL) Take by mouth 4 Premarin vaginal cream USE 0.5 GRAMS VAGINALLY TWICE WEEKLY DIRECTED 09/01/2022 4 cetirizine (ZyrTEC) 10 mg tablet Take 1 tablet (10 mg total) by mouth daily 09/20/2022 3 added in this encounter Orders Immunization/Injection Count Last Ordered Date First Ordered Date TDAP VACCINE GREATER THAN OR EQUAL TO 7YO IM 1 12/02/2022 ZOSTER (SHINGLES) HZV IM 1 12/02/2022 documented in this encounter Care Teams Design Assistant Relationship Specialty Start Date End Date Dominick Torres DO [address] [place] [address] PCP - General Family Medicine 12/02/22 documented as of this encounter
--- OUTSIDE RECORDS SUMMARY | 2024-07-16 14:46 | XMS_ITS | Encounter Summary ---
Author Organization [facility] [employer] [facility] Address [address] [place] [address] Phone Care Team Providers Care Poker Room Manager Name Role Phone Thao Richardson MD Primary Care Provider [phone] Reason for Referral * Diagnostic Imaging (Routine) - Closed Specialty Diagnoses / Procedures Referred By Contac t Referred To Contact Diagnoses Age-related osteoporosis without current pathological fracture Procedures XR Spine Thoracic 2 Views Thao Figueroa MD Phone: tel: fax: [address] [address] Referral ID Status Reason Start Date Expiration Date Visits Re quested Visits Authorized [id number] Closed 12/09/2018 06/19/2020 1 1 Encounter Details Date Type Department Care Team (Late st Contact Info) Description 12/09/2018 8:00 AM CDT Office Visit [place] [id number] 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 Gender Identity Not on file Sexual Orientation Not on file documented as of this encounter Last Filed Vital Signs Vital Sign Reading Time Taken Comments Blood Pressure 120/78 12/09/2018 7:48 AM CDT Pulse 65 12/09/2018 7:48 AM CDT Temperature - - Respiratory Rate - - Oxygen Saturation - - Inhaled Oxygen Concentration - - Weight 58.9 kg (129 lb 12.8 oz) 12/09/2018 7:48 AM CDT Height 161.8 cm (5' 3.7 ) 12/09/2018 7:48 AM CDT Body Mass Index 22.49 12/09/2018 7:48 AM CDT documented in this encounter Progress Notes * Thao Figueroa MD - 12/09/2018 12:00 AM CDT PATIENT NAME: CLARITA SERRANO : 1965 SHANON: 12/09/2018 HISTORY OF PRESENT ILLNESS: Clarita Serrano is a 53-year-old woman who was referred to us by Dr. Thao Richardson for advice and evaluation of possible osteoporosis. The patient was also sent because after an attempt to treat her her osteoporosis with Boniva, she had significant side effects and did not want to take the medication. In terms of her bone health history, she has some pain in her thoracic region of her spine. She also has pain she says in her joints of her hands and her wrist. She tells me that she hit her foot recently and thinks she could have possibly broken part of her foot, but she seems to be walking well today. She did say that when she leaned over a counter where she was working, she heard a cracking sound in her ribs and they hurt for quite sometimes so she thinks she may have had a rib fracture, butclaudia has no known documented fractures of note. She got her first menstrual period at age 11. She has had 2 pregnancies and 2 births, and she breast fed both her children. She went through normal menopause at age 51. She drinks about 1 to 2 glasses of wine per month and she has never smoked. In terms of her mother, she said she had lost height and a curved back and maybe she had osteoporosis. The mother's sister did fracture her hip in her 60s. In terms of medication for her bones, she was prescribed Boniva and she took it for only for 1 month. She said she felt horrible for the entire month. She have waves of episodes of new low energy, musculoskeletal pain, and felt like she had the flu. These symptoms lasted for the entire month. In terms of vitamin D and calcium she took that in the past but she is not taking either of these medications for several months. PAST MEDICAL HISTORY: 1. Diagnosis of prediabetes. 2. Osteoporosis. 3. She has had a tubal ligation in the past. 4. Two C-sections. 5. 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 This was benign, but caused her a lot of symptoms at the time. 6. Occasionally has some sinus problems. MEDICATION: She is taking absolutely no medications or vitamins or anything else at the current time. FAMILY HISTORY: Her father, she does not know much about him, but she knows he did in his 60s and he did commitsuicide. In terms of her mother, she is living. She has recovered from bladder cancer. She may havehad a small stroke in the recent past. She has many are half siblings. One of them was killed in a bicycle accident, several of them have diabetes, 1 half sibling had breast cancer, 1 half sibling had lung cancer and 2 of her half-siblings had cirrhosis of the liver. SOCIAL HISTORY: She has been for 32 years. She used to work at [employer]. She recently retired. FUNCTIONAL STATUS: In terms of exercise, she got a lot of exercise on the job at [employer], but since she has retired theonly exercise she gets is doing housework. She does nothing scheduled. REVIEW OF SYSTEMS: Mainly notable for things in the musculoskeletal category. She has morning stiffness that she said may last a half a day. She has the back pain described above and now new pain in her foot. She also has fatigue and she tells me that when she is working her hands for long periods of time, she feels that she has numbness in her hands. PHYSICAL EXAM: GENERAL: Today she is a well-developed, well-nourished woman in no acute distress. VITAL SIGNS: Blood pressure is 120/78, pulse is 65 and regular, weight is 129 pounds and 12.8 ounces. Height is 5 feet 3.7 inches. HEENT: Eyes, sclerae are white. Her mouth, she has no lesions. Her teeth appear to be in good repair. NECK: She has no adenopathy or thyromegaly. LUNGS: Clear bilaterally. CARDIAC: Normal S1, S2. There was a question of a mid systolic click. There were no murmurs. There were no gallops. ABDOMEN: She has normoactive bowel sounds. Her abdomen is soft and nontender. There are no palpablemasses or hepatosplenomegaly. BREASTS: Her breast exam bilaterally shows minor fibrocystic disease with no axillary adenopathy. BACK: She has no pain with percussion of her spine. MUSCULOSKELETAL: She has normal motor function of both her upper and lower extremities bilaterally.Hands show changes of OA with thickening and deformity of DIP and PIP joints. BONE MINERAL DENSITY: Bone mineral density of the lumbar spine from L1-L4 shows an average density of 0.6760 g/cm??. Thiscorresponds to a T-score standard deviation from the mean of young adults of -2.6. There is no previous study available for comparison. Bone density of the left hip was found to be 0.758 g/cm??. Thiscorresponds to a T- score standard deviations from the mean of young adults of -1.5. Femoral neck is 0.588 g/cm?? with a T-score of -2 4. There is no previous study available for comparison. Bone mineral density shows evidence of osteoporosis. ASSESSMENT AND PLAN: Osteoporosis. We are going to look for secondary causes of osteoporosis and I suspect her vitamin Dwill be low since she was on 50,000 weekly a while ago and has stopped this. We will check a 25-vitamin D level, a PTH level, a CBC, a CMP, and a TSH level. We discussed many options for treatment ofher osteoporosis. I think because of her young age and because she has osteoporosis mainly in her sp ine, we could consider daily Evista. I discussed this at great length. I also told her if we want to try bisphosphonate, we might try one that was weekly, so she would not be taking such a high dose and maybe she would not have the same symptoms. Further disposition pending results of above. I am also getting films of her thoracic spine. If she does have a compression fracture of thoracic spine, then things might be different and we might be more aggressive in our treatment. ELECTRONICALLY SIGNED - 12/09/2018 07:38 PM Thao Figueroa M.D. flag signaler / cc: THAO RICHARDSON MD / / -6 documented in this encounter Plan of Treatment [...] it. Electronically signed by: Brain Stout M.D. Thao Figueroa MD IMG XR PROCEDURES Final Re sult * TSH (12/09/2018 9:19 AM CDT) TSH (Thyrotropin) 1.99 0.27 - 4.20 uIU/mL [facility] Comment:* Please note update d reference range for TSH effective 09/23/18 * Blood specimen (specimen) 12/09/2018 9:19 AM CDT 12/09/2018 10:17 AM CDT us Thao Figueroa MD LAB BLOOD ORDERABLES Final Result [facility] * (ABNORMAL) Vitamin D 25 hydroxy (12/09/2018 9:19 AM CDT) Vitamin D 29.9(L) 30.0 - 100.0 ng/mL [facility] Comment: VITAMIN D DEFICIENCY = LESS THAN or EQUAL TO 20 ng/mL ? VITAMIN D INSUFFICIENCY = GREATER THAN 20 AND LESS THAN 30 ng/mL ? RECOMMENDED NORMAL RANGE = 30-100 ng/mL Blood specimen (specimen) 12/09/2018 9:19 AM CDT 12/09/2018 10:17 AM CDT Thao Figueroa MD LAB BLOOD ORDERABLES Final Result [facility] * PTH, intact (12/09/2018 9:19 AM CDT) Parathyroid Hormone 60.6 15.0 - 65.0 pg/mL [facility] Blood specimen (specimen) 12/09/2018 9:19 AM CDT 12/09/2018 10:17 AM CDT Thao Figueroa MD LAB BLOOD ORDERABLES Final Result Performing Organization Address [facility] Co de Phone Number [facility] * Comprehensive metabolic panel (12/09/2018 9:19 AM CDT) Total Protein 7.2 6.1 - 8.4 g/dL [facility] Albumin 4.6 3.5 - 5.2 g/dL [facility] Calcium 9.4 8.6 - 10.3 mg/dL [facility] BUN 18 7 - 23 mg/dL [facility] Total Bilirubin 0.62 0.20 - 1.40 mg/dL [facility] Alk Phos, Total 71 35 - 129 IU/L [facility] AST (SGOT) 20 11 - 47 IU/L [facility] ALT (SGPT) 18 6 - 53 IU/L [facility] Creatinine 0.72 0.60 - 1.10 mg/dL [facility] Sodium 140 135 - 145 mmol/L [facility] Potassium 4.3 3.3 - 5.1 mmol/L [facility] Chloride 104 95 - 107 mmol/L [facility] CO2 Content 27 21 - 29 mmol/L [facility] Glucose 91 64 - 99 mg/dL [facility] Comment: NONFASTING GLUCOSE RANGE = 64-199 mg/dL FASTING GLUCOSE 64 - 99 = NORMAL FASTING GLUCOSE 100 - 125 = IMPAIRED FASTING GLUCOSE FASTING GLUCOSE >=126 = PROVISIONAL DIAGNOSIS OF DIABETES eGFR NON-AFR. [place] >90.0 >60.0 mL/min/1.7 3 m2 [facility] eGFR >90.0 >60.0 mL/min/1.7 3 m2 [facility] Blood specimen (specimen) 12/09/2018 9:19 AM CDT 12/09/2018 10:17 AM CDT us Thao Figueroa MD LAB BLOOD ORDERABLES Final Result [facility] * (ABNORMAL) CBC with auto differential (12/09/2018 9:19 AM CDT) White Blood Count 4.1 3.6 - 11.2 K/uL [facility] RBC 4.34 3.63 - 4.92 M/uL [facility] Hemoglobin 13.0 11.9 - 15.5 g/dL [facility] Hematocrit 39.9 36.1 - 44.3 % [facility] MCV 92.0 80.0 - 97.6 fL [facility] MCH 30.0 26.7 - 33.7 pg [facility] MCHC 32.6(L) 32.7 - 35.5 g/dL [facility] RBC Dist Width 14.0 12.3 - 17.0 % [facility] Platelet Count 204 140 - 440 K/uL [facility] MPV 8.4 6.8 - 10.4 fL [facility] Neutrophils % 62.3 38.7 - 74.5 % [facility] Lymphocyte % 27.9 20.0 - 54.3 % [facility] Monocytes % 7.4 4.3 - 13.5 % [facility] Eosinophils % 1.8 0.0 - 6.0 % [facility] Basophil % 0.6 0.0 - 3.0 % [facility] Absolute Neutrophil 2.5 1.8 - 6.6 K/uL [facility] Absolute Lymphocyte 1.1 0.8 - 3.3 K/uL [facility] Absolute Monocyte 0.3 0.2 - 1.2 K/uL [facility] Absolute Eosinophil 0.1 0.0 - 0.5 K/uL [facility] Absolute Basophil 0.0 0.0 - 0.2 K/uL [facility] Nucleated RBC % 0.0 0.0 - 0.4 /100 WBC [facility] Blood specimen (specimen) 12/09/2018 9:19 AM CDT 12/09/2018 10:17 AM CDT us Thao Figueroa MD LAB BLOOD ORDERABLES Final Result [facility] documented in this encounter Visit Diagnoses Diagnosis Age-related osteoporosis without current pathological fracture- Primary Fatigue, unspecified type Age-related osteoporosis without current pathological fracture documented in this encounter Care Teams Poker Room Manager Relationship Specialty Start Date End Date Thao Richardson MD PCP - General Family Medicine 07/27/18 12/01/22 documented as of this encounter
--- OUTSIDE RECORDS SUMMARY | 2024-07-16 14:46 | XMS_ITS | Encounter Summary ---
Author Organization [facility] Address [address] [place] [address] Phone Care Team Providers Care Microscopist Name Role Phone Kasandra García MD Primary Care Provider [phone] Reason for Visit * Reason Onset Date Comments Appointment 12/01/2019 Encounter Details Date Type Department Care Team (Late st Contact Info) Description 12/01/2019 Telephone [facility] [address] [place] [address] Medical Office Building [address] [place] [address] Ronda Perez MD [address] [place] [address] Appointment Social History Tobacco Use Types Packs/Day Years [...] on file 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 Gender Identity Not on file Sexual Orientation Not on file documented as of this encounter Miscellaneous Notes * Telephone Encounter - Vu Powell MA - 12/01/2019 12:55 PM CDT I spoke with and she is aware that her bone density and Ana appointments on 12/20/19 are being canceled due to COVID 19 documented in this encounter Plan of Treatment Not on file documented as of this encounter Visit Diagnoses Not on filedocumented in this encounter Care Teams Microscopist Relationship Specialty Start Date End Date Kasandra García MD PCP - General Family Medicine 07/27/18 12/01/22 documented as of this encounter
--- OUTSIDE RECORDS SUMMARY | 2024-07-16 14:46 | XMS_ITS | Encounter Summary ---
Author Organization [facility] Address [address] [place] [address] Phone Care Team Providers Care Operational Intelligence Officer Name Role Phone Kasandra García MD Primary Care Provider [phone] Reason for Referral * Diagnostic Imaging (Routine) - Closed Specialty Diagnoses / Procedures Referred By Contac t Referred To Contact Diagnoses Osteoporosis, unspecified osteoporosis type, unspecified pathological fracture presence Procedures Dexa Axial Skeleton Bone Density 1 or 2 Site Kasandra Figueroa MD Phone: tel: fax: [facility] (All Locations) Referral ID Status Reason Start Date Expiration Date Visits Re quested Visits Authorized [id number] Closed 09/09/2018 07/19/2019 99 99 ESS DEVELOPMENT CHEMIST Encounter Details Date Type Department Care Team (Late st Contact Info) Description 09/09/2018 Orders Only [facility] Bone Health [address] [facility] Medical Office Building [address] [place] [id number] Kasandra Figueroa MD [address] [place] [address] Osteoporosis, unspecified osteoporosis type, unspecified pathological fracture presence (Primary Dx) Social History Tobacco Use Types Packs/Day Years Used Date Smoking Tobacco: Never Assessed Comments Unknown Sex and Gender Information Value Date Recorded Sex Assigned at Not on file 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 ?? Machine Cross-calibration and Precision [...] and Mineral Research 7(6): 633-8 (1991) 4) [place]inson, Journal Bone and Mineral Research 8(10):1227-33 (1992) The history and data sections of the bone mineral density scan were prepared by Rukhsana Pacheco who is accredited by the International Society of Clinical Densitometry. The overall patient assessment and scan interpretation were performed by Violetta Macdonald MD who is certified by the International Society of Clinical Densitometry. [id number] Kasandra Figueroa MD IMG DXA PROCEDURES Final R esult documented in this encounter Visit Diagnoses Diagnosis Osteoporosis, unspecified osteoporosis type, unspecified pathological fracture presence- Primary Osteoporosis, unspecified osteoporosis type, unspecified pathological fracture presence Age-related osteoporosis without current pathological fracture documented in this encounter Care Teams Operational Intelligence Officer Relationship Specialty Start Date End Date Kasandra García MD PCP - General Family Medicine 07/27/18 12/01/22 documented as of this encounter
--- OUTSIDE RECORDS SUMMARY | 2024-07-16 14:46 | XMS_ITS | Encounter Summary ---
Author Organization [facility] Address [address] [place] [address] Phone Care Team Providers Care Truck Headlight Assembler Name Role Phone Kasandra García MD Primary Care Provider [phone] Reason for Visit * Reason Onset Date Comments Patient issue/concern 12/22/2018 start on E vista Encounter Details Date Type Department Care Team (Late st Contact Info) Description 12/22/[address] Medical Office Building [address] [place] [address] Kasandra Figueroa MD [address] [place] [address] Patient issue/concern (start on Evista) Social History Tobacco Use Types Packs/Day Years [...] on file 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 CENTER SPECIALIST * Telephone Encounter - Puja Lyon CMA - 05/09/2019 12:41 PM CDT Left message for pt to call office * Telephone Encounter - Ronda Perez MD - 05/08/2019 3:07 PM CDT It is fine for her to start Evista as discussed at her visit with Dr. Figueroa. * Telephone Encounter - Puja Lyon CMA - 05/06/2019 11:04 AM CDT Pt was a pt of Dr. Figueroa who wanted pt to be started on Evista but there has been unsuccessful attempts made in reaching the pt. Pt is scheduled to see you in 12/2019. Would you like for her to start on Evista until office visit if pt returns merry or wait until her office visit with you? * Telephone Encounter - Vu Powell MA - 12/22/2018 1:31 PM CDT Left message for patient to call the office. * Telephone Encounter - Vu Powell MA - 12/22/2018 1:31 PM CDT ----- Message from Kasandra Figueroa MD sent at 12/12/2018 5:25 PM CDT ----- Spoke to the patient. She has been on no vit d since August. I told her to start on 2000IU/daily and we would like to get her started on evista. She is waiting to hear from you. documented in this encounter Plan of Treatment Not on file documented as of this encounter Visit Diagnoses Not on filedocumented in this encounter Care Teams Truck Headlight Assembler Relationship Specialty Start Date End Date Kasandra García MD PCP - General Family Medicine 07/27/18 12/01/22 documented as of this encounter
--- OUTSIDE RECORDS SUMMARY | 2024-07-16 14:46 | XMS_ITS | Encounter Summary ---
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 Gender Identity Not on file Sexual Orientation [...] each nostril daily 1 each 4 05/04/2023 amoxicillin-clavul anate (Augmentin) 875-125 mg per tabletIndications: Acute non-recurrent pansinusitis Take 1 tablet by mouth 2 (two) times a day for 7 days 14 tablet 06/23/2023 3 cholecalciferol, vitamin D3, (VITAMIN D3 ORAL) Take by mouth 4 Premarin vaginal cream USE 0.5 GRAMS VAGINALLY TWICE WEEKLY DIRECTED 09/01/2022 4 promethazine-DM (PROMETHAZINE-DM) 1.25-3 mg/mL syrup Take 5 mL by mouth every 4 (four) hours as needed for cough 120 mL 1 05/04/2023 4 documented as of this encounter Discharge Disposition Disposition Code Departure Means Destination Discharge to home or self care documented in this encounter Miscellaneous Notes * Result Encounter Note - Sally Wray - 06/23/2023 11:59 PM CST Pt called for test results - read message from provider. Pt voiced understanding NTRY WEAPONS OFFICER * Result Encounter Note - Olya Obando MA - 06/23/2023 4:48 PM INFANTRY WEAPONS OFFICER LMTRC NTRY WEAPONS OFFICER * Result Encounter Note - Marie Tubbs NP - 06/23/2023 3:01 PM CST Please notify patient of negative COVID-19/RSV/FLU test. Patient should rest, stay hydrated, and take OTC medications as needed. Monitor symptoms and if they worsen follow up with primary care doctoror ER if needed. NTRY WEAPONS OFFICER documented in this encounter Plan of Treatment Not on file documented as of this encounter Procedures Procedure Name Priority Date/Time Associated Diagnosis Comments INFLUENZA A/B, RSV, AND COVID-19 PCR Routine 06/23/2023 9:36 AM INFANTRY WEAPONS OFFICER Acute non-recurrent pansinusitis documented in this encounter Results * Influenza A/B, RSV, and COVID-19 PCR Nasopharyngeal (06/23/2023 9:36 AM INFANTRY WEAPONS OFFICER) COVID-19 RNA Negative Negative [facility] Influenza A RNA Negative Negative [facility] Influenza B RNA Negative Negative [facility] RSV RNA Negative Negative [facility] Comment: Interpretive data: Testing performed by [facility]. This test is performed using the [employer] Xpert Xpress CoV-2/Flu/RSV plus assay. This is a multiplex, real-time reverse transcriptase PCR assay intended for the qualitative detection of nucleic acid from SARS-CoV-2, influenza A, influenza B, and respiratory syncytial virus. This assay has been cleared by the [place] Food and Drug administration. The performance characteristics have been verified by the [facility]. ??Results must be considered in the clinical context, and a negative result does not rule out infection. Interpretive Data last revised 2023 Nasopharyngeal 06/23/2023 9: 36 AM INFANTRY WEAPONS OFFICER 06/23/2023 1:52 PM INFANTRY WEAPONS OFFICER Narrative [facility] - 06/23/2023 2:59 PM INFANTRY WEAPONS OFFICER Is the Patient experiencing symptoms consistent with COVID?->Yes Date of Symptom Onset->04/23/23 Reason for testing?->Symptomatic us Marie Tubbs NP LAB MICROBIOLOGY - GENERAL ORD ERABLES Final Result [facility] [id number] [address] Department [place] [address] documented in this encounter Visit Diagnoses Diagnosis Acute non-recurrent pansinusitis documented in this encounter Additional Health Concerns Infection Onset Date Last Indicated Resolved Time COVID: Suspected 06/23/2023 06/23/2023 06/23/2023 3:00 PM INFANTRY WEAPONS OFFICER documented as of this encounter Care Teams Public Health Policy Analyst Relationship Specialty Start Date End Date Dominick Torres DO [address] [place] [phone] PCP - General Family Medicine 12/02/22 documented as of this encounter
--- OUTSIDE RECORDS SUMMARY | 2024-07-16 14:46 | XMS_ITS | Encounter Summary ---
Author Organization [facility] Healthcare Address [address] [place] [id number] Care Team Providers Care Certified Paralegal Name Role Phone Dominick Torres DO Primary Care Provider + Reason for Visit * Reason Comments Cough Dry cough X 3 weeks Encounter Details Date Type Department Care Team ([facility] st Contact Info) Description 05/04/2023 10:00 AM CDT Office Visit [facility] Medical [facility] Primary Care [address] [facility] [address] [place] [phone] Iliana Issa LABELER [address] [facility] [address] [place] [address] Bronchitis (Primary Dx) Social History Tobacco Use Types [...] on file 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 Gender Identity Not on file Sexual Orientation Not on file documented as of this encounter Last Filed Vital Signs Vital Sign Reading Time Taken Comments Blood Pressure 132/70 05/04/2023 10:05 AM CDT Pulse 82 05/04/2023 10:05 AM CDT Temperature 35.9 ??C (96.6 ??F) 05/04/2023 10:05 AM C DT Respiratory Rate 16 05/04/2023 10:05 AM CDT Oxygen Saturation 98% 05/04/2023 10:05 AM CDT Inhaled Oxygen Concentration - - Weight 69.9 kg (154 lb) 05/04/2023 10:05 AM CDT Height 161.5 cm (5' 3.58 ) 05/04/2023 10:05 AM C DT Body Mass Index 26.78 05/04/2023 10:05 AM CDT documented in this encounter Ordered Prescriptions Prescription Sig Dispense Quantity Refills Last Filled Start Date End Date fluticasone propionate (FLONASE) 50 mcg/actuation nasal spray Administer 2 sprays into each nostril daily 1 each 4 05/04/2023 albuterol HFA (PROVENTIL HFA,VENTOLIN HFA,PROAIR HFA) 90 mcg/actuation inhaler Inhale 2 puffs every 6 (six) hours as needed for wheezing 3 each 4 05/04/2023 promethazine-DM (PROMETHAZINE-DM) 1.25-3 mg/mL syrup Take 5 mL by mouth every 4 (four) hours as needed for cough 120 mL 1 05/04/2023 4 methylPREDNISolone (MEDROL DOSEPACK) 4 mg Dosepack Take as directed on package 1 packet 05/04/2023 3 documented in this encounter Progress Notes * Iliana Issa, LABELER - 05/04/2023 10:00 AM CDT Images from the original note were not included. Patient ID: Mary Horton is a 58 y.o. female. Chief Complaint. Chief Complaint Patient presents with Cough Dry cough X 3 weeks HPI. Patient is a 58 y.o. female HPI Patient presents in office with complaints of dry cough for the past 3 weeks. She has been using Zyrtec, Flonase, and Mucinex with little improvement. She denies any fever, chills, wheezing, and SOB. History reviewed. No pertinent past medical history. [...] Current Medications: Outpatient Encounter Medications as of 05/04/2023 Medication Sig Dispense Refill cholecalciferol, vitamin D3, (VITAMIN D3 ORAL) Take by mouth Premarin vaginal cream USE 0.5 GRAMS VAGINALLY TWICE WEEKLY DIRECTED albuterol HFA (PROVENTIL HFA,VENTOLIN HFA,PROAIR HFA) 90 mcg/actuation inhaler Inhale 2 puffs every6 (six) hours as needed for wheezing 3 each 4 fluticasone propionate (FLONASE) 50 mcg/actuation nasal spray Administer 2 sprays into each nostrildaily 1 each 4 methylPREDNISolone (MEDROL DOSEPACK) 4 mg Dosepack Take as directed on package 1 packet 0 promethazine-DM (PROMETHAZINE-DM) 1.25-3 mg/mL syrup Take 5 mL by mouth every 4 (four) hours as needed for cough 120 mL 1 No facility-administered encounter medications on file as of 05/04/2023. Review of Systems: Review of Systems Constitutional: Negative for chills, diaphoresis and fever. HENT: Negative for congestion, ear pain, postnasal drip, rhinorrhea, sinus pressure, sinus pain, sneezing and sore throat. Eyes: Negative for pain, redness and itching. Respiratory: Positive for cough. Negative for shortness of breath and wheezing. Cardiovascular: Negative for chest pain and palpitations. BP 132/70 (BP Location: Left arm, Patient Position: Sitting) Pulse 82 Temp (!) 35.9 ??C (96.6 ??F) (Temporal) Resp 16 Ht 161.5 cm (5' 3.58 ) Wt 69.9 kg (154 lb) SpO2 98% BMI 26.78 kg/m?? Physical Exam: Physical Exam Constitutional: Appearance: Normal appearance. HENT: Right Ear: Tympanic membrane, ear canal and external ear normal. Left Ear: Tympanic membrane, ear canal and external ear normal. Nose: Right Turbinates: Not swollen. Left Turbinates: Not swollen. Right Sinus: No maxillary sinus tenderness or frontal sinus tenderness. Left Sinus: No maxillary sinus tenderness or frontal sinus tenderness. Mouth/Throat: Lips: [place]. Mouth: Mucous membranes are moist. Pharynx: Uvula midline. No pharyngeal swelling, oropharyngeal exudate or posterior oropharyngeal erythema. Comments: Patient presents with postnasal drainage. Eyes: Extraocular Movements: Extraocular movements intact. Neck: Vascular: No carotid bruit. Cardiovascular: Rate and Rhythm: Normal rate and regular rhythm. Pulses: Normal pulses. Heart sounds: Normal heart sounds, S1 normal and S2 normal. No murmur heard. Pulmonary: Effort: Pulmonary effort is normal. Breath sounds: Normal breath sounds. No wheezing. Musculoskeletal: General: Normal range of motion. Cervical back: Normal range of motion and neck supple. Right lower leg: No edema. Left lower [...] Diagnoses and all orders for this visit: Bronchitis (Primary) Comments: Patient prescribed Medrol dose pack, Albuterol inhaler, and Promethazine-DM. She is to continue on Flonase and Zyrtec. Call office if her cough doesn't improve Other orders - methylPREDNISolone (MEDROL DOSEPACK) 4 mg Dosepack; Take as directed on package - albuterol HFA (PROVENTIL HFA,VENTOLIN HFA,PROAIR HFA) 90 mcg/actuation inhaler; Inhale 2 puffs every 6 (six) hours as needed for wheezing - promethazine-DM (PROMETHAZINE-DM) 1.25-3 mg/mL syrup; Take 5 mL by mouth every 4 (four) hours as needed for cough - fluticasone propionate (FLONASE) 50 mcg/actuation nasal spray; Administer 2 sprays into each nostril daily Iliana Issa NP Cosigned by Dominick Torres DO at 05/04/2023 10:55 AM CDT documented in this encounter Plan of Treatment Not on file documented as of this encounter Visit Diagnoses Diagnosis Bronchitis- Primary Bronchitis, not specified as acute or chronic documented in this encounter Care Teams Certified Paralegal Relationship Specialty Start Date End Date Dominick Torres DO [address] [place] [id number] PCP - General Family Medicine 12/02/22 documented as of this encounter
--- OUTSIDE RECORDS SUMMARY | 2024-07-16 14:46 | XMS_ITS | Encounter Summary ---
Author Organization [facility] Address [address] [facility] [address] [place] [id number] Care Team Providers Care Causticiser Name Role Phone Dominick Torres DO Primary Care Provider + Encounter Details Date Type Department Care Team ([facility] st Contact Info) Description 12/02/2022 Telephone [facility] Primary Care [address] [facility] [address] [place] [phone] Dominick Torres DO [facility] [facility] [address] [place] [address] Social History Tobacco Use Types [...] on file 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 Gender Identity Not on file Sexual Orientation Not on file documented as of this encounter Miscellaneous Notes * Telephone Encounter - Debra Ferreira, RN - 12/02/2022 2:00 PM CDT colonoscopy documented in this encounter Plan of Treatment Not on file documented as of this encounter Procedures Procedure Name Priority Date/Time Associated Diagnosis Comments COLONOSCOPY Routine 11/28/2022 documented in this encounter Results * Colonoscopy (11/28/2022) Anatomical Region Laterality Modality Other us Historical Provider MD ENDOSCOPY PROCEDURES Gloria l Result documented in this encounter Visit Diagnoses Not on filedocumented in this encounter Care Teams Causticiser Relationship Specialty [place] [address] [place] [id number] PCP - General Family Medicine 12/02/22 documented as of this encounter
--- OUTSIDE RECORDS SUMMARY | 2024-07-16 14:46 | XMS_ITS | Encounter Summary ---
Author Organization [facility] Healthcare Address [address] [place] [address] Care Team Providers Care Farm Equipment Service Technician Name Role Phone Dominick Torres DO Primary Care Provider + Reason for Visit * Reason Comments Cold Symptoms Pt c/o sinus pressur e/pain, rhinorrhea, post nasal drip, green mucus, cough, chest soreness when coghingPt states no fever, sore throat, fever, chest pain, SOBS/s started 2 months ago and have continued to persistPt has self medicated with zyrtec and mucinex Encounter Details Date Type Department Care Team (Late st Contact Info) Description 06/23/2023 9:30 AM DOG RAISER Office Visit [facility] at [address] [address] Marie Tubbs NP [address] [place] [address] [address] [place] [address] Acute non-recurrent pansinusitis (Primary Dx) Social History Tobacco Use Types [...] file 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 Gender Identity Not on file Sexual Orientation Not on file documented as of this encounter Last Filed Vital Signs Vital Sign Reading Time Taken Comments Blood Pressure 124/76 06/23/2023 9:27 AM DOG RAISER Pulse 77 06/23/2023 9:27 AM DOG RAISER Temperature 36.7 ??C (98 ??F) 06/23/2023 9:27 AM DOG RAISER Respiratory Rate 16 06/23/2023 9:27 AM DOG RAISER Oxygen Saturation 98% 06/23/2023 9:27 AM DOG RAISER Inhaled Oxygen Concentration - - Weight 70.3 kg (155 lb) 06/23/2023 9:27 AM DOG RAISER Height 160 cm (5' 3 ) 06/23/2023 9:27 AM DOG RAISER Body Mass Index 27.46 06/23/2023 9:27 AM DOG RAISER documented in this encounter Patient Instructions * Patient Instructions* Marie Tubbs, HORSE SHOW MANAGER - 06/23/2023 9:30 AM DOG RAISER Symptomatic treatments include: -Over the counter antihistamine such as loratadine (Claritin) or cetirizine (Zyrtec) to reduce secretions. The D formula includes pseudoephedrine and can be helpful as a decongestant but SHOULD NOTBE USED IF YOU HAVE A HISTORY OF HIGH BLOOD PRESSURE. -Coricidin HBP may be taken for congestion if you have a history of high blood pressure. -Tessalon, Dextromethorphan (Robitussin) or Delsym for cough -Guafenesin (Mucinex) to thin secretions -Acetaminophen (Tylenol), ibuprofen (Motrin, Advil), or Aleve (naproxen) for pain or fever. -The use of hypertonic saline to irrigate nasal passageways can be helpful. Over the counter systems include Neti Pot and Nasopure. Use with distilled water. -Salt water gargles and throat lozenges can be helpful for sore throat. -To prevent spreading the illness to others cover your sneeze and cough into your arm and not your hand, don't allow others to eat or drink with the same utensils or glass, and use hand automatic silk screen printer before touching people or common surfaces. -Apply warm packs to face to facilitate sinus drainage. - Use cool mist humidifier in bedroom at night. -Increase fluid consumption and Rest. -Follow up with your PCP in 1 week or sooner if symptoms worsen or are not improving as planned. -If you experience any shortness of breath, chest pain, or high fever >101, go to the Emergency Room. Use alternate method of control for the entire course of antibiotics and one week after the last dose of antibiotics, if applicable. GO TO EMERGENCY ROOM OR CALL 911 WITH ANY OF THE FOLLOWING SYMPTOMS: HIGH, PERSISTENT FEVER >101; SWELLING, INFLAMMATION, OR REDNESS AROUND EYES, ABNORMAL EYE MOVEMENTS, CHEST PAIN, SHORTNESS OF BREATH, VISION CHANGES (DOUBLE VISION OR IMPAIRED VISION); SEVERE HEADACHE; ALTERED MENTAL STATUS. THESE ARE SIGNS OF A RARE, BUT SERIOUS COMPLICATION AND REQUIRES IMMEDIATE EMERGENCY ATTENTION. RAISER RAISER * Attachments The following attachments cannot be sent through Care Everywhere. * Sinusitis (Dehairing Machine Tender) (Nepalese) documented in this encounter Ordered Prescriptions Prescription Sig Dispense Quantity Refills Last Filled Start Date End Date amoxicillin-clavul anate (Augmentin) 875-125 mg per tabletIndications: Acute non-recurrent pansinusitis Take 1 tablet by mouth 2 (two) times a day for 7 days 14 tablet 06/23/2023 06/30/2023 documented in this encounter Progress Notes * Marie Tubbs NP - 06/23/2023 9:30 AM CST Images from the original note were not included. Patient ID: Mary Horton is a 58 y.o. female followed by Dominick Torres, Chief Complaint Patient presents with Cold Symptoms Pt c/o sinus pressure/pain, rhinorrhea, post nasal drip, green mucus, cough, chest soreness when coghing Pt states no fever, sore throat, fever, chest pain, SOB S/s started 2 months ago and have continued to persist Pt has self medicated with zyrtec and mucinex Patient presents to the clinic with reports of congestion, runny nose, and sinus pressure for 2 months. Denies fevers, chest pain, difficulty breathing, vomiting, and rash. She has taken zyrtec and mucinex for her symptoms. Review of Systems Constitutional: Negative for chills, fatigue and fever. HENT: Positive for congestion, postnasal drip and rhinorrhea. Negative for ear pain and sore throat. Respiratory: Negative for cough, chest tightness, shortness of breath and wheezing. Cardiovascular: Negative for chest pain. Gastrointestinal: Negative for diarrhea, nausea and vomiting. Musculoskeletal: Negative for myalgias. Neurological: Negative for headaches. Vitals: 06/23/23 0927 BP: 124/76 BP Location: Left arm Patient Position: Sitting Pulse: 77 Resp: 16 Temp: 36.7 ??C (98 ??F) TempSrc: Oral SpO2: 98% Weight: 70.3 kg (155 lb) Height: 160 cm (5' 3 ) Physical Exam Vitals reviewed. Constitutional: Appearance: She is well-developed. HENT: Right Ear: Ear canal and external ear normal. A middle ear effusion is present. Tympanic membrane is not injected, erythematous or bulging. Left Ear: Ear canal and external ear normal. A middle ear effusion is present. Tympanic membrane isnot injected, erythematous or bulging. Nose: Congestion and rhinorrhea present. Rhinorrhea is purulent. Right Turbinates: Swollen. Left Turbinates: Swollen. Right Sinus: Maxillary sinus tenderness and frontal sinus tenderness present. Left Sinus: Maxillary sinus tenderness and frontal sinus tenderness present. Mouth/Throat: Lips: [place]. Mouth: Mucous membranes are moist. Pharynx: Uvula midline. No pharyngeal swelling, oropharyngeal exudate or posterior oropharyngeal erythema. Cardiovascular: Rate and Rhythm: Normal rate and regular rhythm. Pulmonary: Effort: Pulmonary effort is normal. No respiratory distress. Breath sounds: Normal breath sounds. No decreased breath sounds, wheezing or rhonchi. Lymphadenopathy: Cervical: No cervical adenopathy. Skin: General: Skin is warm and dry. Neurological: Mental Status: She is alert and oriented to person, place, and time. Diagnoses and all orders for this visit: Acute non-recurrent pansinusitis (Primary) - Influenza A/B, RSV, and COVID-19 PCR Nasopharyngeal; Future - amoxicillin-clavulanate (Augmentin) 875-125 mg per tablet; Take 1 tablet by mouth 2 (two) times aday for 7 days Orders Placed This Encounter Procedures Influenza A/B, RSV, and COVID-19 PCR Nasopharyngeal Standing Status: Future Standing Expiration Date: 06/23/2024 Order Specific Question: Is the Patient experiencing symptoms consistent with COVID? Answer: Yes Order Specific Question: Date of Symptom Onset Answer: 04/23/2023 Order Specific Question: Reason for testing? Answer: Symptomatic Assessment/Plan # acute sinus infection --likely bacterial given symptoms, duration of illness, and assessment. --exam findings warrant antibiotics. Started Augmentin --recommended to continue cold/sinus medications and sinus rinse. --COVID/FLU swab pending --ED presentation with one or more of the following symptoms: fever uncontrolled with antipyretics,shortness of breath, chest discomfort, uncontrolled n/v/d --f/u with PCP in 5-7 days if symptoms do not improve/worsen Disposition Treatment plan including expectations, follow up, and return precautions discussed with patient/parent, verbalizes understanding. Medication dosage, use, and potential adverse reactions discussed with patient/parent. Advised to follow up with PCP if symptoms do not resolve as expected or sooner if condition worsens. Discussed Signs/symptoms warranting ER evaluation including worsening fever, increased shortness ofbreath, chest pain, severe N/V/D, or any other worrisome symptoms Patient and/or guardian was given an opportunity to ask questions, questions answered. Patient Education Symptomatic treatments include: -Over the counter antihistamine such as loratadine (Claritin) or cetirizine (Zyrtec) to reduce secretions. The D formula includes pseudoephedrine and can be helpful as a decongestant but SHOULD NOTBE USED IF YOU HAVE A HISTORY OF HIGH BLOOD PRESSURE. -Coricidin HBP may be taken for congestion if you have a history of high blood pressure. -Tessalon, Dextromethorphan (Robitussin) or Delsym for cough -Guafenesin (Mucinex) to thin secretions -Acetaminophen (Tylenol), ibuprofen (Motrin, Advil), or Aleve (naproxen) for pain or fever. -The use of hypertonic saline to irrigate nasal passageways can be helpful. Over the counter systems include Neti Pot and Nasopure. Use with distilled water. -Salt water gargles and throat lozenges can be helpful for sore throat. -To prevent spreading the illness to others cover your sneeze and cough into your arm and not your hand, don't allow others to eat or drink with the same utensils or glass, and use hand automatic silk screen printer before touching people or common surfaces. -Apply warm packs to face to facilitate sinus drainage. - Use cool mist humidifier in bedroom at night. -Increase fluid consumption and Rest. -Follow up with your PCP in 1 week or sooner if symptoms worsen or are not improving as planned. -If you experience any shortness of breath, chest pain, or high fever >101, go to the Emergency Room. Use alternate method of control for the entire course of antibiotics and one week after the last dose of antibiotics, if applicable. GO TO EMERGENCY ROOM OR CALL 911 WITH ANY OF THE FOLLOWING SYMPTOMS: HIGH, PERSISTENT FEVER >101; SWELLING, INFLAMMATION, OR REDNESS AROUND EYES, ABNORMAL EYE MOVEMENTS, CHEST PAIN, SHORTNESS OF BREATH, VISION CHANGES (DOUBLE VISION OR IMPAIRED VISION); SEVERE HEADACHE; ALTERED MENTAL STATUS. THESE ARE SIGNS OF A RARE, BUT SERIOUS COMPLICATION AND REQUIRES IMMEDIATE EMERGENCY ATTENTION. Marie Tubbs NP RAISER documented in this encounter Plan of Treatment Not on file documented as of this encounter Results * Influenza A/B, RSV, and COVID-19 PCR Nasopharyngeal (06/23/2023 9:36 AM DOG RAISER) COVID-19 RNA Negative Negative [facility] Influenza A RNA Negative Negative [facility] Influenza B RNA Negative Negative [facility] RSV RNA Negative Negative [facility] Comment: Interpretive data: Testing performed by [facility]. This test is performed using the [employer] Xpert Xpress CoV-2/Flu/RSV plus assay. This is a multiplex, real-time reverse transcriptase PCR assay intended for the qualitative detection of nucleic acid from SARS-CoV-2, influenza A, influenza B, and respiratory syncytial virus. This assay has been cleared by the [place] Food and Drug administration. The performance characteristics have been verified by the [facility]. ??Results must be considered in the clinical context, and a negative result does not rule out infection. Interpretive Data last revised 2023 Nasopharyngeal 06/23/2023 9: 36 AM DOG RAISER 06/23/2023 1:52 PM DOG RAISER Narrative MIKE FATMATA - 06/23/2023 2:59 PM DOG RAISER Is the Patient experiencing symptoms consistent with COVID?->Yes Date of Symptom Onset->04/23/23 Reason for testing?->Symptomatic Marie Tubbs HORSE SHOW MANAGER LAB MICROBIOLOGY - GENERAL ORD ERABLES Final Result [facility] [place] [address] [address] Department [place] [address] documented in this encounter Visit Diagnoses Diagnosis Acute non-recurrent pansinusitis- Primary Acute non-recurrent pansinusitis documented in this encounter Historical Medications * This list may reflect changes made after this encounter. ascorbic acid (vitamin C) 1,000 mg tablet Take 1 tablet (1,000 mg total) by mouth daily added in this encounter Additional Health Concerns Infection Onset Date Last Indicated Resolved Time COVID: Suspected 06/23/2023 06/23/2023 06/23/2023 3:00 PM DOG RAISER documented as of this encounter Care Teams Farm Equipment Service Technician Relationship Specialty [place] [address] [place] [id number] PCP - General Family Medicine 12/02/22 documented as of this encounter
--- OUTSIDE RECORDS SUMMARY | 2024-07-16 14:46 | XMS_ITS | Encounter Summary ---
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 Gender Identity Not on file Sexual Orientation Not on file documented as of this encounter Plan of Treatment Not on file documented as of this encounter Procedures Procedure Name Priority Date/Time Associated Diagnosis Comments SCAN - LABS 09/03/2022 documented in this encounter Results * SCAN - LABS (09/03/2022) us Provider Scanning Final Result documented in this encounter Visit Diagnoses Not on filedocumented in this encounter Additional Health Concerns Infection Onset Date Last Indicated Resolved Time COVID: Suspected 06/23/2023 06/23/2023 06/23/2023 3:00 PM SIX COLOR PRESS OPERATOR documented as of this encounter Care Teams Applications Project Manager Relationship Specialty Start Date End Date Kasandra García MD PCP - General Family Medicine 07/27/18 12/01/22 Dominick Torres DO [address] [place] [phone] PCP - General Family Medicine 12/02/22 documented as of this encounter
--- OUTSIDE RECORDS SUMMARY | 2024-07-16 14:46 | XMS_ITS | Encounter Summary ---
Author Organization [facility] Address [address] [place] [address] Care Team Providers Care Private Investigator Surveillance Name Role Phone Dominick Torres DO Primary Care Provider + Reason for Visit * Reason Comments Injections Pt being seen for sh ingles vaccine Encounter Details Date Type Department Care Team (Latest Contact Info) Description 02/03/2023 1:30 PM CDT Clinical Support [facility] Medical [facility] Primary Care [address] [place] [address] Need for vaccination (Primary Dx) Social History Tobacco Use Types [...] on file 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 Gender Identity Not on file Sexual Orientation Not on file documented as of this encounter Plan of Treatment Not on file documented as of this encounter Visit Diagnoses Diagnosis Need for vaccination- Primary Need for prophylactic vaccination and inoculation against unspecified single disease documented in this encounter Orders Immunization/Injection Count Last Ordered Date First Ordered Date ZOSTER (SHINGLES) HZV IM 1 02/03/2023 documented in this encounter Care Teams Private Investigator Surveillance Relationship Specialty Start Date End Date Dominick Torres DO [address] [address] PCP - General Family Medicine 12/02/22 documented as of this encounter
--- OUTSIDE RECORDS SUMMARY | 2024-07-16 14:46 | XMS_ITS | Encounter Summary ---
Author Organization [facility] Address [address] [place] [address] Phone Care Team Providers Care Clinical Project Leader Name Role Phone Kasandra García MD Primary Care Provider [phone] Reason for Visit * Diagnostic Lab (Routine) - Closed Specialty Diagnoses / Procedures Referred By Conttammy t Referred To Contact Lab Diagnoses bone Procedures SPECIMEN COLLECTION Kasandra Figueroa MD Phone: tel: fax: [facility] Endocrinology Metabolism and Lipid [address] [facility] [address] [place] [address] [place] [address] Phone: tel: fax: Referral ID Status Reason Start Date Expiration Date Visits Re quested Visits Authorized [id number] Closed 12/09/2018 07/19/2019 99 99 Encounter Details Date Type Department Care Team (Late st Contact Info) Description 12/09/2018 9:20 AM CDT Lab [facility] Endocrinology Metabolism and Lipid [address] [facility] [address] [place] [address] [place] [address] Age-related osteoporosis without current pathological fracture; Fatigue, unspecified type Social History Tobacco Use [...] on file 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 Gender Identity Not on file Sexual Orientation Not on file documented as of this encounter Plan of Treatment Not on file documented as of this encounter Procedures Procedure Name Priority Date/Time Associated Diagnosis Comments CBC WITH AUTO DIFFERENTIAL Routine 12/09/2018 9:19 AM CDT Age-related osteoporosis without current pathological fracture VITAMIN D 25 HYDROXY Routine 12/09/2018 9:19 AM CDT Age-related osteoporosis without current pathological fracture TSH Routine 12/09/2018 9:19 AM CDT Age-related osteoporosis without current pathological fracture Fatigue, unspecified type PTH Routine 12/09/2018 9:19 AM CDT Age-related osteoporosis without current pathological fracture COMPREHENSIVE METABOLIC PANEL Routine 12/09/2018 9:19 AM CDT Age-related osteoporosis without current pathological fracture documented in this encounter Results * TSH (12/09/2018 9:19 AM CDT) TSH (Thyrotropin) 1.99 0.27 - 4.20 uIU/mL [facility] Comment:* Please note update d reference range for TSH effective 09/23/18 * Blood specimen (specimen) 12/09/2018 9:19 AM CDT 12/09/2018 10:17 AM CDT us Kasandra Figueroa MD LAB BLOOD ORDERABLES Final Result [facility] * (ABNORMAL) [...] AM CDT 12/09/2018 10:17 AM CDT us Kasandra Figueroa MD LAB BLOOD ORDERABLES Final Result [facility] * Comprehensive [...] = PROVISIONAL DIAGNOSIS OF DIABETES eGFR NON-AFR. BHUTANESE >90.0 >60.0 mL/min/1.7 3 m2 [facility] eGFR >90.0 >60.0 mL/min/1.7 3 m2 [facility] Blood specimen (specimen) 12/09/2018 9:19 AM CDT 12/09/2018 10:17 AM CDT us Kasandra Figueroa MD LAB BLOOD ORDERABLES Final Result Performing Organization Address City/State/[facility] de Phone Number [facility] * PTH, intact (12/09/2018 9:19 AM CDT) Parathyroid Hormone 60.6 15.0 - 65.0 pg/mL [facility] Blood specimen (specimen) 12/09/2018 9:19 AM CDT 12/09/2018 10:17 AM CDT us Kasandra Figueroa MD LAB BLOOD ORDERABLES Final Result Performing Organization Address City/State/[facility] de Phone Number [facility] * (ABNORMAL) Vitamin D 25 hydroxy (12/09/2018 9:19 AM CDT) Vitamin D 29.9(L) 30.0 - 100.0 ng/mL [facility] Comment: VITAMIN D DEFICIENCY = LESS THAN or EQUAL TO 20 ng/mL ? VITAMIN D INSUFFICIENCY = GREATER THAN 20 AND LESS THAN 30 ng/mL ? RECOMMENDED NORMAL RANGE = 30-100 ng/mL Blood specimen (specimen) 12/09/2018 9:19 AM CDT 12/09/2018 10:17 AM CDT us Kasandra Figueroa MD LAB BLOOD ORDERABLES Final Result Performing Organization Address [facility] de Phone Number [facility] documented in this encounter Visit Diagnoses Diagnosis Age-related osteoporosis without current pathological fracture Fatigue, unspecified type documented in this encounter Care Teams Clinical Project Leader Relationship Specialty Start Date End Date Kasandra García MD PCP - General Family Medicine 07/27/18 12/01/22 documented as of this encounter
--- OUTSIDE RECORDS SUMMARY | 2024-07-16 14:46 | XMS_ITS | Encounter Summary ---
Author Organization [facility] Healthcare Address [address] [place] [address] Care Team Providers Care Neighborhood Aide Name Role Phone Kasandra García MD Primary Care Provider [phone] Dominick Torres DO Primary Care Provider + Encounter Details Date Type Department Care Team (Late st Contact Info) Description 08/10/2020 Orders Only [facility] Health Information Management [address] [place] [address] Scanning, Provider Social History Tobacco Use Types [...] should administer the PHQ-9) 0 06/06/2024 Comments Unknown Sex and Gender Information Value Date Recorded Sex Assigned at Not on file 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 Gender Identity Not on file Sexual Orientation Not on file documented as of this encounter Plan of Treatment Not on file documented as of this encounter Procedures Procedure Name Priority Date/Time Associated Diagnosis Comments SCAN - RADIOLOGY/IMAGING 08/10/2020 documented in this encounter Results * SCAN - RADIOLOGY/IMAGING (08/10/2020) Anatomical Region Laterality Modality Other us Provider Scanning Final Result documented in this encounter Visit Diagnoses Not on filedocumented in this encounter Additional Health Concerns Infection Onset Date Last Indicated Resolved Time COVID: Suspected 06/23/2023 06/23/2023 06/23/2023 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
--- OUTSIDE RECORDS SUMMARY | 2024-07-16 14:46 | XMS_ITS | Encounter Summary ---
Author Organization [facility] Address [address] [place] [address] Phone Care Team Providers Care Prison Classification Counselor Name Role Phone Kasandra García MD Primary Care Provider [phone] Encounter Details Date Type Department Care Team (Late st Contact Info) Description 05/12/[address] [place] [address] Ronda Perez MD [address] [place] [address] Social History Tobacco Use Types Packs/Day Years [...] on file 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
== END 2024-07-09 11:56 | disposition home or self-care (01) ==
PROVIDERS: Emergency Provider Nurse Practitioner Family; PCP Family Medicine
DX: R30.0 Dysuria (principal)
CPT/HCPCS: 81003; 87077; 87086; 87186; 99213; G0463

== ENCOUNTER 2025-01-01 14:39 | Emergency (ER) | payer BC, SELFPAY ==
--- NOTE | 2025-01-01 14:41 | ED_ITS ---
HPI - Female Genitourinary General Chief complaint: Urogenital-Female Stated complaint: UTI Time Seen by Provider: 01/01/25 15:00 Source: patient and RN notes reviewed Mode of arrival: ambulatory Limitations: no limitations History of Present Illness HPI Narrative: 59-year-old female presents concern for cloudy urine for 2 days. Reports history of urinary tract infection. She denies dysuria, frequency, urgency, nausea, vomiting, chills, sweats, fever, back pain, abdominal pain. MD elicited complaint: UTI Related Data Home Medications ?Medication ?Instructions ?Recorded ?Confirmed ?Last Taken ?Type cholecalciferol (vitamin D3) 1,250 1,250 mcg PO Q10D 09/13/20 01/01/25 11/27/22 History mcg (50,000 unit) capsule Allergies Allergy/AdvReac Type Severity Reaction Status Date / Time oxycodone AdvReac Severe Altered Verified 01/01/25 14:50 mental status ibandronate sodium AdvReac Intermediate Joint pain Verified 01/01/25 14:50 tramadol AdvReac Intermediate Confusion Verified 01/01/25 14:50 Review of Systems Review of Systems: CONSTITUTIONAL: Denies malaise, chills, sweats, or fever. CARDIOVASCULAR: Denies chest pain, palpitations, or edema. RESPIRATORY: Denies cough or dyspnea. GASTROINTESTINAL: Denies abdominal pain, nausea, vomiting, diarrhea GENITOURINARY: Denies dysuria, frequency, urgency, suprapubic pressure. Denies flank pain or hematuria. Reports cloudy urine SKIN: Denies rash or itching. MUSCULOSKELETAL: Denies back pain or myalgia. All systems reviewed & are unremarkable except as noted in HPI and below PMFSH Past Medical History Medical History Post-menopausal delivery delivered Prediabetes Cramps of lower extremity Surgical History Surgical History History of abdominal surgery 1988 H/O section X3 Family History Family History Grandparent Diabetes mellitus Cerebrovascular accident Father Diabetes mellitus Depression Sibling Family history of malignant neoplasm of breast in first degree relative Mother Family history of malignant neoplasm of urinary bladder Other Family history of cardiovascular disease Family history of kidney disease Family history of lung cancer Family history of malignant neoplasm Family history of malignant neoplasm of breast Family history of mental disorder Social History Social History Smoking status: Never smoker Second hand tobacco smoke exposure: No Alcohol intake: never Substance use: never Substance use type: does not use Living arrangements: with family Occupation/Education: occupation Gender identity (if verbalized by the patient): Female Sexual Orientation (if Verbalized by the Patient): Straight or Heterosexual Spiritual care concerns: No Comments At time of signature, agree with nursing past medical, surgical, social and family history. There is no relevant family history pertinent to the presenting complaint Exam Narrative: GENERAL: Well-appearing, well-nourished, and in no acute distress. HEAD: Normocephalic. EYES: PERRLA, conjunctivae clear. NECK: Supple. No lymphadenopathy CHEST: Clear to auscultation. No respiratory distress. HEART: Regular rate and rhythm. ABDOMEN: Soft, nontender upon palpation, nondistended, normal active bowel sounds, no palpable or pulsatile masses, no guarding. No CVA tenderness SKIN: Warm, dry, no rash. NEURO: Alert and oriented x3. PSYCH: Normal mood and affect Course Course Emergency Course: Patient is aware of diagnosis, understands and agrees to treatment plan. Anticipatory guidance given. Patient agrees to follow-up as directed and is aware of reasons to seek care at the emergency department. Portions of this record may have been created with voice recognition software Level of Care: Express Care Visit Vital Signs Vital signs: Reviewed. MDM - Female Genitourinary MDM Narrative Medical decision making narrative: Exam findings and UA show no acute concerns or changes; patient is non-toxic appearing and is in no distress. Patient is appropriate for outpatient treatment and follow-up. Differential Diagnosis Differential diagnosis: Likely urinary tract infection and cystitis Critical Care Time Critical Care Time Critical Care Time: No Discharge Plan Discharge Clinical Impression: Symptoms of urinary tract infection Patient Disposition: Home Condition: Stable Instructions: Urinary Tract Infection in Women (ED) Additional Instructions: We will send a urine culture to the lab; if the culture identifies an organism that the prescribed antibiotic will not treat, you will receive a phone call from an urgent care staff member and an appropriate antibiotic will be prescribed. -Your symptoms should begin to improve within a day of starting antibiotics. But you should finish all the antibiotic pills you get. Otherwise your infection might come back. -Also recommend: increase water intake. Tylenol/ibuprofen as needed for pain or fever -Follow-up with your primary care provider for urine recheck or seek ER visit if condition worsens with high fever, nausea, vomiting and severe back pain. Patient Language: Guamanian Prescriptions: New nitrofurantoin monohyd/m-cryst [Macrobid] 100 mg capsule 100 mg PO Q12H 5 Days Qty: 10 0RF Rx Instructions: must administer with a meal/food No Action cholecalciferol (vitamin D3) 1,250 mcg (50,000 unit) capsule 1,250 mcg PO Q10D Follow-up/Referrals: Melissa,Dominick Bay MD [Primary Care Provider] - Time of Disposition: 15:09
--- OUTSIDE RECORDS SUMMARY | 2025-01-01 14:42 | XMS_ITS | Referral Summary ---
Author Organization [facility] Address [address] [place] [address] Care Team Providers Care Core Composer Machine Tender Name Role Phone Dominick Torres DO Primary Care Provider + Encounters Date Type Department Care Team Description 12/05/2024 10:30 AM CDT Office Visit [facility] Primary Care [address] [facility] [address] [place] [address] Dominick Torres DO Annual physical exam (Primary Dx); Encounter for screening mammogram for malignant neoplasm of breast; IFG (impaired fasting glucose); Chronic pain syndrome; Age-related osteoporosis without current pathological fracture; Seasonal allergies; Chronic bilateral thoracic back pain from Last 3 Months Allergies Active Allergy Reactions Criticality Noted Date Comments Opioids - Morphine Analogues Nausea & Vomiting Low 12/02/2022 Medications fluticasone propionate (FLONASE) 50 mcg/actuation nasal spray Administer 2 sprays into each nostril daily 1 each 4 3 Active ascorbic acid (vitamin C) 1,000 mg tablet Take 1 tablet (1,000 mg total) by mouth daily Active celecoxib (CeleBREX) 200 mg capsuleIndicat ions:Chronic bilateral thoracic back pain Take 1 capsule (200 mg total) by mouth daily 30 capsule 3 4 06/06/20 25 Active estradioL (ESTRACE) 0.01 % (0.1 mg/gram) vaginal cream 5 Active progesterone (PROMETRIUM) 100 mg capsule Take 1 capsule (100 mg total) by mouth [address] (PROTONIX) 40 mg EC tablet Take 1 tablet (40 mg total) by mouth 2 (two) times a day 180 tablet 1 4 12/06/19 25 Discontinu ed(Therapy completed) DULoxetine DR (CYMBALTA) 30 mg capsuleIndicat ions:Chronic bilateral thoracic back pain Take 1 capsule (30 mg total) by mouth 2 (two) times a day 180 capsule 4 4 12/06/19 25 Discontinu ed(Therapy completed) Active Problems Problem Noted Date Diagnosed Date Urinary tract infection without hematuria 2024 Assessment & Plan (08/12/2024 10:11 AM ETCHER PHOTOENGRAVING): Urine dip positive for leukocytes. Urine sample sent for culture. Patient prescribed Bactrim. Patient to have UA repeat after completing antibiotic to confirm her UTI has cleared. Chronic bilateral thoracic back pain 06/06/2024 Assessment & Plan (06/06/2024 2:21 PM ETCHER PHOTOENGRAVING): - uncontrolled - start celebrex 200 mg [...] fracture 12/02/2022 IFG (impaired fasting glucose) 12/02/2022 Assessment & Plan (08/12/2024 10:09 AM ETCHER PHOTOENGRAVING): A1C has improved from 6.1 to 5.6. Patient to continue following a low carb diet. Follow up with Dr. Torres. Immunizations Immunization Administration Dates Next Due Influenza, Quadrivalent, Spl it, Intramuscular 05/13/2019 Influenza, Quadrivalent, Spl it, Preservative Free, Intramuscular 07/22/2021,05/13/2019 Influenza, Unspecified 06/28/2024(Deferr ed: Patient Refused),05/20/2024(Deferred: Patient Refused),10/17/2023(Deferred: Patient Refused),05/20/2023(Deferred: Patient Refused),05/20/2023(Deferred: Patient Refused),05/04/2023(Deferred: Patient ill today) [...] points, staff should administer the PHQ-9) 0 09/29/2024 Personal Safety Answer Date Recorded Have you ever been in or are you currently in a harmful physical or emotional relationship or is someone making you feel afraid or unsafe? 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 Gender Identity Not on file Sexual Orientation Not on file Last Filed Vital Signs Vital Sign Reading Time Taken Comments Blood Pressure 130/74 12/05/2024 10:24 AM CDT Pulse 80 12/05/2024 10:24 AM CDT Temperature 35.7 C (96.3 F) 12/05/2024 10:24 AM CDT Respiratory Rate 16 12/05/2024 10:24 AM CDT Oxygen Saturation 98% 12/05/2024 10:24 AM CDT Inhaled Oxygen Concentration - - Weight 66.7 kg (147 lb) 12/05/2024 10:24 AM CDT Height 160 cm (5' 3) 12/05/2024 10:24 AM CDT Body Mass Index 26.04 12/05/2024 10:24 AM CDT Plan of Treatment Not on file Procedures Procedure Name Priority Date/Time Associated Diagnosis Comments SCREENING MAMMOGRAM BILATERAL W SCOTT Schedule Routine, Read Routine (OP Routine) 09/04/2023 10:14 AM ETCHER PHOTOENGRAVING HEPATITIS C ANTIBODY Routine 12/02/2022 10:23 AM CDT Annual physical exam COLONOSCOPY Routine 11/28/2022 from Last 3 Months or Most Recently Relevant to Health Maintenance Results * Screening Mammogram Bilateral W Scott (09/04/2023 10:14 AM ETCHER PHOTOENGRAVING) Anatomical Region Laterality Modality Breast Bilateral Mammography Narrative 09/04/2023 10:14 AM ETCHER PHOTOENGRAVING Report has been scanned into media Historical Provider IMG MAMMO PROCEDURES Gloria l Result * Hepatitis C antibody (12/02/2022 10:23 AM CDT) Hep C Ab Nonreactive Nonreactive MIKE FRIAS Comment: Interpretive Data Nonreactive: Antibodies to HCV not detected. Does NOT exclude the possibility of recent exposure to HCV. Equivocal: Equivocal for HCV antibodies. Supplemental molecular testing will be automatically performed to determine infection status in accordance with current CDC screening recommendations. Reactive: Positive for HCV antibodies. This may represent current or past HCV infection. Supplemental molecular testing will be automatically performed to determine current infection status in accordance with current CDC screening recommendations. Interpretive data was last revised on 2019. Blood 12/02/2022 10:2 3 AM CDT 12/02/2022 4:58 PM CDT Dominick Torres DO LAB MICROBIOLOGY - GENER AL ORDERABLES Final Result MIKE [address] [facility] Department [place] [address] * Colonoscopy (11/28/2022) Anatomical Region Laterality Modality Other Historical Provider ENDOSCOPY PROCEDURES Gloria l Result from Last 3 Months or Most Recently Relevant to Health Maintenance Insurance [facility] M[facility] Care Teams Core Composer Machine Tender Relationship Specialty Start Date End Date Dominick Torres DO [address] [facility] [address] [place] [address] PCP - General Family Medicine 12/02/22
--- OUTSIDE RECORDS SUMMARY | 2025-01-01 14:42 | XMS_ITS | Clinical Summary ---
Author Organization [facility] Address [facility] [place] [address] Care Team Providers Care Professor Of Forest Planning Name Role Phone MelissaDominick Primary Care Provider Allergies Active Allergy Reactions Criticality Noted Date Comments Morphine Nausea and Vomiting Low 12/02/2022 Medications celecoxib (CELEBREX) 200 MG capsule Take 1 capsule (200 mg total) by mouth as needed. 06/06/2024 Active Active Problems Problem Noted Date Diagnosed Date Thoracic radiculopathy 09/27/2024 Myofascial pain 08/02/2024 Encounters Date Type Department Care Team Description 10/31/2024 2:20 PM CDT - 10/31/2024 2:40 PM CDT Surgery [facility] [place] [address] [phone] Allie Bloom MD INJECTION EPIDURAL STEROID [id number] 10/31/2024 1:22 PM CDT - 10/31/2024 2:25 PM CDT Hospital Encounter [facility] [place] [address] [phone] Allie Bloom MD Discharge Disposition: Home or Self Care (Routine Discharge) 10/31/2024 Travel from Last 3 Months Social History Tobacco Use Types Packs/Day Years Used Date Smoking Tobacco: Never Smokeless Tobacco: Never Tobacco Cessation:Counseling Given: Not Answered Alcohol Use Standard Drinks/Week Comments Not Currently 0 (1 standard drink = 0.6 oz pur e alcohol) Comments No Sex and Gender Information Value Date Recorded Sex Assigned at Female 08/02/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 Legal Sex Female 7:39 PM CDT Gender Identity Not on file Sexual Orientation Not on file Last Filed Vital Signs Vital Sign Reading Time Taken Comments Blood Pressure 157/99 10/31/2024 2:14 PM CDT Pulse 70 10/31/2024 2:14 PM CDT Temperature 36.1 C (97 F) 10/31/2024 1:53 PM CDT Respiratory Rate 18 10/31/2024 2:14 PM CDT Oxygen Saturation 100% 10/31/2024 2:14 PM CDT Inhaled Oxygen Concentration - - Weight 66.7 kg (147 lb) 10/31/2024 1:53 PM CDT Height 160 cm (5' 3) 10/31/2024 1:53 PM CDT Body Mass Index 26.04 10/31/2024 1:53 PM CDT Plan of Treatment Health Maintenance Due Date Last Done Comments Cervical Cancer Screening Pa p Smear (Age 30 to 64) Every 3 Years 1963 Colorectal Cancer Screening Colonoscopy (10 Years) 1963 Annual Physical 1966 Hepatitis C 1981 Cervical Cancer Screening Pa p with HPV Testing (Age 30 to 64) Every 5 Years 1993 Cervical Cancer Screening wi th HPV 1993 Mammogram Screening 2003 Pneumococcal Vaccine: 50+ Years (1 of 1 - PCV) 2013 COVID-19 Vaccine (4 - 2023-2 5 season) 2024 07/22/2021, 11/01/2020, 10/11/2020 DTaP, Tdap and Td Vaccines ( 2 - Td or Tdap) 12/02/2032 12/02/2022, 12/29/2012 RSV Immunization or 60+ Years (1 - 1-dose 75+ series) 2038 Zoster Vaccines Completed 02/03/2023, 12/02/2022 Meningococcal B Vaccine Aged Out No l onger eligible based on patient's age to complete this topic Meningococcal Vaccine Aged Out No teodoro pallavi eligible based on patient's age to complete this topic RSV Immunizations Under 20 Months Aged Out No longer eligible b ased on patient's age to complete this topic Procedures Procedure Name Priority Date/Time Associated Diagnosis Comments NJX INTERLAMINAR CRV/THRC 10/31/2024 2:10 PM CDT Thoracic radiculopathy XR PAIN CLINIC C-ARM Today 10/31/2024 1:35 PM CDT from Last 3 Months Results * XR PAIN CLINIC C-ARM (10/31/2024 1:35 PM CDT) Narrative Radiology, Technologist - 10/31/2024 1:35 PM CDT This report does not contain a radiologist's interpretation. Please review associated procedure and/or operative report. us Allie Bloom MD GENERAL IMAGING Final Result from Last 3 [place] [address] [facility] [place] Care Teams Professor Of Forest Planning Relationship Specialty Start Date End Date Dominick Torres DO [address] [place] [id number] PCP - General FAMILY PRACTICE 10/31/24
--- OUTSIDE RECORDS SUMMARY | 2025-01-01 14:42 | XMS_ITS | Clinical Summary ---
Author Organization [facility] Address [address] [place] [address] Care Team Providers Care Special Education Case Manager Name Role Phone Dominick Torres DO [...] 2024 Assessment & Plan (08/12/2024 10:11 AM CODE ENFORCEMENT OFFICER): Urine dip positive for leukocytes. Urine sample sent for culture. Patient prescribed Bactrim. Patient to have UA repeat after completing antibiotic to confirm her UTI has cleared. Chronic bilateral thoracic back pain 06/06/2024 Assessment & Plan (06/06/2024 2:21 PM CODE ENFORCEMENT OFFICER): - uncontrolled - start celebrex 200 mg [...] 12/02/2022 Assessment & Plan (08/12/2024 10:09 AM CODE ENFORCEMENT OFFICER): A1C has improved from 6.1 to 5.6. Patient to continue following a low carb diet. Follow up with Dr. Torres. Encounters Date Type Department Care Team Description 12/05/2024 10:30 AM CDT Office Visit [facility] Primary Care [address] [place] [phone] Dominick Torres DO Annual physical exam (Primary Dx); Encounter for screening mammogram for malignant neoplasm of breast; IFG (impaired fasting glucose); Chronic pain syndrome; Age-related osteoporosis without current pathological fracture; Seasonal allergies; Chronic bilateral thoracic back pain from Last 3 Months Immunizations Immunization Administration Dates Next Due Influenza, [...] on file Legal Sex Female 9:10 AM CODE ENFORCEMENT OFFICER Gender Identity Not on file Sexual [...] 12/05/2024 10:24 AM CDT Plan of Treatment Health Maintenance Due Date Last Done Comments Cervical Cancer Screening 1965 Breast Cancer Screening-Mammogram 09/04/2024 09/04/2023 Influenza Vaccine (Season Ended) 2025 07/22/2021, 05/13/2019, 05/13/2019 Depression Screening 08/12/2025 08/12/2024, 06/06/2024, 02/03/2024, Additional history exists Regular Well Visit/Exam 18-64 12/05/2025 12/05/2024, 12/04/2023, 12/02/2022 Colon Cancer Screening-Colonoscopy 11/28/2032 11/28/2022 DTaP/Tdap/Td Vaccine (2 - Td or Tdap) 12/02/2032 12/02/2022 Covid-19 Vaccine Discontinued 07/22/2021, , 10/11/2020 Colon Cancer Screening-CT Colonography Discontinued 11/28/2022 Colon [...] Read Routine (OP Routine) 09/04/2023 10:14 AM CODE ENFORCEMENT OFFICER HEPATITIS C ANTIBODY Routine 12/02/2022 10:23 AM CDT Annual physical exam COLONOSCOPY Routine 11/28/2022 from Last 3 Months or Most Recently Relevant to Health Maintenance Results * Screening Mammogram Bilateral W Scott (09/04/2023 10:14 AM CODE ENFORCEMENT OFFICER) Anatomical Region Laterality Modality Breast Bilateral Mammography Narrative 09/04/2023 10:14 AM CODE ENFORCEMENT OFFICER Report has been scanned into media Historical Provider IMG MAMMO PROCEDURES Gloria l Result * Hepatitis C antibody (12/02/2022 10:23 AM CDT) Hep C Ab Nonreactive Nonreactive MICHAELAMELIA Comment: Interpretive Data Nonreactive: Antibodies to HCV [...] - GENER AL ORDERABLES Final Result MIKE [address] [facility] Department [place] [address] * Colonoscopy (11/28/2022) Anatomical Region Laterality Modality Other Historical Provider ENDOSCOPY PROCEDURES Gloria l Result from Last 3 Months or Most Recently Relevant to Health Maintenance Insurance [facility] MRA Care Teams Special Education Case Manager Relationship Specialty Start Date End Date Dominick Torres DO [address] [facility] [address] [place] [address] PCP - General Family Medicine 12/02/22
--- OUTSIDE RECORDS SUMMARY | 2025-01-01 14:42 | XMS_ITS | Encounter Summary ---
Author Organization 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
--- OUTSIDE RECORDS SUMMARY | 2025-01-01 14:43 | XMS_ITS | Encounter Summary ---
Author Organization [facility] Address [facility] [place] [address] Care Team Providers Care Winter Intern Name Role Phone Dominick Torres DO Primary Care Provider [phone] Sonia Jordan MD Primary Care Provider [phone] Dominick Torres DO Primary Care Provider [phone] Encounter Details Date Type Department Care Team (Late st Contact Info) Description 10/16/2015 Abstract [facility] CONVERSION [address] [place] [address] , Generic ConversionMD Social History Tobacco Use Types Packs/Day Years Used Date Smoking Tobacco: Never Assessed Comments Unknown Sex and Gender Information Value Date Recorded Sex Assigned at Female 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 Legal Sex Female 7:39 PM CDT Gender Identity Not on file Sexual Orientation Not on file documented as of this encounter Plan of Treatment Not on file documented as of this encounter Visit Diagnoses Not on filedocumented in this encounter Care Teams Winter Intern Relationship Specialty Start Date End Date Dominick Torres DO [address] [place] [id number] PCP - General 08/01/24 08/23/24 Sonia Jordan MD [address] [place] [id number] PCP - General INTERNAL MEDICINE 08/24/24 10/30/24 Dominick Torres DO [address] [place] [address] PCP - General FAMILY PRACTICE 10/31/24 documented as of this encounter
[2025-01-01 14:57] VITALS: BP 112/66; PULSE 77; RESP 17; TEMP 36.8; O2SAT 99
[2025-01-01 15:07] LABS: EDUAAPPEAR Cloudy; EDUABILI Negative (Negative); EDUABLOOD Trace (Negative); EDUACOLOR1 Yellow; EDUAGLUCOSE Negative (Negative); EDUAKETONE Negative (Negative); EDUALEUKO 2+ (Negative); EDUANITRATE Negative (Negative); EDUAPH 5.5; EDUAPROTEIN Negative (Negative); EDUAUROBILI 0.2
== END 2025-01-01 15:10 | disposition home or self-care (01) ==
PROVIDERS: Emergency Provider Nurse Practitioner; PCP Family Medicine
DX: R82.90 Unspecified abnormal findings in urine (principal); Z87.440 Personal history of urinary (tract) infections
CPT/HCPCS: 81003; 87086; 99213; G0463

== ENCOUNTER 2025-05-24 15:53 | Outpatient (CLI) | payer BC, SELFPAY ==
--- NOTE | ~2025-05-24 | MM_ITS ---
EXAMINATION: MM screening oly BI w day HISTORY: Screening TECHNIQUE: Craniocaudal and mediolateral oblique 3-D tomosynthesis images were obtained and synthetic 2-D images were generated. CAD analysis was submitted and interpreted. COMPARISON: Comparison to multiple prior studies sequentially, with oldest reviewed study dated , 09/14/2013 BREAST PARENCHYMAL COMPOSITION: The breasts are heterogeneously dense, which may obscure small masses. FINDINGS: There is no evidence of suspicious mass, calcification, or architectural distortion to suggest malignancy in either breast. IMPRESSION: 1. No mammographic evidence of malignancy. 2. Recommend routine screening mammography in one year. BI-RADS Category 1: Negative Reviewed, dictated and finalized at location B. ICATION DEVELOPMENT INTERN
== END 2025-05-24 15:54 | disposition home or self-care (01) ==
PROVIDERS: PCP Family Medicine; Visit Provider Obstetrics & Gynecology Gynecology
DX: Z12.31 Encounter for screening mammogram for malignant neoplasm of breast (principal)
CPT/HCPCS: 77063; 77067